=== PATIENT | female | born 1960 | race Caucasian/White ===

== ENCOUNTER 2024-01-12 22:51 | Emergency (ER) | payer OTHER, SELFPAY ==
[2024-01-12 23:01] VITALS: BP 127/80
--- NOTE | 2024-01-12 23:24 | ED.GENMED ---
History of Present Illness
General
Chief Complaint: Alcohol Problem
Source: patient and police
Exam Limitations: other (Patient uncooperative verbally abusive towards staff)
Time Seen by Provider: 01/12/24 23:23
Nursing documentation reviewed up to this point in time: agreed with
Travel History
Have you had any contact with someone who has COVID-19?: No
Do you have any symptoms of coronavirus? Fever > 100 degrees, chills, cough, shortness of breath, sore throat, loss of taste or smell, muscle aches, or headache?: No
History of Present Illness
History of Present Illness:
63-year-old female brought in for suspicion of DUI. She refused a breathalyzer test. She did vomit in the police officers vehicle. Patient refused blood work. Verbally abusive towards staff cursing and refusing all interventions.
Past History
Past History
ED Past Medical History: Hypothyroidism, Psychiatric and Other (overdose, recovering alcoholic, depression, alcohol abuse, degenerative joint disease)
ED Past Surgical History: Orthopedic (Cervical fusion over 20 years ago)
Social History
Tobacco: Vaping
Alcohol: Former
Drug: Former user
Living: with roommate
Employment: Disabled
Family History
Family History: Other (Noncontributory)
Review of Systems
Review of Systems
Allergies reviewed?: Yes
All Other Systems: ROS reviewed and negative except as documented in HPI and ROS
Constitutional: Reports no symptoms
EENT: Reports no symptoms
Respiratory: Reports no symptoms
Cardiac: Reports no symptoms
ABD/GI: Reports nausea and vomiting
: Reports no symptoms
Musculoskeletal: Reports no symptoms
Skin: Reports no symptoms
Neurological: Reports no symptoms
Endocrine: Reports no symptoms
Hematologic/Lymphatic: Reports no symptoms
Psychiatric: Reports anxiety
Phy Exam
General Physical Exam
General Presentation: no apparent distress
General age: appears older than age
General Skin: warm and dry
General Habitus: elderly
General Mental: appears intoxicated
General Hydration: appears well hydrated
Pulmonary Exam
Pulmonary Exam: no respiratory distress
Neurological Exam
Neurological Exam: alert, oriented x3 and appears intoxicated
Musculoskeletal Exam
Musculoskeletal Exam: full ROM
Skin Exam
Skin Exam: normal color and warm/dry
Psychiatric Exam
Psychiatric Exam: agitated and anxious
Scores
Withdrawal Assessment of Alcohol
Withdrawal Assessment Completed?: Not applicable
Course
Vital Signs
Initial and Last Documented VS:
Initial Vital Signs
Temp Pulse Resp BP Pulse Ox
97.8 F 65 20 127/80 97
01/12/24 23:01 01/12/24 23:01 01/12/24 23:01 01/12/24 23:01 01/12/24 23:01
Last Documented Vital Signs
Temp Pulse Resp BP Pulse Ox
97.8 F 65 20 127/80 97
01/12/24 23:01 01/12/24 23:01 01/12/24 23:01 01/12/24 23:01 01/12/24 23:06
*Critical Care Note
Total Time (30-74mins, 75-104mins- exclusive of procedures): Not Applicable
ED Attending Note
-
Portions of this chart may have been created with voice recognition software.� Occasional wrong word or��sound alike� substitutions may have occurred due to the inherent limitations of voice recognition software.
Discharge Plan
Departure
Patient Disposition: Home (Routine Discharge)
Date of Disposition: 01/12/24
Time of Disposition: 23:34
Patient with high blood pressure during this ER visit?: Yes
Discharge Problem:
Alcohol abuse, Vomiting
Instructions: Alcohol Use Disorder (DC), BLOOD PRESSURE
Prescriptions:
No Action
levothyroxine 137 mcg Tablet
137 mcg PO DAILY AT 0700
duloxetine 60 mg capsule,delayed release(DR/EC)
60 mg PO DAILY
famotidine 40 mg tablet
40 mg PO DAILY
dicyclomine 20 mg tablet
20 mg PO BID
budesonide 3 mg capsule,delayed,extend.release
9 mg PO DAILY
multivitamin Tablet
1 tab PO DAILY
vitamin B complex Capsule
1 cap PO DAILY
thiamine HCl (vitamin B1) 100 mg tablet
100 mg PO DAILY
folic acid 1 mg Tablet
1 mg PO DAILY Qty: 10 0RF
amlodipine 5 mg Tablet
5 mg PO BID Qty: 120 0RF
acetaminophen [Acetaminophen Extra Strength] 500 mg Tablet
1,000 mg PO Q6H PRN (Reason: mild pain/ fever)
bupropion HCl 300 mg Tablet Extended Release 24 Hr
300 mg PO DAILY
metoprolol tartrate 50 mg tablet
25 mg PO BID
gabapentin 300 mg capsule
300 mg PO BID
Referrals:
[facility] [Active] -
UNKNOWN - PT DOES,NOT KNOW [Family Provider] -
Interventions
Interventions:
*Risk Screen - Suicide Last Done: 01/12/24 23:06
*Neglect/Abuse Screening Last Done: 01/12/24 23:06
ED- Neurological Assessment Last Done: 01/12/24 23:06
ED-Psychological Assessment Last Done: 01/12/24 23:06
== END 2024-01-13 00:05 | disposition home or self-care (01) ==
LOC: EMR 22:51
PROVIDERS: EMERGENCY PHYSICIAN Student in an Organized Health Care Education/Training Program
DX: F10.10 Alcohol abuse, uncomplicated (principal); R03.0 Elevated blood-pressure reading, without diagnosis of hypertension; R11.2 Nausea with vomiting, unspecified; F17.290 Nicotine dependence, other tobacco product, uncomplicated
CPT/HCPCS: 99283

== ENCOUNTER 2024-02-20 20:49 | Emergency (ER) | payer OTHER, SELFPAY ==
[2024-02-20 20:59] VITALS: BP 149/85
[2024-02-20 22:00] VITALS: BP 178/83
[2024-02-20] MEDS: TYLENOL 650 MG PO (22:02)
[2024-02-20] MEDS: ADACEL 0.5 ML IM (22:03)
[2024-02-20] MEDS: KEFLEX 500 MG PO (22:03)
--- NOTE | 2024-02-20 22:20 | ED.GENMED ---
Addendum entered and electronically signed by Douglas Li DO 02/20/24 23:34:
EKG normal sinus rhythm 70 bpm no ischemic changes
Addendum entered and electronically signed by Douglas Li DO 02/20/24 23:07:
Accu-Chek noted patient strong radial pulse, caregiver concerned that she is passing would like to have some blood work patient denies any alcohol
Addendum entered and electronically signed by Douglas Li DO 02/20/24 22:46:
Update caregiver friend now at bedside questions about why she fell, patient apparently is on the toilet fell over struck her face, prior records reviewed she chronic alcoholism, substance abuse, had been in rehab previously, she is concerned that
she may have low blood sugar which is not unreasonable we will check an Accu-Chek
Original Note:
History of Present Illness
General
Chief Complaint: Fall
Source: patient
Exam Limitations: none
Time Seen by Provider: 02/20/24 21:37
Nursing documentation reviewed up to this point in time: agreed with
Travel History
Have you had any contact with someone who has COVID-19?: No
Do you have any symptoms of coronavirus? Fever > 100 degrees, chills, cough, shortness of breath, sore throat, loss of taste or smell, muscle aches, or headache?: No
History of Present Illness
History of Present Illness:
63-year-old female apparently slipped fell into a shower door struck her face, no loss of consciousness bruising about her nose, no preceding chest pain or shortness of breath no neck pain
Past History
Past History
ED Past Medical History: Hypothyroidism, Psychiatric and Other (overdose, recovering alcoholic, depression, alcohol abuse, degenerative joint disease)
ED Past Surgical History: Orthopedic (Cervical fusion over 20 years ago)
Social History
Tobacco: Vaping
Alcohol: Former
Drug: Former user
Living: with roommate
Employment: Disabled
Family History
Family History: Other (Noncontributory)
Review of Systems
Review of Systems
All Other Systems: Not applicable
EENT: Reports other (Nasal swelling)
Respiratory: Reports no symptoms
Cardiac: Reports no symptoms
ABD/GI: Reports no symptoms
: Reports no symptoms
Musculoskeletal: Reports no symptoms
Phy Exam
Physical Exam
Physical Exam:
Physical Exam
General: Chronically ill-appearing female looks older than stated age marked swelling of the nose small stellate laceration of the bridge of the nose small stellate respiration on the forehead
Neck: No tongue bite no posterior neck pain no septal hematoma
Heart: s1/s2 regular rate and rhythm, no murmur. equal radial pulses.
Lungs: no acute respiratory distress.
Neuro: alert and oriented. no focal neurological deficits
Skin: no rash
Psychiatric: Cooperative
Extremities: no edema.
Course
Orders/Labs/Results
Orders:
Orders
02/20/24 21:05
CT Facial Bones W/o Iv Contras Urgent
Comment:
Reason For Exam: fall, injury
CT Head W/o Iv Contrast Urgent
Comment:
Reason For Exam: fall, injury
02/20/24 21:50
Ice Pack-Treatment DIRECTED
Location: face
Acetaminophen [Tylenol] 650 mg PO NOW STA
Tetanus/Diphth/Acelpertussis [Adacel] 0.5 ml IM .ONCE ONE
02/20/24 21:51
Cephalexin Monohydrate [Keflex] 500 mg PO NOW STA
Vital Signs
Initial and Last Documented VS:
Initial Vital Signs
Temp Pulse Resp BP Pulse Ox
96.5 F L 50 16 149/85 100
02/20/24 20:59 02/20/24 20:59 02/20/24 20:59 02/20/24 20:59 02/20/24 20:59
Last Documented Vital Signs
Temp Pulse Resp BP Pulse Ox
96.5 F L 63 16 178/83 99
02/20/24 20:59 02/20/24 22:00 02/20/24 20:59 02/20/24 22:00 02/20/24 21:40
MDM/Problems Addressed
Differential Diagnosis Includes:
Slip and fall nasal fracture intracerebral hemorrhage,
MDM/Problems Addressed:
Nasal trauma
Chronic conditions affecting care:
Hypertension stroke prior alcohol
Acute Exacerbation and/or Progression of Chronic Illness:
Hypertensive stroke prior alcohol
*Radiology
Radiology exam reviewed: radiology read reviewed
*Pulse Oximetry
Patient hypoxic: no
*Critical Care Note
Total Time (30-74mins, 75-104mins- exclusive of procedures): Not Applicable
Update Note
Update Note:
Update slip and fall, looks like a nasal fracture clinically and radiographically no visualized septal hematoma, update tetanus start on antibiotics provide wound care
ED Attending Note
-
Portions of this chart may have been created with voice recognition software.� Occasional wrong word or��sound alike� substitutions may have occurred due to the inherent limitations of voice recognition software.
Discharge Plan
Departure
Patient Disposition: Home (Routine Discharge)
Date of Disposition: 02/20/24
Time of Disposition: 22:23
Patient with high blood pressure during this ER visit?: No
Condition: Good
Discharge Problem:
Nasal bone fracture
Instructions: Wound Care (DC), Preventing falls in adults, Nose Fracture ED
Prescriptions:
New
cephalexin 500 mg capsule
500 mg PO Q8H 7 Days Qty: 21 0RF
No Action
levothyroxine 137 mcg Tablet
137 mcg PO DAILY AT 0700
duloxetine 60 mg capsule,delayed release(DR/EC)
60 mg PO DAILY
famotidine 40 mg tablet
40 mg PO DAILY
dicyclomine 20 mg tablet
20 mg PO BID
budesonide 3 mg capsule,delayed,extend.release
9 mg PO DAILY
multivitamin Tablet
1 tab PO DAILY
vitamin B complex Capsule
1 cap PO DAILY
thiamine HCl (vitamin B1) 100 mg tablet
100 mg PO DAILY
folic acid 1 mg Tablet
1 mg PO DAILY Qty: 10 0RF
amlodipine 5 mg Tablet
5 mg PO BID Qty: 120 0RF
acetaminophen [Acetaminophen Extra Strength] 500 mg Tablet
1,000 mg PO Q6H PRN (Reason: mild pain/ fever)
bupropion HCl 300 mg Tablet Extended Release 24 Hr
300 mg PO DAILY
metoprolol tartrate 50 mg tablet
25 mg PO BID
gabapentin 300 mg capsule
300 mg PO BID
Referrals:
UNKNOWN - PT DOES,NOT KNOW [Family Provider] -
Felipe Magallanes MD [Active] - Follow up in 5-7 days
Interventions
Interventions:
*Risk Screen - Suicide Last Done: 02/20/24 20:59
*General Assessment Last Done: 02/20/24 21:20
*Neglect/Abuse Screening Last Done: 02/20/24 20:59
ED- Fall Risk Assessment Last Done: 02/20/24 21:39
*ED COVID-19 Vaccine History Last Done: 02/20/24 21:20
ED-Musculoskeletal Assessment Last Done: 02/20/24 21:39
ED- Neurological Assessment Last Done: 02/20/24 21:39
ED-Skin Assessment Last Done: 02/20/24 21:46
Discharge Date and Time
Print Language: TUVALUAN
[2024-02-20 22:49] LABS: Glucose - Point of Care 91 mg/dl (70-99)
[2024-02-20 23:24] VITALS: BP 151/88
[2024-02-21 01:01] LABS: % Basophils 0.8 % (0-2); % Eosinophils 2.8 % (0-6); % Immature Granulocytes 0.4 % (0-0.5); % Lymphocytes 18.5 % (20.5-51.1); % Monocytes 10.1 % (1.7-9.3); % Neutrophils 67.4 % (42.2-75.2); Absolute Basophils 0.1 10^3/uL (0-0.2); Absolute Eosinophils 0.2 10^3/uL (0-0.7); Absolute Lymphocytes 1.5 10^3/uL (1.2-3.4); Absolute Monocytes 0.8 10^3/uL (0.1-0.6); Absolute Neutrophils 5.3 10^3/uL (1.4-6.5); Hematocrit 40.7 % (37.0-47.0); Hemoglobin 13.8 g/dL (12.0-16.0); Mean Corp Hgb Conc. 33.9 g/dL (33.0-37.0); Mean Corpuscular Hgb 30.4 pg (27.0-31.0); Mean Corpuscular Volume 89.6 fL (81.0-99.0); Mean Platelet Volume 8.9 fL (7.4-10.4); Nucleated Red Blood Cells % 0 %; Platelet Count 417 10^3/uL (130-400); Red Blood Cell Count 4.54 10^6/uL (4.20-5.40); Red Cell Dist. Width 12.8 % (11.5-14.5); White Blood Cell Count 7.9 10^3/uL (4.8-10.8)
[2024-02-21 01:17] LABS: ALT (SGPT) 17 U/L (0-35); AST (SGOT) 25 U/L (14-36); Albumin 4.7 g/dl (3.5-5.0); Alkaline Phosphatase 118 U/L (38-126); Blood Urea Nitrogen 15 mg/dl (7-17); Calcium 9.5 mg/dl (8.4-10.2); Carbon Dioxide 25 mmol/L (22-30); Chloride 102 mmol/L (98-107); Glucose 109 mg/dl (70-99); Potassium 4.8 mmol/L (3.5-5.1); Sodium 133 mmol/L (135-145); Total Bilirubin 0.4 mg/dl (0.2-1.3); Total Protein 7.7 g/dl (6.3-8.2); eGFR > 60.00
[2024-02-21 01:18] LABS: Alcohol None Detected
== END 2024-02-21 01:54 | disposition home or self-care (01) ==
LOC: EMR 20:49
PROVIDERS: EMERGENCY PHYSICIAN Emergency Medicine
DX: S02.2XXA Fracture of nasal bones, initial encounter for closed fracture (principal); W18.2XXA Fall in (into) shower or empty bathtub, initial encounter; Y93.E1 Activity, personal bathing and showering; Z23 Encounter for immunization; E03.9 Hypothyroidism, unspecified; F10.21 Alcohol dependence, in remission; F17.290 Nicotine dependence, other tobacco product, uncomplicated; M19.90 Unspecified osteoarthritis, unspecified site
CPT/HCPCS: 99284; 90471; 70450; 70486; 80053; 82077; 82962; 83735; 85025; 90715; 93005

== ENCOUNTER 2024-04-16 15:09 | Emergency (ER) | payer OTHER, SELFPAY ==
[2024-04-16 15:28] LABS: Glucose - Point of Care 108 mg/dl (70-99)
[2024-04-16 15:40] VITALS: BP 136/75
--- NOTE | 2024-04-16 16:02 | ED.GENMED ---
History of Present Illness
General
Chief Complaint: Change in Mental Status
Source: patient
Exam Limitations: none
Time Seen by Provider: 04/16/24 15:15
Nursing documentation reviewed up to this point in time: agreed with
Travel History
Have you had any contact with someone who has COVID-19?: No
Do you have any symptoms of coronavirus? Fever > 100 degrees, chills, cough, shortness of breath, sore throat, loss of taste or smell, muscle aches, or headache?: No
History of Present Illness
History of Present Illness:
Patient status post left hip fracture and repair 1 week ago at [facility], discharged to rehab yesterday, presents to ED from [facility] rehab facility secondary to increased agitation this afternoon. Patient was given 2 mg of Suboxone,
as patient takes her medication daily. Upon arrival to ED, patient is anxious and angry. Unable to obtain any further information at this time.
Past History
Past History
ED Past Medical History: Hypothyroidism, Psychiatric and Other (overdose, recovering alcoholic, depression, alcohol abuse, degenerative joint disease)
ED Past Surgical History: Orthopedic (Cervical fusion over 20 years ago)
Social History
Tobacco: Vaping
Alcohol: Former
Drug: Former user
Living: with roommate
Employment: Disabled
Family History
Family History: Other (Noncontributory)
Review of Systems
Review of Systems
Allergies reviewed?: Yes
Unable to obtain full review of systems at this time due to: due to acuity
All Other Systems: Not applicable
Phy Exam
Physical Exam
Physical Exam:
Physical Exam
General: mild distress, not acutely ill. afebrile. agitated.
Head: nc/at. eomi
Neck: supple. normal range of motion
Neuro: alert and awake. no focal neurological deficits
Skin: no rash
Psychiatric: agitated, uncooperative
Extremities: no edema. no calf tenderness.
Course
Orders/Labs/Results
Orders:
Orders
04/16/24 16:58
Case Management Consult ONCE
Case Management Consult: Discharge Planning
Abnormal Lab Results
04/16/24
15:27
POC Glucose 108 H mg/dl
(70-99)
Vital Signs
Initial and Last Documented VS:
Initial Vital Signs
Temp Pulse Resp BP Pulse Ox
97.4 F 62 14 136/75 97
04/16/24 15:40 04/16/24 15:40 04/16/24 15:40 04/16/24 15:40 04/16/24 15:40
Last Documented Vital Signs
Temp Pulse Resp BP Pulse Ox
97.4 F 66 14 121/78 98
04/16/24 15:40 04/16/24 19:06 04/16/24 19:06 04/16/24 19:06 04/16/24 19:06
MDM/Problems Addressed
MDM/Problems Addressed:
Pt is easily arousable but falls asleep after brief conversation. Pt otherwise is afebrile and hemodynamically stable without any neurological deficit. No indication for any further workup at this time, as patient's etiology for agitation appears to
be circumstantial, confirmed by patient's live-in partner. Despite recent surgery and need for close observation with PT/OT, patient insists upon going home, rather than return back to rehab. Partner comfortable taking her home at this time, as they
live on first floor and had wheelchair and walker at home. As such, patient evaluated by case management, Charlotte, and arrangements made for home RN visit as well as home PT/OT.
*Critical Care Note
Total Time (30-74mins, 75-104mins- exclusive of procedures): Not Applicable
ED Attending Note
-
Portions of this chart may have been created with voice recognition software.� Occasional wrong word or��sound alike� substitutions may have occurred due to the inherent limitations of voice recognition software.
Discharge Plan
Departure
Patient Disposition: Home (Routine Discharge)
Date of Disposition: 04/16/24
Time of Disposition: 18:04
Patient with high blood pressure during this ER visit?: Yes
Condition: Good
Discharge Problem:
Altered mental status
Instructions: Altered Mental Status (DC)
Prescriptions:
No Action
levothyroxine 137 mcg Tablet
137 mcg PO DAILY AT 0700
duloxetine 60 mg capsule,delayed release(DR/EC)
60 mg PO DAILY
famotidine 40 mg tablet
40 mg PO DAILY
dicyclomine 20 mg tablet
20 mg PO BID
budesonide 3 mg capsule,delayed,extend.release
9 mg PO DAILY
multivitamin Tablet
1 tab PO DAILY
vitamin B complex Capsule
1 cap PO DAILY
thiamine HCl (vitamin B1) 100 mg tablet
100 mg PO DAILY
folic acid 1 mg Tablet
1 mg PO DAILY Qty: 10 0RF
amlodipine 5 mg Tablet
5 mg PO BID Qty: 120 0RF
acetaminophen [Acetaminophen Extra Strength] 500 mg Tablet
1,000 mg PO Q6H PRN (Reason: mild pain/ fever)
bupropion HCl 300 mg Tablet Extended Release 24 Hr
300 mg PO DAILY
metoprolol tartrate 50 mg tablet
25 mg PO BID
gabapentin 300 mg capsule
300 mg PO BID
cephalexin 500 mg capsule
500 mg PO Q8H 7 Days Qty: 21 0RF
Referrals:
Tristen Romo MD [Family Provider] -
Activity Restrictions/Additional Instructions:
As discussed, at your request, you are being discharged home, rather than returning to rehab facility. ED case management has made arrangement for home PT/OT, as well as visiting nurse.
Interventions
Interventions:
*Risk Screen - Suicide Last Done: 04/16/24 19:28
*General Assessment Last Done: 04/16/24 18:01
*Neglect/Abuse Screening Last Done: 04/16/24 19:28
ED- Fall Risk Assessment Last Done: 04/16/24 19:28
*ED COVID-19 Vaccine History Last Done: 04/16/24 18:01
*Nursing Disposition Last Done: 04/16/24 19:28
ED- Neurological Assessment Last Done: 04/16/24 16:00
ED-Psychological Assessment Last Done: 04/16/24 15:30
ED Swallowing Screen Last Done: 04/16/24 19:27
Discharge Date and Time
Discharge Date/Time: 04/16/24 19:29
Print Language: UPPER SORBIAN
--- NOTE | 2024-04-16 17:20 | CM ---
Addendum entered by Charlotte Heredia RN 04/17/24 12:19:
[facility] confirmed that patient had been referred to them in the past and she was uncooperative with visits. [facility] was unable to provide care.
CM did confirm that [facility] is now able to accept.
Addendum entered by Charlotte Heredia RN 04/17/24 09:51:
[facility] cannot accept as patient is a 'non-admit'. [facility] is now able to accept.
Addendum entered by Charlotte Heredia RN 04/17/24 08:58:
[facility] unable to accept. Referral sent to [facility].
Original Note:
CM was consulted regarding home care services. CM spoke with patient's room mate Darnell. Patient was sleeping during assessment. Patient's room mate stated that she was recently at [facility] for change in mental status. During that stay,
patient wanted to leave AMA. Patient left on foot out of [facility] where state police found her. Patient has fallen while attempting to walk home. Patient sustained a hip fracture. She was then hospitalized for 7 days . Subsequently, she
was transferred to [facility] on 04/15.
Patient then presented to the ER from [facility] with aggressive behavior. She does not want to return to [facility]. Patient's room mate is agreeable to [facility]. Patient's room mate did state that the apartment is cluttered.
Of note, patient is room mate paid care director rn.Patient's room mate is able to drive patient home.
CM sent referral via [facility] to [facility].
[2024-04-16 17:30] VITALS: BP 114/66
[2024-04-16 19:06] VITALS: BP 121/78
== END 2024-04-16 19:29 | disposition home or self-care (01) ==
LOC: EMR 15:09
PROVIDERS: EMERGENCY PHYSICIAN Emergency Medicine; FAMILY PHYSICIAN Internal Medicine
DX: R41.82 Altered mental status, unspecified (principal); R45.1 Restlessness and agitation; R03.0 Elevated blood-pressure reading, without diagnosis of hypertension; E03.9 Hypothyroidism, unspecified; M19.90 Unspecified osteoarthritis, unspecified site; E11.9 Type 2 diabetes mellitus without complications; D64.9 Anemia, unspecified; F41.9 Anxiety disorder, unspecified; I25.10 Atherosclerotic heart disease of native coronary artery without angina pectoris; I10 Essential (primary) hypertension; K52.9 Noninfective gastroenteritis and colitis, unspecified; F10.21 Alcohol dependence, in remission; F17.290 Nicotine dependence, other tobacco product, uncomplicated; F32.A Depression, unspecified; I25.2 Old myocardial infarction; Z98.890 Other specified postprocedural states; M43.22 Fusion of spine, cervical region; Z86.19 Personal history of other infectious and parasitic diseases
CPT/HCPCS: 99283; 82962

== ENCOUNTER 2024-04-27 15:18 | Emergency (ER) | payer OTHER, SELFPAY ==
[2024-04-27 15:22] VITALS: BP 103/70
[2024-04-27 16:00] VITALS: BP 94/58
[2024-04-27 16:03] LABS: % Basophils 0.7 % (0-2); % Eosinophils 4.1 % (0-6); % Immature Granulocytes 0.3 % (0-0.5); % Lymphocytes 18.6 % (20.5-51.1); % Monocytes 11.7 % (1.7-9.3); % Neutrophils 64.6 % (42.2-75.2); Absolute Eosinophils 0.2 10^3/uL (0-0.7); Absolute Lymphocytes 1.1 10^3/uL (1.2-3.4); Absolute Monocytes 0.7 10^3/uL (0.1-0.6); Absolute Neutrophils 3.8 10^3/uL (1.4-6.5); Hematocrit 26.7 % (37.0-47.0); Hemoglobin 8.8 g/dL (12.0-16.0); Mean Corpuscular Hgb 30.2 pg (27.0-31.0); Mean Corpuscular Volume 91.8 fL (81.0-99.0); Nucleated Red Blood Cells % 0 %; Platelet Count 351 10^3/uL (130-400); Red Blood Cell Count 2.91 10^6/uL (4.20-5.40); Red Cell Dist. Width 14.8 % (11.5-14.5); White Blood Cell Count 5.8 10^3/uL (4.8-10.8)
[2024-04-27 16:10] LABS: Ammonia < 9 umol/L (9-30)
[2024-04-27 16:13] LABS: ALT (SGPT) 15 U/L (0-35); AST (SGOT) 21 U/L (14-36); Acetaminophen < 10 ug/ml (10-30); Albumin 4.1 g/dl (3.5-5.0); Alkaline Phosphatase 155 U/L (38-126); Blood Urea Nitrogen 14 mg/dl (7-17); Calcium 9.4 mg/dl (8.4-10.2); Carbon Dioxide 26 mmol/L (22-30); Chloride 107 mmol/L (98-107); Glucose 127 mg/dl (70-99); Potassium 3.7 mmol/L (3.5-5.1); Salicylate < 1.0 mg/dl (2.0-20.0); Sodium 143 mmol/L (135-145); Total Bilirubin 0.3 mg/dl (0.2-1.3); Total Protein 6.6 g/dl (6.3-8.2); eGFR > 60.00
[2024-04-27 16:19] LABS: Amphetamines Negative (Negative); Barbiturates Negative (Negative); Benzodiazepines Negative (Negative); Buprenorphine Positive (Negative); Cocaine Negative (Negative); Marijuana Negative (Negative); Methadone Negative (Negative); Methamphetamines Negative (Negative); Opiates Negative (Negative); Phencyclidine Negative (Negative); Tricyclic Antidepressants Negative (Negative)
--- NOTE | 2024-04-27 16:20 | ED.GENMED ---
History of Present Illness
<TERRY Gamboa - Last Filed: 04/27/24 22:12>
General
Chief Complaint: Change in Mental Status
Exam Limitations: altered mental status
Time Seen by Provider: 04/27/24 15:42
Nursing documentation reviewed up to this point in time: agreed with
Travel History
Have you had any contact with someone who has COVID-19?: No
Do you have any symptoms of coronavirus? Fever > 100 degrees, chills, cough, shortness of breath, sore throat, loss of taste or smell, muscle aches, or headache?: No
History of Present Illness
History of Present Illness:
63 yr old female with past medical history of alcohol abuse substance abuse depression hep C intracranial bleed was brought by EMS. Patient apparently was acting erratic outside and [facility] banging her head again car windows. EMS report the patient
was in and out of it' dipping out' and ride to the hospital. During my exam patient was sleeping after several times calling her name she awoke. Patient is oriented however intermittently falling asleep spontaneously throughout questioning.
She admits that she is on Suboxone
She had as documented in history left hip fracture repaired in March at [facility].
Past History
<TERRY Gamboa - Last Filed: 04/27/24 22:12>
Past History
ED Past Medical History: Hypothyroidism, Psychiatric and Other (overdose, recovering alcoholic, depression, alcohol abuse, degenerative joint disease)
ED Past Surgical History: Orthopedic (Cervical fusion over 20 years ago)
Social History
Tobacco: Vaping
Alcohol: Former
Drug: Former user
Living: with roommate
Employment: Disabled
Family History
Family History: Other (Noncontributory)
Phy Exam
<TERRY Gamboa - Last Filed: 04/27/24 22:12>
General Physical Exam
General Presentation: no apparent distress
General age: appears stated age
General Skin: warm and dry
General Habitus: elderly
General Mental: alert
General Hydration: appears well hydrated
Cardiovascular Exam
Cardiovascular Exam: regular rate/rhythm, no murmur and normal peripheral pulses
Pulmonary Exam
Pulmonary Exam: lungs clear and no respiratory distress
Neurological Exam
Neurological Exam: alert and other (Appear sleeping but when awoken will answer questions and is orientedx3 moves all extremities )
Musculoskeletal Exam
Musculoskeletal Exam: other (lle with healing incisions to left lateral hip no wound dehiscence no erythema or swelling full range of motion)
Skin Exam
Skin Exam: normal color and warm/dry
Psychiatric Exam
Psychiatric Exam: normal mood/affect
Course
<TERRY Gamboa - Last Filed: 04/27/24 22:12>
Orders/Labs/Results
Orders:
Orders
04/27/24 15:42
Acetaminophen Urgent
Alcohol Urgent
Ammonia Urgent
Complete Blood Count/With Diff Urgent
Comprehensive Metabolic Panel Urgent
Fentanyl, Urine Urgent
Salicylate Urgent
Urine Drug Abuse Screen Urgent
Date Specimen was Collected: 04/27/24
Time Specimen was Collected: 15:35
04/27/24 16:27
CT Head W/o Iv Contrast Urgent
Comment:
Reason For Exam: trauma
04/27/24 16:28
0.9% Sodium Chloride 1000 ml [Nss] 1,000 ml IV BOLUS
04/27/24 17:37
Add On- LAB Urgent
Tests Added?: alcohol
Abnormal Lab Results
04/27/24
15:42
RBC 2.91 L 10^6/uL
(4.20-5.40)
Hgb 8.8 L g/dL
(12.0-16.0)
Hct 26.7 L %
(37.0-47.0)
RDW 14.8 H %
(11.5-14.5)
Absolute Lymphs (auto) 1.1 L 10^3/uL
(1.2-3.4)
Absolute Monos (auto) 0.7 H 10^3/uL
(0.1-0.6)
Lymphocytes % 18.6 L %
(20.5-51.1)
Monocytes % 11.7 H %
(1.7-9.3)
Glucose 127 H mg/dl
(70-99)
Alkaline Phosphatase 155 H U/L
(38-126)
Ammonia < 9 L umol/L
(9-30)
Salicylates < 1.0 L mg/dl
(2.0-20.0)
Ur Buprenorphine Positive H
(Negative)
Acetaminophen < 10 L ug/ml
(10-30)
04/27/24 15:42
04/27/24 15:42
Vital Signs
Initial and Last Documented VS:
Initial Vital Signs
Temp Pulse Resp
98.1 F 79 18
04/27/24 15:20 04/27/24 15:20 04/27/24 15:20
Last Documented Vital Signs
Temp Pulse Resp BP Pulse Ox
98.2 F 74 18 100/62 99
04/27/24 19:37 04/27/24 19:37 04/27/24 19:37 04/27/24 19:37 04/27/24 19:37
<Adán Moore, DO - Last Filed: 04/27/24 19:19>
Orders/Labs/Results
Orders:
Orders
04/27/24 15:42
Acetaminophen Urgent
Alcohol Urgent
Ammonia Urgent
Complete Blood Count/With Diff Urgent
Comprehensive Metabolic Panel Urgent
Fentanyl, Urine Urgent
Salicylate Urgent
Urine Drug Abuse Screen Urgent
Date Specimen was Collected: 04/27/24
Time Specimen was Collected: 15:35
04/27/24 16:27
CT Head W/o Iv Contrast Urgent
Comment:
Reason For Exam: trauma
04/27/24 16:28
0.9% Sodium Chloride 1000 ml [Nss] 1,000 ml IV BOLUS
04/27/24 17:37
Add On- LAB Urgent
Tests Added?: alcohol
Abnormal Lab Results
04/27/24
15:42
RBC 2.91 L 10^6/uL
(4.20-5.40)
Hgb 8.8 L g/dL
(12.0-16.0)
Hct 26.7 L %
(37.0-47.0)
RDW 14.8 H %
(11.5-14.5)
Absolute Lymphs (auto) 1.1 L 10^3/uL
(1.2-3.4)
Absolute Monos (auto) 0.7 H 10^3/uL
(0.1-0.6)
Lymphocytes % 18.6 L %
(20.5-51.1)
Monocytes % 11.7 H %
(1.7-9.3)
Glucose 127 H mg/dl
(70-99)
Alkaline Phosphatase 155 H U/L
(38-126)
Ammonia < 9 L umol/L
(9-30)
Salicylates < 1.0 L mg/dl
(2.0-20.0)
Ur Buprenorphine Positive H
(Negative)
Acetaminophen < 10 L ug/ml
(10-30)
04/27/24 15:42
04/27/24 15:42
Vital Signs
Initial and Last Documented VS:
Initial Vital Signs
Temp Pulse Resp
98.1 F 79 18
04/27/24 15:20 04/27/24 15:20 04/27/24 15:20
Last Documented Vital Signs
Temp Pulse Resp BP Pulse Ox
98.2 F 74 18 100/62 99
04/27/24 19:37 04/27/24 19:37 04/27/24 19:37 04/27/24 19:37 04/27/24 19:37
<TERRY Gamboa - Last Filed: 04/27/24 22:12>
MDM/Problems Addressed
Differential Diagnosis Includes:
Not limited to medication reaction drug use
MDM/Problems Addressed:
Patient is a 63-year-old female who was found at [facility] acting erratically brought by EMS. EMS reports the patient was intermittently falling asleep/' dipping out.' On my exam as documented patient was sleeping after several times calling her name
she did wake up. She is awake alert and oriented . She does have chronic pain. She is on buprenorphine. She denies any recent alcohol use. She has scattered old bruising to her face. CT head was done and negative. She is afebrile. She denies
any recent fevers. She does report that she recently had hip fracture and surgery done in [place] 2 weeks ago. She does tell me that she required 2 units of blood because she was anemic. Her hemoglobin today is 8.8 (which is significant lower
than last hemoglobin that was done here in February 2024 however that was prior to her hip fracture. Her chemistries are unremarkable. She is positive for buprenorphine negative for opiates negative for fentanyl negative for benzos.
1800: Caregiver who lives the patient is at bedside and reports that patient was doing very well today in fact drove herself to [facility]. He reports she is intermittently falling asleep and having outbursts. He reports the last time she got this is
why she was taking baclofen. Patient does admit to taking baclofen today and this is likely the cause. Patient had a lunch box here and is more awake alert.
Evaluated by ED physician no other concerning findings stable for discharge home with patient's remaining caregiver
<TERRY Gamboa - Last Filed: 04/27/24 22:12>
*Radiology
Radiology exam reviewed: radiology read reviewed
*Pulse Oximetry
Patient hypoxic: no
*Critical Care Note
Total Time (30-74mins, 75-104mins- exclusive of procedures): Not Applicable
ED Attending Note
<TERRY Gamboa - Last Filed: 04/27/24 22:12>
-
Portions of this chart may have been created with voice recognition software.� Occasional wrong word or��sound alike� substitutions may have occurred due to the inherent limitations of voice recognition software.
<Adán Moore DO - Last Filed: 04/27/24 19:19>
ED Attending Note
Patient seen and examined by attending physician: Yes
I performed the substantive portion of visit, reviewed & personally made and approve the management plan that is documented in note by myself or KELLEY.: Yes
ED Attending Note:
63-year-old female who presents after was acting erratic at a [facility]. Patient states that she sort of fell and Mikaela somebody became worried about her. She does admit she took baclofen this morning which she normally takes at night. She also is on
Suboxone. Patient on my evaluation is much improved but she was on arrival somewhat somnolent. Exam: Awake and alert, no focal deficits, speech normal, patient eating a sandwich when I am evaluating her. Assessment and plan: I do suspect this is
related to taking the baclofen and the combination of buprenorphine. She normally takes it at night and in the past when she takes it during the day has made her sleepy. Recommended that she does not drive while taking baclofen. Patient and
significant other agree. Outpatient follow-up recommended
Discharge Plan
Departure
Patient Disposition: Home (Routine Discharge)
Date of Disposition: 04/27/24
Time of Disposition: 19:19
Patient with high blood pressure during this ER visit?: No
Condition: Fair
Covid-19: Not Applicable
Discharge Problem:
Acute alteration in mental status
Instructions: Altered Mental Status (DC)
Prescriptions:
No Action
levothyroxine 137 mcg Tablet
137 mcg PO DAILY AT 0700
duloxetine 60 mg capsule,delayed release(DR/EC)
60 mg PO DAILY
famotidine 40 mg tablet
40 mg PO DAILY
dicyclomine 20 mg tablet
20 mg PO BID
budesonide 3 mg capsule,delayed,extend.release
9 mg PO DAILY
multivitamin Tablet
1 tab PO DAILY
vitamin B complex Capsule
1 cap PO DAILY
thiamine HCl (vitamin B1) 100 mg tablet
100 mg PO DAILY
folic acid 1 mg Tablet
1 mg PO DAILY Qty: 10 0RF
amlodipine 5 mg Tablet
5 mg PO BID Qty: 120 0RF
acetaminophen [Acetaminophen Extra Strength] 500 mg Tablet
1,000 mg PO Q6H PRN (Reason: mild pain/ fever)
bupropion HCl 300 mg Tablet Extended Release 24 Hr
300 mg PO DAILY
metoprolol tartrate 50 mg tablet
25 mg PO BID
gabapentin 300 mg capsule
300 mg PO BID
cephalexin 500 mg capsule
500 mg PO Q8H 7 Days Qty: 21 0RF
Referrals:
UNKNOWN,NO INTERVIEW [Family Provider] -
Activity Restrictions/Additional Instructions:
Take medication only as directed. Return if any worsening of symptoms. As discussed you are still anemic with a hemoglobin 8.8. Please follow-up with your family doctor for further evaluation
Interventions
Interventions:
*Risk Screen - Suicide Last Done: 04/27/24 15:20
*General Assessment Last Done: 04/27/24 15:20
*Neglect/Abuse Screening Last Done: 04/27/24 15:20
ED- Fall Risk Assessment Last Done: 04/27/24 15:49
*ED COVID-19 Vaccine History Last Done: 04/27/24 15:20
*Nursing Disposition Last Done: 04/27/24 19:37
ED- Pulmonary Assessment Last Done: 04/27/24 19:37
ED-Psychological Assessment Last Done: 04/27/24 15:20
ED- Neurological Assessment Last Done: 04/27/24 15:49
ED- Cardiac Assessment Last Done: 04/27/24 15:49
ED Swallowing Screen Last Done: 04/27/24 18:30
Discharge Date and Time
Discharge Date/Time: 04/27/24 19:40
Print Language: CITIZEN OF [place]
[2024-04-27 16:43] LABS: Fentanyl, Urine Negative (Negative)
[2024-04-27 18:24] LABS: Alcohol None Detected
[2024-04-27 19:37] VITALS: BP 100/62
== END 2024-04-27 19:40 | disposition home or self-care (01) ==
LOC: EMR 15:18
PROVIDERS: EMERGENCY PHYSICIAN Emergency Medicine
DX: R41.82 Altered mental status, unspecified (principal); F32.A Depression, unspecified; Z86.19 Personal history of other infectious and parasitic diseases; E03.9 Hypothyroidism, unspecified; D64.9 Anemia, unspecified; F10.21 Alcohol dependence, in remission; F17.290 Nicotine dependence, other tobacco product, uncomplicated
CPT/HCPCS: 99284; 70450; 80053; 80143; 80179; 80306; 80307; 82077; 82140; 85025

== ENCOUNTER 2024-06-13 23:27 | Inpatient (IN) | payer OTHER, SELFPAY ==
[2024-06-13] MEDS: HALDOL 5 MG IM (18:05)
[2024-06-13] MEDS: ATIVAN 1 MG IV ×2 (18:05→22:57)
[2024-06-13 18:39] LABS: % Basophils 0.7 % (0-2); % Eosinophils 2.2 % (0-6); % Immature Granulocytes 0.4 % (0-0.5); % Lymphocytes 12.1 % (20.5-51.1); % Monocytes 6.8 % (1.7-9.3); % Neutrophils 77.8 % (42.2-75.2); Absolute Basophils 0.1 10^3/uL (0-0.2); Absolute Eosinophils 0.2 10^3/uL (0-0.7); Absolute Lymphocytes 1.2 10^3/uL (1.2-3.4); Absolute Monocytes 0.7 10^3/uL (0.1-0.6); Absolute Neutrophils 7.6 10^3/uL (1.4-6.5); Hematocrit 31.5 % (37.0-47.0); Hemoglobin 10.6 g/dL (12.0-16.0); Mean Corp Hgb Conc. 33.7 g/dL (33.0-37.0); Mean Corpuscular Volume 89.2 fL (81.0-99.0); Mean Platelet Volume 8.6 fL (7.4-10.4); Nucleated Red Blood Cells % 0 %; Platelet Count 420 10^3/uL (130-400); Red Blood Cell Count 3.53 10^6/uL (4.20-5.40); Red Cell Dist. Width 13.5 % (11.5-14.5); White Blood Cell Count 9.7 10^3/uL (4.8-10.8)
[2024-06-13 19:00] VITALS: BP 105/71; BP 110/60
[2024-06-13 19:07] LABS: ALT (SGPT) 15 U/L (0-35); AST (SGOT) 22 U/L (14-36); Albumin 4.9 g/dl (3.5-5.0); Alkaline Phosphatase 138 U/L (38-126); Blood Urea Nitrogen 15 mg/dl (7-17); Calcium 10.1 mg/dl (8.4-10.2); Carbon Dioxide 21 mmol/L (22-30); Chloride 108 mmol/L (98-107); Glucose 105 mg/dl (70-99); Potassium 3.6 mmol/L (3.5-5.1); Sodium 141 mmol/L (135-145); Total Bilirubin 0.4 mg/dl (0.2-1.3); Total Protein 7.6 g/dl (6.3-8.2); eGFR > 60.00
--- NOTE | 2024-06-13 19:08 | ED.GENMED ---
History of Present Illness
<Adán Moore DO - Last Filed: 06/13/24 19:16>
General
Chief Complaint: Crisis Evaluation
Source: patient and ambulance crew
Exam Limitations: clinical condition
Time Seen by Provider: 06/13/24 18:03
History of Present Illness
History of Present Illness:
63-year-old female who presents acutely agitated. Friend came to pick her up for an AA meeting and found her to be verbally and physically aggressive. EMS arrived the patient escalated. She did come down for short period time but quickly
escalated with name-calling. EMS was able to give her a dose of Versed. Patient arrives cursing at staff and trying to climb out of bed. she also attempted to punch and kick staff. Patient reportedly has had similar outburst in the past both here
and at [facility]
Past History
<Adán Moore DO - Last Filed: 06/13/24 19:16>
Past History
ED Past Medical History: Hypothyroidism, Psychiatric and Other (overdose, recovering alcoholic, depression, alcohol abuse, degenerative joint disease)
ED Past Surgical History: Orthopedic (Cervical fusion over 20 years ago)
Social History
Tobacco: Vaping
Alcohol: Former
Drug: Former user
Living: with roommate
Employment: Disabled
Family History
Family History: Other (Noncontributory)
Phy Exam
<Adán Moore DO - Last Filed: 06/13/24 19:16>
Physical Exam
Physical Exam:
CONSTITUTIONAL Patient alert and oriented to person. Acutely agitated. Vital signs reviewed.
HEAD atraumatic, normocephalic.
EYES eyelids normal to inspection, Extraocular muscles intact, Conjunctiva normal, Sclera normal. She does have a healing right periorbital ecchymosis
NECK normal range of motion, Trachea midline, no jugular venous distention.
RESPIRATORY CHEST No respiratory distress noted, Chest expansion equal
ABDOMEN No distention.
BACK normal inspection, no obvious deformities
UPPER EXTREMITY range of motion normal, Motor strength normal, no cyanosis, no edema.
LOWER EXTREMITY range of motion normal, Motor strength normal, no cyanosis, no edema.
NEURO is able to aggressively move all extremities with normal strength. Cranial nerves are intact. Patient will not cooperate for detailed exam but actively fighting staff with normal
Course
<Adán Moore, - Last Filed: 06/13/24 19:16>
Orders/Labs/Results
Orders:
Orders
06/13/24 Dinner
Regular
At Your Request: Limited, Rib Cutter Required
06/13/24 18:05
Haloperidol Lactate [Haldol] 5 mg .ROUTE .STK-MED ONE
Haloperidol Lactate [Haldol] 5 mg IM NOW STA
Lorazepam [Ativan] 1 mg IV NOW STA
Lorazepam [Ativan] 2 mg .ROUTE .STK-MED ONE
06/13/24 18:10
Electrocardiogram (*1) Urgent
Reason for Study: Other
Other Reason for Exam: change in ms
EKG- Treatment ONCE
06/13/24 18:17
Restraints - Non Violent As Directed
Justification-Patient:: 2-Protective Intervention
Restraint Type-: Soft Limb-4 point/4 rails
Apply From (date): 06/13/24
Apply from (time): 18:10
Remove (date): 06/14/24
Remove (time): 23:59
06/13/24 18:28
Alcohol Urgent
Complete Blood Count/With Diff Urgent
Comprehensive Metabolic Panel Urgent
06/13/24 19:20
CT Head W/o Iv Contrast Urgent
Comment:
Reason For Exam: change in ms, h/o ICH
06/13/24 20:31
Fentanyl, Urine Urgent
Urinalysis Urgent
Date Specimen was Collected: 06/13/24
Time Specimen was Collected: 20:30
Urine Drug Abuse Screen Urgent
Date Specimen was Collected: 06/13/24
Time Specimen was Collected: 20:30
06/13/24 22:53
Haloperidol Lactate [Haldol] 5 mg IV NOW STA
Lorazepam [Ativan] 1 mg IV NOW STA
06/13/24 22:54
Lorazepam [Ativan] 2 mg .ROUTE .STK-MED ONE
06/13/24 22:55
Haloperidol Lactate [Haldol] 5 mg .ROUTE .STK-MED ONE
06/13/24 23:10
Admit/Transfer Patient As Directed
Co-Sign Provider:
Level of Care: Inpatient admission
Assign to:: Medical/Surgical
Physician / Group: kailey
Diagnosis: agitation, alcohol withdrawal
Reason for Hospitalization: agitation, alcohol withdrawal
Expected length of stay greater than two midnights?: Yes
ELOS- Estimated Length of Stay in days: 2
I certify the patient meets the requirements for IP care: Yes
Code Status As Directed
Resuscitation Status: Full Code
06/13/24 23:13
Add On- LAB Urgent
Tests Added?: urinalysis
06/13/24 23:39
0.9% Sodium Chloride 1000 ml [Nss] 1,000 ml IV 80 mls/hr
0.9% Sodium Chloride [Nss (Preservative Free)] See Protocol IV PRN PRN
FOLic ACID [Folvite] 1 mg 0.9% Sodium Chloride 50 ml [Nss] 50 ml IV DAILYPRN
Haloperidol Lactate [Haldol] 1 mg IV Q4HPRN PRN
Lorazepam [Ativan] 1 mg IV Q1HPRN PRN
Lorazepam [Ativan] 1 mg PO Q2HPRN PRN
Lorazepam [Ativan] 2 mg IV Q1HPRN PRN
07/29/24 23:39
Activity As Directed
Activity Level: As Tolerated
MSAS SCORE As Directed
MSAS Score 0-4: Repeat MSAS every 2 hours until 0-4 for three consecutive assessments, then every 4 hours x 48
hours.
MSAS Score 5-7: For MILD withdrawl symptoms. Repeat MSAS and RASS every 2 hours
MSAS Score 8-11: For MODERATE withdrawal symptoms. Repeat MSAS and RASS every 1 hour. Consider ICU or IMU
level of care.
MSAS Score > 11: For SEVERE withdrawal symptoms. Repeat MSAS and RASS every 1 hour. Notify provider, consider
ICU level of care.
MSAS Additional Instructions: If no improvement or no decrease in score from severe to moderate within 12
hours, consult psychiatry
MSAS Notify Provider: Notify provider if patient requires more than 10 mg of Lorazepam in eight hour period.
Pneumatic Compression Sleeves As Directed
Type: Knee high
Vital Signs As Directed
Frequency: Per unit guidelines
DX Deep Vein Thrombosis Video Routine
06/14/24 00:00
Thiamine Injection 200 mg IV Q8
06/14/24 07:02
Complete Blood Count/With Diff IN AM
Comprehensive Metabolic Panel IN AM
06/14/24 08:00
FOLic ACID [Folvite] 1 mg PO DAILY
06/17/24 08:00
Thiamine HCl [Vitamin B1] 100 mg PO BID
Abnormal Lab Results
06/13/24 06/13/24
18:28 20:31
RBC 3.53 L 10^6/uL
(4.20-5.40)
Hgb 10.6 L g/dL
(12.0-16.0)
Hct 31.5 L %
(37.0-47.0)
Plt Count 420 H 10^3/uL
(130-400)
Absolute Neuts (auto) 7.6 H 10^3/uL
(1.4-6.5)
Absolute Monos (auto) 0.7 H 10^3/uL
(0.1-0.6)
Neutrophils % 77.8 H %
(42.2-75.2)
Lymphocytes % 12.1 L %
(20.5-51.1)
Chloride 108 H mmol/L
(98-107)
Carbon Dioxide 21 L mmol/L
(22-30)
Glucose 105 H mg/dl
(70-99)
Alkaline Phosphatase 138 H U/L
(38-126)
Ur Buprenorphine Positive H
(Negative)
U Benzodiazepines Scrn Positive H
(Negative)
06/13/24 18:28
06/13/24 18:28
Vital Signs
Initial and Last Documented VS:
Initial Vital Signs
Pulse Resp
63 15
06/13/24 18:33 06/13/24 18:33
Last Documented Vital Signs
Temp Pulse Resp BP Pulse Ox
98.6 F 87 18 176/90 100
06/14/24 15:57 06/14/24 18:26 06/14/24 15:57 06/14/24 18:26 06/14/24 17:59
<Nitesh Zamudio MD - Last Filed: 06/14/24 19:13>
Orders/Labs/Results
Orders:
Orders
06/13/24 Dinner
Regular
At Your Request: Limited, Rib Cutter Required
06/13/24 18:05
Haloperidol Lactate [Haldol] 5 mg .ROUTE .STK-MED ONE
Haloperidol Lactate [Haldol] 5 mg IM NOW STA
Lorazepam [Ativan] 1 mg IV NOW STA
Lorazepam [Ativan] 2 mg .ROUTE .STK-MED ONE
06/13/24 18:10
Electrocardiogram (*1) Urgent
Reason for Study: Other
Other Reason for Exam: change in ms
EKG- Treatment ONCE
06/13/24 18:17
Restraints - Non Violent As Directed
Justification-Patient:: 2-Protective Intervention
Restraint Type-: Soft Limb-4 point/4 rails
Apply From (date): 06/13/24
Apply from (time): 18:10
Remove (date): 06/14/24
Remove (time): 23:59
06/13/24 18:28
Alcohol Urgent
Complete Blood Count/With Diff Urgent
Comprehensive Metabolic Panel Urgent
06/13/24 19:20
CT Head W/o Iv Contrast Urgent
Comment:
Reason For Exam: change in ms, h/o ICH
06/13/24 20:31
Fentanyl, Urine Urgent
Urinalysis Urgent
Date Specimen was Collected: 06/13/24
Time Specimen was Collected: 20:30
Urine Drug Abuse Screen Urgent
Date Specimen was Collected: 06/13/24
Time Specimen was Collected: 20:30
06/13/24 22:53
Haloperidol Lactate [Haldol] 5 mg IV NOW STA
Lorazepam [Ativan] 1 mg IV NOW STA
06/13/24 22:54
Lorazepam [Ativan] 2 mg .ROUTE .STK-MED ONE
06/13/24 22:55
Haloperidol Lactate [Haldol] 5 mg .ROUTE .STK-MED ONE
06/13/24 23:10
Admit/Transfer Patient As Directed
Co-Sign Provider:
Level of Care: Inpatient admission
Assign to:: Medical/Surgical
Physician / Group: kailey
Diagnosis: agitation, alcohol withdrawal
Reason for Hospitalization: agitation, alcohol withdrawal
Expected length of stay greater than two midnights?: Yes
ELOS- Estimated Length of Stay in days: 2
I certify the patient meets the requirements for IP care: Yes
Code Status As Directed
Resuscitation Status: Full Code
06/13/24 23:13
Add On- LAB Urgent
Tests Added?: urinalysis
06/13/24 23:39
0.9% Sodium Chloride 1000 ml [Nss] 1,000 ml IV 80 mls/hr
0.9% Sodium Chloride [Nss (Preservative Free)] See Protocol IV PRN PRN
FOLic ACID [Folvite] 1 mg 0.9% Sodium Chloride 50 ml [Nss] 50 ml IV DAILYPRN
Haloperidol Lactate [Haldol] 1 mg IV Q4HPRN PRN
Lorazepam [Ativan] 1 mg IV Q1HPRN PRN
Lorazepam [Ativan] 1 mg PO Q2HPRN PRN
Lorazepam [Ativan] 2 mg IV Q1HPRN PRN
06/13/24 23:39
Activity As Directed
Activity Level: As Tolerated
MSAS SCORE As Directed
MSAS Score 0-4: Repeat MSAS every 2 hours until 0-4 for three consecutive assessments, then every 4 hours x 48
hours.
MSAS Score 5-7: For MILD withdrawl symptoms. Repeat MSAS and RASS every 2 hours
MSAS Score 8-11: For MODERATE withdrawal symptoms. Repeat MSAS and RASS every 1 hour. Consider ICU or IMU
level of care.
MSAS Score > 11: For SEVERE withdrawal symptoms. Repeat MSAS and RASS every 1 hour. Notify provider, consider
ICU level of care.
MSAS Additional Instructions: If no improvement or no decrease in score from severe to moderate within 12
hours, consult psychiatry
MSAS Notify Provider: Notify provider if patient requires more than 10 mg of Lorazepam in eight hour period.
Pneumatic Compression Sleeves As Directed
Type: Knee high
Vital Signs As Directed
Frequency: Per unit guidelines
DX Deep Vein Thrombosis Video Routine
06/14/24 00:00
Thiamine Injection 200 mg IV Q8
06/14/24 07:02
Complete Blood Count/With Diff IN AM
Comprehensive Metabolic Panel IN AM
06/14/24 08:00
FOLic ACID [Folvite] 1 mg PO DAILY
06/17/24 08:00
Thiamine HCl [Vitamin B1] 100 mg PO BID
Abnormal Lab Results
06/13/24 06/13/24
18:28 20:31
RBC 3.53 L 10^6/uL
(4.20-5.40)
Hgb 10.6 L g/dL
(12.0-16.0)
Hct 31.5 L %
(37.0-47.0)
Plt Count 420 H 10^3/uL
(130-400)
Absolute Neuts (auto) 7.6 H 10^3/uL
(1.4-6.5)
Absolute Monos (auto) 0.7 H 10^3/uL
(0.1-0.6)
Neutrophils % 77.8 H %
(42.2-75.2)
Lymphocytes % 12.1 L %
(20.5-51.1)
Chloride 108 H mmol/L
(98-107)
Carbon Dioxide 21 L mmol/L
(22-30)
Glucose 105 H mg/dl
(70-99)
Alkaline Phosphatase 138 H U/L
(38-126)
Ur Buprenorphine Positive H
(Negative)
U Benzodiazepines Scrn Positive H
(Negative)
06/13/24 18:28
06/13/24 18:28
Vital Signs
Initial and Last Documented VS:
Initial Vital Signs
Pulse Resp
63 15
06/13/24 18:33 06/13/24 18:33
Last Documented Vital Signs
Temp Pulse Resp BP Pulse Ox
98.6 F 87 18 176/90 100
06/14/24 15:57 06/14/24 18:26 06/14/24 15:57 06/14/24 18:26 06/14/24 17:59
<Adán Moore DO - Last Filed: 06/13/24 19:16>
MDM/Problems Addressed
MDM/Problems Addressed:
Agitated delirium
<Adán Moore DO - Last Filed: 06/13/24 19:16>
*Pulse Oximetry
Patient hypoxic: no
*EKG
Interpreted by ED Provider?: Yes
Interpretation: normal
Rate: normal
QRS Pattern: normal QRS
Ischemia: no ischemia
*System Support Analyst Interpretation
Rate: normal
Rhythm: sinus
Data Reviewed
Review of Other/Old Records Reveals: Other (Prior visits were reviewed. Similar presentations in the past)
Source: ambulance crew
Further Testing Considered But Not Given:
Consider head CT but no signs of recent trauma
<Nitesh Zamudio MD - Last Filed: 06/14/24 19:13>
*Critical Care Note
Total Time (30-74mins, 75-104mins- exclusive of procedures): 35
<Adán Moore DO - Last Filed: 06/13/24 19:16>
Patient Management
Escalation/DeEscalation of care consider admission/obs:
Patient combative on arrival and yelling at everyone calling people names. Patient was given Versed by EMS. Additional sedation meds given. Now on reassessment she is resting comfortably and sleeping. Check labs and reassess
<Nitesh Zamudio MD - Last Filed: 06/14/24 19:13>
Update Note
Update Note:
2100... Patient was yelling out intermittently. When I went in the room to check her she clinically was stable. States she had no complaints. She knows her name. She falls asleep easily. She has old bruises on her face. Her vital signs are
stable. Labs were checked and reviewed all stable. Previous similar episode happened in April and may have been related to baclofen. Await urine drug screen and further observation.
2215... Patient sleeping but easily arousable. Alert to name. Knows she is in the hospital. Still does not know the year or the name of the hospital. At times [id number] screaming asking for Darnell. Her neck is supple. She is nontoxic. She
is clinically not meningitic. She is no fever or white count. This has been a recurring issue in the past from reviewing her previous visits. I suspect this is medications and underlying psychiatric issues but clearly warrants medical admission
and observation for now.
ED Attending Note
<Adán Moore DO - Last Filed: 06/13/24 19:16>
-
Portions of this chart may have been created with voice recognition software.� Occasional wrong word or��sound alike� substitutions may have occurred due to the inherent limitations of voice recognition software.
Discharge Plan
Departure
Patient Disposition: Admit
Date of Disposition: 06/13/24
Time of Disposition: 23:27
Presentation/result/management discussed w/ accepting MD/DO: Hospitalist
Discharge Problem:
Delirium, History of alcohol use, History of psychosis, Possibly medication related
Interventions
Interventions:
*Risk Screen - Suicide Last Done: 06/13/24 18:09
*General Assessment Last Done: 06/13/24 18:09
*Neglect/Abuse Screening Last Done: 06/13/24 18:09
*ED COVID-19 Vaccine History Last Done: 06/13/24 18:09
*Nursing Disposition Last Done: 06/14/24 15:38
ED-Psychological Assessment Last Done: 06/13/24 18:10
Discharge Date and Time
Discharge Date/Time: 06/14/24 15:39
[2024-06-13 19:14] LABS: Alcohol None Detected
[2024-06-13 20:00] VITALS: BP 120/75
[2024-06-13 21:00] VITALS: BP 128/82
[2024-06-13 21:09] LABS: Amphetamines Negative (Negative); Barbiturates Negative (Negative); Benzodiazepines Positive (Negative); Buprenorphine Positive (Negative); Cocaine Negative (Negative); Marijuana Negative (Negative); Methadone Negative (Negative); Methamphetamines Negative (Negative); Opiates Negative (Negative); Phencyclidine Negative (Negative); Tricyclic Antidepressants Negative (Negative)
[2024-06-13 21:25] LABS: Fentanyl, Urine Negative (Negative)
[2024-06-13] MEDS: HALDOL 5 MG IV (22:57)
[2024-06-13 23:00] VITALS: BP 149/90
--- NOTE | 2024-06-13 23:14 | HPS.HSE ---
Addendum entered and electronically signed by Александр Chino MD 06/13/24 23:21:
UDS is positive for buprenorphine and benzodiazepines, unclear if she is supposed to be on these medications.
Original Note:
Family Physician
-
Family Physician: NO INTERVIEW UNKNOWN
Chief Complaint
-
agitation
History of Present Illness
63-year-old female with past medical history of alcohol use disorder, depression, intracranial bleeding, history of MRSA/ESBL, vaping history, microscopic colitis, history of hepatitis C, osteoporosis/arthritis/cervical fusion surgery/chronic back
pain, diabetes, hypertension, hypothyroidism, presenting for acute agitation. Friend came to pick her up for an AA meeting and found her to be verbally and physically aggressive. EMS arrived and patient's aggression escalated. She did calm down
for some period of time but quickly escalated with name calling. EMS gave her Versed. Patient arrives cursing at staff and trying to climb out of bed. She attempted to punch and kick staff.
To me patient states that she came to the hospital but she fell and hit her head. She denies any alcohol use. She is not a great historian at this time and crying out Darnell.
Patient was admitted for similar episode in the past most recently in November of this year. She left [facility] at that time.
Medical History
Past Medical History
Past Medical History: Reports Other ( alcohol use disorder, depression, intracranial bleeding, history of MRSA/ESBL, vaping history, microscopic colitis, history of hepatitis C, osteoporosis/arthritis/cervical fusion surgery/chronic back pain,
diabetes, hypertension, hypothyroidism,)
Past Surgical History: Reports Other (Orthopedic (Cervical fusion over 20 years ago))
Social History
Tobacco: Non-smoker
Alcohol: Chronic Alcoholic
Drug: None
Family History
Family History: Not pertinent
Allergies / Home Medications
Allergies reflects when Allergies were last updated in [facility].
Home Medications with original date entered in [facility]
Allergy/Medication List:
Allergies
Allergy/AdvReac Type Severity Reaction Status Date / Time
No Known Allergies Allergy Verified 04/16/24 15:28
Home Medications
levothyroxine 137 mcg tablet 137 mcg PO DAILY AT 0700 Thyroid 02/03/23
duloxetine 60 mg capsule,delayed release 60 mg PO DAILY Mental Health 07/15/23
budesonide 3 mg capsule,delayed,extended release 9 mg PO DAILY Gastrointestinal Issue 11/17/23
dicyclomine 20 mg tablet 20 mg PO BID Gastrointestinal Issue 11/17/23
famotidine 40 mg tablet 40 mg PO DAILY Gastrointestinal Issue 11/17/23
multivitamin 1 tab PO DAILY Supplement 11/18/23
thiamine HCl (vitamin B1) 100 mg tablet 100 mg PO DAILY Supplement 11/18/23
vitamin B complex 1 cap PO DAILY Supplement 11/18/23
amlodipine 5 mg tablet 5 mg PO BID Blood pressure #120 tabs 11/20/23
folic acid 1 mg tablet 1 mg PO DAILY Supplement #10 tabs 11/20/23
acetaminophen 500 mg tablet (Acetaminophen Extra Strength) 1,000 mg PO Q6H PRN mild pain/ fever 12/08/23
bupropion HCl 300 mg 24 hr tablet, extended release 300 mg PO DAILY Mental Health/Anxiety 12/08/23
gabapentin 300 mg capsule 300 mg PO BID Neurological Condition 12/08/23
metoprolol tartrate 50 mg tablet 25 mg PO BID Blood pressure 12/08/23
cephalexin 500 mg capsule 500 mg PO Q8H 7 days #21 caps 02/20/24
Review of Systems
-
History Source: Patient
A 12 point ROS was completed and negative except as noted: Yes
Constitutional: Reports No Symptoms
EENT: Reports No Symptoms
Respiratory: Reports No Symptoms
Cardiac: Reports No Symptoms
Abdomen/GI: Reports No Symptoms
: Reports No Symptoms
Musculoskeletal: Reports No Symptoms
Skin: Reports No Symptoms
Neurological: Reports No Symptoms
Endocrine: Reports No Symptoms
Hematologic/Lymphatic: Reports No Symptoms
Psych: Reports No Symptoms
Physical Exam
Vital Signs
Vital Signs
Temp Pulse Resp BP Pulse Ox
97.7 F 59 13 149/90 100
06/13/24 19:00 06/13/24 22:45 06/13/24 22:45 06/13/24 23:00 06/13/24 23:00
Physical Exam
General: Well Developed, Well Nourished and No Apparent Distress
HEENT: NormoCephalic, Moist mucous membranes and Atraumatic
Respiratory: Clear
Cardiac: S1/S2 and Regular Rhythm; No Murmur or Rub
GI: Soft, Non Tender, Non Distended and Normal Bowel Sounds; No Organomegaly
Rectal: Deferred by Provider
Musculoskeletal: No Clubbing, No Cyanosis and No Edema
Skin: No Rash
Neuro: Nonfocal/grossly intact
Laboratory Results
-
06/13/24 18:28
06/13/24 18:28
Laboratory Results
Total Bilirubin 0.4 mg/dl (0.2-1.3) 06/13/24 18:28
AST 22 U/L (14-36) 06/13/24 18:28
ALT 15 U/L (0-35) 06/13/24 18:28
Alkaline Phosphatase 138 U/L (38-126) H 06/13/24 18:28
Data Reviewed
-
Lab Data: Labs Reviewed by me
Old Records: Reviewed
Impression/Plan
-
IMPRESSION:
PLAN:
# Acute agitation/metabolic encephalopathy possibly Wernicke's encephalopathy
-AAO x 1
[address] head negative
-Check urinalysis, TSH
-Patient given Ativan and Haldol, continue Haldol as needed
-She is in 4-point restraints
-Psychiatry consulted
#Alcohol use disorder
-Unknown when last drink was
-Alcohol level negative
-Thiamine and folate
-Alcohol withdrawal protocol
-Continue gabapentin
Depression
-Continue duloxetine, bupropion
History of intracranial bleeding
History of MRSA/ESBL
Vaping history
Microscopic colitis
-Continue budesonide, dicyclomine
History of hepatitis C
Osteoporosis/arthritis/cervical fusion surgery/chronic back pain
Type 2 diabetes diet controlled
Essential hypertension
-Continue metoprolol
-Continue morphine
Hypothyroidism
-Continue levothyroxine
Full code
DVT prophylaxis�SCDs
Regular diet
[2024-06-14] VITALS (17 sets, daily range): BP systolic 138–199; BP diastolic 82–119; BMI 17.4
[2024-06-14 00:03] LABS: Urine Albumin Trace (Neg - Trace); Urine Bilirubin Negative (Negative); Urine Character Slightly Cloudy (Clear); Urine Color Yellow; Urine Glucose Negative (Negative); Urine Ketone Negative (Negative); Urine Leukocyte Negative (Negative); Urine Nitrite Negative (Negative); Urine Occult Blood Negative (Negative); Urine Specific Gravity 1.025 (<1.030); Urine Urobilinogen Negative (Neg - 1+)
[2024-06-14] MEDS: NSS 1000 IV ×3 (00:37→23:18)
[2024-06-14] MEDS: THIAMINE INJECTION 200 MG IV ×4 (00:37→23:18)
[2024-06-14] MEDS: APRESOLINE 5 MG IV (06:58)
[2024-06-14 07:12] LABS: % Basophils 0.7 % (0-2); % Eosinophils 2.9 % (0-6); % Immature Granulocytes 0.3 % (0-0.5); % Lymphocytes 15.2 % (20.5-51.1); % Monocytes 8.3 % (1.7-9.3); % Neutrophils 72.6 % (42.2-75.2); Absolute Basophils 0.1 10^3/uL (0-0.2); Absolute Eosinophils 0.2 10^3/uL (0-0.7); Absolute Lymphocytes 1.1 10^3/uL (1.2-3.4); Absolute Monocytes 0.6 10^3/uL (0.1-0.6); Absolute Neutrophils 5.3 10^3/uL (1.4-6.5); Hematocrit 35.4 % (37.0-47.0); Hemoglobin 11.9 g/dL (12.0-16.0); Mean Corp Hgb Conc. 33.6 g/dL (33.0-37.0); Mean Corpuscular Hgb 29.5 pg (27.0-31.0); Mean Corpuscular Volume 87.8 fL (81.0-99.0); Mean Platelet Volume 8.5 fL (7.4-10.4); Nucleated Red Blood Cells % 0 %; Platelet Count 396 10^3/uL (130-400); Red Blood Cell Count 4.03 10^6/uL (4.20-5.40); Red Cell Dist. Width 13.5 % (11.5-14.5); White Blood Cell Count 7.2 10^3/uL (4.8-10.8)
[2024-06-14 07:32] LABS: ALT (SGPT) 13 U/L (0-35); AST (SGOT) 21 U/L (14-36); Albumin 4.4 g/dl (3.5-5.0); Alkaline Phosphatase 136 U/L (38-126); Blood Urea Nitrogen 15 mg/dl (7-17); Calcium 9.6 mg/dl (8.4-10.2); Carbon Dioxide 26 mmol/L (22-30); Chloride 110 mmol/L (98-107); Estimated Creatinine Clearance 58 ml/min; Glucose 121 mg/dl (70-99); Potassium 3.8 mmol/L (3.5-5.1); Sodium 142 mmol/L (135-145); Total Bilirubin 0.4 mg/dl (0.2-1.3); Total Protein 7.1 g/dl (6.3-8.2); eGFR > 60.00
--- NOTE | 2024-06-14 07:51 | PHANOTE ---
med rec note- unable to speak to patient, patient current mental ill and only saying 'help me'. ecw from 01/23/2024 and does not match pharmacy.
[2024-06-14 08:08] LABS: TSH Reflex To Free T4 0.33 uIU/ml (0.47-4.68)
[2024-06-14 09:21] LABS: Free T4 1.45 ng/dl (0.78-2.19)
[2024-06-14] MEDS: FOLVITE 1 MG PO (09:49)
--- NOTE | 2024-06-14 10:32 | CS.PSYCHR ---
Consult Summary - Psychiatry
-
Pt is a 63 yo female with history of alcohol abuse, hx of polypharmacy, suspected prescription medication abuse, who presented to ED with agitation, reportedly became aggressive at an AA meeting, then tried to punch and kick staff in the ED. UDS
positive for Bup (prescribed) and benzo- after receiving Ativan in ED. Alcohol level not detected. Pt has had similar presentations in the past, last seen by Psychiatry at Nov 2023. This morning, pt sitting up in bed eating breakfast,
irritable, c/o pain in her gums. No acute agitation/aggression, but mildly verbally agitated, poor historian. Pt denies aggressive behavior, states only that she 'had an accident', unable to explain the events leading to arrival. Pt was given
Haldol and Ativan last PM. No signs of side effects/EPS.
PMH: cervical disc dz, cervical fusion over 20 years ago, chronic pain
Psych Hx- unable to obtain form pt; recently prescribed Wellbutrin XL 300 mg AM, Cymbalta 60 mg QD, Trazodone 150 mg HS. Pt on Suboxone maint tx at [facility], [place] per PDMP- dose 8/2 mg daily since Dec 2023. Pt states she gets Outpatient therapy
at .
Home Psych meds: Suboxone 8/2 mg daily, Cymbalta 60 mg QD, Wellbutrin XL 300 mg AM, Trazodone 150 mg HS
hx of numerous alcohol rehab programs in [place], [place], [facility], [place], [place] per previous case mgt note. Hx of tx programs at [facility], [facility]. Reportedly attends . Last known rehab was Nov 2023.
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
MSE: alert, poor historian, seems mildly confused, tried to pickling machine operator a med cup with a spoon and put it in her mouth. Mood irritable. No overt psychosis. Denies feeling depressed. Insight limited/poor
Imp: Alcohol use d/o, denies recent intake. Opioid Use d/o, on Suboxone maintenance tx
Agitation of unclear etiology, possibly substance withdrawal.
Hx of unspecified depression, denies active depression, mood more irritable at present
Rec: agree with MSAS protocol/ alcohol withdrawal precautions
Agree with holding off Cymbalta and Wellbutrin XL for now due to agitation; will assess and consider restarting
Will continue on Subutex current outpatient dose 8 mg Daily
Will follow
[2024-06-14] MEDS: HALDOL 1 MG IV (10:42)
--- NOTE | 2024-06-14 11:13 | PTCARENOTE ---
RN in room multiple times, due to patient screaming help. When asked patient what she needs, she states, ' I am hungry and my lips hurt.' RN fed patient 75% of her breakfast, performed mouth care and applied vaseline to lips. Patient still continues
to scream. Haldol given at 1042 for patient screaming at the top of her lungs.
[2024-06-14] MEDS: SUBUTEX 8 MG SL (11:34)
[2024-06-14] MEDS: APRESOLINE 10 MG IV ×2 (11:39→17:04)
--- NOTE | 2024-06-14 13:30 | PTCARENOTE ---
Patient more cooperative, no longer screaming. Follows directions appropriately, eating lunch, friend at bedside.
--- NOTE | 2024-06-14 14:05 | W.PN.HOSP.TC ---
Today's Communication/Plan
-
MSAS, ativan prn
Control hypertension
Assessment / Plan
Assessment / Plan
# Acute agitation/metabolic encephalopathy possibly Wernicke's encephalopathy
-AAO x 1
[address] head negative
-UA neg; TSH/reflex WNL
-Patient given Ativan and Haldol, continue Haldol as needed
-She is in 4-point restraints
-Psychiatry consulted
-MSAS protocol
-holding off Cymbalta and Wellbutrin XL for now due to agitation
#Alcohol use disorder
-Unknown when last drink was
-Alcohol level negative
-Thiamine and folate
-Alcohol withdrawal protocol
-Continue gabapentin
Depression
-Continue duloxetine, bupropion
-continue on Subutex current outpatient dose 8 mg Daily
History of intracranial bleeding
History of MRSA/ESBL
Vaping history
Microscopic colitis
-Continue budesonide, dicyclomine
History of hepatitis C
Osteoporosis/arthritis/cervical fusion surgery/chronic back pain
Type 2 diabetes diet controlled
Essential hypertension
-Continue metoprolol
-Continue morphine
-Hydralazine IV PRN
Hypothyroidism
-Continue levothyroxine
Full code
DVT prophylaxis�SCDs
Regular diet
Anticipated Discharge: > 48 hours
Subjective/Interval History
-
Date of Service: June 14, 2024
agitated
Objective Data
-
Labs:
Laboratory Results
06/14/24
07:02
WBC 7.2
Hgb 11.9 L
Hct 35.4 L
Plt Count 396
Sodium 142
Potassium 3.8
Chloride 110 H
Carbon Dioxide 26
BUN 15
Creatinine 0.8
Glucose 121 H
Calcium 9.6
Total Bilirubin 0.4
AST 21
ALT 13
Alkaline Phosphatase 136 H
Vital Signs:
Vital Signs
Temp Pulse Resp BP Pulse Ox
97.7 F 83 10 186/111 100
06/14/24 08:00 06/14/24 08:03 06/14/24 08:03 06/14/24 11:39 06/14/24 08:03
Review of Systems
-
History Source: Patient
All other systems: Not reviewed unless documented
Physical Exam
-
General: Well Developed, Comfortable and Appears Chronically Ill
HEENT: Normocephalic and Atraumatic
Respiratory: Clear to Auscultation and Non Labored Respirations; Negative Accessory Resp Muscle Use
GI: Soft, Nontender, Nondistended and Normal Bowel Sounds; Negative Organomegaly
Rectal: Deferred by Provider
Musculoskeletal: No Clubbing, No Cyanosis and No Edema
Skin: Negative Rash
Neuro: Awake
Psych: Calm, Confused and Other (poor insight)
Data Reviewed
-
CT Scan: Image personally visualized and interpreted and Report Reviewed by me
Labs: Labs Reviewed by me
--- NOTE | 2024-06-14 14:40 | PTCARENOTE ---
Patient states, 'My lips feel better.' Patient has no c/o pain at present.
[2024-06-14] MEDS: HEPARIN 5000 UNITS SC ×2 (15:59→23:19)
--- NOTE | 2024-06-14 17:00 | PTCARENOTE ---
Addendum entered by Radha Ingram RN 06/14/24 19:54:
Patient also c/o QUIROZ when experiencing SOB, made aware of all patient complaints and administration of IV ativan and hydralazine. Patient drowsy after administration of IV ativan but able to be easily awoken with verbal stimuli. Call french in place
by R hand, NSS infusing through R AC at 80 ml/hr, B/L wrist restraints in place with medsitter and bed alarm, dinner ordered for patient.
Original Note:
Received patient from ED into room 2134 in bed with 4 point soft limb restraints and 4 side rails up. Patient alert and oriented, cooperative with admission; B/L ankle restraints removed, B/L wrist restraints and 4 side rails intact, medsitter and
bed alarm put in place, MD made aware and restraint order updated by this RN at 1643. Patient with history of diabetes per history and physical, this RN communicated with MD, verbal order placed for accuchecks and low resistance insulin - patient's
blood sugar obtained by tech 86. Patient anxious and agitated, yelling out 'help me,' stating 'I can't breathe.' POX 100% on RA. MSAS score 3 for restlessness and HR of 83. made aware of patient c/o SOB, verbal order for one time dose of 1 mg IV
ativan placed and administered by this RN. PRN IV hydralazine given for BP of 188/98.
[2024-06-14] MEDS: ATIVAN 1 MG IV (17:03)
[2024-06-14] MEDS: NSS (PRESERVATIVE FREE) 0.5 ML IV (17:04)
[2024-06-14 17:09] LABS: Glucose - Point of Care 86 mg/dl (70-99)
--- NOTE | 2024-06-14 18:15 | PTCARENOTE ---
Patient stating needing to use bedpan, assisted onto bedpan with assistance of techs. Patient with no urine output or bowel movement after being assisted onto bedpan. Patient bladder scanned for 577 ml. MD made aware, verbal order for bladder scan
and straight cath protocol placed by this RN, patient straight cathed for 620 ml of elodia colored urine. Patient tolerated procedure, B/L wrist restraints, bed alarm and medsitter in place.
[2024-06-14] MEDS: TYLENOL 650 MG PO (20:29)
[2024-06-14 21:27] LABS: Glucose - Point of Care 109 mg/dl (70-99)
--- NOTE | 2024-06-14 22:00 | PTCARENOTE ---
restraints removed @ 2200. pt calm and cooperative.
[2024-06-15] MEDS: TYLENOL 650 MG PO (02:39)
[2024-06-15 07:40] VITALS: BP 164/113
[2024-06-15 07:50] LABS: Glucose - Point of Care 90 mg/dl (70-99)
[2024-06-15] MEDS: FOLVITE 1 MG PO (08:10)
[2024-06-15] MEDS: THIAMINE INJECTION 200 MG IV ×3 (08:10→23:13)
[2024-06-15] MEDS: HEPARIN 5000 UNITS SC ×3 (08:10→23:11)
[2024-06-15] MEDS: SUBUTEX 8 MG SL (08:10)
[2024-06-15 09:52] LABS: Hematocrit 34.3 % (37.0-47.0); Hemoglobin 11.8 g/dL (12.0-16.0); Mean Corp Hgb Conc. 34.4 g/dL (33.0-37.0); Mean Corpuscular Hgb 30.9 pg (27.0-31.0); Mean Corpuscular Volume 89.8 fL (81.0-99.0); Mean Platelet Volume 8.3 fL (7.4-10.4); Platelet Count 390 10^3/uL (130-400); Red Blood Cell Count 3.82 10^6/uL (4.20-5.40); Red Cell Dist. Width 13.7 % (11.5-14.5)
[2024-06-15 10:40] LABS: ALT (SGPT) 12 U/L (0-35); AST (SGOT) 20 U/L (14-36); Albumin 4.2 g/dl (3.5-5.0); Alkaline Phosphatase 123 U/L (38-126); Blood Urea Nitrogen 9 mg/dl (7-17); Calcium 9.5 mg/dl (8.4-10.2); Carbon Dioxide 20 mmol/L (22-30); Chloride 104 mmol/L (98-107); Estimated Creatinine Clearance 69 ml/min; Glucose 186 mg/dl (70-99); Potassium 3.5 mmol/L (3.5-5.1); Sodium 135 mmol/L (135-145); Total Bilirubin 0.3 mg/dl (0.2-1.3); Total Protein 6.7 g/dl (6.3-8.2); eGFR > 60.00
[2024-06-15 11:47] VITALS: BMI 17.4
[2024-06-15 11:56] LABS: Glucose - Point of Care 99 mg/dl (70-99)
--- NOTE | 2024-06-15 12:27 | W.PN.HOSP.TC ---
Today's Communication/Plan
-
resume half dose Cymbalta, Wellbutrin
BP control
tentative DC in 24 hours
MSAS if needed
Assessment / Plan
Assessment / Plan
# Acute agitation/metabolic encephalopathy possibly drug use/withdrawal v etoh withdrawal
-Now AAOx3; Calm;
-May have component of dementia
-CT head negative
-UA neg; TSH/reflex WNL
-Patient given Ativan and Haldol, continue Haldol as needed
-Off restraints
-Psychiatry consulted
-MSAS protocol
-Resume Cymbalta and Wellbutrin XL half dose
#Alcohol use disorder
-patient state sshe has not drank in a long time although collateral is questionable in the past
-Unknown when last drink was
-Alcohol level negative
-Thiamine and folate
-Alcohol withdrawal protocol
-Continue gabapentin
Depression
-Continue duloxetine, bupropion - half dose
-continue on Subutex current outpatient dose 8 mg Daily
History of intracranial bleeding
History of MRSA/ESBL
Vaping history
Microscopic colitis
-Continue budesonide, dicyclomine
History of hepatitis C
Osteoporosis/arthritis/cervical fusion surgery/chronic back pain
Type 2 diabetes diet controlled
Essential hypertension
-Continue metoprolol
-Continue morphine
-Hydralazine IV PRN
Hypothyroidism
-Continue levothyroxine
Full code
DVT prophylaxis�HSQ
Regular diet
Anticipated Discharge: Within 24 hours
Subjective/Interval History
-
Date of Service: June 15, 2024
much more calm
Objective Data
-
Labs:
Laboratory Results
06/15/24
09:27
WBC 8.0
Hgb 11.8 L
Hct 34.3 L
Plt Count 390
Sodium 135
Potassium 3.5
Chloride 104
Carbon Dioxide 20 L
BUN 9
Creatinine 0.7
Glucose 186 H
Calcium 9.5
Total Bilirubin 0.3
AST 20
ALT 12
Alkaline Phosphatase 123
Vital Signs:
Vital Signs
Temp Pulse Resp BP Pulse Ox
97.6 F 86 20 164/113 98
06/15/24 07:40 06/15/24 07:40 06/15/24 07:40 06/15/24 07:40 06/15/24 07:40
I&O
06/14/24 06/15/24 06/16/24
06:59 06:59 06:59
Intake Total 2560 / 2560
Output Total 1320 / 1320
Balance 1240 / 1240
Review of Systems
-
History Source: Patient
All other systems: Not reviewed unless documented
Physical Exam
-
General: Well Developed, Comfortable and Appears Chronically Ill
HEENT: Normocephalic and Atraumatic
Respiratory: Clear to Auscultation and Non Labored Respirations; Negative Accessory Resp Muscle Use
GI: Soft, Nontender, Nondistended and Normal Bowel Sounds; Negative Organomegaly
Rectal: Deferred by Provider
Musculoskeletal: No Clubbing, No Cyanosis and No Edema
Skin: Negative Rash
Neuro: Awake, Alert, Oriented and AO x 3
Psych: Calm
Data Reviewed
-
CT Scan: Image personally visualized and interpreted and Report Reviewed by me
Labs: Labs Reviewed by me
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
[2024-06-15] MEDS: APRESOLINE 10 MG IV (13:28)
[2024-06-15] MEDS: ATIVAN 1 MG PO (13:28)
--- NOTE | 2024-06-15 13:35 | CM ---
Reviewed the chart notes and spoke with the patient at the bedside. The patient resides with her significant other in a first floor apartment with one step to enter. The patient reports no DME/SNF in the past, but has had [facility] in the past.
The patient confirmed her pharmacy of choice is the [facility]. CM continues to be available to patient/family and is monitoring medical plan for needs at discharge.
Plan: Discharge to home when medically stable. No needs anticipated.
[2024-06-15] MEDS: KEPPRA 500 MG PO ×2 (14:14→21:38)
[2024-06-15 14:16] VITALS: BP 158/97
[2024-06-15] MEDS: NORVASC 2.5 MG PO (14:17)
--- NOTE | 2024-06-15 14:35 | PN.CDI ---
CDI
- -
CDI:
Physician Documentation Request
Admit Date: 06/13/24 23:27
Dear Doctor Zohra
Please review the following and provide your response in the progress notes.
Clinical Indicators:
Property Management Intern, 06/15
#Reason for RD visit: BMI 17.4
#Reason for hospital visit: alcohol withdrawl
#Current BW: 117 bs 9 oz
#BMI: 17.4 (underweight)
Please provide an associated diagnosis related to the abnormal BMI, such as:
BMI, 17.4, underweight
Other(please specify)
BMI < or = to 19
Underweight
Weight Loss
Cachectic
Anorexia
Use of terms such as suspected, likely, concern for, or probable (associated with a specific diagnosis that is being evaluated, monitored, or treated as if it exists) are acceptable and can be coded in the inpatient setting, when documented at the
time of discharge.
Thank you,
Cassie Garland RN BSN CCDS
CDI Specialist
Please contact via tiger text
Please use your independent medical judgment in providing your response.
[2024-06-15 15:40] VITALS: BP 159/103
[2024-06-15 16:38] LABS: Glucose - Point of Care 118 mg/dl (70-99)
[2024-06-15] MEDS: BENTYL 20 MG PO ×2 (17:51→21:36)
[2024-06-15 21:32] LABS: Glucose - Point of Care 109 mg/dl (70-99)
[2024-06-15] MEDS: DESYREL 75 MG PO (21:36)
[2024-06-15] MEDS: NEURONTIN 300 MG PO (21:37)
[2024-06-15] MEDS: LOPRESSOR 12.5 MG PO (21:37)
[2024-06-15 22:58] VITALS: BP 140/107
[2024-06-16] MEDS: TYLENOL 650 MG PO (02:54)
[2024-06-16] MEDS: CLARITIN 10 MG PO (02:54)
[2024-06-16] MEDS: SYNTHROID 137 MCG PO (06:08)
[2024-06-16 07:09] LABS: Glucose - Point of Care 95 mg/dl (70-99)
[2024-06-16 07:32] LABS: Hematocrit 35.9 % (37.0-47.0); Hemoglobin 12.5 g/dL (12.0-16.0); Mean Corp Hgb Conc. 34.8 g/dL (33.0-37.0); Mean Corpuscular Hgb 30.3 pg (27.0-31.0); Mean Corpuscular Volume 86.9 fL (81.0-99.0); Mean Platelet Volume 9.3 fL (7.4-10.4); Platelet Count 371 10^3/uL (130-400); Red Blood Cell Count 4.13 10^6/uL (4.20-5.40); Red Cell Dist. Width 13.4 % (11.5-14.5); White Blood Cell Count 6.6 10^3/uL (4.8-10.8)
--- NOTE | 2024-06-16 07:36 | PTCARENOTE ---
Madelin called staff after witnessing pt vaping. This nurse educated pt on hospital's policy and prohibition of smoking/vaping, took the vape away from pt, securing it and locking it. Pt in agreement with plan of care.
[2024-06-16 07:50] VITALS: BP 131/91
[2024-06-16 08:02] LABS: ALT (SGPT) 12 U/L (0-35); AST (SGOT) 23 U/L (14-36); Albumin 4.5 g/dl (3.5-5.0); Blood Urea Nitrogen 13 mg/dl (7-17); Carbon Dioxide 20 mmol/L (22-30); Estimated Creatinine Clearance 69 ml/min; Glucose 83 mg/dl (70-99); Potassium 3.9 mmol/L (3.5-5.1); Total Bilirubin 0.5 mg/dl (0.2-1.3); Total Protein 7.3 g/dl (6.3-8.2); eGFR > 60.00
[2024-06-16 08:10] LABS: Alkaline Phosphatase 109 U/L (38-126); Chloride 106 mmol/L (98-107); Sodium 138 mmol/L (135-145)
[2024-06-16] MEDS: PROTONIX 40 MG PO (08:38)
[2024-06-16] MEDS: FEOSOL 325 MG PO (08:38)
[2024-06-16] MEDS: WELLBUTRIN XL (24 hour extended release) 150 MG PO (08:38)
[2024-06-16] MEDS: NORVASC 2.5 MG PO (08:38)
[2024-06-16] MEDS: FOLVITE 1 MG PO (08:38)
[2024-06-16] MEDS: KEPPRA 500 MG PO (08:38)
[2024-06-16] MEDS: NEURONTIN 300 MG PO (08:38)
[2024-06-16] MEDS: SUBUTEX 8 MG SL (08:38)
[2024-06-16] MEDS: CYMBALTA DELAYED RELEASE 30 MG PO (08:38)
[2024-06-16] MEDS: PEPCID 40 MG PO (08:38)
[2024-06-16] MEDS: BENTYL 20 MG PO (08:38)
[2024-06-16] MEDS: HEPARIN 5000 UNITS SC (08:39)
[2024-06-16] MEDS: LOPRESSOR 12.5 MG PO (08:39)
[2024-06-16] MEDS: THIAMINE INJECTION 200 MG IV (08:39)
--- NOTE | 2024-06-16 12:20 | W.PN.HOSP.TC ---
Addendum entered and electronically signed by Aki العلي MD 06/18/24 15:32:
[id number]
Addendum entered and electronically signed by Aki العلي MD 06/18/24 14:47:
BMI, 17.4, underweight
Original Note:
Today's Communication/Plan
-
-Resume Cymbalta, Trazodone, and Wellbutrin XL half dose; Stop Metaxalone
-F/u PCP, Psychiatry outpatient
Assessment / Plan
Assessment / Plan
# Acute agitation/metabolic encephalopathy possibly drug use/withdrawal v etoh withdrawal
-Now AAOx3; Calm;
-May have component of dementia
-CT head negative
-UA neg; TSH/reflex WNL
-Patient given Ativan and Haldol, continue Haldol as needed
-Off restraints
-Psychiatry consulted
-MSAS protocol
-Resume Cymbalta, Trazadone, and Wellbutrin XL half dose; Stop Metaxalone
#Alcohol use disorder
-patient state she has not drank in a long time although collateral is questionable in the past
-Unknown when last drink was
-Alcohol level negative
-Thiamine and folate
-Alcohol withdrawal protocol
-Continue gabapentin
Depression
-Continue duloxetine, bupropion - half dose
-continue on Subutex current outpatient dose 8 mg Daily
History of intracranial bleeding
History of MRSA/ESBL
Vaping history
Microscopic colitis
-Continue budesonide, dicyclomine
History of hepatitis C
Osteoporosis/arthritis/cervical fusion surgery/chronic back pain
Type 2 diabetes diet controlled
Essential hypertension
-Continue metoprolol
-Continue morphine
-Hydralazine IV PRN
Hypothyroidism
-Continue levothyroxine
Full code
DVT prophylaxis�HSQ
Regular diet
More than 30 minutes spent in discharge including
Final examination of the patient
Summarizing hospital stay
Instructions for continuing care to all relevant caregivers
Preparation of discharge records, prescriptions, and referral forms
Total time spent (35 in minutes):
Anticipated Discharge: Today
Subjective/Interval History
-
Date of Service: June 16, 2024
stable, AAOx3
Objective Data
-
Labs:
Laboratory Results
06/16/24
07:05
WBC 6.6
Hgb 12.5
Hct 35.9 L
Plt Count 371
Sodium 138
Potassium 3.9
Chloride 106
Carbon Dioxide 20 L
BUN 13
Creatinine 0.7
Glucose 83
Calcium 10.0
Total Bilirubin 0.5
AST 23
ALT 12
Alkaline Phosphatase 109
Vital Signs:
Vital Signs
Temp Pulse Resp BP Pulse Ox
98.0 F 93 18 140/107 100
06/16/24 07:50 06/16/24 08:39 06/16/24 07:50 06/16/24 08:39 06/16/24 07:50
I&O
06/15/24 06/16/24 06/17/24
06:59 06:59 06:59
Intake Total 2560 / 2560 1440 / 1440
Output Total 1320 / 1320
Balance 1240 / 1240 1440 / 1440
Review of Systems
-
History Source: Patient
All other systems: Not reviewed unless documented
Physical Exam
-
General: Well Developed, Comfortable and Appears Chronically Ill
HEENT: Normocephalic and Atraumatic
Respiratory: Clear to Auscultation and Non Labored Respirations; Negative Accessory Resp Muscle Use
GI: Soft, Nontender, Nondistended and Normal Bowel Sounds; Negative Organomegaly
Rectal: Deferred by Provider
Musculoskeletal: No Clubbing, No Cyanosis and No Edema
Skin: Negative Rash
Neuro: Awake, Alert, Oriented and AO x 3
Psych: Calm
Data Reviewed
-
CT Scan: Image personally visualized and interpreted and Report Reviewed by me
Labs: Labs Reviewed by me
--- NOTE | 2024-06-16 12:24 | W.DS.TRANS ---
DC Summary - [employer]
-
Discharge Instructions:
Discharge Diagnosis/Procedures encephalopathy
possible concussion
Diet Low Cholesterol,Low Fat
Instructions:
Stand-Alone Forms:
Changes to Home Medications: Yes
Discharge Medications:
DC Medications w/original date entered in 360pi
levothyroxine 137 mcg tablet 137 mcg PO DAILY AT 0700 Thyroid 02/03/23
budesonide 3 mg capsule,delayed,extended release 9 mg PO DAILYPRN PRN colitis 11/17/23
dicyclomine 20 mg tablet 20 mg PO TID Gastrointestinal Issue 11/17/23
famotidine 40 mg tablet 40 mg PO DAILY Gastrointestinal Issue 11/17/23
thiamine HCl (vitamin B1) 100 mg tablet 100 mg PO DAILY Supplement 11/18/23
acetaminophen 500 mg tablet (Acetaminophen Extra Strength) 1,000 mg PO Q6HPRN PRN mild pain/ fever 12/08/23
gabapentin 300 mg capsule 300 mg PO BID Neurological Condition 12/08/23
buprenorphine 8 mg-naloxone 2 mg sublingual tablet 1 tab sublingual DAILY 06/14/24
levetiracetam 500 mg tablet 500 mg PO BID 06/14/24
ascorbic acid (vitamin C) 500 mg chewable tablet (Vitamin C) 500 mg PO DAILY 06/15/24
cholecalciferol (vitamin D3) 25 mcg (1,000 unit) tablet (Vitamin D3) 25 mcg PO DAILY 06/15/24
cyanocobalamin (vitamin B-12) 1,000 mcg tablet 1,000 mcg PO DAILY 06/15/24
ferrous sulfate 325 mg (65 mg iron) tablet 325 mg PO DAILY 06/15/24
loratadine 10 mg tablet 10 mg PO DAILYPRN PRN allergies 06/15/24
metoprolol tartrate 25 mg tablet 12.5 mg PO BID 06/15/24
omeprazole 20 mg tablet,delayed release 20 mg PO DAILY 06/15/24
amlodipine 5 mg tablet 5 mg PO DAILY Blood pressure #30 tabs 06/16/24
bupropion HCl 150 mg 24 hr tablet, extended release 150 mg PO DAILY 30 days #30 tabs 06/16/24
duloxetine 30 mg capsule,delayed release 30 mg PO DAILY 30 days #30 caps 06/16/24
trazodone 150 mg tablet 75 mg (1/2 x 150 mg) PO HS 30 days #15 tabs 06/16/24
Home Medication Changes
amlodipine 5 mg tablet 5 mg PO DAILY Blood pressure #30 tabs 06/16/24
bupropion HCl 150 mg 24 hr tablet, extended release 150 mg PO DAILY 30 days #30 tabs 06/16/24
duloxetine 30 mg capsule,delayed release 30 mg PO DAILY 30 days #30 caps 06/16/24
trazodone 150 mg tablet 75 mg (1/2 x 150 mg) PO HS 30 days #15 tabs 06/16/24
Pending Results: No
[2024-06-16 12:58] LABS: Glucose - Point of Care 121 mg/dl (70-99)
[2024-06-16 13:50] VITALS: BP 163/96
--- NOTE | 2024-06-16 14:07 | CM ---
Reviewed the chart notes and spoke with the patient at the bedside. Patient is being discharged to home today with no needs. Patient's significant other will provide transportation.
== END 2024-06-16 14:03 | disposition home or self-care (01) | DRG 896 ==
LOC: 2 NORTH 23:27
PROVIDERS: ADMITTING PHYSICIAN Hospitalist; ATTENDING PHYSICIAN Internal Medicine; EMERGENCY PHYSICIAN Emergency Medicine; OTHER PHYSICIAN Psychiatry & Neurology Psychiatry
DX: F10.239 Alcohol dependence with withdrawal, unspecified (principal); G93.41 Metabolic encephalopathy; Z68.1 Body mass index [BMI] 19.9 or less, adult; F11.20 Opioid dependence, uncomplicated; F32.A Depression, unspecified; E11.9 Type 2 diabetes mellitus without complications; E03.9 Hypothyroidism, unspecified; I10 Essential (primary) hypertension; B19.20 Unspecified viral hepatitis C without hepatic coma; R63.6 Underweight; K52.839 Microscopic colitis, unspecified; M81.0 Age-related osteoporosis without current pathological fracture; G89.29 Other chronic pain; M54.9 Dorsalgia, unspecified; W19.XXXA Unspecified fall, initial encounter; Z78.1 Physical restraint status; Z79.890 Hormone replacement therapy; Z79.899 Other long term (current) drug therapy; Z98.1 Arthrodesis status; Z87.891 Personal history of nicotine dependence; Z86.79 Personal history of other diseases of the circulatory system; Z86.14 Personal history of Methicillin resistant Staphylococcus aureus infection; Z86.19 Personal history of other infectious and parasitic diseases
CPT/HCPCS: 51701; 70450; 80053; 80306; 80307; 81003; 82077; 82962; 84439; 84443; 85025; 85027; 93005; 96372; 96374; 96375; 99285

== ENCOUNTER 2024-06-18 22:24 | Emergency (ER) | payer OTHER, SELFPAY ==
[2024-06-18 22:27] VITALS: BP 90/61; BMI 17.0
[2024-06-18 22:47] VITALS: BP 90/61
[2024-06-18 22:55] VITALS: BP 131/75
[2024-06-18 23:00] VITALS: BP 126/90
--- NOTE | 2024-06-18 23:58 | ED.GENMED ---
History of Present Illness
<JOVANNY Ramsay - Last Filed: 06/19/24 00:10>
General
Chief Complaint: Change in Mental Status
Time Seen by Provider: 06/18/24 23:01
History of Present Illness
History of Present Illness:
Pt was given 2 mg IM versed by EMS due to agitation. Pt is drowsy but awakes to sternal rub. She states she fell at home but does not know hoe. She denies any alcohol or drug use. She denies any complaints and states she did not want to come to the
ED.
Past History
<JOVANNY Ramsay - Last Filed: 06/19/24 00:10>
Past History
ED Past Medical History: Hypothyroidism, Psychiatric and Other (overdose, recovering alcoholic, depression, alcohol abuse, degenerative joint disease)
ED Past Surgical History: Orthopedic (Cervical fusion over 20 years ago)
Social History
Tobacco: Vaping
Alcohol: Former
Drug: Former user
Living: with roommate
Employment: Disabled
Family History
Family History: Other (Noncontributory)
Phy Exam
<JOVANNY Ramsay - Last Filed: 06/19/24 00:10>
Physical Exam
Physical Exam:
GENERAL: Drowsy , in no apparent stress
Head: Cephalohematoma to the mid forehead. Ecchymosis under the right and left eye. Erythema to the anterior nose.
EYE: pupils equal and reactive
Throat: Airway intact, no exudates
NECK: Supple, no significant adenopathy.
CARDIAC: Regular rate and rhythm .
LUNGS: Clear breath sounds bilaterally, no acute respiratory distress, no wheezes/rales/rhonchi
ABDOMEN: Soft, nondistended, nontender, no cvat
NEUROLOGICAL: Drowsy but arousable. no focal neuro deficits
SKIN: Warm and dry, skin intact.
MUSCULOSKELETAL: No edema, well perfused.
PSYCH: Normal and appropriate interaction.
Course
<JOVANNY Ramsay - Last Filed: 06/19/24 00:10>
Orders/Labs/Results
Orders:
Orders
06/18/24 22:59
CT Cervical Spine W/o Iv Contr Urgent
Comment:
Reason For Exam: fall
CT Head W/o Iv Contrast Urgent
Comment:
Reason For Exam: head injury
06/19/24 00:00
Alcohol Urgent
Basic Metabolic Panel Urgent
Vital Signs
Initial and Last Documented VS:
Initial Vital Signs
Temp Pulse Resp BP Pulse Ox
97.9 F 53 16 90/61 98
06/18/24 22:27 06/18/24 22:27 06/18/24 22:27 06/18/24 22:27 06/18/24 22:27
Last Documented Vital Signs
Temp Pulse Resp BP Pulse Ox
97.9 F 54 18 126/90 100
06/18/24 22:27 06/18/24 23:00 06/18/24 22:55 06/18/24 23:00 06/18/24 23:00
<Kory Muniz DO - Last Filed: 06/19/24 00:13>
Orders/Labs/Results
Orders:
Orders
06/18/24 22:[address] Cervical Spine W/o Iv Contr Urgent
Comment:
Reason For Exam: fall
CT Head W/o Iv Contrast Urgent
Comment:
Reason For Exam: head injury
06/19/24 00:00
Alcohol Urgent
Basic Metabolic Panel Urgent
Vital Signs
Initial and Last Documented VS:
Initial Vital Signs
Temp Pulse Resp BP Pulse Ox
97.9 F 53 16 90/61 98
06/18/24 22:27 06/18/24 22:27 06/18/24 22:27 06/18/24 22:27 06/18/24 22:27
Last Documented Vital Signs
Temp Pulse Resp BP Pulse Ox
97.9 F 54 18 126/90 100
06/18/24 22:27 06/18/24 23:00 06/18/24 22:55 06/18/24 23:00 06/18/24 23:00
<JOVANNY Ramsay - Last Filed: 06/19/24 00:10>
*Radiology
Radiology exam reviewed: radiology read reviewed
*Pulse Oximetry
Patient hypoxic: no
*EKG
Interpreted by ED Provider?: NA
*[employer] Associate Interpretation
Rate: [employer] Associate- N/A
*Critical Care Note
Total Time (30-74mins, 75-104mins- exclusive of procedures): Not Applicable
ED Attending Note
<JOVANNY Ramsay - Last Filed: 06/19/24 00:10>
-
Portions of this chart may have been created with voice recognition software.� Occasional wrong word or��sound alike� substitutions may have occurred due to the inherent limitations of voice recognition software.
<Kory Muniz DO - Last Filed: 06/19/24 00:13>
ED Attending Note
Patient seen and examined by attending physician: Yes
I performed the substantive portion of visit, reviewed & personally made and approve the management plan that is documented in note by myself or KELLEY.: Yes
ED Attending Note:
Pt brought to ER by ambulance after allegedly becoming agitated at home after a fall. She admitted to striking her forehead. Pt was given versed to facilitate transportation to the hospital. Pt is sleeping but arousable. Pt had visit to this
hospital recently for similar presentation. Discharged two days ago.
Pt does have forehead hematoma as well as some facial bruising which appear old. No nuchal rigidity.
Vision report is tiny subdural which was present on CT from 7/28 and is stable.
We will observe until she is more awake. Hopefully she will be stabel for discharge.
Discharge Plan
Departure
Prescriptions:
No Action
levothyroxine 137 mcg Tablet
137 mcg PO DAILY AT 0700
famotidine 40 mg tablet
40 mg PO DAILY
dicyclomine 20 mg tablet
20 mg PO TID
budesonide 3 mg capsule,delayed,extend.release
9 mg PO DAILYPRN PRN (Reason: colitis)
thiamine HCl (vitamin B1) 100 mg tablet
100 mg PO DAILY
acetaminophen [Acetaminophen Extra Strength] 500 mg Tablet
1,000 mg PO Q6HPRN PRN (Reason: mild pain/ fever)
gabapentin 300 mg capsule
300 mg PO BID
buprenorphine-naloxone 8-2 mg tablet, sublingual
1 tab SUBLINGUAL DAILY
Patient Comments:
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
levetiracetam 500 mg Tablet
500 mg PO BID
cyanocobalamin (vitamin B-12) 1,000 mcg Tablet
1,000 mcg PO DAILY
ferrous sulfate 325 mg (65 mg iron) Tablet
325 mg PO DAILY
ascorbic acid (vitamin C) [Vitamin C] 500 mg Tablet,Chewable
500 mg PO DAILY
loratadine 10 mg Tablet
10 mg PO DAILYPRN PRN (Reason: allergies)
metoprolol tartrate 25 mg Tablet
12.5 mg PO BID
cholecalciferol (vitamin D3) [Vitamin D3] 25 mcg (1,000 unit) Tablet
25 mcg PO DAILY
omeprazole 20 mg Tablet,Delayed Release (Dr/Ec)
20 mg PO DAILY
bupropion HCl 150 mg Tablet Extended Release 24 Hr
150 mg PO DAILY 30 Days Qty: 30 0RF
duloxetine 30 mg Capsule,Delayed Release(Dr/Ec)
30 mg PO DAILY 30 Days Qty: 30 0RF
trazodone 150 mg Tablet
75 mg PO HS 30 Days Qty: 15 0RF
amlodipine 5 mg tablet
5 mg PO DAILY Qty: 30 0RF
Referrals:
UNKNOWN - PT DOES,NOT KNOW [Family Provider] -
Interventions
Interventions:
*Risk Screen - Suicide Last Done: 06/18/24 22:27
*General Assessment Last Done: 06/18/24 22:27
*Neglect/Abuse Screening Last Done: 06/18/24 22:27
ED- Fall Risk Assessment Last Done: 06/18/24 22:27
*ED COVID-19 Vaccine History Last Done: 06/18/24 22:27
ED-Skin Assessment Last Done: 06/18/24 23:03
ED- Neurological Assessment Last Done: 06/18/24 23:03
ED Swallowing Screen Last Done: 06/18/24 23:03
Discharge Date and Time
Print Language: MONEGASQUE
[2024-06-19] VITALS (19 sets, daily range): BP systolic 105–180; BP diastolic 70–110
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
[2024-06-19 01:06] LABS: Blood Urea Nitrogen 15 mg/dl (7-17); Calcium 9.8 mg/dl (8.4-10.2); Carbon Dioxide 24 mmol/L (22-30); Chloride 110 mmol/L (98-107); Estimated Creatinine Clearance 50 ml/min; Glucose 97 mg/dl (70-99); Potassium 3.4 mmol/L (3.5-5.1); Sodium 142 mmol/L (135-145); eGFR > 60.00
[2024-06-19 01:08] LABS: Alcohol None Detected
--- NOTE | 2024-06-19 05:00 | EDRN ---
When fully awake, pt. extremely agitated and combative, yelling 'help me! help me!', will stop yelling out when spoken to and can hold coherent conversation, but will immediately start yelling out again, even with RN right beside her. Pt. answers
orientation questions, but acting extremely erratic. RN spoke w/ pt.'s significant other, who says he is not home today, and this is how she acts at home, and then will walk aimlessly around house and fall. Pt. is unsafe to go home alone at this
time, MD aware. Pt. medicated per verbal MD orders. Pt. sleeping after medications, respirations even and unlabored, remains on monitor.
[2024-06-19] MEDS: ATIVAN 1 MG IV (05:05)
[2024-06-19] MEDS: ZOFRAN 4 MG IV (05:05)
--- NOTE | 2024-06-19 15:53 | CON.NEURO ---
Neuro Assessment/Plan
Assessment
IMPRESSIONS/RECOMMENDATIONS:
Abrupt change in mental status
previously ongoing since prior to 07/2023, likely due to EtOH overuse disorder
Plan
Change levetiracetam to brivaracetam due to the possibility of the former producing agitation
Dose Brivaracetam as 100 mg twice a day
Repeat EEG as a greater than 1 hour study to better understand if the patient is having recurrent seizures, unlikely to be the etiology for the patient's agitation, however
Outpatient neuropsychological evaluation
Will continue to follow as outpatient. Please contact us with additional questions or issues.
Consultation
Order
Date of Consultation: 06/19/24
Requesting Provider: Emergency department physician
Reason for Consult: Agitation
Subjective/Objective
Subjective Data
Date of Service: June 19, 2024
'I fell and hit my head.'
Patient unable to provide own medical history, today in the emergency department.
Adapted from my esteemed colleagues consultation in July 2023:
62-year-old female with a past medical history of bipolar disorder, hypertension, hypothyroidism, alcohol use, overdose and traumatic intracranial hemorrhage that occurred in March 2023 for which she was seen at [facility] admitted with agitation and
mental status change. She reports that 'she got very nervous and could not sleep.' She says she had not slept in several days. Documentation shows that her friend found some pills near her. She denies taking anything other than her regular occasions
earlier in the day. She denies any loss of awareness or loss of consciousness. No prior history of seizure. She was found to be hyponatremic. She says that she feels better now but that the abnormal movements she is experiencing are new for her. Per
nursing she has been very combative and argumentative. Earlier this morning she was not speaking.
Discussed with psychiatry--patient reported to her that she has been abusing muscle relaxants. She was also previously on methadone for an extended period of time and is likely still drinking ETOH so w/d could be contributing. Will start Klonipin to
see if this helps her symptoms.
HCT:
'Unenhanced CT imaging of the head reveals no findings to suggest recent infarction, intracranial hemorrhage, extra-axial fluid collection, mass effect or midline shift. The ventricles, cisterns and sulci are within the limits of normal. The
brainstem and posterior fossa structures demonstrate no significant focal abnormality.
Impression:
PRATIMA DE LA CRUZ is a 62 year old F who has presented to the hospital with confusion, agitation and abnormal movements in the setting of insomnia x several days. She has been admitted here with agitation in the past. No clear convulsive seizure activity.
UDS negative. Her dystonia/retrocollis, akathisia, myoclonic jerks and choreiform movements may be due to medical side effect. Will discuss further with psychiatry. Seizure seems less likely but h/o SAH does increase risk of this. Delirium pay be
due to sleep deprivation.
-will discuss treatment with psychiatry--consider clonazepam
-unclear if she would tolerate an EEG or MRI brain; will order both; EEG can be done routinely as she is following commands, making NCSE unlikely.'
Subsequently, patient underwent EEG monitoring which failed to demonstrate an abnormality at that time.
Patient returned to this hospital's emergency department on June 13, 2024 and was subsequently hospitalized for presumed alcohol withdrawal.
Objective Data
Vital Signs
Temp Pulse Resp BP Pulse Ox
36.6 C 85 16 172/102 97
06/18/24 22:27 06/19/24 15:00 06/19/24 15:00 06/19/24 15:00 06/19/24 14:30
Lab Results
06/19/24 00:26
Sodium 142 mmol/L (135-145) 06/19/24 00:26
Potassium 3.4 mmol/L (3.5-5.1) L 06/19/24 00:26
BUN 15 mg/dl (7-17) 06/19/24 00:26
Glucose 97 mg/dl (70-99) 06/19/24 00:26
Calcium 9.8 mg/dl (8.4-10.2) 06/19/24 00:26
Patient Allergies
No Known Allergies Allergy (Verified 04/16/24 15:28)
Review of Systems
-
Unable to obtain full review of systems at this time due to: Dementia
History Source: Patient
All other systems: Reviewed and negative
Physical Exam
-
General: No Apparent Distress and Appears Stated Age
Eyes: OU Absent Papilledema, Round OU, [place] Conjunctivae and No Ptosis
HEENT: Anicteric and Moist Mucous Membranes
Neck: Full Range of Motion
Respiratory: No Dyspnea
Cardiac: No JVD
GI: Non-distended
Extremities: No Clubbing, No Cyanosis and No Edema
Psych: Negative Intact Judgement/Insight
Extended Neurological Exam
Mood & Affect: Negative Affect Unremarkable (Easily irritable)
Attention Span & Concentration: Awake, Alert, Interactive and Mild Difficulty with 2 Step Request
Memory: Able to Recall (Year), Reduced (For the month) and Unable to Recall Personal History
Tremor: Hand Tremor Absent and Head Tremor Absent
Speech: Quality Unremarkable and Quantity Unremarkable
Cranial Nerve II: Left Eye: Pupillary Reactivity Unremarkable, Pupillary Size Unremarkable and Visual Vargas Intact
Cranial Nerve II: Right Eye: Pupillary Reactivity Unremarkable, Pupillary Size Unremarkable and Visual Vargas Intact
Cranial Nerves III, IV, : Extraocular Movement: Extraocular Movement Full in all Directions
Cranial Nerve VII: Facial Symmetry: Normal Facial Symmetry
Cranial Nerve VIII: Hearing: Unremarkable Hearing to Normal Conversational Volume
Cranial Nerves IX, X: Palate Movement: Palate Elevation Symmetric
Cranial Nerve XI: Shoulder Shrug: Unremarkable
Cranial Nerve XII: Tongue Protusion: Midline
Muscle Strength, Overall: Full Throughout
Muscle Bulk & Tone: Bulk Unremarkable and Tone Unremarkable
Pronator Drift: No Drift in Upper Extremities
Deep Tendon Reflexes: Absent Throughout
Touch Sensation: Unremarkable
Coordination: [id number] Testing Unremarkable
Babinski Sign: Absent Bilaterally
Data Reviewed
-
CT Head: Report Reviewed (Acute posterior falx 0.3 cm subdural)
Labs: Report Reviewed
Reviewed with: Physician, Nurse and Patient
Old Records: Summarized
Medications
-
Active Medications
Generic Name Dose Route Start Last Admin
Trade Name Freq PRN Reason Stop Dose Admin
Risperidone 1 mg 06/19/24 11:58
Risperidone 1 Mg Orally Disintegrating Tablet PO 07/17/24 11:57
BIDPRN PRN
acute agitation
Home Medications
�Medication �Instructions �Recorded
levothyroxine 137 mcg tablet 137 mcg PO DAILY AT 0700 Thyroid 02/03/23
budesonide 3 mg 9 mg PO DAILYPRN PRN colitis 11/17/23
capsule,delayed,extended release
dicyclomine 20 mg tablet 20 mg PO TID Gastrointestinal Issue 11/17/23
famotidine 40 mg tablet 40 mg PO DAILY Gastrointestinal 11/17/23
Issue
thiamine HCl (vitamin B1) 100 mg 100 mg PO DAILY Supplement 11/18/23
tablet
acetaminophen 500 mg tablet 1,000 mg PO Q6HPRN PRN mild pain/ 12/08/23
(Acetaminophen Extra Strength) fever
gabapentin 300 mg capsule 300 mg PO BID Neurological 12/08/23
Condition
buprenorphine 8 mg-naloxone 2 mg 1 tab sublingual DAILY 06/14/24
sublingual tablet
levetiracetam 500 mg tablet 500 mg PO BID 06/14/24
ascorbic acid (vitamin C) 500 mg 500 mg PO DAILY 06/15/24
chewable tablet (Vitamin C)
cholecalciferol (vitamin D3) 25 25 mcg PO DAILY 06/15/24
mcg (1,000 unit) tablet (Vitamin
D3)
cyanocobalamin (vitamin B-12) 1,000 mcg PO DAILY 06/15/24
1,000 mcg tablet
ferrous sulfate 325 mg (65 mg 325 mg PO DAILY 06/15/24
iron) tablet
loratadine 10 mg tablet 10 mg PO DAILYPRN PRN allergies 06/15/24
metoprolol tartrate 25 mg tablet 12.5 mg PO BID 06/15/24
omeprazole 20 mg tablet,delayed 20 mg PO DAILY 06/15/24
release
amlodipine 5 mg tablet 5 mg PO DAILY Blood pressure #30 06/16/24
tabs
bupropion HCl 150 mg 24 hr tablet, 150 mg PO DAILY 30 days #30 tabs 06/16/24
extended release
duloxetine 30 mg capsule,delayed 30 mg PO DAILY 30 days #30 caps 06/16/24
release
trazodone 150 mg tablet 75 mg (1/2 x 150 mg) PO HS 30 days 06/16/24
#15 tabs
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
--- NOTE | 2024-06-19 17:27 | ED.CRISIS ---
ED Crisis Note
ED Crisis Note
Subjective:
63-year-old female with history as documented who presented to the emergency room with aggressive behavior. Apparently she had a fall at home and was acutely agitated and combative. She was acutely aggressive for EMS required sedation for
transport to the hospital. She had a CT of her head and cervical spine which showed no acute posttraumatic injuries�stable tiny subdural. She became acutely aggressive and paranoid while in the emergency room and required additional sedation due
to her aggressive behavior and agitation. Upon receiving signout she is currently awaiting psychiatry evaluation. When I enter the room the patient tells me that she already spoke to the doctor and that she does not understand why she has to speak
to me. I explained to her that I need to perform an assessment because I have assumed care for her. She says 'I was aggressive earlier but I feel fine now.' She denies feeling suicidal or homicidal. She denies hallucinations. She denies any
other complaints.
Objective:
Sitting comfortably eating in the room. Hypertensive but otherwise normal vitals. Patient easily agitated and irritable. No gross neurologic deficits.
Assessment/Plan:
63-year-old female presenting with aggressive behavior last night after a fall. There was a question of drug or alcohol use but patient denies. She had a similar admission to the hospital recently. She required multiple rounds of sedation due to
her aggressive behavior and appears to be somewhat paranoid here. She is intermittently crying out that she needs help. Her mood is quite labile and her behavior is erratic. He seems to have poor insight and judgment on my assessment. Patient was
seen by psychiatry; psychiatrist wanted neurologic assessment�neurology felt this is not a primary neurologic process but rather behavioral or possibly substance related. Ultimately psychiatrist petition for involuntary psychiatric commitment for
treatment in my judgment this is warranted and 302 upheld. Will monitor pending placement.
[2024-06-19] MEDS: ZYPREXA ZYDIS (ORALLY DISINTEGRATING) 5 MG PO (21:57)
[2024-06-20] MEDS: ATIVAN 2 MG PO (00:47)
[2024-06-20 00:48] VITALS: BP 153/84
[2024-06-20 07:52] VITALS: BP 155/90
[2024-06-20 08:03] LABS: % Basophils 0.8 % (0-2); % Eosinophils 2.9 % (0-6); % Immature Granulocytes 0.6 % (0-0.5); % Lymphocytes 19.7 % (20.5-51.1); Absolute Basophils 0.1 10^3/uL (0-0.2); Absolute Eosinophils 0.3 10^3/uL (0-0.7); Absolute Immature Granulocytes 0.1 10^3/uL (0-0.05); Absolute Lymphocytes 1.7 10^3/uL (1.2-3.4); Absolute Monocytes 0.9 10^3/uL (0.1-0.6); Absolute Neutrophils 5.5 10^3/uL (1.4-6.5); Hematocrit 33.7 % (37.0-47.0); Hemoglobin 11.6 g/dL (12.0-16.0); Mean Corp Hgb Conc. 34.4 g/dL (33.0-37.0); Mean Corpuscular Hgb 29.8 pg (27.0-31.0); Mean Corpuscular Volume 86.6 fL (81.0-99.0); Mean Platelet Volume 8.8 fL (7.4-10.4); Nucleated Red Blood Cells % 0 %; Platelet Count 391 10^3/uL (130-400); Red Blood Cell Count 3.89 10^6/uL (4.20-5.40); Red Cell Dist. Width 13.6 % (11.5-14.5); White Blood Cell Count 8.5 10^3/uL (4.8-10.8)
--- NOTE | 2024-06-20 12:33 | ED.CRISIS ---
ED Crisis Note
ED Crisis Note
Assessment/Plan:
63-year-old female presenting with aggressive behavior last night after a fall. There was a question of drug or alcohol use but patient denies. She had a similar admission to the hospital recently. She required multiple rounds of sedation due to
her aggressive behavior and appears to be somewhat paranoid here. She is intermittently crying out that she needs help. Her mood is quite labile and her behavior is erratic. He seems to have poor insight and judgment on my assessment. Patient was
seen by psychiatry; psychiatrist wanted neurologic assessment�neurology felt this is not a primary neurologic process but rather behavioral or possibly substance related. Ultimately psychiatrist petition for involuntary psychiatric commitment for
treatment in my judgment this is warranted and 302 upheld. Will monitor pending placement.
UPDATE 12:00pm 06/20/2024 - pt transferred
== END 2024-06-20 11:00 ==
LOC: EMR 22:24
PROVIDERS: CONSULT PHYSICIAN Psychiatry & Neurology Neurology; CONSULT PHYSICIAN Psychiatry & Neurology Psychiatry; EMERGENCY PHYSICIAN Emergency Medicine
DX: F22 Delusional disorders (principal); R45.6 Violent behavior; S00.03XA Contusion of scalp, initial encounter; W19.XXXA Unspecified fall, initial encounter; F17.290 Nicotine dependence, other tobacco product, uncomplicated; F31.9 Bipolar disorder, unspecified; I10 Essential (primary) hypertension; E03.9 Hypothyroidism, unspecified
CPT/HCPCS: 99285; 96374; 96375; 70450; 72125; 80048; 82077; 85025

== ENCOUNTER 2024-07-10 17:44 | Emergency (ER) | payer MEDICAID, SELFPAY ==
[2024-07-10] VITALS (10 sets, daily range): BP systolic 105–135; BP diastolic 59–91
[2024-07-10 17:52] LABS: Glucose - Point of Care 133 mg/dl (70-99)
[2024-07-10 18:07] LABS: % Basophils 0.3 % (0-2); % Eosinophils 0.5 % (0-6); % Immature Granulocytes 0.3 % (0-0.5); % Lymphocytes 11.2 % (20.5-51.1); % Monocytes 6.7 % (1.7-9.3); Absolute Lymphocytes 0.7 10^3/uL (1.2-3.4); Absolute Monocytes 0.4 10^3/uL (0.1-0.6); Absolute Neutrophils 4.9 10^3/uL (1.4-6.5); Hematocrit 29.3 % (37.0-47.0); Hemoglobin 10.1 g/dL (12.0-16.0); Mean Corp Hgb Conc. 34.5 g/dL (33.0-37.0); Mean Corpuscular Hgb 29.7 pg (27.0-31.0); Mean Corpuscular Volume 86.2 fL (81.0-99.0); Mean Platelet Volume 9.1 fL (7.4-10.4); Nucleated Red Blood Cells % 0 %; Platelet Count 280 10^3/uL (130-400); Red Cell Dist. Width 13.2 % (11.5-14.5)
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
[2024-07-10] MEDS: ATIVAN 2 MG IV (19:52)
[2024-07-10 22:16] LABS: Ammonia 14 umol/L (9-30)
[2024-07-10 22:21] LABS: ALT (SGPT) 15 U/L (0-35); AST (SGOT) 27 U/L (14-36); Albumin 4.1 g/dl (3.5-5.0); Alcohol None Detected; Alkaline Phosphatase 96 U/L (38-126); Blood Urea Nitrogen 21 mg/dl (7-17); Calcium 9.5 mg/dl (8.4-10.2); Carbon Dioxide 21 mmol/L (22-30); Chloride 108 mmol/L (98-107); Glucose 103 mg/dl (70-99); Potassium 3.2 mmol/L (3.5-5.1); Sodium 144 mmol/L (135-145); Total Bilirubin 0.4 mg/dl (0.2-1.3); Total Protein 6.4 g/dl (6.3-8.2); eGFR > 60.00
[2024-07-10 23:37] LABS: Magnesium 1.7 mg/dl (1.6-2.3)
[2024-07-11] VITALS (10 sets, daily range): BP systolic 119–181; BP diastolic 62–103
[2024-07-11] MEDS: KCL 40 MEQ PO (03:12)
[2024-07-11] MEDS: SUBUTEX 8 MG SL (06:47)
[2024-07-11] MEDS: TYLENOL 1000 MG PO (06:47)
[2024-07-11] MEDS: NSS 500 IV (07:58)
--- NOTE | 2024-07-11 11:31 | CS.PSYCHR ---
Consult Summary - Psychiatry
-
Pt seen, chart reviewed. Pt is 63 yo female with long hx of alcohol use, hx of opioid use on Subxone tx, with repeated presentations at with agitation. Pt was recently on [address] [facility] 06/20/24 due to aggressive behavior, reportedly
discharged after 4 to 5 days. Pt initially presented overnight as voluntarily seeking psychiatric treatment, however Crisis staff report today pt declines any acute psychiatric care, wants to return home. Crisis service has left messages for pt's
boyfriend, who is reportedly coming in to potentially file a 302. Pt presents well this morning, sitting up on side of bed eating breakfast, with good eye contact, sensorium intact. Pt denies any S/H ideation. She shows no overt signs of
psychosis. As in previous psychiatric contact at , pt reportedly intermittently abusing alcohol, although blood level typically is not detected in ER, and pt minimizes/denies recent use.
PMH: cervical disc dz, cervical fusion over 20 years ago, chronic pain
Psych Hx- unable to obtain form pt; recently prescribed Wellbutrin XL 300 mg AM, Cymbalta 60 mg QD, Trazodone 150 mg HS.
Pt on Suboxone maint tx at [facility] per PDMP- dose 8/2 mg daily since Dec 2023. Pt states she gets Outpatient therapy at .
Home Psych meds: noted to be Suboxone 8/2 mg daily, Cymbalta 30 mg QD, Wellbutrin XL 150 mg AM, Trazodone 150 mg HS
hx of numerous alcohol rehab programs in [place], [place], [facility], [place], [place] per previous case mgt note. Hx of tx programs at [facility], [facility]. Reportedly attends . Last known rehab was Nov 2023.
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
MSE: alert, with sensorium intact. Pt is poor historian. Mood appears stable, although easily agitated. No overt psychosis. Denies feeling depressed. Insight limited/poor
Imp: Alcohol use d/o, denies recent intake, although reportedly binge use. Opioid Use d/o, on Suboxone maintenance tx
Agitation of unclear etiology, possibly substance withdrawal, R/o dementia due to chronic alcohol use.
Unspecified depressive d/o, currently denying active depression, mood more irritable recently
Rec: Would consider [facility] protocol/ alcohol withdrawal precautions. Agree with continuing on Subutex 8 mg daily (outpatient dose)
Will assess regarding potential 302 if boyfriend petitions, although alcohol rehab may be the more appropriate treatment
Will follow
--- NOTE | 2024-07-11 14:09 | ED.GENMED ---
History of Present Illness
General
Chief Complaint: Change in Mental Status
Time Seen by Provider: 07/10/24 18:20
Past History
Past History
ED Past Medical History: Hypothyroidism, Psychiatric and Other (overdose, recovering alcoholic, depression, alcohol abuse, degenerative joint disease)
ED Past Surgical History: Orthopedic (Cervical fusion over 20 years ago)
Social History
Tobacco: Vaping
Alcohol: Former
Drug: Former user
Living: with roommate
Employment: Disabled
Family History
Family History: Other (Noncontributory)
Course
Orders/Labs/Results
Orders:
Orders
07/10/24 18:02
Complete Blood Count/With Diff Urgent
07/10/24 18:27
Urinalysis Reflex To Culture Urgent
07/10/24 18:28
CT Head W/o Iv Contrast Urgent
Comment:
Reason For Exam: altered mental status
07/10/24 19:49
Lorazepam [Ativan] 2 mg IV NOW STA
07/10/24 19:50
Lorazepam [Ativan] 2 mg .ROUTE .STK-MED ONE
07/10/24 21:40
Alcohol Urgent
Ammonia Urgent
Comprehensive Metabolic Panel Urgent
Magnesium Urgent
Comment: ADD ON
07/10/24 22:26
Crisis Consult Routine
Reason for Consult: aggressive behavior, paranoia
Urine Drug Abuse Screen Urgent
Pulse Ox/cont/shift [RESP] Routine
Quantity: 1
07/10/24 22:57
Add On- LAB Urgent
Tests Added?: magnesium
07/10/24 23:31
Potassium Chloride [KCl] 20 meq 0.9% Sodium Chloride 150 ml [Nss] 150 ml IV NOW
07/11/24 00:44
Potassium Chloride [KCl] 40 meq PO NOW STA
07/11/24 03:12
Potassium Chloride [KCl] 40 meq .ROUTE .STK-MED ONE
07/11/24 05:57
Consult Notification Routine
Specialty to Notify: Psychiatry
PSYCHIATRY CONSULT Urgent
Consulting Provider: Afua Maravilla
Was physician already notified: No
Reason for consult: agitation, aggressive and paranoid
07/11/24 06:14
Urine Drug Abuse Screen Urgent
07/11/24 06:40
Buprenorphine [Subutex] 8 mg SL NOW STA
07/11/24 06:41
Acetaminophen [Tylenol] 650 mg .ROUTE .STK-MED ONE
07/11/24 06:42
Acetaminophen [Tylenol] 1,000 mg PO NOW STA
07/11/24 07:55
0.9% Sodium Chloride 500 ml [Nss] 500 ml IV BOLUS
Abnormal Lab Results
07/10/24 07/10/24 07/10/24
17:51 18:02 21:40
RBC 3.40 L 10^6/uL
(4.20-5.40)
Hgb 10.1 L g/dL
(12.0-16.0)
Hct 29.3 L %
(37.0-47.0)
Absolute Lymphs (auto) 0.7 L 10^3/uL
(1.2-3.4)
Neutrophils % 81.0 H %
(42.2-75.2)
Lymphocytes % 11.2 L %
(20.5-51.1)
Potassium 3.2 L mmol/L
(3.5-5.1)
Chloride 108 H mmol/L
(98-107)
Carbon Dioxide 21 L mmol/L
(22-30)
BUN 21 H mg/dl
(7-17)
Glucose 103 H mg/dl
(70-99)
POC Glucose 133 H mg/dl
(70-99)
07/10/24 18:02
07/10/24 21:40
Vital Signs
Initial and Last Documented VS:
Initial Vital Signs
Temp Pulse Resp BP Pulse Ox
98.1 F 73 18 113/73 97
07/10/24 17:48 07/10/24 17:48 07/10/24 17:48 07/10/24 17:48 07/10/24 17:48
Last Documented Vital Signs
Temp Pulse Resp BP Pulse Ox
98.1 F 87 18 169/88 99
07/10/24 17:48 07/11/24 05:42 07/11/24 05:42 07/11/24 07:40 07/11/24 07:45
Update Note
Update Note:
Pt evaluated in ED by (psychiatry) - does not feel that patient is in need of acute in-patient psychiatric treatment.
Discussed with patient and friend at bedside - no suicidal thoughts. Requests outpatient treatment. Resources to be provided by [facility].
ED Attending Note
-
Portions of this chart may have been created with voice recognition software.� Occasional wrong word or��sound alike� substitutions may have occurred due to the inherent limitations of voice recognition software.
Discharge Plan
Departure
Patient Disposition: Home (Routine Discharge)
Date of Disposition: 07/11/24
Time of Disposition: 14:13
Patient with high blood pressure during this ER visit?: Yes
Discharge Problem:
Altered mental status
Instructions: Altered Mental Status (DC)
Prescriptions:
No Action
levothyroxine 137 mcg Tablet
137 mcg PO DAILY AT 0700
dicyclomine 20 mg tablet
20 mg PO TID
budesonide 3 mg capsule,delayed,extend.release
9 mg PO DAILYPRN PRN (Reason: colitis)
thiamine HCl (vitamin B1) 100 mg tablet
100 mg PO DAILY
acetaminophen [Acetaminophen Extra Strength] 500 mg Tablet
1,000 mg PO Q6HPRN PRN (Reason: mild pain/ fever)
gabapentin 300 mg capsule
300 mg PO BID
cyanocobalamin (vitamin B-12) 1,000 mcg Tablet
1,000 mcg PO DAILY
ferrous sulfate 325 mg (65 mg iron) Tablet
325 mg PO DAILY
metoprolol tartrate 25 mg Tablet
25 mg PO BID
cholecalciferol (vitamin D3) [Vitamin D3] 25 mcg (1,000 unit) Tablet
25 mcg PO DAILY
omeprazole 20 mg Tablet,Delayed Release (Dr/Ec)
20 mg PO DAILY
bupropion HCl 150 mg Tablet Extended Release 24 Hr
150 mg PO DAILY 30 Days Qty: 30 0RF
duloxetine 30 mg Capsule,Delayed Release(Dr/Ec)
30 mg PO DAILY 30 Days Qty: 30 0RF
amlodipine 5 mg tablet
5 mg PO DAILY Qty: 30 0RF
trazodone 150 mg tablet
150 mg PO HS
Referrals:
UNKNOWN - PT NOT,INTERVIEWE [Family Provider] -
Activity Restrictions/Additional Instructions:
As discussed, please up follow up with provided outpatient providers for further evaluation and treatment.
Interventions
Interventions:
*Risk Screen - Suicide Last Done: 07/10/24 23:24
*General Assessment Last Done: 07/10/24 19:36
ED- Fall Risk Assessment Last Done: 07/10/24 19:36
*ED COVID-19 Vaccine History Last Done: 07/10/24 19:36
ED- Pulmonary Assessment Last Done: 07/10/24 19:36
ED- Neurological Assessment Last Done: 07/10/24 19:36
ED- Cardiac Assessment Last Done: 07/10/24 19:36
ED Swallowing Screen Last Done: 07/10/24 20:44
Discharge Date and Time
Print Language: TRINIDADIAN
== END 2024-07-11 14:50 | disposition home or self-care (01) ==
LOC: EMR 17:44
PROVIDERS: Physician Assistant; EMERGENCY PHYSICIAN Emergency Medicine; OTHER PHYSICIAN Psychiatry & Neurology Psychiatry
DX: R41.82 Altered mental status, unspecified (principal); F17.290 Nicotine dependence, other tobacco product, uncomplicated
CPT/HCPCS: 99284; 96374; 96361 ×3; 70450; 80053; 82077; 82140; 82962; 83735; 85025

== ENCOUNTER 2024-08-15 16:14 | Observation (INO) | payer OTHER, SELFPAY ==
[2024-08-15] VITALS (15 sets, daily range): BP systolic 97–170; BP diastolic 53–113; BMI 18.7
[2024-08-15 13:35] LABS: Glucose - Point of Care 96 mg/dl (70-99)
--- NOTE | 2024-08-15 14:03 | ED.GENMED ---
History of Present Illness
General
Chief Complaint: Unresponsive
Source: patient
Exam Limitations: clinical condition
Time Seen by Provider: 08/15/24 13:28
History of Present Illness
History of Present Illness:
This is a 63-year-old female who presents after she states she took an extra trazodone. She normally takes 100 mg. Patient denies suicide attempt but is notably somnolent. Does not admit to any other overdose
Past History
Past History
ED Past Medical History: Hypothyroidism, Psychiatric and Other (overdose, recovering alcoholic, depression, alcohol abuse, degenerative joint disease)
ED Past Surgical History: Orthopedic (Cervical fusion over 20 years ago)
Social History
Tobacco: Vaping
Alcohol: Former
Drug: Former user
Living: with roommate
Employment: Disabled
Family History
Family History: Other (Noncontributory)
Phy Exam
Physical Exam
Physical Exam:
CONSTITUTIONAL patient obtunded on initial evaluation. Poorly responsive the pain. Breathing spontaneously but bradypneic
HEAD atraumatic, normocephalic.
EYES eyelids normal to inspection, Pupils equally round and reactive to light at 2 to 3 mm, Extraocular muscles intact, Conjunctiva normal, Sclera normal.
NECK normal range of motion, Trachea midline, no jugular venous distention.
RESPIRATORY CHEST No respiratory distress noted, Chest expansion equal, Bilateral breath sounds clear.
CARDIOVASCULAR regular and bradycardic, Heart sounds normal.
ABDOMEN No distention.
BACK normal inspection, no obvious deformities
UPPER EXTREMITY range of motion normal, Motor strength normal, no cyanosis, no edema.
LOWER EXTREMITY range of motion normal, Motor strength normal, no cyanosis, no edema.
NEURO moves all extremities. No obvious cranial nerve defects. Somnolent. Intermittently responsive to painful stimuli
SKIN skin warm, dry, and normal in color.
Course
Orders/Labs/Results
Orders:
Orders
08/15/24
Electrocardiogram (*1) Stat
Reason for Study: Chest Pain
Comment: DONE NO ORDER ENTERED
08/15/24 13:30
Naloxone [Narcan] 1 mg IM NOW STA
08/15/24 13:32
Naloxone [Narcan] 2 mg .ROUTE .STK-MED ONE
08/15/24 13:58
Acetaminophen Urgent
Alcohol Urgent
Complete Blood Count/With Diff Urgent
Comprehensive Metabolic Panel Urgent
Salicylate Urgent
Venous Blood Gas Urgent
%Oxygen/Room Air: ra
08/15/24 14:04
Electrocardiogram (*1) Urgent
Reason for Study: Other
Other Reason for Exam: overdose
EKG- Treatment ONCE
Naloxone [Narcan] 1 mg IV NOW STA
08/15/24 14:06
Drug Screen, Urine [Urine Drug Abuse Screen] Urgent
Date Specimen was Collected: 08/15/24
Time Specimen was Collected: 14:05
Urinalysis Reflex To Culture Urgent
Date Specimen was Collected: 08/15/24
Time Specimen was Collected: 14:05
Urine Microscopic Reflex Cult Urgent
Urine Culture Urgent
KARINE Source: U
Specimen Description:
Date Specimen was Collected: 08/15/24
Time Specimen was Collected: 14:05
Abnormal Lab Results
08/15/24 08/15/24
13:58 14:06
RBC 3.62 L 10^6/uL
(4.20-5.40)
Hgb 10.6 L g/dL
(12.0-16.0)
Hct 32.6 L %
(37.0-47.0)
MCHC 32.5 L g/dL
(33.0-37.0)
Absolute Lymphs (auto) 1.0 L 10^3/uL
(1.2-3.4)
Neutrophils % 75.3 H %
(42.2-75.2)
Lymphocytes % 13.6 L %
(20.5-51.1)
VBG pH 7.29 L
(7.32-7.43)
VBG pCO2 56 H mmHg
(35-48)
BUN 20 H mg/dl
(7-17)
Creatinine 1.4 H mg/dL
(0.6-1.0)
Glucose 110 H mg/dl
(70-99)
Urine Ketones Trace A
(Negative)
Ur Occult Blood Reflex Trace A
(Negative)
Urine Nitrite (Reflex) Positive A
(Negative)
Urine Bilirubin 1+ A
(Negative)
Leukocyte Esterase Rfl 2+ A
(Negative)
Urine WBC (Reflex) 50-60 A /HPF
(0-5)
Urine Bacteria (Reflex) Few A
(Negative)
Salicylates < 1.0 L mg/dl
(2.0-20.0)
Acetaminophen < 10 L ug/ml
(10-30)
08/15/24 13:58
08/15/24 13:58
Vital Signs
Initial and Last Documented VS:
Initial Vital Signs
Pulse Resp BP Pulse Ox
58 12 118/96 99
08/15/24 13:56 08/15/24 13:56 08/15/24 13:56 08/15/24 13:56
Last Documented Vital Signs
Pulse Resp BP Pulse Ox
56 13 124/74 99
08/15/24 14:12 08/15/24 14:12 08/15/24 14:11 08/15/24 14:10
MDM/Problems Addressed
MDM/Problems Addressed:
Trazodone overdose, urinary tract infection
*Pulse Oximetry
Patient hypoxic: no
*EKG
Interpreted by ED Provider?: Yes
Interpretation: abnormal
Rate: bradycardiac
Rhythm: sinus
Coolidge: normal axis
Ischemia: no ischemia
*Laundry Bag Punch Operator Interpretation
Rate: bradycardiac
Interpretation: abnormal
Rhythm: sinus
*Critical Care Note
Total Time (30-74mins, 75-104mins- exclusive of procedures): 40 minutes
Data Reviewed
Review of Other/Old Records Reveals: Labs (Prior microbiology reviewed. Unasyn appears to be appropriate based on previous Klebsiella and E. coli) and Discharge Summary
Source: patient
Further Testing Considered But Not Given:
Consider head CT but patient clearly overdosed on trazodone appears intoxicated. No signs of head injury
Patient Management
Discussion with other providers: Hospitalist
Escalation/DeEscalation of care consider admission/obs:
Still quite somnolent. Given her overdose, will discuss with poison control. Also admit. Continue close monitoring of mentation
ED Attending Note
-
Portions of this chart may have been created with voice recognition software.� Occasional wrong word or��sound alike� substitutions may have occurred due to the inherent limitations of voice recognition software.
Discharge Plan
Departure
Patient Disposition: Admit
Date of Disposition: 08/15/24
Time of Disposition: 15:15
Admit to: IMU
Presentation/result/management discussed w/ accepting MD/DO: Hospitalist
Discharge Problem:
Accidental overdose of trazodone
Prescriptions:
No Action
levothyroxine 137 mcg Tablet
137 mcg PO DAILY AT 0700
dicyclomine 20 mg tablet
20 mg PO TID
budesonide 3 mg capsule,delayed,extend.release
9 mg PO DAILYPRN PRN (Reason: colitis)
thiamine HCl (vitamin B1) 100 mg tablet
100 mg PO DAILY
acetaminophen [Acetaminophen Extra Strength] 500 mg Tablet
1,000 mg PO Q6HPRN PRN (Reason: mild pain/ fever)
gabapentin 300 mg capsule
300 mg PO BID
cyanocobalamin (vitamin B-12) 1,000 mcg Tablet
1,000 mcg PO DAILY
ferrous sulfate 325 mg (65 mg iron) Tablet
325 mg PO DAILY
metoprolol tartrate 25 mg Tablet
25 mg PO BID
cholecalciferol (vitamin D3) [Vitamin D3] 25 mcg (1,000 unit) Tablet
25 mcg PO DAILY
omeprazole 20 mg Tablet,Delayed Release (Dr/Ec)
20 mg PO DAILY
bupropion HCl 150 mg Tablet Extended Release 24 Hr
150 mg PO DAILY 30 Days Qty: 30 0RF
duloxetine 30 mg Capsule,Delayed Release(Dr/Ec)
30 mg PO DAILY 30 Days Qty: 30 0RF
amlodipine 5 mg tablet
5 mg PO DAILY Qty: 30 0RF
trazodone 150 mg tablet
150 mg PO HS
Referrals:
UNKNOWN,NO INTERVIEW [Family Provider] -
Interventions
Interventions:
*Risk Screen - Suicide Last Done: 08/15/24 13:56
*General Assessment Last Done: 08/15/24 13:56
*Neglect/Abuse Screening Last Done: 08/15/24 13:56
*ED COVID-19 Vaccine History Last Done: 08/15/24 14:12
ED- Neurological Assessment Last Done: 08/15/24 14:12
Discharge Date and Time
Print Language: AZERI
[2024-08-15] MEDS: NARCAN 1 MG IV (14:04)
[2024-08-15] MEDS: NARCAN 1 MG IM (14:04)
[2024-08-15 14:09] LABS: % Basophils 0.6 % (0-2); % Immature Granulocytes 0.3 % (0-0.5); % Lymphocytes 13.6 % (20.5-51.1); % Monocytes 7.2 % (1.7-9.3); % Neutrophils 75.3 % (42.2-75.2); Absolute Eosinophils 0.2 10^3/uL (0-0.7); Absolute Monocytes 0.5 10^3/uL (0.1-0.6); Absolute Neutrophils 5.4 10^3/uL (1.4-6.5); Hematocrit 32.6 % (37.0-47.0); Hemoglobin 10.6 g/dL (12.0-16.0); Mean Corp Hgb Conc. 32.5 g/dL (33.0-37.0); Mean Corpuscular Hgb 29.3 pg (27.0-31.0); Mean Corpuscular Volume 90.1 fL (81.0-99.0); Mean Platelet Volume 9.3 fL (7.4-10.4); Nucleated Red Blood Cells % 0 %; Platelet Count 287 10^3/uL (130-400); Red Blood Cell Count 3.62 10^6/uL (4.20-5.40); Red Cell Dist. Width 13.5 % (11.5-14.5); White Blood Cell Count 7.1 10^3/uL (4.8-10.8)
[2024-08-15 14:10] LABS: Venous Blood Gas B.E. -0.4 mmol/L (-4 to +4); Venous Blood Gas HCO3 26.9 mmol/L (22-27); Venous Blood Gas O2 Sat % 64.4 %; Venous Blood Gas pCO2 56 mmHg (35-48); Venous Blood Gas pH 7.29 (7.32-7.43); Venous Blood Gas pO2 38 mmHg (30-50)
[2024-08-15 14:11] LABS: Venous Blood Gas O2 Therapy RA
[2024-08-15 14:24] LABS: ALT (SGPT) 14 U/L (0-35); AST (SGOT) 20 U/L (14-36); Acetaminophen < 10 ug/ml (10-30); Albumin 4.4 g/dl (3.5-5.0); Alkaline Phosphatase 92 U/L (38-126); Blood Urea Nitrogen 20 mg/dl (7-17); Calcium 9.9 mg/dl (8.4-10.2); Carbon Dioxide 25 mmol/L (22-30); Chloride 104 mmol/L (98-107); Glucose 110 mg/dl (70-99); Potassium 4.3 mmol/L (3.5-5.1); Salicylate < 1.0 mg/dl (2.0-20.0); Sodium 143 mmol/L (135-145); Total Bilirubin 0.3 mg/dl (0.2-1.3); eGFR 42.27
[2024-08-15 14:25] LABS: Alcohol None Detected
[2024-08-15 14:44] LABS: Urine Albumin Trace (Neg - Trace); Urine Bilirubin 1+ (Negative); Urine Character Very Cloudy (Clear); Urine Color Yellow; Urine Glucose Negative (Negative); Urine Ketone Trace (Negative); Urine Leukocyte 2+ (Negative); Urine Nitrite Positive (Negative); Urine Occult Blood Trace (Negative); Urine Urobilinogen Negative (Neg - 1+)
[2024-08-15 15:01] LABS: Urine Squamous Cell 0-2 /LPF (Few)
[2024-08-15 15:02] LABS: Urine Bacteria Few (Negative); Urine Red Blood Cell 0-2 /HPF (0-2); Urine White Cell 50-60 /HPF (0-5)
--- NOTE | 2024-08-15 15:49 | HPS.HSE ---
Family Physician
-
Family Physician: NO INTERVIEW UNKNOWN
Chief Complaint
-
sleepiness
History of Present Illness
63yo F with PMHx of insomnia, traumatic ICH, hypothyroidism and bipolar d/o came after she took two doses of her Trasodone (300mg) when her friend awaken her in 4:30am. Patient remains sleepy but easily arousable in ED, poorly oriented to time, but
appropriate with herself and place, able to convey conversation. She also remembers that she was very sleepy on the day prior. UA concerning for UTI
Medical History
Past Medical History
Past Medical History: Reports Other
Additional Past Medical History:
see HPI
Past Surgical History: Reports None
Social History
Tobacco: Former Smoker
Alcohol: Former
Drug: None
Family History
Family History: Not pertinent
Allergies / Home Medications
Allergies reflects when Allergies were last updated in [facility].
Home Medications with original date entered in [facility]
Allergy/Medication List:
Allergies
Allergy/AdvReac Type Severity Reaction Status Date / Time
No Known Allergies Allergy Verified 08/15/24 13:24
Home Medications - not confirmed yet
levothyroxine 137 mcg tablet 137 mcg PO DAILY AT 0700 Thyroid 02/03/23
budesonide 3 mg capsule,delayed,extended release 9 mg PO DAILYPRN PRN colitis 11/17/23
dicyclomine 20 mg tablet 20 mg PO TID Gastrointestinal Issue 11/17/23
thiamine HCl (vitamin B1) 100 mg tablet 100 mg PO DAILY Supplement 11/18/23
acetaminophen 500 mg tablet (Acetaminophen Extra Strength) 1,000 mg PO Q6HPRN PRN mild pain/ fever 12/08/23
gabapentin 300 mg capsule 300 mg PO BID Neurological Condition 12/08/23
cholecalciferol (vitamin D3) 25 mcg (1,000 unit) tablet (Vitamin D3) 25 mcg PO DAILY 06/15/24
cyanocobalamin (vitamin B-12) 1,000 mcg tablet 1,000 mcg PO DAILY 06/15/24
ferrous sulfate 325 mg (65 mg iron) tablet 325 mg PO DAILY 06/15/24
metoprolol tartrate 25 mg tablet 25 mg PO BID 06/15/24
omeprazole 20 mg tablet,delayed release 20 mg PO DAILY 06/15/24
amlodipine 5 mg tablet 5 mg PO DAILY Blood pressure #30 tabs 06/16/24
bupropion HCl 150 mg 24 hr tablet, extended release 150 mg PO DAILY 30 days #30 tabs 06/16/24
duloxetine 30 mg capsule,delayed release 30 mg PO DAILY 30 days #30 caps 06/16/24
trazodone 150 mg tablet 150 mg PO HS 06/19/24
Review of Systems
-
History Source: Patient
A 12 point ROS was completed and negative except as noted: Yes
Physical Exam
Vital Signs
Vital Signs
Pulse Resp BP Pulse Ox
56 13 124/74 99
08/15/24 14:12 08/15/24 14:12 08/15/24 14:11 08/15/24 14:10
Physical Exam
General: No Apparent Distress
HEENT: NormoCephalic
Respiratory: Clear
Cardiac: S1/S2 and Regular Rhythm
GI: Soft, Non Tender and Non Distended
Musculoskeletal: No Clubbing, No Cyanosis and No Edema
Skin: Warm; No Dry
Neuro: Awake, Alert, Oriented, AO x 3 (not to time) and Sedated
Psych: Calm
Laboratory Results
-
08/15/24 13:58
08/15/24 13:58
Laboratory Results
Total Bilirubin 0.3 mg/dl (0.2-1.3) 08/15/24 13:58
AST 20 U/L (14-36) 08/15/24 13:58
ALT 14 U/L (0-35) 08/15/24 13:58
Alkaline Phosphatase 92 U/L (38-126) 08/15/24 13:58
Data Reviewed
-
Lab Data: Labs Reviewed by me
Impression/Plan
-
A/P:
#Accidental trasodone overdose
ED communicating to poison control
EKG with sinus jeffrey and QTc 439
Monitor on tele
Bicarb drip
Hold trasodone
Patient did not verbalize suicidal ideations
Watch for excessive sedation, if significantly worsening - consider intubation. Observe in IMU
NPO until more awake
Check urine drug screen
#Concern for UTI
#SOFÍA
IVF
CT abd pelvis without contrast to eval for ureteral obstruction
Ceftriaxone
pending Ucx
#Microscopic colitids
#Bipolar d/o
#LEELA
#Hypothyroidism
#Essential HTN
check TSH
cont home meds when patient is more awake (hold the rest for now)
Psych consult
DVT ppx SCDs
Full code
I have spent at least 78min admitting the patient
[2024-08-15 15:55] LABS: Amphetamines Negative (Negative); Barbiturates Negative (Negative); Benzodiazepines Negative (Negative); Buprenorphine Positive (Negative); Cocaine Negative (Negative); Marijuana Negative (Negative); Methadone Negative (Negative); Methamphetamines Positive (Negative); Opiates Negative (Negative); Phencyclidine Negative (Negative); Tricyclic Antidepressants Negative (Negative)
[2024-08-15 16:22] LABS: Fentanyl, Urine Negative (Negative)
[2024-08-15] MEDS: SODIUM BICARBONATE 1150 MEQ IV (16:26)
[2024-08-15] MEDS: ROCEPHIN 1000 MG IV (16:27)
[2024-08-15 16:35] LABS: COVID-19 Antigen Negative (Negative)
--- NOTE | 2024-08-15 18:43 | PTCARENOTE ---
Addendum entered by Mirian Maurice RN 08/15/24 19:35:
*nonsensical talk.
Original Note:
Patient arrived from ED, She is perseverating and keeps saying '[facility] and answers [facility] to questions and then can inconsistently answer questions correctly. Pt is angry and and swearing. Pt settled into bed with attempts to reorient
unsuccefful, she remains angry and is tearful and repeats angry angry...non sensicla NSR on heart monitor. Room air 94%.
[2024-08-15] MEDS: ATIVAN 1 MG IV (19:10)
[2024-08-15 19:46] LABS: TSH 0.09 uIU/ml (0.47-4.68)
[2024-08-15] MEDS: KEPPRA 500 MG PO (20:27)
[2024-08-15] MEDS: SUBUTEX 8 MG SL (20:27)
--- NOTE | 2024-08-15 20:42 | PTCARENOTE ---
Addendum entered by Martha Villalta RN 08/16/24 07:58:
1:1 observation attained at 2300. Pt remains in and out of being calm and periods of agitation overnight. Pt able to be reoriented. Pt bladder scanned for 737. WALNUT DEHYDRATOR OPERATOR notified. order received for bladder scan and straight cath. Pt straight cathed for
900ml. Pt remains in 2L satting 99%. VSS.
Original Note:
This RN arrived to the unit to new admit Pt yelling incomprehensive statements. Repeating she wants to go home. Pt unable to be calmed by verbal reconciliation by multiple RNS. Secondary RN contacted the provider and received an Ativan order. med
was given by that RN. Pt is now calm. Pt is drowsy, arousable by verbal and light tactile stimuli. Pt RR decreased to 8-9. Pt placed on 2L 02, satting 100%. Pt awoken by this RN. HR 56. BP 129/95(107). NSR on monitor. Medistter in use. Care is
ongoing.
--- NOTE | 2024-08-15 23:12 | W.PN.UPDATE ---
Update Note
Progress Note Update
1899 as soon as pt arrived to unit pt extremely agitated and yelling and screaming. Ativan 1mg iv ordered. +effective
[2024-08-15] MEDS: ATIVAN 0.5 MG IV (23:26)
[2024-08-15] MEDS: NSS (PRESERVATIVE FREE) 0.25 ML IV (23:27)
[2024-08-16] VITALS (13 sets, daily range): BP systolic 81–154; BP diastolic 52–107; BMI 19.1
[2024-08-16 04:37] LABS: % Basophils 0.6 % (0-2); % Eosinophils 3.4 % (0-6); % Immature Granulocytes 0.3 % (0-0.5); % Lymphocytes 16.9 % (20.5-51.1); % Neutrophils 68.8 % (42.2-75.2); Absolute Basophils 0.1 10^3/uL (0-0.2); Absolute Eosinophils 0.3 10^3/uL (0-0.7); Absolute Lymphocytes 1.4 10^3/uL (1.2-3.4); Absolute Monocytes 0.8 10^3/uL (0.1-0.6); Absolute Neutrophils 5.5 10^3/uL (1.4-6.5); Hematocrit 30.8 % (37.0-47.0); Hemoglobin 10.8 g/dL (12.0-16.0); Mean Corp Hgb Conc. 35.1 g/dL (33.0-37.0); Mean Corpuscular Hgb 29.6 pg (27.0-31.0); Mean Corpuscular Volume 84.4 fL (81.0-99.0); Mean Platelet Volume 9.2 fL (7.4-10.4); Nucleated Red Blood Cells % 0 %; Platelet Count 283 10^3/uL (130-400); Red Blood Cell Count 3.65 10^6/uL (4.20-5.40); Red Cell Dist. Width 13.3 % (11.5-14.5)
[2024-08-16] MEDS: SODIUM BICARBONATE 1150 MEQ IV (04:42)
[2024-08-16 04:58] LABS: Blood Urea Nitrogen 16 mg/dl (7-17); Calcium 8.9 mg/dl (8.4-10.2); Carbon Dioxide 25 mmol/L (22-30); Chloride 106 mmol/L (98-107); Estimated Creatinine Clearance 76 ml/min; Glucose 100 mg/dl (70-99); Magnesium 1.9 mg/dl (1.6-2.3); Sodium 143 mmol/L (135-145); eGFR > 60.00
[2024-08-16 06:08] LABS: Glucose - Point of Care 82 mg/dl (70-99)
[2024-08-16 06:43] LABS: Amphetamines Negative (Negative); Barbiturates Negative (Negative); Benzodiazepines Positive (Negative); Buprenorphine Positive (Negative); Cocaine Negative (Negative); Marijuana Negative (Negative); Methadone Negative (Negative); Methamphetamines Negative (Negative); Opiates Negative (Negative); Phencyclidine Negative (Negative); Tricyclic Antidepressants Negative (Negative)
[2024-08-16 07:12] LABS: Fentanyl, Urine Negative (Negative)
--- NOTE | 2024-08-16 08:37 | W.PN.HOSP.TC ---
Today's Communication/Plan
-
psych consult
pending Ucx
check ddimer
stop IVF
wean off O2
Assessment / Plan
Assessment / Plan
63yo F with PMHx of insomnia, traumatic ICH, hypothyroidism and bipolar d/o came after she took two doses of her Trasodone (300mg) when her friend awaken her in 4:30am, managed for accidental trazodone overdose and accidental UTI
A/P:
#Accidental trasodone overdose
resolved
hold trasodone at this time pending psych consult
UDS positive for methamphetamines on admission, not confirmed on the repeated test, patient denied illicit drug use
#Concern for UTI
#SOFÍA resolved
CT abd pelvis without contrast without overt signs of hydronephrosis, however poor quality 2/2 multiple artifacts
Ceftriaxone
pending Ucx
#R posterior chest pleuritic pain
#Hx of thoracic spine surgery
Chest XR neg for pneumonia
with wells score 0 - check ddimer
#Chronic mild anemia
PCP follow up
#former opioid abuse now on drug replacement therapy
#Microscopic colitis
#Bipolar d/o
#LEELA
#Hypothyroidism
#Essential HTN
TSH low -decrease Synthroid, repeat TSH in 2-3 weeks with PCP
cont home meds when patient is more awake (hold the rest for now)
Patient recently discharged from [facility]' for mental illness - Psych consult
DVT ppx lovenox
Full code
I have spent at least 59min reviewing chart, test results and direct patient care
Anticipated Discharge: Within 24 hours
Subjective/Interval History
-
Date of Service: August 16, 2024
Objective Data
-
Labs:
Laboratory Results
08/16/24
04:18
WBC 8.0
Hgb 10.8 L
Hct 30.8 L
Plt Count 283
Sodium 143
Potassium 4.0
Chloride 106
Carbon Dioxide 25
BUN 16
Creatinine 0.7
Glucose 100 H
Calcium 8.9
Vital Signs:
Vital Signs
Temp Pulse Resp BP Pulse Ox
98.0 F 71 16 130/68 97
08/16/24 07:01 08/16/24 04:45 08/16/24 04:45 08/16/24 04:28 08/16/24 04:45
I&O
08/15/24 08/16/24 08/17/24
06:59 06:59 06:59
Intake Total 1200 / 1200
Output Total 900 / 900
Balance -900 / -900 1200 / 1200
Review of Systems
-
History Source: Patient
All other systems: Reviewed and negative
Psych: Reports Other (feeling confused)
Physical Exam
-
General: Well Developed, Well Nourished and No Apparent Distress
HEENT: Normocephalic
Respiratory: Clear to Auscultation
Cardiac: Regular Rhythm
GI: Soft, Nontender and Nondistended
Genito-urinary: No Costovertebral Tender
Musculoskeletal: No Clubbing, No Cyanosis and No Edema
Neuro: Awake, Alert, Oriented and AO x 3
Psych: Calm
[2024-08-16] MEDS: LOPRESSOR 25 MG PO ×2 (08:43→19:41)
[2024-08-16] MEDS: CYMBALTA DELAYED RELEASE 30 MG PO (08:43)
[2024-08-16] MEDS: LIORESAL 20 MG PO ×4 (08:44→19:40)
[2024-08-16] MEDS: NEURONTIN 300 MG PO ×2 (08:44→19:41)
[2024-08-16] MEDS: PROTONIX 40 MG PO (08:45)
[2024-08-16] MEDS: KEPPRA 500 MG PO ×2 (08:45→19:40)
[2024-08-16] MEDS: SUBUTEX 8 MG SL ×2 (08:45→19:41)
[2024-08-16] MEDS: ABILIFY 20 MG PO (08:48)
[2024-08-16] MEDS: WELLBUTRIN XL (24 hour extended release) 150 MG PO (08:49)
[2024-08-16 09:59] LABS: D-Dimer 0.84 ug/mlFEU (0.00-0.50)
--- NOTE | 2024-08-16 10:42 | WOUNDNOTE ---
GLUTEAL CLEFT VERTICAL
--- NOTE | 2024-08-16 10:45 | WOUNDNOTE ---
SUJEY RN NOTE: Patient admitted for accidental overdose of trazodone. PMH: Alcoholism, degenerative joint disease, smoker and cervical fusion 20 yrs ago. Patient received in bed on air mattress, turns self. Has small stage 2 vs stage 3 PI on gluteal
cleft vertical. Scant fibrin vs slough at base, shallow and macerated surrounding. Patient reports her appetite is improving and ambulates on own. Patient states she thinks she developed ulcer there from previous facility. Ulcer is close to rectum,
suspect patient may have been incontinent causing skin to break down in past. Skin prep and silicone foam applied, air chair cushion given and instructed to take home upon discharge. Heels are intact. Nurse Josette updated on care, aware patient
will need air overlay to bed if transferred to floor. Will update care plan and follow as needed.
--- NOTE | 2024-08-16 10:49 | PTCARENOTE ---
Pt more cooperative at this time. Currently at CT scan and US to R/U PE/DVT. Good appetite. stable vital signs. O2 sat 99% on RA
--- NOTE | 2024-08-16 14:58 | CS.PSYCHR ---
Consult Summary - Psychiatry
-
Pt is 63 yo female, seen by Psychiatry on multiple previous admissions, who presented with confusion after taking extra Trazodone. Pt admitted for Trazodone OD and concern for UTI. Pt awake, alert, calm, cooperative today. She reports she took 2
Trazodone 300 mg tabs because she couldn't sleep, was still awake at 4:30 am. She denies any suicidal ideation, denies any intent to harm self. Pt recalls being confused, feeling very tired, 'words were mixed up.' Nursing staff reports pt was
confused and screaming last night. She has been calm and cooperative today. Pt reportedly just discharged form [facility] recently, was started on Abilify, and another agent- pt unable to recall.
PMH: cervical disc dz, cervical fusion over 20 years ago, chronic pain
Psych Hx- hx of depression/mood d/o. Previously on Wellbutrin XL 300 mg AM, Cymbalta 60 mg QD, Trazodone 150 mg HS. Recently in [facility]- placed on Abilify, possibly another agent- unable to confirm
Pt on Suboxone maint tx at [facility] per PDMP- dose 8/2 mg daily since Dec 2023. Pt states she gets Outpatient therapy and Med mgt at .
hx of numerous alcohol rehab programs in [place], [place], [place], [place], [place] per previous case mgt note. Hx of tx programs at [facility], [facility]. Reportedly attends . Last known rehab was Nov 2023.
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
MSE: alert, with sensorium intact, calm, cooperative. Mood appears stable, affect pleasant this morning. No overt psychosis. Denies feeling depressed. Insight appears limited
Imp: Unspecified Depressive d/o, R/o Bipolar disorder- mood appears stable. Denies intent to OD with taking extra Trazodone tab
Alcohol use d/o, denies recent intake, although reportedly binge use. Opioid Use d/o, on Suboxone maintenance tx
Rec: Would continue current psychotropic medications
Pt appears stable to return to Outpatient treatment when medically cleared
will follow
--- NOTE | 2024-08-16 16:16 | CM ---
Patient with Hx bipolar d/o with Dx Accidental trazodone overdose, Concern for UTI. Receiving IV Abx, Subutex. Seen by Crisis in ED. Psych consult noted. O2 2L. Seen by wound care nurse - wound care [facility] Q2days, air chair cushion issued.
Met with patient who resides with her SO Darnell in a first floor apartment.
The patient was Independent in ADLs/ambulation using her SPC.
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
DME - [facility]
Prior [facility]
Prior [facility].
PCP - Dr Hansen
Pharmacy - [facility]
Offered patient VN for nurse for wound care and she agrees to [facility] - referral placed.
Spoke with Dr Baptiste; he feels that the patient will be able to resume her outpatient follow up at d/c.
Plan home with [facility].
[2024-08-16] MEDS: ROCEPHIN 1000 MG IV (17:01)
[2024-08-16] MEDS: LOVENOX 40 MG SC (17:01)
[2024-08-16] MEDS: STERILE WATER FOR INJECTION 10 ML IV (17:01)
[2024-08-16] MEDS: ATIVAN 0.5 MG IV (22:45)
[2024-08-16] MEDS: NSS (PRESERVATIVE FREE) 0.25 ML IV (22:46)
[2024-08-17] VITALS: BP 92/53
[2024-08-17 02:00] VITALS: BP 93/59
[2024-08-17 04:40] VITALS: BMI 19.4
[2024-08-17 04:51] VITALS: BP 127/79
[2024-08-17] MEDS: SYNTHROID 125 MCG PO (05:12)
[2024-08-17] MEDS: ZOFRAN 4 MG IV (05:12)
[2024-08-17] MEDS: TYLENOL 650 MG PO (05:12)
--- NOTE | 2024-08-17 05:49 | PTCARENOTE ---
No acute events overnight. PRN ativan given. Remained on room air.
[2024-08-17 06:00] VITALS: BP 96/59
[2024-08-17 08:00] VITALS: BP 108/81
[2024-08-17] MEDS: LOPRESSOR 25 MG PO (09:08)
[2024-08-17] MEDS: SUBUTEX 8 MG SL (09:08)
[2024-08-17] MEDS: WELLBUTRIN XL (24 hour extended release) 150 MG PO (09:08)
[2024-08-17] MEDS: PROTONIX 40 MG PO (09:08)
[2024-08-17] MEDS: ABILIFY 20 MG PO (09:08)
[2024-08-17] MEDS: CYMBALTA DELAYED RELEASE 30 MG PO (09:09)
[2024-08-17] MEDS: KEPPRA 500 MG PO (09:09)
[2024-08-17] MEDS: NEURONTIN 300 MG PO (09:09)
[2024-08-17] MEDS: LIORESAL 20 MG PO (09:09)
--- NOTE | 2024-08-17 09:35 | W.PN.HOSP.TC ---
Today's Communication/Plan
-
dc
Assessment / Plan
Assessment / Plan
63yo F with PMHx of insomnia, traumatic ICH, microscopic colitis, hypothyroidism and bipolar d/o came after she took two doses of her Trasodone (300mg) when her friend awaken her in 4:30am, managed for accidental trazodone overdose and accidental
UTI with Enterobacter cloacae sensitive to Bactrim. Medically stable for outpatient psych follow up as per psychiatrist and to cont Bactrim as per Ucx sensitivities.
A/P:
#Accidental trazodone overdose
resolved
Stop trazodone at this time pending psych consult
#Concern for UTI
#SOFÍA resolved
CT abd pelvis without contrast without overt signs of hydronephrosis, however poor quality 2/2 multiple artifacts
Ceftriaxone
pending Ucx
#R posterior chest pleuritic pain
#Hx of thoracic spine surgery
Chest XR neg for pneumonia
with wells score 0 - check ddimer
#Chronic mild anemia
PCP follow up
#former opioid abuse now on drug replacement therapy
#Microscopic colitis
#Bipolar d/o
#LEELA
#Hypothyroidism
#Essential HTN
TSH low -decrease Synthroid, repeat TSH in 2-3 weeks with PCP
cont home meds when patient is more awake (hold the rest for now)
Patient recently discharged from [facility] for mental illness - Psych consult
DVT ppx lovenox
Full code
I have spent at least 59min reviewing chart, test results and direct patient care
Anticipated Discharge: Today
Subjective/Interval History
-
Date of Service: August 17, 2024
Objective Data
-
Vital Signs:
Vital Signs
Temp Pulse Resp BP Pulse Ox
97.6 F 78 8 108/81 97
08/17/24 08:24 08/17/24 09:08 08/17/24 06:00 08/17/24 09:08 08/17/24 04:00
I&O
08/16/24 08/17/24 08/18/24
06:59 06:59 06:59
Intake Total 1440 / 1440
Output Total 900 / 900
Balance -900 / -900 1440 / 1440
Review of Systems
-
History Source: Patient
All other systems: Reviewed and negative
Physical Exam
-
General: No Apparent Distress
HEENT: Normocephalic, Atraumatic and Moist Mucous Membranes
GI: Soft, Nontender and Nondistended
Skin: Warm
Neuro: Awake, Alert, Oriented and AO x 3
Psych: Calm
--- NOTE | 2024-08-17 09:39 | W.DCSUMMARY ---
Discharge Summary
Discharge Data
Date of Admission: 08/15/24
Date of Discharge: 08/17/24
-
Pending Results: No
Hospital Course
63yo F with PMHx of insomnia, traumatic ICH, microscopic colitis, hypothyroidism and bipolar d/o came after she took two doses of her Trasodone (300mg) when her friend awaken her in 4:30am, managed for accidental trazodone overdose and accidental
UTI with Enterobacter cloacae sensitive to Bactrim. Medically stable for outpatient psych follow up as per psychiatrist and to cont Bactrim as per Ucx sensitivities. Synthroid decreased and patient will follow for repeated TSH with PCP.
I have spent at least 36min preparing d/c
Patient was managed for:
#Accidental trazodone overdose
#Concern for UTI
#SOFÍA resolved
#R posterior chest pleuritic pain
#Hx of thoracic spine surgery
#Chronic mild anemia
#former opioid abuse now on drug replacement therapy
#Microscopic colitis
#Bipolar d/o
#LEELA
#Hypothyroidism
#Essential HTN
Discharge Plan
-
Patient Disposition: Home (Routine Discharge)
Discharge Diagnosis/Procedures: UTI
Diet: Regular
Activity: As tolerated
Driving Restrictions: As prior to admission
Activity Restrictions/Additional Instructions:
Wound Care Instructions
gluteal cleft: clean with soap and water, skin prep periwound, silicone foam change q 2 days and prn soilage.
Air chair cushion when sitting, can take upon discharge.
Increase protein in diet
Frequent shifts in position when sitting
Turn frequently when in bed onto sides.
Follow up at wound care center call for an appointment.
Referrals:
UNKNOWN,NO INTERVIEW [Family Provider] -
Additional Discharge Medication Instructions: Levothyroxine dose decreased - please re-check blood test for thyroid function with your family doctor in 2-3 weeks upon discharge
Prescriptions:
New
sulfamethoxazole-trimethoprim 800-160 mg Tablet
1 tab PO BID Qty: 10 0RF
levothyroxine 125 mcg Tablet
125 mcg PO DAILY @ 0600 Qty: 30 0RF
Continued
budesonide 3 mg capsule,delayed,extend.release
9 mg PO DAILYPRN PRN (Reason: colitis)
thiamine HCl (vitamin B1) 100 mg tablet
100 mg PO DAILY
gabapentin 300 mg capsule
300 mg PO BID
cyanocobalamin (vitamin B-12) 1,000 mcg Tablet
1,000 mcg PO DAILY
ferrous sulfate 325 mg (65 mg iron) Tablet
325 mg PO DAILY
metoprolol tartrate 25 mg Tablet
25 mg PO BID
cholecalciferol (vitamin D3) [Vitamin D3] 25 mcg (1,000 unit) Tablet
25 mcg PO DAILY
omeprazole 20 mg Tablet,Delayed Release (Dr/Ec)
20 mg PO DAILY
bupropion HCl 150 mg Tablet Extended Release 24 Hr
150 mg PO DAILY 30 Days Qty: 30 0RF
duloxetine 30 mg Capsule,Delayed Release(Dr/Ec)
30 mg PO DAILY 30 Days Qty: 30 0RF
levetiracetam 500 mg Tablet
500 mg PO Q12H
famotidine 40 mg Tablet
40 mg PO HS
baclofen 20 mg Tablet
20 mg PO QID
aripiprazole 20 mg Tablet
20 mg PO DAILY
buprenorphine-naloxone 8-2 mg Film
1 film BUCCAL BID
Discontinued
levothyroxine 137 mcg Tablet
137 mcg PO DAILY AT 0700
dicyclomine 20 mg tablet
20 mg PO TID
acetaminophen [Acetaminophen Extra Strength] 500 mg Tablet
1,000 mg PO Q6HPRN PRN (Reason: mild pain/ fever)
amlodipine 5 mg tablet
5 mg PO DAILY Qty: 30 0RF
trazodone 150 mg tablet
150 mg PO HS
metaxalone 800 mg Tablet
800 mg PO HSPRN PRN (Reason: spasms)
Discharge Orders:
Discharge Patient (As Directed); Ordered 08/17/24
Ordered By: Jeronimo Riley
Discharge Date and Time
Print Language: AZERI
--- NOTE | 2024-08-17 09:57 | PTCARENOTE ---
Assumed care of patient this morning. She is aaox3, pleasant. Doctor already saw her and advised she could be discharged. Pt with ride coming soon and asking to go home soon. Will discharge when able. Assessment, care and VS as charted.
[2024-08-17 10:00] VITALS: BP 101/56
[2024-08-17] MEDS: BACTRIM DS 800 MG/160 MG 1 TABLET PO (10:06)
--- NOTE | 2024-08-17 10:16 | CM ---
Addendum entered by Svetlana Calvillo RN 08/17/24 10:21:
[facility] (fax [phone])
Original Note:
Seen by wound care nurse - wound care [facility] Q2days, air chair cushion issued.
Met with patient who was preparing for d/c. The patient says she feels ready to go home today. ALLEN Letter completed. She is aware that [facility] nurse will see her at home for wound care. Her So/friend Darnell will provide transport home today.
Phone call to [facility]; referral was accepted & informed facing baster jumpbasting of d/c home today- [facility] also updated.
Plan home today with [facility].
== END 2024-08-17 10:32 | disposition home health service (06) ==
LOC: IMU 16:14
PROVIDERS: ADMITTING PHYSICIAN Internal Medicine; CONSULT PHYSICIAN Psychiatry & Neurology Psychiatry; EMERGENCY PHYSICIAN Emergency Medicine
DX: T43.211A Poisoning by selective serotonin and norepinephrine reuptake inhibitors, accidental (unintentional), initial encounter (principal); R40.0 Somnolence; Y92.9 Unspecified place or not applicable; F31.9 Bipolar disorder, unspecified; E03.9 Hypothyroidism, unspecified; M19.90 Unspecified osteoarthritis, unspecified site; F10.21 Alcohol dependence, in remission; F17.290 Nicotine dependence, other tobacco product, uncomplicated; R07.9 Chest pain, unspecified; N39.0 Urinary tract infection, site not specified; G47.00 Insomnia, unspecified; N17.9 Acute kidney failure, unspecified; I10 Essential (primary) hypertension; G89.29 Other chronic pain; F11.10 Opioid abuse, uncomplicated; D50.9 Iron deficiency anemia, unspecified; N28.1 Cyst of kidney, acquired; R00.1 Bradycardia, unspecified; R07.81 Pleurodynia; Z98.1 Arthrodesis status; Z79.890 Hormone replacement therapy; Z11.52 Encounter for screening for COVID-19; Z96.642 Presence of left artificial hip joint; Z87.440 Personal history of urinary (tract) infections
CPT/HCPCS: 70450; 71045; 71275; 74176; 80048; 80053; 80143; 80179; 80306; 80307; 81003; 81015; 82077; 82805; 82962; 83735; 84443; 85025; 85379; 87070; 87077; 87086; 87147; 87186; 87502; 87811; 93005; 93970; 96372; 96374; 99291; 99406; G0378; Q9967

== ENCOUNTER 2024-11-13 10:21 | Emergency (ER) | payer OTHER, SELFPAY ==
[2024-11-13] VITALS (8 sets, daily range): BP systolic 101–206; BP diastolic 63–178; BMI 18.2
--- NOTE | 2024-11-13 11:43 | ED.GENMED ---
History of Present Illness
General
Chief Complaint: Change in Mental Status
Source: patient and family
Exam Limitations: none
Time Seen by Provider: 11/13/24 11:29
Nursing documentation reviewed up to this point in time: agreed with
History of Present Illness
History of Present Illness:
63-year-old female with past medical history of alcohol abuse anxiety depression, hypertension presenting to the emergency department today with concerns of feeling lightheaded and somewhat confused this morning. Denies any specific chest pain
shortness of breath nausea vomiting recent illnesses or fever. Denies any medication changes. Has had similar events in the past when she took too much sleeping medication.
Past History
Past History
ED Past Medical History: Hypothyroidism, Psychiatric and Other (overdose, recovering alcoholic, depression, alcohol abuse, degenerative joint disease)
ED Past Surgical History: Orthopedic (Cervical fusion over 20 years ago)
Social History
Tobacco: Vaping
Alcohol: Former
Drug: Former user
Living: with roommate
Employment: Disabled
Family History
Family History: Other (Noncontributory)
Review of Systems
Review of Systems
Allergies reviewed?: Yes
All Other Systems: ROS reviewed and negative except as documented in HPI and ROS
Phy Exam
Physical Exam
Physical Exam:
GENERAL: Alert , in no apparent distress
EYE: pupils equal and reactive
NECK: Supple, no significant adenopathy.
ENT: o/p clr, mmm.
CARDIAC: Regular rate and rhythm .
LUNGS: Clear breath sounds bilaterally, no acute respiratory distress, no wheezes/rales/rhonchi
ABDOMEN: Soft, without focal tenderness, no r/g, no cvat
NEUROLOGICAL: Alert and oriented, no focal neuro deficits
SKIN: Warm and dry, skin intact.
MUSCULOSKELETAL: No edema, well perfused.
PSYCH: Normal and appropriate interaction.
Course
Orders/Labs/Results
Orders:
Orders
11/13/24 10:58
EKG [Electrocardiogram (*1)] Urgent
Reason for Study: Vertigo / Dizzy
EKG- Treatment ONCE
11/13/24 11:30
Electrocardiogram (*1) Stat
Reason for Study: Abdominal Pain
Cardiac Monitoring- Treatment ONCE
EKG- Treatment ONCE
Urinalysis Reflex To Culture Urgent
11/13/24 12:26
Alcohol Urgent
Complete Blood Count/With Diff Urgent
Comprehensive Metabolic Panel Urgent
Free T4 Urgent
Lipase Urgent
TSH Reflex To Free T4 Urgent
11/13/24 13:22
CT Head W/o Iv Contrast Urgent
Comment:
Reason For Exam: ams
11/13/24 13:51
0.9% Sodium Chloride 500 ml [Nss] 500 ml IV BOLUS
Abnormal Lab Results
11/13/24
12:26
MCHC 32.0 L g/dL
(33.0-37.0)
RDW 14.9 H %
(11.5-14.5)
Absolute Neuts (auto) 7.1 H 10^3/uL
(1.4-6.5)
Absolute Monos (auto) 0.9 H 10^3/uL
(0.1-0.6)
Lymphocytes % 12.6 L %
(20.5-51.1)
Chloride 110 H mmol/L
(98-107)
Carbon Dioxide 20 L mmol/L
(22-30)
TSH (Reflex) 0.30 L uIU/ml
(0.47-4.68)
11/13/24 12:26
11/13/24 12:26
Vital Signs
Initial and Last Documented VS:
Initial Vital Signs
Temp Resp BP
98.2 F 18 160/109
11/13/24 10:53 11/13/24 10:53 11/13/24 10:53
Last Documented Vital Signs
Temp Pulse Resp BP Pulse Ox
98.2 F 67 22 101/63 98
11/13/24 10:53 11/13/24 16:01 11/13/24 16:01 11/13/24 15:00 11/13/24 15:30
MDM/Problems Addressed
MDM/Problems Addressed:
63-year-old female presenting with concerns of fatigue and some brain fogginess this morning. Denies any specific symptoms normal neurologic evaluation. Blood pressure elevated otherwise vital vital signs are normal here. No specific additional
symptoms otherwise. She initially used the word dizzy however clarified that this means lightheadedness' off'. No room spinning dizziness or trouble with balance or coordination. Labs EKG head CT were obtained without emergent findings. She was
watched here for multiple hours on the monitor with no events. She claims that symptoms fully resolved while here concerning this patient does appear stable for outpatient follow-up return precautions were given.
*Critical Care Note
Total Time (30-74mins, 75-104mins- exclusive of procedures): Not Applicable
ED Attending Note
-
Portions of this chart may have been created with voice recognition software.� Occasional wrong word or��sound alike� substitutions may have occurred due to the inherent limitations of voice recognition software.
Discharge Plan
Departure
Patient Disposition: Home (Routine Discharge)
Date of Disposition: 11/13/24
Time of Disposition: 16:27
Patient with high blood pressure during this ER visit?: No
Condition: Good
Covid-19: Not Applicable
Discharge Problem:
Lightheadedness
Instructions: Altered Mental Status (DC)
Prescriptions:
No Action
budesonide 3 mg capsule,delayed,extend.release
9 mg PO DAILYPRN PRN (Reason: colitis)
thiamine HCl (vitamin B1) 100 mg tablet
100 mg PO DAILY
gabapentin 300 mg capsule
300 mg PO BID
cyanocobalamin (vitamin B-12) 1,000 mcg Tablet
1,000 mcg PO DAILY
ferrous sulfate 325 mg (65 mg iron) Tablet
325 mg PO DAILY
metoprolol tartrate 25 mg Tablet
25 mg PO BID
cholecalciferol (vitamin D3) [Vitamin D3] 25 mcg (1,000 unit) Tablet
25 mcg PO DAILY
omeprazole 20 mg Tablet,Delayed Release (Dr/Ec)
20 mg PO DAILY
bupropion HCl 150 mg Tablet Extended Release 24 Hr
150 mg PO DAILY 30 Days Qty: 30 0RF
duloxetine 30 mg Capsule,Delayed Release(Dr/Ec)
30 mg PO DAILY 30 Days Qty: 30 0RF
levetiracetam 500 mg Tablet
500 mg PO Q12H
famotidine 40 mg Tablet
40 mg PO HS
baclofen 20 mg Tablet
20 mg PO QID
aripiprazole 20 mg Tablet
20 mg PO DAILY
buprenorphine-naloxone 8-2 mg Film
1 film BUCCAL BID
sulfamethoxazole-trimethoprim 800-160 mg Tablet
1 tab PO BID Qty: 10 0RF
levothyroxine 125 mcg Tablet
125 mcg PO DAILY @ 0600 Qty: 30 0RF
Referrals:
UNKNOWN - PT DOES,NOT KNOW [Family Provider] -
Activity Restrictions/Additional Instructions:
You came to the emergency department today with concerns of multiple symptoms. Here you have a reassuring assessment. Please follow closely with the primary care doctor. Return to the emergency department for any worsening, new or concerning
symptoms.
Interventions
Interventions:
*Risk Screen - Suicide Last Done: 11/13/24 10:53
*General Assessment Last Done: 11/13/24 10:53
*Neglect/Abuse Screening Last Done: 11/13/24 11:54
ED- Fall Risk Assessment Last Done: 11/13/24 11:54
*ED COVID-19 Vaccine History Last Done: 11/13/24 10:53
ED- Pulmonary Assessment Last Done: 11/13/24 11:54
ED- Neurological Assessment Last Done: 11/13/24 11:54
ED- Cardiac Assessment Last Done: 11/13/24 11:54
ED Swallowing Screen Last Done: 11/13/24 11:54
Discharge Date and Time
Print Language: SLOVENIAN
[2024-11-13 12:39] LABS: % Basophils 0.5 % (0-2); % Immature Granulocytes 0.4 % (0-0.5); % Lymphocytes 12.6 % (20.5-51.1); % Monocytes 8.9 % (1.7-9.3); % Neutrophils 74.6 % (42.2-75.2); Absolute Basophils 0.1 10^3/uL (0-0.2); Absolute Eosinophils 0.3 10^3/uL (0-0.7); Absolute Lymphocytes 1.2 10^3/uL (1.2-3.4); Absolute Monocytes 0.9 10^3/uL (0.1-0.6); Absolute Neutrophils 7.1 10^3/uL (1.4-6.5); Hematocrit 41.6 % (37.0-47.0); Hemoglobin 13.3 g/dL (12.0-16.0); Mean Corpuscular Hgb 28.9 pg (27.0-31.0); Mean Corpuscular Volume 90.2 fL (81.0-99.0); Mean Platelet Volume 8.4 fL (7.4-10.4); Nucleated Red Blood Cells % 0 %; Platelet Count 277 10^3/uL (130-400); Red Blood Cell Count 4.61 10^6/uL (4.20-5.40); Red Cell Dist. Width 14.9 % (11.5-14.5); White Blood Cell Count 9.5 10^3/uL (4.8-10.8)
[2024-11-13 12:49] LABS: ALT (SGPT) 18 U/L (0-35); AST (SGOT) 36 U/L (14-36); Albumin 4.9 g/dl (3.5-5.0); Alkaline Phosphatase 89 U/L (38-126); Blood Urea Nitrogen 10 mg/dl (7-17); Calcium 9.6 mg/dl (8.4-10.2); Carbon Dioxide 20 mmol/L (22-30); Chloride 110 mmol/L (98-107); Estimated Creatinine Clearance 51 ml/min; Glucose 97 mg/dl (70-99); Lipase 83 U/L (23-300); Potassium 3.6 mmol/L (3.5-5.1); Sodium 143 mmol/L (135-145); Total Bilirubin 0.3 mg/dl (0.2-1.3); Total Protein 7.7 g/dl (6.3-8.2); eGFR > 60.00
[2024-11-13 12:50] LABS: Alcohol None Detected
[2024-11-13] MEDS: NSS 500 IV (13:52)
[2024-11-13 14:20] LABS: Free T4 1.18 ng/dl (0.78-2.19)
== END 2024-11-13 16:53 | disposition home or self-care (01) ==
LOC: EMR 10:21
PROVIDERS: Physician Assistant; EMERGENCY PHYSICIAN Emergency Medicine
DX: R42 Dizziness and giddiness (principal); F41.9 Anxiety disorder, unspecified; F32.A Depression, unspecified; I10 Essential (primary) hypertension; F17.290 Nicotine dependence, other tobacco product, uncomplicated
CPT/HCPCS: 99285; 96360; 70450; 80053; 82077; 83690; 84439; 84443; 85025; 93005

== ENCOUNTER 2024-11-14 18:50 | Emergency (ER) | payer OTHER, SELFPAY ==
[2024-11-14 18:54] VITALS: BMI 20.2
[2024-11-14 19:03] VITALS: BP 116/99
[2024-11-14 19:27] LABS: % Eosinophils 3.7 % (0-6); % Immature Granulocytes 0.4 % (0-0.5); % Lymphocytes 22.8 % (20.5-51.1); % Monocytes 10.4 % (1.7-9.3); % Neutrophils 61.7 % (42.2-75.2); Absolute Basophils 0.1 10^3/uL (0-0.2); Absolute Eosinophils 0.3 10^3/uL (0-0.7); Absolute Lymphocytes 1.9 10^3/uL (1.2-3.4); Absolute Monocytes 0.9 10^3/uL (0.1-0.6); Absolute Neutrophils 5.2 10^3/uL (1.4-6.5); Hematocrit 36.5 % (37.0-47.0); Hemoglobin 12.5 g/dL (12.0-16.0); Mean Corp Hgb Conc. 34.2 g/dL (33.0-37.0); Mean Corpuscular Hgb 29.8 pg (27.0-31.0); Mean Corpuscular Volume 86.9 fL (81.0-99.0); Mean Platelet Volume 8.9 fL (7.4-10.4); Nucleated Red Blood Cells % 0 %; Platelet Count 252 10^3/uL (130-400); Red Cell Dist. Width 14.7 % (11.5-14.5); White Blood Cell Count 8.3 10^3/uL (4.8-10.8)
[2024-11-14] MEDS: NSS 1000 IV (19:34)
[2024-11-14 19:41] LABS: Urine Albumin Negative (Neg - Trace); Urine Bilirubin Negative (Negative); Urine Character Clear (Clear); Urine Color Yellow; Urine Glucose Negative (Negative); Urine Ketone Negative (Negative); Urine Leukocyte Negative (Negative); Urine Nitrite Positive (Negative); Urine Occult Blood Negative (Negative); Urine Urobilinogen Negative (Neg - 1+)
--- NOTE | 2024-11-14 19:41 | ED.GENMED ---
History of Present Illness
General
Chief Complaint: Change in Mental Status
Time Seen by Provider: 11/14/24 19:08
History of Present Illness
History of Present Illness:
63-year-old female with history of alcohol abuse, drug abuse, bipolar disorder, anxiety, depression, hypertension presenting for weakness and change in mental status. Medics were allegedly called by patient's partner for decreased responsiveness.
Medics administered Narcan on their arrival. Patient subsequently became agitated, unclear if from the Narcan. On arrival, patient reports that the last thing she remembers is waking up. She denies any drug abuse, states that she is 'in recovery.
She notes that she is feeling weak and fatigued. Denies specific complaint such as chest pain, difficulty breathing, abdominal pain however is overall limited historian, persistently falling asleep during examination. Denies any alcohol abuse.
No additional history reported at this time
Past History
Past History
ED Past Medical History: Hypothyroidism, Psychiatric and Other (overdose, recovering alcoholic, depression, alcohol abuse, degenerative joint disease)
ED Past Surgical History: Orthopedic (Cervical fusion over 20 years ago)
Social History
Tobacco: Vaping
Alcohol: Former
Drug: Former user
Living: with roommate
Employment: Disabled
Family History
Family History: Other (Noncontributory)
Phy Exam
Physical Exam
Physical Exam:
General: Well-appearing, dry mucous membranes, nontoxic and in no acute distress
HEENT: protecting airway, pupils equal and reactive bilaterally
Neck: appears supple
CV: Normal heart rate, regular rhythm
Resp: No accessory muscle use, no increased work of breathing
Abd: Soft and non-distended, no tenderness to palpation
Extremities: No deformities, no swelling, no erythema
Neuro: alert, no focal neurologic deficit
: deferred
Rectal: deferred
Psych: Normal affect
Skin: Intact
Course
Orders/Labs/Results
Orders:
Orders
11/14/24 19:09
Electrocardiogram (*1) Urgent
Reason for Study: TIA/Stroke
CT Head W/o Iv Contrast Urgent
Comment:
Reason For Exam: change in mentation
Bedside Glucose- Treatment ONCE
EKG- Treatment ONCE
11/14/24 19:13
Acetaminophen Urgent
Alcohol Urgent
CPK [Creatine Phosphokinase] Urgent
Complete Blood Count/With Diff Urgent
Comprehensive Metabolic Panel Urgent
Magnesium Urgent
TSH Reflex To Free T4 Urgent
11/14/24 19:19
0.9% Sodium Chloride 1000 ml [Nss] 1,000 ml IV BOLUS
11/14/24 19:31
Drug Screen, Urine [Urine Drug Abuse Screen] Urgent
Date Specimen was Collected: 11/14/24
Time Specimen was Collected: 19:27
Fentanyl, Urine Urgent
Urinalysis Reflex To Culture Urgent
Date Specimen was Collected: 11/14/24
Time Specimen was Collected: 19:27
Urine Microscopic Reflex Cult Urgent
Urine Culture Urgent
KARINE Source: U
Specimen Description:
Date Specimen was Collected: 11/14/24
Time Specimen was Collected: 19:27
Abnormal Lab Results
11/14/24 11/14/24
19:13 19:31
Hct 36.5 L %
(37.0-47.0)
RDW 14.7 H %
(11.5-14.5)
Absolute Monos (auto) 0.9 H 10^3/uL
(0.1-0.6)
Monocytes % 10.4 H %
(1.7-9.3)
Chloride 108 H mmol/L
(98-107)
Carbon Dioxide 19 L mmol/L
(22-30)
Glucose 105 H mg/dl
(70-99)
AST 52 H U/L
(14-36)
Creatine Kinase 1157 H U/L
(30-135)
Urine Nitrite (Reflex) Positive A
(Negative)
Urine Bacteria (Reflex) Moderate A
(Negative)
Ur Buprenorphine Positive H
(Negative)
Acetaminophen < 10 L ug/ml
(10-30)
11/14/24 19:13
11/14/24 19:13
Vital Signs
Initial and Last Documented VS:
Initial Vital Signs
Temp Pulse Resp Pulse Ox
97.8 F 71 15 100
11/14/24 18:54 11/14/24 18:54 11/14/24 18:54 11/14/24 18:54
Last Documented Vital Signs
Temp Pulse Resp BP Pulse Ox
97.8 F 77 12 141/90 100
11/14/24 18:54 11/14/24 22:15 11/14/24 22:15 11/14/24 22:10 11/14/24 22:15
MDM/Problems Addressed
MDM/Problems Addressed:
63-year-old female with history of alcohol abuse, drug abuse, bipolar disorder presenting for altered mental status and decreased responsiveness, received Narcan and route. Vital signs are normal.
On exam, patient is resting comfortably, however somnolent. She is arousable to verbal and tactile stimuli. Suspected intoxication, drug versus alcohol. No physical signs of trauma. On review of EMR, patient was seen yesterday for dizziness, had
unremarkable CT imaging of her brain and laboratory analysis, discharged home. No fever neurologic deficits, moving all extremities equally with lower suspicion for central neurologic process. She is afebrile, nontoxic with lower suspicion for
systemic process. Plan for laboratory analysis, repeat CT brain imaging, urinalysis, and continued close monitoring
22:20 -patient's labs are unremarkable, with exception of CK level, however appears chronically elevated. Urine does show element of infection, so we will start an antibiotic. CT without acute intracranial abnormality. Patient is going to call
her friend to pick her up. Feel stable for discharge. Patient is steady on her feet. Return precaution discussed and patient verbalized understanding
*Critical Care Note
Total Time (30-74mins, 75-104mins- exclusive of procedures): Not Applicable
ED Attending Note
-
Portions of this chart may have been created with voice recognition software.� Occasional wrong word or��sound alike� substitutions may have occurred due to the inherent limitations of voice recognition software.
Discharge Plan
Departure
Patient Disposition: Home (Routine Discharge)
Date of Disposition: 11/14/24
Time of Disposition: 22:26
Patient with high blood pressure during this ER visit?: No
Condition: Good
Discharge Problem:
Fatigue
Instructions: Fatigue (DC)
Prescriptions:
No Action
budesonide 3 mg capsule,delayed,extend.release
9 mg PO DAILYPRN PRN (Reason: colitis)
thiamine HCl (vitamin B1) 100 mg tablet
100 mg PO DAILY
gabapentin 300 mg capsule
300 mg PO BID
cyanocobalamin (vitamin B-12) 1,000 mcg Tablet
1,000 mcg PO DAILY
ferrous sulfate 325 mg (65 mg iron) Tablet
325 mg PO DAILY
metoprolol tartrate 25 mg Tablet
25 mg PO BID
cholecalciferol (vitamin D3) [Vitamin D3] 25 mcg (1,000 unit) Tablet
25 mcg PO DAILY
omeprazole 20 mg Tablet,Delayed Release (Dr/Ec)
20 mg PO DAILY
bupropion HCl 150 mg Tablet Extended Release 24 Hr
150 mg PO DAILY 30 Days Qty: 30 0RF
duloxetine 30 mg Capsule,Delayed Release(Dr/Ec)
30 mg PO DAILY 30 Days Qty: 30 0RF
levetiracetam 500 mg Tablet
500 mg PO Q12H
famotidine 40 mg Tablet
40 mg PO HS
baclofen 20 mg Tablet
20 mg PO QID
aripiprazole 20 mg Tablet
20 mg PO DAILY
buprenorphine-naloxone 8-2 mg Film
1 film BUCCAL BID
sulfamethoxazole-trimethoprim 800-160 mg Tablet
1 tab PO BID Qty: 10 0RF
levothyroxine 125 mcg Tablet
125 mcg PO DAILY @ 0600 Qty: 30 0RF
Referrals:
UNKNOWN - PT NOT,INTERVIEWE [Family Provider] -
Activity Restrictions/Additional Instructions:
You were seen in the emergency department for weakness and fatigue
You were found to have unremarkable lab work and CT imaging of your brain.
Please follow-up closely with your primary care physician.
Return to the emergency department for any worsening of your symptoms, or any development of chest pain, difficulty breathing, abdominal pain with persistent vomiting and inability to tolerate food or liquid by mouth (concern for dehydration),
weakness, headache or confusion, fever greater than 100.4, or any additional symptoms that are concerning to you.
Thank you for choosing [facility].
Interventions
Interventions:
*Risk Screen - Suicide Last Done: 11/14/24 18:54
*General Assessment Last Done: 11/14/24 18:54
*Neglect/Abuse Screening Last Done: 11/14/24 18:54
*ED COVID-19 Vaccine History Last Done: 11/14/24 18:54
ED- Neurological Assessment Last Done: 11/14/24 19:01
ED Swallowing Screen Last Done: 11/14/24 19:01
Discharge Date and Time
Print Language: WALLISIAN
[2024-11-14 19:45] VITALS: BP 107/59
[2024-11-14 19:49] LABS: ALT (SGPT) 22 U/L (0-35); AST (SGOT) 52 U/L (14-36); Acetaminophen < 10 ug/ml (10-30); Albumin 4.8 g/dl (3.5-5.0); Alcohol None Detected; Alkaline Phosphatase 76 U/L (38-126); Blood Urea Nitrogen 14 mg/dl (7-17); Calcium 9.7 mg/dl (8.4-10.2); Carbon Dioxide 19 mmol/L (22-30); Creatine Phosphokinase 1157 U/L (30-135); Estimated Creatinine Clearance 63 ml/min; Glucose 105 mg/dl (70-99); Magnesium 1.9 mg/dl (1.6-2.3); Total Bilirubin 0.5 mg/dl (0.2-1.3); Total Protein 7.5 g/dl (6.3-8.2); eGFR > 60.00
[2024-11-14 19:52] LABS: Amphetamines Negative (Negative); Barbiturates Negative (Negative); Benzodiazepines Negative (Negative); Buprenorphine Positive (Negative); Cocaine Negative (Negative); Marijuana Negative (Negative); Methadone Negative (Negative); Methamphetamines Negative (Negative); Opiates Negative (Negative); Phencyclidine Negative (Negative); Tricyclic Antidepressants Negative (Negative)
[2024-11-14 19:54] LABS: Urine Bacteria Moderate (Negative); Urine Red Blood Cell 0-2 /HPF (0-2)
[2024-11-14 19:54] LABS: Chloride 108 mmol/L (98-107); Potassium 4.3 mmol/L (3.5-5.1); Sodium 140 mmol/L (135-145)
[2024-11-14 20:11] LABS: Fentanyl, Urine Negative (Negative)
[2024-11-14 20:17] LABS: TSH Reflex To Free T4 0.55 uIU/ml (0.47-4.68)
--- NOTE | 2024-11-14 21:02 | EDRN ---
Pt. is alert at this time, oriented x 4, states, 'I was just sleepy today'. Pt. denies complaints. Pt. ambulated to bathroom w/ steady gait, is requesting to be discharged, stating, 'Darnell can come get me'.
[2024-11-14 21:20] VITALS: BP 191/83
[2024-11-14 21:23] VITALS: BP 172/104
[2024-11-14 22:10] VITALS: BP 141/90
[2024-11-14 23:00] VITALS: BP 187/105
--- NOTE | 2024-11-15 00:19 | EDRN ---
Pt. left her license/medical cards on stretcher upon discharge, voicemail left on emergency contact's phone. Cards given to security.
== END 2024-11-15 00:11 | disposition home or self-care (01) ==
LOC: EMR 18:50
PROVIDERS: Emergency Medicine; EMERGENCY PHYSICIAN Student in an Organized Health Care Education/Training Program
DX: R53.83 Other fatigue (principal); R82.998 Other abnormal findings in urine; E03.9 Hypothyroidism, unspecified; F17.290 Nicotine dependence, other tobacco product, uncomplicated; I10 Essential (primary) hypertension
CPT/HCPCS: 99284; 96360; 70450; 80053; 80143; 80306; 80307; 81003; 81015; 82077; 82550; 83735; 84443; 85025; 87077; 87086; 87186; 93005

== ENCOUNTER 2024-11-18 09:51 | Emergency (ER) | payer OTHER, SELFPAY ==
[2024-11-18 10:21] VITALS: BP 196/117
--- NOTE | 2024-11-18 10:24 | ED.GENMED ---
ED Provider Triage
<Niko Isaac PA-C - Last Filed: 11/18/24 18:58>
-
Patient seen by provider in Triage?: Seen in Triage
63 yo female presents for evaluation of persistent fatigue. Seen twice in past week for this. No fever
Uncertain if taking prescribed abx after last visit.
On arrival, sleeping frequently, but arouses to questions and is oriented. CTH from last visit unremarkable. Urine culture positive for multiple morphotypes.
Check basic labs. Pupils not pinpoint, doubt opiate related issue
History of Present Illness
<Niko Isaac PA-C - Last Filed: 11/18/24 18:58>
General
Chief Complaint: Change in Mental Status
Time Seen by Provider: 11/18/24 10:32
<Dajuan Abdalla Jr., PA-C - Last Filed: 11/18/24 13:22>
General
Source: patient and spouse
Exam Limitations: none
Nursing documentation reviewed up to this point in time: agreed with
History of Present Illness
History of Present Illness:
63-year-old female presenting to the emergency department today with concerns of feeling lethargic this morning seem to come and go at this point she denies any specific symptoms does have some mild urinary symptoms and was found have a UTI few days
ago but did not take her antibiotics. She denies specifically any chest pain shortness of breath nausea vomiting numbness weakness fevers.
Past History
<Niko Isaac PA-C - Last Filed: 11/18/24 18:58>
Past History
ED Past Medical History: Hypothyroidism, Psychiatric and Other (overdose, recovering alcoholic, depression, alcohol abuse, degenerative joint disease)
ED Past Surgical History: Orthopedic (Cervical fusion over 20 years ago)
Social History
Tobacco: Vaping
Alcohol: Former
Drug: Former user
Living: with roommate
Employment: Disabled
Family History
Family History: Other (Noncontributory)
Review of Systems
<Dajuan Abdalla Jr., PA-C - Last Filed: 11/18/24 13:22>
Review of Systems
Allergies reviewed?: Yes
All Other Systems: ROS reviewed and negative except as documented in HPI and ROS
Phy Exam
<Dajuan Abdalla Jr., PA-C - Last Filed: 11/18/24 13:22>
Physical Exam
Physical Exam:
GENERAL: Alert , in no apparent distress
EYE: pupils equal and reactive
NECK: Supple, no significant adenopathy.
ENT: o/p clr, mmm.
CARDIAC: Regular rate and rhythm .
LUNGS: Clear breath sounds bilaterally, no acute respiratory distress, no wheezes/rales/rhonchi
ABDOMEN: Soft, without focal tenderness, no r/g, no cvat
NEUROLOGICAL: Alert and oriented, no focal neuro deficits
SKIN: Warm and dry, skin intact.
MUSCULOSKELETAL: No edema, well perfused.
PSYCH: Normal and appropriate interaction.
Course
<Niko Isaac PA-C - Last Filed: 11/18/24 18:58>
Orders/Labs/Results
Orders:
Orders
11/18/24 10:33
EKG [Electrocardiogram (*1)] Urgent
Reason for Study: Fatigue / Weakness
EKG- Treatment ONCE
11/18/24 10:39
Piperacillin/Tazo 3.375 Gram [Zosyn] 3.375 gram in 50 ml IV NOW
11/18/24 11:14
Basic Metabolic Panel Urgent
Complete Blood Count/With Diff Urgent
Free T4 Urgent
TSH Reflex To Free T4 Urgent
11/18/24 11:59
Ammonia Urgent
11/18/24 12:03
Potassium Urgent
Abnormal Lab Results
11/18/24 11/18/2411/18/25
11:14 11:17 11:59
RBC 4.17 L 10^6/uL
(4.20-5.40)
Hct 36.8 L %
(37.0-47.0)
Absolute Neuts (auto) 7.7 H 10^3/uL
(1.4-6.5)
Absolute Lymphs (auto) 1.0 L 10^3/uL
(1.2-3.4)
Absolute Monos (auto) 0.8 H 10^3/uL
(0.1-0.6)
Neutrophils % 79.7 H %
(42.2-75.2)
Lymphocytes % 10.2 L %
(20.5-51.1)
Glucose 100 H mg/dl
(70-99)
Ammonia < 9 L umol/L
(9-30)
TSH (Reflex) 0.28 L uIU/ml
(0.47-4.68)
POC Glucose 113 H mg/dl
(70-99)
11/18/24 11:14
11/18/24 12:03
Vital Signs
Initial and Last Documented VS:
Initial Vital Signs
Temp Pulse Resp BP
97.9 F 84 16 196/117
11/18/24 10:21 11/18/24 10:21 11/18/24 10:21 11/18/24 10:21
Last Documented Vital Signs
Temp Pulse Resp BP Pulse Ox
97.9 F 79 16 136/88 98
11/18/24 10:21 11/18/24 13:21 11/18/24 13:21 11/18/24 13:21 11/18/24 13:21
<Dajuan Abdalla Jr., PA-C - Last Filed: 11/18/24 13:22>
Orders/Labs/Results
Orders:
Orders
11/18/24 10:33
EKG [Electrocardiogram (*1)] Urgent
Reason for Study: Fatigue / Weakness
EKG- Treatment ONCE
11/18/24 10:39
Piperacillin/Tazo 3.375 Gram [Zosyn] 3.375 gram in 50 ml IV NOW
11/18/24 11:14
Basic Metabolic Panel Urgent
Complete Blood Count/With Diff Urgent
Free T4 Urgent
TSH Reflex To Free T4 Urgent
11/18/24 11:59
Ammonia Urgent
11/18/24 12:03
Potassium Urgent
Abnormal Lab Results
11/18/24 11/18/24 11/18/24
11:14 11:17 11:59
RBC 4.17 L 10^6/uL
(4.20-5.40)
Hct 36.8 L %
(37.0-47.0)
Absolute Neuts (auto) 7.7 H 10^3/uL
(1.4-6.5)
Absolute Lymphs (auto) 1.0 L 10^3/uL
(1.2-3.4)
Absolute Monos (auto) 0.8 H 10^3/uL
(0.1-0.6)
Neutrophils % 79.7 H %
(42.2-75.2)
Lymphocytes % 10.2 L %
(20.5-51.1)
Glucose 100 H mg/dl
(70-99)
Ammonia < 9 L umol/L
(9-30)
TSH (Reflex) 0.28 L uIU/ml
(0.47-4.68)
POC Glucose 113 H mg/dl
(70-99)
11/18/24 11:14
11/18/24 12:03
Vital Signs
Initial and Last Documented VS:
Initial Vital Signs
Temp Pulse Resp BP
97.9 F 84 16 196/117
11/18/24 10:21 11/18/24 10:21 11/18/24 10:21 11/18/24 10:21
Last Documented Vital Signs
Temp Pulse Resp BP Pulse Ox
97.9 F 79 16 136/88 98
11/18/24 10:21 11/18/24 13:21 11/18/24 13:21 11/18/24 13:21 11/18/24 13:21
<Dajuan Abdalla Jr., PA-C - Last Filed: 11/18/24 13:22>
MDM/Problems Addressed
MDM/Problems Addressed:
63-year-old female presenting to the emergency department today with concerns of feeling lethargic this morning seem to come and go at this point she denies any specific symptoms does have some mild urinary symptoms and was found have a UTI few days
ago but did not take her antibiotics. On arrival here blood pressure initially elevated but improving without specific treatment. Labs unremarkable once again had multiple normal workups in the last few weeks. Here she ate a meal went to the
bathroom on her own is walking and communicating freely. Patient denies any ongoing symptoms she was started on antibiotics for her positive urine culture from a few days ago but otherwise stable for outpatient management return precautions given.
Importance of close outpatient follow-up was discussed with the patient.
<Dajuan Abdalla Jr., PA-C - Last Filed: 11/18/24 13:22>
*Critical Care Note
Total Time (30-74mins, 75-104mins- exclusive of procedures): Not Applicable
ED Attending Note
<Niko Isaac PA-C - Last Filed: 11/18/24 18:58>
-
Portions of this chart may have been created with voice recognition software.� Occasional wrong word or��sound alike� substitutions may have occurred due to the inherent limitations of voice recognition software.
Discharge Plan
Departure
Patient Disposition: Home (Routine Discharge)
Date of Disposition: 11/18/24
Time of Disposition: 13:12
Patient with high blood pressure during this ER visit?: No
Condition: Good
Covid-19: Not Applicable
Discharge Problem:
UTI (urinary tract infection)
Instructions: Urinary tract infections in adults
Prescriptions:
New
ciprofloxacin HCl 500 mg tablet
500 mg PO BID 7 Days Qty: 14 0RF
No Action
ferrous sulfate 325 mg (65 mg iron) Tablet
325 mg PO DAILY
metoprolol tartrate 25 mg Tablet
25 mg PO BID
omeprazole 20 mg Tablet,Delayed Release (Dr/Ec)
20 mg PO DAILY
levetiracetam 500 mg Tablet
500 mg PO Q12H
famotidine 40 mg Tablet
40 mg PO HS
baclofen 20 mg Tablet
20 mg PO BID
aripiprazole 20 mg Tablet
20 mg PO DAILY
buprenorphine-naloxone 8-2 mg Film
2 film BUCCAL DAILY
levothyroxine 125 mcg Tablet
125 mcg PO DAILY @ 0600 Qty: 30 0RF
amlodipine 5 mg Tablet
5 mg PO BID
bupropion HCl 100 mg Tablet Sustained-Release 12 Hr
100 mg PO DAILY
dicyclomine 20 mg Tablet
20 mg PO TID
trazodone 150 mg Tablet
150 mg PO HS
metaxalone 800 mg Tablet
800 mg PO TID
duloxetine 60 mg Capsule,Delayed Release(Dr/Ec)
60 mg PO DAILY
Referrals:
UNKNOWN - PT DOES,NOT KNOW [Family Provider] -
Activity Restrictions/Additional Instructions:
You came to the emergency department today with concerns of ongoing lethargy. Here you had a reassuring assessment no significant lab abnormalities. You did have a UTI seen a few days ago please take ciprofloxacin twice daily for the neck 7 days
and follow-up very closely with your primary care doctor in the next few days for reassessment. Return for any worsening, new or concerning symptoms.
Interventions
Interventions:
*Risk Screen - Suicide Last Done: 11/18/24 10:21
*General Assessment Last Done: 11/18/24 10:21
*Neglect/Abuse Screening Last Done: 11/18/24 10:21
ED- Fall Risk Assessment Last Done: 11/18/24 11:27
*ED COVID-19 Vaccine History Last Done: 11/18/24 10:44
*Nursing Disposition Last Done: 11/18/24 13:21
ED- Pulmonary Assessment Last Done: 11/18/24 11:27
ED- Neurological Assessment Last Done: 11/18/24 11:27
ED- Cardiac Assessment Last Done: 11/18/24 11:27
ED Swallowing Screen Last Done: 11/18/24 11:27
Discharge Date and Time
Discharge Date/Time: 11/18/24 13:22
Print Language: MACEDONIAN
[2024-11-18 10:42] VITALS: BP 167/70
[2024-11-18 11:00] VITALS: BP 154/91
[2024-11-18 11:22] LABS: Glucose - Point of Care 113 mg/dl (70-99)
[2024-11-18 11:43] LABS: % Basophils 0.5 % (0-2); % Eosinophils 1.3 % (0-6); % Immature Granulocytes 0.3 % (0-0.5); % Lymphocytes 10.2 % (20.5-51.1); % Neutrophils 79.7 % (42.2-75.2); Absolute Basophils 0.1 10^3/uL (0-0.2); Absolute Eosinophils 0.1 10^3/uL (0-0.7); Absolute Monocytes 0.8 10^3/uL (0.1-0.6); Absolute Neutrophils 7.7 10^3/uL (1.4-6.5); Hematocrit 36.8 % (37.0-47.0); Hemoglobin 12.5 g/dL (12.0-16.0); Mean Corpuscular Volume 88.2 fL (81.0-99.0); Nucleated Red Blood Cells % 0 %; Red Blood Cell Count 4.17 10^6/uL (4.20-5.40); Red Cell Dist. Width 14.4 % (11.5-14.5); White Blood Cell Count 9.6 10^3/uL (4.8-10.8)
[2024-11-18] MEDS: ZOSYN 50 IV (11:58)
[2024-11-18 11:59] LABS: Blood Urea Nitrogen 15 mg/dl (7-17); Calcium 9.7 mg/dl (8.4-10.2); Carbon Dioxide 22 mmol/L (22-30); Chloride 107 mmol/L (98-107); Glucose 100 mg/dl (70-99); Sodium 141 mmol/L (135-145); eGFR > 60.00
[2024-11-18 12:30] LABS: Platelet Count 237 10^3/uL (130-400)
[2024-11-18 12:30] LABS: Potassium 4.1 mmol/L (3.5-5.1)
[2024-11-18 12:31] LABS: Ammonia < 9 umol/L (9-30)
--- NOTE | 2024-11-18 12:35 | PHANOTE ---
[employer] tech(11/18/24)- Unable to reliably interview patient, just said 'yes' to what I asked and could not recall on her own. Called spouse who went over the medications he found in her medicine cabinet. Unable to confirm compliance with medications.
Spouse also stated when patient misses a dosage, she sometimes takes double dose.
[2024-11-18 12:36] LABS: TSH Reflex To Free T4 0.28 uIU/ml (0.47-4.68)
[2024-11-18 13:18] LABS: Free T4 1.31 ng/dl (0.78-2.19)
[2024-11-18 13:21] VITALS: BP 136/88
== END 2024-11-18 13:22 | disposition home or self-care (01) ==
LOC: EMR 09:51
PROVIDERS: Physician Assistant; EMERGENCY PHYSICIAN Emergency Medicine
DX: N39.0 Urinary tract infection, site not specified (principal); E03.9 Hypothyroidism, unspecified; F17.290 Nicotine dependence, other tobacco product, uncomplicated
CPT/HCPCS: 96374; 99284; 80048; 82140; 82962; 84132; 84439; 84443; 85025; 93005

== ENCOUNTER 2024-11-18 15:02 | Emergency (ER) | payer OTHER, SELFPAY ==
[2024-11-18 15:23] VITALS: BP 164/115
--- NOTE | 2024-11-18 17:24 | ED.GENMED ---
History of Present Illness
General
Chief Complaint: Dizziness
Time Seen by Provider: 11/18/24 17:24
History of Present Illness
History of Present Illness:
63-year-old female presents for evaluation of continued dizziness. She was seen here hours ago in this ED for the same complaint and workup was unremarkable. Of note she was recently diagnosed with UTI but is not compliant compliant with her
antibiotics. After being discharged she ambulated about the waiting room waiting for a ride and opted to check back in due to continued symptoms. Denies any new complaints
Past History
Past History
ED Past Medical History: Hypothyroidism, Psychiatric and Other (overdose, recovering alcoholic, depression, alcohol abuse, degenerative joint disease)
ED Past Surgical History: Orthopedic (Cervical fusion over 20 years ago)
Social History
Tobacco: Vaping
Alcohol: Former
Drug: Former user
Living: with roommate
Employment: Disabled
Family History
Family History: Other (Noncontributory)
Review of Systems
Review of Systems
Allergies reviewed?: Yes
All Other Systems: ROS reviewed and negative except as documented in HPI and ROS
Phy Exam
Physical Exam
Physical Exam:
GEN: Chronically ill-appearing, no distress
HEENT: Oral mucosa moist, no scleral icterus
Cardiac: Regular rate
Lung: No respiratory distress, no tachypnea
MSK: No gross deformity or injuries
Skin: Good color, no pallor or jaundice, no rashes
Neuro: AO x3, moves all extremities freely, ambulates steadily
Psych: Calm, cooperative
Course
Orders/Labs/Results
Orders:
11/18/24 15:26
11/18/24 15:26
Vital Signs
Initial and Last Documented VS:
Initial Vital Signs
Temp Pulse Resp BP Pulse Ox
98.1 F 83 20 164/115 98
11/18/24 15:23 11/18/24 15:23 11/18/24 15:23 11/18/24 15:23 11/18/24 15:23
Last Documented Vital Signs
Temp Pulse Resp BP Pulse Ox
98.1 F 83 20 164/115 98
11/18/24 15:23 11/18/24 15:23 11/18/24 15:23 11/18/24 15:23 11/18/24 15:23
MDM/Problems Addressed
MDM/Problems Addressed:
No indication for repeat workup, discharged, encouraged importance of taking antibiotics as recommended earlier in the day
*Critical Care Note
Total Time (30-74mins, 75-104mins- exclusive of procedures): Not Applicable
ED Attending Note
-
Portions of this chart may have been created with voice recognition software.� Occasional wrong word or��sound alike� substitutions may have occurred due to the inherent limitations of voice recognition software.
Discharge Plan
Departure
Patient Disposition: Home (Routine Discharge)
Date of Disposition: 11/18/24
Time of Disposition: 17:24
Patient with high blood pressure during this ER visit?: No
Discharge Problem:
Dizziness
Prescriptions:
No Action
ferrous sulfate 325 mg (65 mg iron) Tablet
325 mg PO DAILY
metoprolol tartrate 25 mg Tablet
25 mg PO BID
omeprazole 20 mg Tablet,Delayed Release (Dr/Ec)
20 mg PO DAILY
levetiracetam 500 mg Tablet
500 mg PO Q12H
famotidine 40 mg Tablet
40 mg PO HS
baclofen 20 mg Tablet
20 mg PO BID
aripiprazole 20 mg Tablet
20 mg PO DAILY
buprenorphine-naloxone 8-2 mg Film
2 film BUCCAL DAILY
levothyroxine 125 mcg Tablet
125 mcg PO DAILY @ 0600 Qty: 30 0RF
amlodipine 5 mg Tablet
5 mg PO BID
bupropion HCl 100 mg Tablet Sustained-Release 12 Hr
100 mg PO DAILY
dicyclomine 20 mg Tablet
20 mg PO TID
trazodone 150 mg Tablet
150 mg PO HS
metaxalone 800 mg Tablet
800 mg PO TID
duloxetine 60 mg Capsule,Delayed Release(Dr/Ec)
60 mg PO DAILY
ciprofloxacin HCl 500 mg tablet
500 mg PO BID 7 Days Qty: 14 0RF
Interventions
Interventions:
*General Assessment Last Done: 11/18/24 15:23
*Nursing Disposition Last Done: 11/18/24 17:35
Discharge Date and Time
Discharge Date/Time: 11/18/24 17:38
Print Language: YAKUT
== END 2024-11-18 17:38 | disposition home or self-care (01) ==
LOC: EMR 15:02
PROVIDERS: EMERGENCY PHYSICIAN Emergency Medicine
DX: R42 Dizziness and giddiness (principal); E03.9 Hypothyroidism, unspecified; F17.290 Nicotine dependence, other tobacco product, uncomplicated
CPT/HCPCS: 99282

== ENCOUNTER 2024-11-25 14:16 | Emergency (ER) | payer OTHER, SELFPAY ==
[2024-11-25 14:25] VITALS: BP 98/59
--- NOTE | 2024-11-25 14:39 | ED.GENMED ---
History of Present Illness
General
Chief Complaint: Crisis Evaluation
Source: other (RN in the ED)
Time Seen by Provider: 11/25/24 14:26
History of Present Illness
History of Present Illness:
Patient apparently brought in by [facility] ambulance. This was a call from the state police. She was apparently behaving abnormally in the salon. Patient denies specific complaints. No trauma no unusual ingestion denies suicidal or homicidal
ideation
Past History
Past History
ED Past Medical History: Hypothyroidism, Psychiatric and Other (overdose, recovering alcoholic, depression, alcohol abuse, degenerative joint disease)
ED Past Surgical History: Orthopedic (Cervical fusion over 20 years ago)
Social History
Tobacco: Vaping
Alcohol: Former
Drug: Former user
Living: with roommate
Employment: Disabled
Family History
Family History: Other (Noncontributory)
Review of Systems
Review of Systems
All Other Systems: Not applicable
Respiratory: Reports no symptoms
Cardiac: Reports no symptoms
ABD/GI: Reports no symptoms
Phy Exam
Physical Exam
Physical Exam:
GENERAL: Alert and oriented x 2 in no apparent distress. No signs of scalp trauma or any other trauma
EYE: Orbits normal.
NECK: Supple, no significant adenopathy.
ENT: Pharynx without erythema
CARDIAC: Regular rate and rhythm without any obvious murmurs.
LUNGS: Clear breath sounds,normal
ABDOMEN: Soft, without focal tenderness or distention
NEUROLOGICAL: Alert and oriented x 2, grossly non-focal
SKIN: Warm and dry, no rash or lesion, no discoloration, skin intact.
MUSCULOSKELETAL: No edema,no deformity.Good color
PSYCH: Cooperative but somewhat rambling speech
Course
Orders/Labs/Results
Orders:
Orders
11/25/24 14:51
CT Head W/o Iv Contrast Urgent
Comment:
Reason For Exam: change in ms
11/25/24 14:52
Crisis Consult Urgent
Reason for Consult: confusion/change in ms
11/25/24 15:17
Acetaminophen Urgent
Alcohol Urgent
Complete Blood Count/With Diff Urgent
Comprehensive Metabolic Panel Urgent
Salicylate Urgent
11/25/24 16:57
Fentanyl, Urine Urgent
Urinalysis Reflex To Culture Urgent
Date Specimen was Collected: 11/25/24
Time Specimen was Collected: 16:56
Urine Drug Abuse Screen Urgent
Date Specimen was Collected: 11/25/24
Time Specimen was Collected: 16:56
Urine Microscopic Reflex Cult Urgent
Abnormal Lab Results
11/25/24 11/25/24
15:17 16:57
RBC 3.66 L 10^6/uL
(4.20-5.40)
Hgb 11.1 L g/dL
(12.0-16.0)
Hct 32.1 L %
(37.0-47.0)
Absolute Monos (auto) 0.9 H 10^3/uL
(0.1-0.6)
Monocytes % 11.2 H %
(1.7-9.3)
Leukocyte Esterase Rfl Trace A
(Negative)
Salicylates < 1.0 L mg/dl
(2.0-20.0)
Ur Buprenorphine Positive H
(Negative)
Acetaminophen < 10 L ug/ml
(10-30)
11/25/24 15:17
11/25/24 15:17
Vital Signs
Initial and Last Documented VS:
Initial Vital Signs
Pulse Resp BP Pulse Ox
56 16 98/59 96
11/25/24 14:25 11/25/24 14:25 11/25/24 14:25 11/25/24 14:25
Last Documented Vital Signs
Temp Pulse Resp BP Pulse Ox
98.5 F 56 16 98/59 96
11/25/24 14:34 11/25/24 14:25 11/25/24 14:25 11/25/24 14:25 11/25/24 14:25
MDM/Problems Addressed
Differential Diagnosis Includes:
Patient presents with mild rambling speech and mild confusion. This may be near her baseline. Trying to contact her significant other to find any other history. She currently is not suicidal or homicidal. She been relatively cooperative. She
has nothing on physical exam to suspect an infectious issue electrolyte issue or trauma. We will check regular labs alcohol level drug screen. Hold on CT at this time. Her last 4 CTs of the head have all been negative.
*Radiology
Radiology exam reviewed: radiology read reviewed (Negative)
*Pulse Oximetry
Patient hypoxic: no
*Critical Care Note
Total Time (30-74mins, 75-104mins- exclusive of procedures): Not Applicable
Data Reviewed
Review of Other/Old Records Reveals: Labs, Records, Radiology Studies and Testing
Update Note
Update Note:
Patient fully awake alert and oriented. No distress. Speech is improved.[id number].... Workup is unremarkable. Unsure the explanation for her transient mental status change. Possibly medication related. She has an appointment Thursday with neurology.
No benefit at this point in staying in the hospital. She is going home with her significant other.
ED Attending Note
-
Portions of this chart may have been created with voice recognition software.� Occasional wrong word or��sound alike� substitutions may have occurred due to the inherent limitations of voice recognition software.
Discharge Plan
Departure
Patient Disposition: Home (Routine Discharge)
Date of Disposition: 11/25/24
Time of Disposition: 18:48
Patient with high blood pressure during this ER visit?: No
Discharge Problem:
Transient mental status change
Prescriptions:
No Action
ferrous sulfate 325 mg (65 mg iron) Tablet
325 mg PO DAILY
metoprolol tartrate 25 mg Tablet
25 mg PO BID
omeprazole 20 mg Tablet,Delayed Release (Dr/Ec)
20 mg PO DAILY
levetiracetam 500 mg Tablet
500 mg PO Q12H
famotidine 40 mg Tablet
40 mg PO HS
baclofen 20 mg Tablet
20 mg PO BID
aripiprazole 20 mg Tablet
20 mg PO DAILY
buprenorphine-naloxone 8-2 mg Film
2 film BUCCAL DAILY
levothyroxine 125 mcg Tablet
125 mcg PO DAILY @ 0600 Qty: 30 0RF
amlodipine 5 mg Tablet
5 mg PO BID
bupropion HCl 100 mg Tablet Sustained-Release 12 Hr
100 mg PO DAILY
dicyclomine 20 mg Tablet
20 mg PO TID
trazodone 150 mg Tablet
150 mg PO HS
metaxalone 800 mg Tablet
800 mg PO TID
duloxetine 60 mg Capsule,Delayed Release(Dr/Ec)
60 mg PO DAILY
ciprofloxacin HCl 500 mg tablet
500 mg PO BID 7 Days Qty: 14 0RF
Referrals:
UNKNOWN,NO INTERVIEW [Family Provider] -
Activity Restrictions/Additional Instructions:
Follow-up Thursday with your neurologist.
Return sooner with any recurrent episodes, confusion headache fever vomiting neurologic symptoms or any other complaints
Also follow-up closely with your primary physician
Interventions
Interventions:
*Risk Screen - Suicide Last Done: 11/25/24 19:00
*Nursing Disposition Last Done: 11/25/24 19:00
ED-Psychological Assessment Last Done: 11/25/24 19:00
Discharge Date and Time
Discharge Date/Time: 11/25/24 19:00
Print Language: ZAMBIAN
[2024-11-25 15:23] LABS: % Basophils 0.7 % (0-2); % Immature Granulocytes 0.5 % (0-0.5); % Lymphocytes 27.9 % (20.5-51.1); % Monocytes 11.2 % (1.7-9.3); % Neutrophils 54.7 % (42.2-75.2); Absolute Basophils 0.1 10^3/uL (0-0.2); Absolute Eosinophils 0.4 10^3/uL (0-0.7); Absolute Lymphocytes 2.1 10^3/uL (1.2-3.4); Absolute Monocytes 0.9 10^3/uL (0.1-0.6); Absolute Neutrophils 4.1 10^3/uL (1.4-6.5); Hematocrit 32.1 % (37.0-47.0); Hemoglobin 11.1 g/dL (12.0-16.0); Mean Corp Hgb Conc. 34.6 g/dL (33.0-37.0); Mean Corpuscular Hgb 30.3 pg (27.0-31.0); Mean Corpuscular Volume 87.7 fL (81.0-99.0); Mean Platelet Volume 8.5 fL (7.4-10.4); Nucleated Red Blood Cells % 0 %; Platelet Count 304 10^3/uL (130-400); Red Blood Cell Count 3.66 10^6/uL (4.20-5.40); White Blood Cell Count 7.6 10^3/uL (4.8-10.8)
[2024-11-25 15:36] LABS: Chloride 104 mmol/L (98-107); Potassium 3.8 mmol/L (3.5-5.1); Sodium 138 mmol/L (135-145)
[2024-11-25 15:39] LABS: ALT (SGPT) 14 U/L (0-35); AST (SGOT) 20 U/L (14-36); Acetaminophen < 10 ug/ml (10-30); Albumin 4.7 g/dl (3.5-5.0); Alkaline Phosphatase 90 U/L (38-126); Blood Urea Nitrogen 12 mg/dl (7-17); Calcium 9.3 mg/dl (8.4-10.2); Carbon Dioxide 22 mmol/L (22-30); Glucose 98 mg/dl (70-99); Salicylate < 1.0 mg/dl (2.0-20.0); Total Bilirubin 0.3 mg/dl (0.2-1.3); Total Protein 7.1 g/dl (6.3-8.2); eGFR > 60.00
[2024-11-25 15:44] LABS: Alcohol None Detected
[2024-11-25 17:15] LABS: Urine Albumin Negative (Neg - Trace); Urine Bilirubin Negative (Negative); Urine Character Clear (Clear); Urine Color Yellow; Urine Glucose Negative (Negative); Urine Ketone Negative (Negative); Urine Leukocyte Trace (Negative); Urine Nitrite Negative (Negative); Urine Occult Blood Negative (Negative); Urine Urobilinogen Negative (Neg - 1+)
[2024-11-25 17:44] LABS: Amphetamines Negative (Negative); Barbiturates Negative (Negative); Benzodiazepines Negative (Negative); Buprenorphine Positive (Negative); Cocaine Negative (Negative); Marijuana Negative (Negative); Methadone Negative (Negative); Methamphetamines Negative (Negative); Opiates Negative (Negative); Phencyclidine Negative (Negative); Tricyclic Antidepressants Negative (Negative)
[2024-11-25 18:03] LABS: Fentanyl, Urine Negative (Negative)
[2024-11-25 18:04] LABS: Urine Red Blood Cell 0-2 /HPF (0-2); Urine Squamous Cell 0-2 /LPF (Few); Urine White Cell 0-2 /HPF (0-5)
== END 2024-11-25 19:00 | disposition home or self-care (01) ==
LOC: EMR 14:16
PROVIDERS: EMERGENCY PHYSICIAN Emergency Medicine
DX: R41.82 Altered mental status, unspecified (principal); E03.9 Hypothyroidism, unspecified; F10.21 Alcohol dependence, in remission; F17.290 Nicotine dependence, other tobacco product, uncomplicated; F32.A Depression, unspecified; M19.90 Unspecified osteoarthritis, unspecified site
CPT/HCPCS: 99284; 70450; 80053; 80143; 80179; 80306; 80307; 81003; 81015; 82077; 85025

== ENCOUNTER 2025-01-11 20:58 | Observation (INO) | payer OTHER, SELFPAY ==
[2025-01-11] VITALS (16 sets, daily range): BP systolic 100–199; BP diastolic 69–125; BMI 20.9; BMI 19.1
--- NOTE | 2025-01-11 14:16 | ED.GENMED ---
History of Present Illness
<Arnel Hill PA-C - Last Filed: 01/13/25 10:56>
General
Chief Complaint: Change in Mental Status
Source: records and ambulance crew
Time Seen by Provider: 01/11/25 14:11
History of Present Illness
History of Present Illness:
64-year-old female with past medical history of previous OK, hypertension, ewy-depgamn-rpnqkcrrb diabetes, substance abuse presenting to the emergency department via EMS after boyfriend had contacted EMS for patient having altered mental status.
EMS notes that upon their arrival patient seemed to be under the influence of substances. It is noted that patient is a daily alcohol drinker as well as polysubstance use. At time of my examination patient is only awakening to sternal rub and not
answering questions. Remaining history was limited and gathered through EMS as well as previous records here for similar visits.
Past History
<Arnel Hill PA-C - Last Filed: 01/13/25 10:56>
Past History
ED Past Medical History: Hypothyroidism, Psychiatric and Other (overdose, recovering alcoholic, depression, alcohol abuse, degenerative joint disease)
ED Past Surgical History: Appendectomy and Orthopedic (Cervical fusion over 20 years ago)
Social History
Tobacco: Vaping
Alcohol: Former
Drug: Former user
Personal: Partner
Living: with roommate
Employment: Disabled
Family History
Family History: Other (Noncontributory)
Review of Systems
<Arnel Hill PA-C - Last Filed: 01/13/25 10:56>
Review of Systems
All Other Systems: ROS reviewed and negative except as documented in HPI and ROS
Phy Exam
<Arnel Hill PA-C - Last Filed: 01/13/25 10:56>
Physical Exam
Physical Exam:
GENERAL: Obtunded but maintaining airway,, in no apparent distress
HEAD: Normocephalic atraumatic
EYE: conjunctiva clear
NECK: Supple
ENT: o/p clr, mmm. Pinpoint pupils, sluggish
CARDIAC: Regular rate and rhythm
LUNGS: Clear breath sounds bilaterally, no acute respiratory distress, no wheezes/rales/rhonchi
NEUROLOGICAL: Unable to assess orientation
SKIN: Warm and dry, skin intact.
MUSCULOSKELETAL: well perfused.
PSYCH: Unable to assess
Scores
<Arnel Hill PA-C - Last Filed: 01/13/25 10:56>
Heart Failure Risk
Heart Failure Risk Score: Not Applicable
Heart Score for Chest Pain Patients
STEMI patient?: Not applicable
Withdrawal Assessment of Alcohol
Withdrawal Assessment Completed?: Not applicable
Course
<Arnel Hill PA-C - Last Filed: 01/13/25 10:56>
Orders/Labs/Results
Orders:
Orders
01/11/25 Breakfast
Regular
At Your Request: Non-Participating
01/11/25 14:14
Naloxone [Narcan] 0.4 mg IV NOW STA
01/11/25 14:15
CR Chest Portable - 1 View Urgent
Comment:
Reason For Exam: cough
Reason Study Needs to be Portable: Unable to Transport
01/11/25 14:29
COVID-19 Antigen Urgent
Source: Nasal Swab
Complete Blood Count/With Diff Urgent
Influenza A+B Rapid Molecular Urgent
KARINE Source: Nasal Swab
Specimen Description:
01/11/25 15:41
Alcohol Urgent
Comprehensive Metabolic Panel Urgent
TSH Reflex To Free T4 Routine
Comment: ADD ON
01/11/25 16:17
Fentanyl, Urine Urgent
Urinalysis Reflex To Culture Urgent
Date Specimen was Collected: 01/11/25
Time Specimen was Collected: 16:15
Urine Drug Abuse Screen Urgent
Date Specimen was Collected: 01/11/25
Time Specimen was Collected: 16:15
01/11/25 16:48
Add On- LAB Urgent
Tests Added?: urine drug screen
01/11/25 20:03
CT Head W/o Iv Contrast Urgent
Comment:
Reason For Exam: Altered Mental Status / Fall
01/11/25 20:18
Admit/Transfer Patient As Directed
Co-Sign Provider:
Level of Care: Observation services
Assign to:: Telemetry
Physician / Group: Salazar
Diagnosis: Acute Encephalopathy
Reason for Telemetry: CVA/TIA
Date to Stop Telemetry: 01/14/25
Time to Stop Telemetry: 11:00
PRN Pain Medication Management As Directed
May give lesser potent ordered pain med per pt: Yes
preference::
Protocol:: Medication orders for pain may be administered in a
manner that supports deferring to patient preference
when the pt is:
- Requesting an ordered lesser potent pain medication.
Least to most potent pain medications are defined
as: acetaminophen < NSAID < tramadol < opioids
(morphine, oxycodone, hydromorphone).
- Requesting a lesser dose of the same medication IF
ORDERED.
- Requesting a less intrusive route of administration
if both routes are prescribed by the provider (PO <
IV).
01/11/25 20:20
Code Status As Directed
Resuscitation Status: Full Code
01/11/25 21:47
Acetaminophen [Tylenol] 650 mg PO Q4HPRN PRN
HydrALAZINE [Apresoline] 5 mg IV Q6HPRN PRN
Lorazepam [Ativan] 1 mg IV Q4HPRN PRN
01/11/25 21:47
Activity As Directed
Activity Level: Ambulate
With Assistance
EKG with chest pain [ECG as needed] As Directed
ECG as needed for:: Chest Pain
I/O [Intake/ Output] As Directed
Frequency: Per unit guidelines
Neurological Checks As Directed
Frequency: q4h
Pneumatic Compression Sleeves As Directed
Type: Knee high
Vital Signs As Directed
Frequency: Per unit guidelines
Weight As Directed
Frequency: Daily
Oxygen Therapy [O2 Therapy] [RESP] Routine
Titrate/Wean O2 to maintain O2 sat greater than (%): 94
DX Deep Vein Thrombosis Video Routine
01/11/25 22:00
Famotidine [Pepcid] 40 mg PO HS
Levetiracetam [Keppra] 500 mg PO Q12H
01/12/25 06:00
Levothyroxine [Synthroid] 125 mcg PO DAILY @ 0600
01/12/25 06:46
Basic Metabolic Panel IN AM
Complete Blood Count/No Diff IN AM
01/12/25 08:00
Amlodipine [Norvasc] 5 mg PO BID
Aripiprazole [Abilify] 20 mg PO DAILY
Buprenorphine [Subutex] 16 mg SL DAILY
Bupropion(12Hr)Sustain Release [WELLBUTRIN SR (12 hour sustained release)] 100 mg PO DAILY
Duloxetine Delayed Release [Cymbalta Delayed Release] 60 mg PO DAILY
Metoprolol [Lopressor] 25 mg PO BID
Pantoprazole [Protonix] 40 mg PO DAILY
01/12/25 22:00
Trazodone [Desyrel] 150 mg PO HS
01/14/25 11:00
DC Protocol for Telemetry ONCE
Abnormal Lab Results
01/11/25 01/11/25 01/11/25
14:29 15:41 16:17
WBC 14.5 H 10^3/uL
(4.8-10.8)
Abs Immat Gran (auto) 0.1 H 10^3/uL
(0-0.05)
Absolute Neuts (auto) 12.5 H 10^3/uL
(1.4-6.5)
Absolute Lymphs (auto) 1.0 L 10^3/uL
(1.2-3.4)
Absolute Monos (auto) 0.7 H 10^3/uL
(0.1-0.6)
Neutrophils % 86.5 H %
(42.2-75.2)
Lymphocytes % 7.2 L %
(20.5-51.1)
Glucose 131 H mg/dl
(70-99)
TSH (Reflex) 0.16 L uIU/ml
(0.47-4.68)
Ur Buprenorphine Positive H
(Negative)
POC Glucose
01/11/25
18:28
WBC
Abs Immat Gran (auto)
Absolute Neuts (auto)
Absolute Lymphs (auto)
Absolute Monos (auto)
Neutrophils %
Lymphocytes %
Glucose
TSH (Reflex)
Ur Buprenorphine
POC Glucose 119 H mg/dl
(70-99)
01/11/25 14:29
01/11/25 15:41
Vital Signs
Initial and Last Documented VS:
Initial Vital Signs
Pulse Resp
77 17
01/11/25 14:09 01/11/25 14:09
Last Documented Vital Signs
Temp Pulse Resp BP Pulse Ox
98.1 F 72 18 101/70 97
01/13/25 07:05 01/13/25 07:05 01/13/25 07:05 01/13/25 07:05 01/13/25 07:05
<Shawn Green, DO - Last Filed: 01/11/25 22:14>
Orders/Labs/Results
Orders:
Orders
01/11/25 Breakfast
Regular
At Your Request: Non-Participating
01/11/25 14:14
Naloxone [Narcan] 0.4 mg IV NOW STA
01/11/25 14:15
CR Chest Portable - 1 View Urgent
Comment:
Reason For Exam: cough
Reason Study Needs to be Portable: Unable to Transport
01/11/25 14:29
COVID-19 Antigen Urgent
Source: Nasal Swab
Complete Blood Count/With Diff Urgent
Influenza A+B Rapid Molecular Urgent
KARINE Source: Nasal Swab
Specimen Description:
01/11/25 15:41
Alcohol Urgent
Comprehensive Metabolic Panel Urgent
TSH Reflex To Free T4 Routine
Comment: ADD ON
01/11/25 16:17
Fentanyl, Urine Urgent
Urinalysis Reflex To Culture Urgent
Date Specimen was Collected: 01/11/25
Time Specimen was Collected: 16:15
Urine Drug Abuse Screen Urgent
Date Specimen was Collected: 01/11/25
Time Specimen was Collected: 16:15
01/11/25 16:48
Add On- LAB Urgent
Tests Added?: urine drug screen
01/11/25 20:03
CT Head W/o Iv Contrast Urgent
Comment:
Reason For Exam: Altered Mental Status / Fall
01/11/25 20:18
Admit/Transfer Patient As Directed
Co-Sign Provider:
Level of Care: Observation services
Assign to:: Telemetry
Physician / Group: Salazar
Diagnosis: Acute Encephalopathy
Reason for Telemetry: CVA/TIA
Date to Stop Telemetry: 01/14/25
Time to Stop Telemetry: 11:00
PRN Pain Medication Management As Directed
May give lesser potent ordered pain med per pt: Yes
preference::
Protocol:: Medication orders for pain may be administered in a
manner that supports deferring to patient preference
when the pt is:
- Requesting an ordered lesser potent pain medication.
Least to most potent pain medications are defined
as: acetaminophen < NSAID < tramadol < opioids
(morphine, oxycodone, hydromorphone).
- Requesting a lesser dose of the same medication IF
ORDERED.
- Requesting a less intrusive route of administration
if both routes are prescribed by the provider (PO <
IV).
01/11/25 20:20
Code Status As Directed
Resuscitation Status: Full Code
01/11/25 21:47
Acetaminophen [Tylenol] 650 mg PO Q4HPRN PRN
HydrALAZINE [Apresoline] 5 mg IV Q6HPRN PRN
Lorazepam [Ativan] 1 mg IV Q4HPRN PRN
01/11/25 21:47
Activity As Directed
Activity Level: Ambulate
With Assistance
EKG with chest pain [ECG as needed] As Directed
ECG as needed for:: Chest Pain
I/O [Intake/ Output] As Directed
Frequency: Per unit guidelines
Neurological Checks As Directed
Frequency: q4h
Pneumatic Compression Sleeves As Directed
Type: Knee high
Vital Signs As Directed
Frequency: Per unit guidelines
Weight As Directed
Frequency: Daily
Oxygen Therapy [O2 Therapy] [RESP] Routine
Titrate/Wean O2 to maintain O2 sat greater than (%): 94
DX Deep Vein Thrombosis Video Routine
01/11/25 22:00
Famotidine [Pepcid] 40 mg PO HS
Levetiracetam [Keppra] 500 mg PO Q12H
01/12/25 06:00
Levothyroxine [Synthroid] 125 mcg PO DAILY @ 0600
01/12/25 06:46
Basic Metabolic Panel IN AM
Complete Blood Count/No Diff IN AM
01/12/25 08:00
Amlodipine [Norvasc] 5 mg PO BID
Aripiprazole [Abilify] 20 mg PO DAILY
Buprenorphine [Subutex] 16 mg SL DAILY
Bupropion(12Hr)Sustain Release [WELLBUTRIN SR (12 hour sustained release)] 100 mg PO DAILY
Duloxetine Delayed Release [Cymbalta Delayed Release] 60 mg PO DAILY
Metoprolol [Lopressor] 25 mg PO BID
Pantoprazole [Protonix] 40 mg PO DAILY
01/12/25 22:00
Trazodone [Desyrel] 150 mg PO HS
01/14/25 11:00
DC Protocol for Telemetry ONCE
Abnormal Lab Results
01/11/25 01/11/25 01/11/25
14:29 15:41 16:17
WBC 14.5 H 10^3/uL
(4.8-10.8)
Abs Immat Gran (auto) 0.1 H 10^3/uL
(0-0.05)
Absolute Neuts (auto) 12.5 H 10^3/uL
(1.4-6.5)
Absolute Lymphs (auto) 1.0 L 10^3/uL
(1.2-3.4)
Absolute Monos (auto) 0.7 H 10^3/uL
(0.1-0.6)
Neutrophils % 86.5 H %
(42.2-75.2)
Lymphocytes % 7.2 L %
(20.5-51.1)
Glucose 131 H mg/dl
(70-99)
TSH (Reflex) 0.16 L uIU/ml
(0.47-4.68)
Ur Buprenorphine Positive H
(Negative)
POC Glucose
01/11/25
18:28
WBC
Abs Immat Gran (auto)
Absolute Neuts (auto)
Absolute Lymphs (auto)
Absolute Monos (auto)
Neutrophils %
Lymphocytes %
Glucose
TSH (Reflex)
Ur Buprenorphine
POC Glucose 119 H mg/dl
(70-99)
01/11/25 14:29
01/11/25 15:41
Vital Signs
Initial and Last Documented VS:
Initial Vital Signs
Pulse Resp
77 17
01/11/25 14:09 01/11/25 14:09
Last Documented Vital Signs
Temp Pulse Resp BP Pulse Ox
98.1 F 72 18 101/70 97
01/13/25 07:05 01/13/25 07:05 01/13/25 07:05 01/13/25 07:05 01/13/25 07:05
<Arnel Hill PA-C - Last Filed: 01/13/25 10:56>
MDM/Problems Addressed
Differential Diagnosis Includes:
Substance abuse, less concern for infectious etiology or sepsis, patient with multiple recent CT scans without any acute abnormalities so doubt acute neurologic complication
MDM/Problems Addressed:
64-year-old female presenting to the emergency department via EMS after her significant other found her with reported change in mental status. Patient with history of multiple similar visits many of which were related to substance use. Will check
labs, urine and chest x-ray given patient's reported cough. Will give dose of Narcan to try and awaken patient. Disposition pending.
Chronic conditions affecting care: Psychiatric illness
Acute Exacerbation and/or Progression of Chronic Illness: Psychiatric illness
<Arnel Hill PA-C - Last Filed: 01/13/25 10:56>
*Pulse Oximetry
Patient hypoxic: no
*Critical Care Note
Total Time (30-74mins, 75-104mins- exclusive of procedures): Not Applicable
Data Reviewed
Review of Other/Old Records Reveals: Labs, Records and Radiology Studies
<Arnel Hill PA-C - Last Filed: 01/13/25 10:56>
Comment
Comment:
Following Narcan patient is more awake. She still will fall asleep intermittently but is now answering yes and no questions. Will closely monitor. Patient does have a mild leukocytosis on labs which is of unclear significance at this point.
Awaiting urinalysis and remaining lab tests.
ED Attending Note
<Arnel Hill PA-C - Last Filed: 01/13/25 10:56>
-
Portions of this chart may have been created with voice recognition software.� Occasional wrong word or��sound alike� substitutions may have occurred due to the inherent limitations of voice recognition software.
<Shawn Green DO - Last Filed: 01/11/25 22:14>
ED Attending Note
Patient seen and examined by attending physician: Yes
I performed the substantive portion of visit, reviewed & personally made and approve the management plan that is documented in note by myself or KELLEY.: Yes
ED Attending Note:
I evaluated the patient at bedside. Altered mental status. Seen here several times for less severe symptoms in past usually discharged, but boyfriend at bedside feels this is worse. H/o DUTCH / alcoholism. Was admitted here for accidental OD of
trazodone last Jul. She has been watched here for 4.5 hours, and still no improvement. Not speaking, not eating, but awake. Did not CT brain as the last 13 of these have been negative. WBC 14.5, but UA and CXR neg. Chemistries unremarkable. UDS
positive for suboxone again only. Repeat blood sugar normal. Did not get crisis involved as she is not talking and I don't think I can medically clear her. She strikes me as someone with polypharmacy, but boyfriend says someone puts her pills out.
Subtle abnormal movements noted, but has had normal EEGs in past. She responds to pain and eyes are open, but she continues to not talk.
Discharge Plan
Departure
Patient Disposition: Admit
Date of Disposition: 01/11/25
Time of Disposition: 18:50
Presentation/result/management discussed w/ accepting MD/DO: Hospitalist
Discharge Problem:
Toxic metabolic encephalopathy
Interventions
Interventions:
*Risk Screen - Suicide Last Done: 01/11/25 22:00
*General Assessment Last Done: 01/11/25 14:16
*Neglect/Abuse Screening Last Done: 01/11/25 14:16
ED- Fall Risk Assessment Last Done: 01/11/25 18:32
*ED COVID-19 Vaccine History Last Done: 01/11/25 22:00
*Nursing Disposition Last Done: 01/11/25 21:40
ED- Pulmonary Assessment Last Done: 01/11/25 20:17
ED-Psychological Assessment Last Done: 01/11/25 18:32
ED- Neurological Assessment Last Done: 01/11/25 20:17
ED- Cardiac Assessment Last Done: 01/11/25 20:17
Discharge Date and Time
Discharge Date/Time: 01/11/25 21:40
[2025-01-11] MEDS: NARCAN 0.4 MG IV (14:35)
[2025-01-11 14:44] LABS: % Basophils 0.4 % (0-2); % Eosinophils 0.9 % (0-6); % Immature Granulocytes 0.4 % (0-0.5); % Lymphocytes 7.2 % (20.5-51.1); % Monocytes 4.6 % (1.7-9.3); % Neutrophils 86.5 % (42.2-75.2); Absolute Basophils 0.1 10^3/uL (0-0.2); Absolute Eosinophils 0.1 10^3/uL (0-0.7); Absolute Immature Granulocytes 0.1 10^3/uL (0-0.05); Absolute Monocytes 0.7 10^3/uL (0.1-0.6); Absolute Neutrophils 12.5 10^3/uL (1.4-6.5); Hematocrit 44.4 % (37.0-47.0); Mean Corp Hgb Conc. 33.8 g/dL (33.0-37.0); Mean Corpuscular Hgb 30.4 pg (27.0-31.0); Mean Corpuscular Volume 90.1 fL (81.0-99.0); Mean Platelet Volume 8.8 fL (7.4-10.4); Nucleated Red Blood Cells % 0 %; Platelet Count 392 10^3/uL (130-400); Red Blood Cell Count 4.93 10^6/uL (4.20-5.40); Red Cell Dist. Width 12.5 % (11.5-14.5); White Blood Cell Count 14.5 10^3/uL (4.8-10.8)
[2025-01-11 14:58] LABS: COVID-19 Antigen Negative (Negative)
[2025-01-11 16:09] LABS: ALT (SGPT) 12 U/L (0-35); AST (SGOT) 22 U/L (14-36); Alkaline Phosphatase 102 U/L (38-126); Blood Urea Nitrogen 14 mg/dl (7-17); Calcium 10.2 mg/dl (8.4-10.2); Carbon Dioxide 26 mmol/L (22-30); Chloride 104 mmol/L (98-107); Estimated Creatinine Clearance 58 ml/min; Glucose 131 mg/dl (70-99); Potassium 4.5 mmol/L (3.5-5.1); Sodium 139 mmol/L (135-145); Total Bilirubin 0.7 mg/dl (0.2-1.3); Total Protein 7.7 g/dl (6.3-8.2); eGFR > 60.00
[2025-01-11 16:11] LABS: Alcohol None Detected
[2025-01-11 16:28] LABS: Urine Albumin Negative (Neg - Trace); Urine Bilirubin Negative (Negative); Urine Character Clear (Clear); Urine Color Yellow; Urine Glucose Negative (Negative); Urine Ketone Negative (Negative); Urine Leukocyte Negative (Negative); Urine Nitrite Negative (Negative); Urine Occult Blood Negative (Negative); Urine Urobilinogen Negative (Neg - 1+)
[2025-01-11 17:57] LABS: Amphetamines Negative (Negative); Barbiturates Negative (Negative); Benzodiazepines Negative (Negative); Buprenorphine Positive (Negative); Cocaine Negative (Negative); Marijuana Negative (Negative); Methadone Negative (Negative); Methamphetamines Negative (Negative); Opiates Negative (Negative); Phencyclidine Negative (Negative); Tricyclic Antidepressants Negative (Negative)
[2025-01-11 18:19] LABS: Fentanyl, Urine Negative (Negative)
[2025-01-11 18:30] LABS: Glucose - Point of Care 119 mg/dl (70-99)
--- NOTE | 2025-01-11 19:46 | PHANOTE ---
med [employer] tech(01/11/25)-Unable to interview patient, spouse was unsure of medications and did not have a list of current medications with him. Per spouse, no changes since last I spoke to him 11/2024, so confirmed medications through medical records
and [facility].
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
--- NOTE | 2025-01-11 20:25 | HPS.HSE ---
Family Physician
-
Family Physician: INTERVIEWE UNKNOWN - PT NOT
Chief Complaint
-
Altered Mental Status
History of Present Illness
Patient is a 64y F with PMH significant for polysubstance abuse, prior ICH and history of Hep C who presents to ED for evaluation of mental status change. History obtained from roommate / significant other at the bedside. He states that patient
was in her usual state of health yesterday around 11AM. He then traveled out of town for work and returned home about 10:30 that evening. When he returned home she was asleep in a recliner. She briefly woke and moved to sleep on the sofa.
This AM he found the patient to be very sleepy. She opened her eyes at times, but would not speak to him or answer questions. This persisted throughout the day and he ultimately called 911 and sent to the ED for evaluation.
S.O. states that she has had similar symptoms in the past - but usually not lasing for so long.
Patient has had several visits to this ED with similar complaints and is usually evaluated by Crisis Team. This was not pursued today.
S.O. states that she last drank alcohol about 6 months ago as far as he knows. He also states that he does keep alcohol in the home.
He is not aware of her other substance use history - stating that this was many years ago.
She is active in and takes suboxone for opioid abuse history.
A nurse sorts / manages the patient's medications and this was done last yesterday AM.
S.O. states that the pill boxes are untouched since that time.
Medical History
Past Medical History
Past Medical History: Reports Other
Additional Past Medical History:
Subarachnoid Hemorrhage
Hypothyroidism
Polysubstance Abuse
History of Hep C (treated)
Chronic Back Pain
Past Surgical History: Reports Other
Additional Past Surgical History:
Spinal Fusion
Appendectomy
Social History
Tobacco: Other (Current some day smoker. Currently vapes regularly.)
Alcohol: Chronic Alcoholic (History of alcohol abuse per friend. Last drink 6 months ago (as far as he is aware).)
Drug: Other (Remote history of opioid abuse - uncertain which type.)
Living: With Roomate
Family History
Family History: Other (Mother: DM-II, CVA Father: CAD ( at 47yo))
Allergies / Home Medications
Allergies reflects when Allergies were last updated in [facility].
Home Medications with original date entered in [facility]
Allergy/Medication List:
Allergies
Allergy/AdvReac Type Severity Reaction Status Date / Time
No Known Allergies Allergy Verified 11/25/24 14:34
Home Medications
ferrous sulfate 325 mg (65 mg iron) tablet 325 mg PO DAILY 06/15/24
metoprolol tartrate 25 mg tablet 25 mg PO BID 06/15/24
omeprazole 20 mg tablet,delayed release 20 mg PO DAILY 06/15/24
aripiprazole 20 mg tablet 20 mg PO DAILY 08/15/24
baclofen 20 mg tablet 20 mg PO BID 08/15/24
buprenorphine 8 mg-naloxone 2 mg sublingual film 2 film buccal DAILY 08/15/24
famotidine 40 mg tablet 40 mg PO HS 08/15/24
levetiracetam 500 mg tablet 500 mg PO Q12H 08/15/24
levothyroxine 125 mcg tablet 125 mcg PO DAILY @ 0600 #30 tabs 08/17/24
amlodipine 5 mg tablet 5 mg PO BID 11/18/24
bupropion HCl 100 mg tablet,12 hr sustained-release 100 mg PO DAILY 11/18/24
dicyclomine 20 mg tablet 20 mg PO TID 11/18/24
duloxetine 60 mg capsule,delayed release 60 mg PO DAILY 11/18/24
metaxalone 800 mg tablet 800 mg PO TID 11/18/24
trazodone 150 mg tablet 150 mg PO HS 11/18/24
Review of Systems
-
Unable to obtain full review of systems at this time due to: Other (Very limited ROS due to mental state.)
History Source: Family
A 12 point ROS was completed and negative except as noted: No
Physical Exam
Vital Signs
Vital Signs
Temp Pulse Resp BP Pulse Ox
98.2 F 88 18 188/97 98
01/11/25 20:17 01/11/25 20:16 01/11/25 20:16 01/11/25 20:16 01/11/25 20:16
Physical Exam
General: Other (64y F with grimace / intermittely responsive.)
HEENT: Other (Dry MM. Missing dentition. Small ecchymosis over the R zygomatic arch.)
Respiratory: Clear; No Wheezes, Rales or Rhonchi
Cardiac: S1/S2 and Regular Rhythm; No Murmur
GI: Soft, Non Tender, Non Distended and Normal Bowel Sounds
Musculoskeletal: No Clubbing, No Cyanosis and No Edema
Neuro: Other (Patient will not open eyes. She has a constant grimace but answers 'no' and shakes head no when asked about pain. Does not answer most questions. Does not follow most commands. No evident focal deficits.)
Laboratory Results
-
01/11/25 14:29
01/11/25 15:41
Laboratory Results
Total Bilirubin 0.7 mg/dl (0.2-1.3) 01/11/25 15:41
AST 22 U/L (14-36) 01/11/25 15:41
ALT 12 U/L (0-35) 01/11/25 15:41
Alkaline Phosphatase 102 U/L (38-126) 01/11/25 15:41
Impression/Plan
-
A/P: Patient is a 64y F with PMH significant for polysubstance use disorder and psychiatric illness who presents to ED for evaluation of altered mental status / unresponsiveness.
Altered Mental Status
- Observe overnight for further evaluation and treatment.
- Initial evaluation in the ED is entirely unremarkable.
- Exam reveals patient to be alert and responsive - but not opening eyes / answering questions / following commands consistently.
- Suspect this is primarily psychiatric process and will ask Psychiatry to formally evaluate.
- Follow for any agitation (which patient has exhibited in the past) and treat with PRN BZDs if needed.
- EtOH is negative and UDS positive only for buprenorphine (which she is prescribed).
- Follow for changes in exam.
- Will check CT head as roommate cannot be certain she did not fall while he was away and there is a small bruise on her R cheek which may suggest she did.
- Continue majority of psychotropic medications.
- Would hold muscle relaxants acutely.
Benign Hypertension
- Labile BP in the ED.
- Continue outpatient medications.
- IV hydralazine PRN for very high BP.
Alcohol Use Disorder
Substance Use Disorder
- EtOH undetectable. UDS appropriate for her Rx medications.
- S.O. reports 6 months since last EtOH use - should not be at risk for withdrawal symptoms.
- Follow for new symptoms.
- Continue buprenorphine.
DVT Prophylaxis: SCDs
Code Status: Full
[2025-01-11] MEDS: KEPPRA 500 MG PO (22:30)
[2025-01-11] MEDS: PEPCID 40 MG PO (22:30)
[2025-01-11 23:54] LABS: TSH Reflex To Free T4 0.16 uIU/ml (0.47-4.68)
[2025-01-12 00:23] LABS: Free T4 1.37 ng/dl (0.78-2.19)
[2025-01-12] MEDS: NSS (PRESERVATIVE FREE) 0.5 ML IV ×4 (00:24→16:13)
[2025-01-12] MEDS: ATIVAN 1 MG IV ×3 (00:24→09:28)
[2025-01-12 04:35] VITALS: BP 190/126
[2025-01-12] MEDS: APRESOLINE 5 MG IV (04:59)
[2025-01-12] MEDS: SYNTHROID 125 MCG PO (05:08)
[2025-01-12 07:24] LABS: Hematocrit 40.9 % (37.0-47.0); Hemoglobin 13.5 g/dL (12.0-16.0); Mean Corpuscular Hgb 29.9 pg (27.0-31.0); Mean Corpuscular Volume 90.5 fL (81.0-99.0); Mean Platelet Volume 9.3 fL (7.4-10.4); Platelet Count 325 10^3/uL (130-400); Red Blood Cell Count 4.52 10^6/uL (4.20-5.40); Red Cell Dist. Width 12.5 % (11.5-14.5); White Blood Cell Count 13.6 10^3/uL (4.8-10.8)
[2025-01-12 07:41] VITALS: BP 161/101
[2025-01-12] MEDS: WELLBUTRIN SR (12 hour sustained release) 100 MG PO (08:12)
[2025-01-12] MEDS: SUBUTEX 16 MG SL (08:13)
[2025-01-12] MEDS: PROTONIX 40 MG PO (08:13)
[2025-01-12] MEDS: ABILIFY 20 MG PO (08:13)
[2025-01-12] MEDS: CYMBALTA DELAYED RELEASE 60 MG PO (08:13)
[2025-01-12] MEDS: NORVASC 5 MG PO ×2 (08:14→20:47)
[2025-01-12] MEDS: LOPRESSOR 25 MG PO ×2 (08:14→20:47)
--- NOTE | 2025-01-12 08:54 | W.PN.HOSP.TC ---
Today's Communication/Plan
-
see bold
Assessment / Plan
Assessment / Plan
64y F with PMH significant for polysubstance use disorder and psychiatric illness who presents to ED for evaluation of altered mental status / unresponsiveness.
Altered Mental Status
- EtOH is negative and UDS positive only for buprenorphine (which she is prescribed).
- Head CT negative for acute intracranial abnormality
- Suspect this is primarily psychiatric process
- Appreciate psychiatry input, recommend holding Skelaxin, baclofen, and other sedating medications
- Psychiatry decreased trazodone to 75 mg at bedtime and Abilify to 15 mg daily
- Monitor
Benign Hypertension
- Labile BP in the ED.
- Continue metoprolol tartrate 25 mg twice a day, amlodipine 5 mg twice a day
- IV hydralazine PRN for very high BP
Alcohol Use Disorder
Substance Use Disorder
- EtOH undetectable. UDS appropriate for her Rx medications.
- S.O. reports 6 months since last EtOH use - should not be at risk for withdrawal symptoms.
- Continue buprenorphine.
DVT Prophylaxis: Subcu Lovenox
Code Status: Full
Updated significant other 01/12
Total time spent to see the patient on the floor, examine the patient, review data and lab results, discuss treatment plan with patient, nursing staff around 50 minutes.
Physical Exam
General: No acute distress
HEENT: Normocephalic, Atraumatic, EOMI, MMM
Respiratory: Clear to Auscultation bilaterally
Cardiac: Normal S1/S2, tachycardic rate and Rhythm
GI: Soft, Nontender, Nondistended, Normal Bowel Sounds
Extremities: No Clubbing, Cyanosis, or Edema
Neuro: Confused
Psych: Calm, Cooperative
Anticipated Discharge: 24 - 48 hours
Subjective/Interval History
-
Date of Service: January 12, 2025
Patient is confused. She only knows her name. Had fever of 100.7 at 10 PM last night. No vomiting.
Objective Data
-
Labs:
Laboratory Results
01/12/25
06:46
WBC 13.6 H
Hgb 13.5
Hct 40.9
Plt Count 325
Sodium Pending
Potassium Pending
Chloride Pending
Carbon Dioxide Pending
BUN Pending
Creatinine Pending
Glucose Pending
Calcium Pending
Vital Signs:
Vital Signs
Temp Pulse Resp BP Pulse Ox
97.8 F 127 16 161/101 99
01/12/25 07:41 01/12/25 08:14 01/12/25 07:41 01/12/25 08:14 01/12/25 07:41
I&O
01/11/25 01/12/25 01/13/25
06:59 06:59 06:59
Output Total 900 / 900
Balance -900 / -900
[2025-01-12] MEDS: KEPPRA 500 MG PO ×2 (10:23→21:49)
[2025-01-12 10:34] LABS: Blood Urea Nitrogen 19 mg/dl (7-17); Calcium 10.5 mg/dl (8.4-10.2); Carbon Dioxide 14 mmol/L (22-30); Chloride 109 mmol/L (98-107); Estimated Creatinine Clearance 69 ml/min; Glucose 123 mg/dl (70-99); Potassium 4.4 mmol/L (3.5-5.1); Sodium 141 mmol/L (135-145); eGFR > 60.00
[2025-01-12 11:29] VITALS: BP 103/68
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
[2025-01-12 14:46] VITALS: BP 133/82
--- NOTE | 2025-01-12 14:52 | CM ---
Placed a call to Darnell, patient's Significant Other in hopes to obtain information for assessment. Had to leave a voice mail. Requested return call and provided contact information.
[2025-01-12] MEDS: ATIVAN 0.5 MG IV (16:10)
[2025-01-12] MEDS: SODIUM BICARBONATE 1300 MG PO ×2 (16:13→21:51)
[2025-01-12 19:55] VITALS: BP 128/80
[2025-01-12] MEDS: DESYREL 75 MG PO (21:49)
[2025-01-12] MEDS: PEPCID 40 MG PO (21:50)
[2025-01-12 23:40] VITALS: BP 92/60
[2025-01-13 03:35] VITALS: BP 103/69
[2025-01-13 06:00] VITALS: BMI 19.4
[2025-01-13] MEDS: SYNTHROID 125 MCG PO (06:14)
[2025-01-13 07:05] VITALS: BP 101/70
[2025-01-13] MEDS: ABILIFY 15 MG PO (08:06)
[2025-01-13] MEDS: PROTONIX 40 MG PO (08:06)
[2025-01-13] MEDS: CYMBALTA DELAYED RELEASE 60 MG PO (08:06)
[2025-01-13] MEDS: NORVASC 5 MG PO (08:07)
[2025-01-13] MEDS: LOPRESSOR 25 MG PO (08:07)
[2025-01-13] MEDS: SUBUTEX 16 MG SL (08:08)
[2025-01-13] MEDS: SODIUM BICARBONATE 1300 MG PO (08:08)
[2025-01-13] MEDS: WELLBUTRIN SR (12 hour sustained release) 100 MG PO (08:08)
--- NOTE | 2025-01-13 08:45 | W.PN.HOSP.TC ---
Today's Communication/Plan
-
Cleared by psychiatry for discharge today
Assessment / Plan
Assessment / Plan
64y F with PMH significant for polysubstance use disorder and psychiatric illness who presents to ED for evaluation of altered mental status / unresponsiveness.
Altered Mental Status
- EtOH is negative and UDS positive only for buprenorphine (which she is prescribed).
- Head CT negative for acute intracranial abnormality
- Suspect this is primarily psychiatric process
- Appreciate psychiatry input, recommend holding Skelaxin, baclofen, and other sedating medications
- Psychiatry decreased trazodone to 75 mg at bedtime and Abilify to 15 mg daily
- Patient's mentation is back to baseline, cleared by psychiatry for discharge today
Systemic inflammatory response syndrome
� Patient with fever, leukocytosis
� Flu/COVID-negative, chest x-ray/urine analysis negative
� Monitor off antibiotics
Benign Hypertension
- Labile BP in the ED.
- Continue metoprolol tartrate 25 mg twice a day, amlodipine 5 mg twice a day
- IV hydralazine PRN for very high BP
Non-anion gap metabolic acidosis
-Resolved on oral sodium bicarb
Alcohol Use Disorder
Substance Use Disorder
- EtOH undetectable. UDS appropriate for her Rx medications.
- S.O. reports 6 months since last EtOH use - should not be at risk for withdrawal symptoms.
- Continue buprenorphine.
DVT Prophylaxis: Subcu Lovenox
Code Status: Full
Updated significant other 01/13
Physical Exam
General: No acute distress
HEENT: Normocephalic, Atraumatic, EOMI, MMM
Respiratory: Clear to Auscultation bilaterally
Cardiac: Normal S1/S2, tachycardic rate and Rhythm
GI: Soft, Nontender, Nondistended, Normal Bowel Sounds
Extremities: No Clubbing, Cyanosis, or Edema
Neuro: Alert, awake, oriented
Psych: Calm, Cooperative
Anticipated Discharge: Today
Subjective/Interval History
-
Date of Service: January 12, 2025
Patient's confusion has resolved. She reports her mentation being back to baseline. No fever, no vomiting.
Objective Data
-
Labs:
Laboratory Results
01/12/25
06:46
WBC 13.6 H
Hgb 13.5
Hct 40.9
Plt Count 325
Sodium 141
Potassium 4.4
Chloride 109 H
Carbon Dioxide 14 L*
BUN 19 H
Creatinine 0.7
Glucose 123 H
Calcium 10.5 H
Vital Signs:
Vital Signs
Temp Pulse Resp BP Pulse Ox
98.1 F 104 20 103/68 98
01/12/25 11:29 01/12/25 11:29 01/12/25 11:29 01/12/25 11:29 01/12/25 11:29
I&O
01/11/25 01/12/25 01/13/25
06:59 06:59 06:59
Output Total 900 / 900
Balance -900 / -900
[2025-01-13] MEDS: KEPPRA 500 MG PO (10:20)
[2025-01-13 10:23] LABS: Vitamin D, 25-OH*** 98.7 ng/mL (30-80)
[2025-01-13 10:56] VITALS: BP 98/60
[2025-01-13 11:13] LABS: Folate 13.6 ng/ml (2.76-20); Vitamin B12 > 1000 pg/ml (239-931)
--- NOTE | 2025-01-13 12:32 | W.PN.UPDATE ---
Addendum entered and electronically signed by Afua Maravilla MD 01/13/25 13:02:
spoke to patient's sig other . dr lara had requested i call him as he feels pill boxes were untouched. he allowed that she could have taken pills from the bottles not the pill boxes. he also said she overuses her vape. 'it's her ambrosio' sometimes he
worries that may impairing her mental status as it is used constantly. obviously that is not optimal. s/o also points out that she had shingrix and flu shot on the same day. at any rate i urged him to keep control of the pill boxes AND the extra
bottles of pills which he said he will do.
Original Note:
Update Note
Progress Note Update
patient seen chart reviewed. mrs garcia is much improved . she is as far as i can see back to her normal mental status. she is no longer irritable. she is not confused. she was as i have known her to be in the past upon discharge. i talked with
her about medication adverse effects which i think is the reason for her change in mental status. whether she takes them incorrectly or whether they are simply in their entirety too sedating is not exactly clear. i explained to her that even some of
her everday scheduled meds can be sedating eg trazodone cymbalta abilify and the additive effect w skelaxin and baclofen compounds that effect. for her psych meds i would recommend trazodone 75 mg her buprenorphine, wellbutrin sr 100 mg
duloxetine 60 mg and abilify 15 mg daily. she might do okay with even less abilify but i would do that gradually and it is as per her psychiatrist. i did tell her that she should use the skelaxin and baclofen sparingly if at all but i am not in
control of that. she has not received them here. she appears 'with it' on the current psych meds as specified. (would also avoid dicyclomine which is in her list of meds which can be fog inducing. of course she should continue to be abstinent from
etoh.
[2025-01-13 13:38] VITALS: BP 112/64; PULSE 68; O2SAT 95
[2025-01-13 14:40] LABS: Hemoglobin 11.8 g/dL (12.0-16.0); Mean Corp Hgb Conc. 33.7 g/dL (33.0-37.0); Mean Corpuscular Hgb 30.5 pg (27.0-31.0); Mean Corpuscular Volume 90.4 fL (81.0-99.0); Mean Platelet Volume 8.6 fL (7.4-10.4); Platelet Count 309 10^3/uL (130-400); Red Blood Cell Count 3.87 10^6/uL (4.20-5.40); Red Cell Dist. Width 12.7 % (11.5-14.5); White Blood Cell Count 10.6 10^3/uL (4.8-10.8)
[2025-01-13 15:03] LABS: Blood Urea Nitrogen 26 mg/dl (7-17); Calcium 9.8 mg/dl (8.4-10.2); Carbon Dioxide 27 mmol/L (22-30); Chloride 97 mmol/L (98-107); Estimated Creatinine Clearance 54 ml/min; Glucose 96 mg/dl (70-99); Potassium 3.9 mmol/L (3.5-5.1); Sodium 135 mmol/L (135-145); eGFR > 60.00
--- NOTE | 2025-01-13 15:06 | W.DCSUMMARY ---
Discharge Summary
Discharge Data
Date of Admission: 01/11/25
Date of Discharge: 01/13/25
-
Pending Results: No
Hospital Course
Discharge diagnosis:
Acute encephalopathy, suspect drug-induced
Systemic inflammatory response syndrome
Essential hypertension
Non-anion gap metabolic acidosis
History of alcohol use disorder
History of substance use disorder
Consults: Psychiatry
Hospital course:
64-year-old female with a past medical history of alcohol use disorder, substance use disorder, ICH, and hepatitis C was admitted for acute encephalopathy. Patient has had multiple admissions for acute encephalopathy due to mismanagement of her
medications. Patient was seen conjunction with psychiatry, who suspects a similar situation. Patient's baclofen and Skelaxin were held. Psychiatry decreased her Abilify from 20 mg daily to 15 mg, also decreased her trazodone from 150 mg at
bedtime to 75 mg at bedtime. By the following day, her mentation returned to baseline. Psychiatry recommends continuing the current decreased doses of trazodone and Abilify. Psychiatry also recommends minimal use of baclofen, Skelaxin, and
dicyclomine. These medications were discontinued.
Patient also has systemic inflammatory response syndrome. Her workup was negative for infection.
She had a non-anion gap metabolic acidosis. She was treated with sodium bicarb. This resolved.
She has a history of alcohol use disorder, and substance use disorder. She has remained in recovery for 6 months.
Patient is medically stable and cleared by psychiatry for discharge. She needs to follow-up with her usual psychiatrist in 2-3 weeks.
Disposition: Home self-care
Discharge planning: Required 41 minutes
Discharge Plan
-
Patient Disposition: Home (Routine Discharge)
Discharge Diagnosis/Procedures: Altered mental status
Condition: Good
Diet: Regular
Activity: As tolerated
Driving Restrictions: As prior to admission
Activity Restrictions/Additional Instructions:
Psychiatry recommends changing your medications to:
Trazodone 75 mg daily
Abilify 15 mg daily
Rec stopping Skelaxin/baclofen/Bentyl.
Follow-up with your usual psychiatrist in 1-2 weeks.
Referrals:
UNKNOWN - PT NOT,INTERVIEWE [Family Provider] -
Prescriptions:
New
trazodone 150 mg Tablet
75 mg PO HS Qty: 0 0RF
aripiprazole 10 mg Tablet
15 mg PO DAILY Qty: 60 0RF
Continued
ferrous sulfate 325 mg (65 mg iron) Tablet
325 mg PO DAILY
metoprolol tartrate 25 mg Tablet
25 mg PO BID
omeprazole 20 mg Tablet,Delayed Release (Dr/Ec)
20 mg PO DAILY
levetiracetam 500 mg Tablet
500 mg PO Q12H
famotidine 40 mg Tablet
40 mg PO HS
buprenorphine-naloxone 8-2 mg Film
2 film BUCCAL DAILY
levothyroxine 125 mcg Tablet
125 mcg PO DAILY @ 0600 Qty: 30 0RF
amlodipine 5 mg Tablet
5 mg PO BID
bupropion HCl 100 mg Tablet Sustained-Release 12 Hr
100 mg PO DAILY
duloxetine 60 mg Capsule,Delayed Release(Dr/Ec)
60 mg PO DAILY
Discontinued
baclofen 20 mg Tablet
20 mg PO BID
aripiprazole 20 mg Tablet
20 mg PO DAILY
dicyclomine 20 mg Tablet
20 mg PO TID
trazodone 150 mg Tablet
150 mg PO HS
metaxalone 800 mg Tablet
800 mg PO TID
Discharge Orders:
Discharge Patient (As Directed); Ordered 01/13/25
Ordered By: Rasta Chan
Discharge Date and Time
Discharge Date/Time: 01/13/25 16:35
Print Language: KISWAHILI
[2025-01-13 15:08] VITALS: BP 124/79
== END 2025-01-13 16:35 | disposition home or self-care (01) ==
LOC: 3 WEST ACU 20:58
PROVIDERS: Emergency Medicine; Physician Assistant Medical; ADMITTING PHYSICIAN Hospitalist; ATTENDING PHYSICIAN Family Medicine; CONSULT PHYSICIAN Psychiatry & Neurology Psychiatry; EMERGENCY PHYSICIAN Emergency Medicine
DX: G92.8 Other toxic encephalopathy (principal); R65.10 Systemic inflammatory response syndrome (SIRS) of non-infectious origin without acute organ dysfunction; E87.20 Acidosis, unspecified; R05.9 Cough, unspecified; E11.9 Type 2 diabetes mellitus without complications; I25.2 Old myocardial infarction; I10 Essential (primary) hypertension; F17.290 Nicotine dependence, other tobacco product, uncomplicated; F10.20 Alcohol dependence, uncomplicated; F11.20 Opioid dependence, uncomplicated; D72.829 Elevated white blood cell count, unspecified; F32.A Depression, unspecified; M19.90 Unspecified osteoarthritis, unspecified site; G31.9 Degenerative disease of nervous system, unspecified; M81.0 Age-related osteoporosis without current pathological fracture; K21.9 Gastro-esophageal reflux disease without esophagitis; E03.9 Hypothyroidism, unspecified; R09.89 Other specified symptoms and signs involving the circulatory and respiratory systems; G89.29 Other chronic pain; Z90.49 Acquired absence of other specified parts of digestive tract; Z98.1 Arthrodesis status; Z79.899 Other long term (current) drug therapy; Z79.890 Hormone replacement therapy; Z86.19 Personal history of other infectious and parasitic diseases; Z83.3 Family history of diabetes mellitus; Z82.3 Family history of stroke; Z82.49 Family history of ischemic heart disease and other diseases of the circulatory system; Z86.73 Personal history of transient ischemic attack (TIA), and cerebral infarction without residual deficits; Z11.52 Encounter for screening for COVID-19
CPT/HCPCS: 51701; 51798; 70450; 71045; 80048; 80053; 80306; 80307; 81003; 82077; 82306; 82607; 82746; 82962; 84439; 84443; 85025; 85027; 87502; 87811; 96374; 97162; 97530; 99285; G0378

== ENCOUNTER 2025-03-27 02:44 | Emergency (ER) | payer OTHER, SELFPAY ==
[2025-03-27] VITALS (10 sets, daily range): BP systolic 104–204; BP diastolic 68–112
[2025-03-27 03:40] LABS: % Basophils 1.3 % (0-2); % Eosinophils 2.5 % (0-6); % Immature Granulocytes 0.3 % (0-0.5); % Lymphocytes 20.6 % (20.5-51.1); % Neutrophils 65.3 % (42.2-75.2); Absolute Basophils 0.1 10^3/uL (0-0.2); Absolute Eosinophils 0.2 10^3/uL (0-0.7); Absolute Lymphocytes 1.5 10^3/uL (1.2-3.4); Absolute Monocytes 0.8 10^3/uL (0.1-0.6); Absolute Neutrophils 4.9 10^3/uL (1.4-6.5); Hematocrit 37.8 % (37.0-47.0); Hemoglobin 12.4 g/dL (12.0-16.0); Mean Corp Hgb Conc. 32.8 g/dL (33.0-37.0); Mean Corpuscular Hgb 29.5 pg (27.0-31.0); Mean Corpuscular Volume 89.8 fL (81.0-99.0); Mean Platelet Volume 9.2 fL (7.4-10.4); Nucleated Red Blood Cells % 0 %; Platelet Count 252 10^3/uL (130-400); Red Blood Cell Count 4.21 10^6/uL (4.20-5.40); Red Cell Dist. Width 13.5 % (11.5-14.5); White Blood Cell Count 7.5 10^3/uL (4.8-10.8)
[2025-03-27 03:50] LABS: Amphetamines Negative (Negative); Barbiturates Negative (Negative); Benzodiazepines Negative (Negative); Buprenorphine Positive (Negative); Cocaine Negative (Negative); Marijuana Negative (Negative); Methadone Negative (Negative); Methamphetamines Negative (Negative); Opiates Negative (Negative); Phencyclidine Negative (Negative); Tricyclic Antidepressants Negative (Negative)
[2025-03-27 04:01] LABS: ALT (SGPT) 15 U/L (0-35); AST (SGOT) 27 U/L (14-36); Albumin 4.5 g/dl (3.5-5.0); Alcohol None Detected; Alkaline Phosphatase 102 U/L (38-126); Blood Urea Nitrogen 20 mg/dl (7-17); Calcium 9.9 mg/dl (8.4-10.2); Carbon Dioxide 25 mmol/L (22-30); Chloride 110 mmol/L (98-107); Estimated Creatinine Clearance 65 ml/min; Glucose 100 mg/dl (70-99); Potassium 4.6 mmol/L (3.5-5.1); Sodium 144 mmol/L (135-145); Total Bilirubin 0.6 mg/dl (0.2-1.3); eGFR > 60.00
[2025-03-27 04:10] LABS: Fentanyl, Urine Negative (Negative)
[2025-03-27 04:25] LABS: TSH Reflex To Free T4 0.38 uIU/ml (0.47-4.68)
[2025-03-27 04:55] LABS: Free T4 1.76 ng/dl (0.78-2.19)
--- NOTE | 2025-03-27 06:39 | ED.GENMED ---
History of Present Illness
General
Chief Complaint: Dizziness
Exam Limitations: none
Time Seen by Provider: 03/27/25 06:16
Nursing documentation reviewed up to this point in time: agreed with
History of Present Illness
History of Present Illness:
Patient is 64-year-old female with past medical history of hypertension depression anxiety bipolar disorder alcohol abuse drug abuse presents to the ER. Patient apparently presented from home via EMS and complained of dizziness and came on
abruptly. She presents awake alert on my exam tells me her blood pressure was elevated at home in the 160s and she was dizzy. It was documented the patient was falling asleep in triage and patient also has a one-to-one at bedside. One-to-one ED
tech tells me the patient was throwing things and yelling while here. Patient does report has a history of alcohol or drug use she denies any drug use to me. Her urine is positive for buprenorphine.
Pt does not recall yelling or behaving this way.
In review of pt's visits pt has been here multiple times in the past for decreased responsiveness, drug use, change in mental status, trazadone overdose and psychiatric complaints.
Past History
Past History
ED Past Medical History: Hypothyroidism, Psychiatric and Other (overdose, recovering alcoholic, depression, alcohol abuse, degenerative joint disease)
ED Past Surgical History: Appendectomy and Orthopedic (Cervical fusion over 20 years ago)
Social History
Tobacco: Vaping
Alcohol: Former
Drug: Former user
Personal: Partner
Living: with roommate
Employment: Disabled
Family History
Family History: Other (Noncontributory)
Review of Systems
Review of Systems
Allergies reviewed?: Yes
All Other Systems: ROS reviewed and negative except as documented in HPI and ROS
Constitutional: Reports no symptoms; Denies fever, fatigue or chills
Respiratory: Reports no symptoms
ABD/GI: Reports no symptoms
Musculoskeletal: Reports no symptoms
Skin: Reports no symptoms
Neurological: Reports dizzy
Psychiatric: Reports no symptoms
Phy Exam
General Physical Exam
General Presentation: no apparent distress
General age: appears stated age
General Skin: warm and dry
General Habitus: elderly
General Mental: alert
General Hydration: appears well hydrated
Cardiovascular Exam
Cardiovascular Exam: regular rate/rhythm, no murmur and normal peripheral pulses
Pulmonary Exam
Pulmonary Exam: lungs clear and no respiratory distress
Neurological Exam
Neurological Exam: alert and oriented x3
Course
Orders/Labs/Results
Orders:
Orders
03/27/25 02:56
Electrocardiogram (*1) Urgent
Reason for Study: Vertigo / Dizzy
EKG- Treatment ONCE
03/27/25 02:[address] [CT Head W/o Iv Contrast] Urgent
Comment:
Reason For Exam: dizziness
03/27/25 03:32
Alcohol Urgent
CMP [Comprehensive Metabolic Panel] Urgent
Complete Blood Count/With Diff Urgent
Fentanyl, Urine Urgent
Free T4 Urgent
TSH Reflex To Free T4 Urgent
Urine Drug Abuse Screen Urgent
Date Specimen was Collected: 03/27/25
Time Specimen was Collected: 03:25
Abnormal Lab Results
03/27/25
03:32
MCHC 32.8 L g/dL
(33.0-37.0)
Absolute Monos (auto) 0.8 H 10^3/uL
(0.1-0.6)
Monocytes % 10.0 H %
(1.7-9.3)
Chloride 110 H mmol/L
(98-107)
BUN 20 H mg/dl
(7-17)
Glucose 100 H mg/dl
(70-99)
TSH (Reflex) 0.38 L uIU/ml
(0.47-4.68)
Ur Buprenorphine Positive H
(Negative)
03/27/25 03:32
03/27/25 03:32
Vital Signs
Initial and Last Documented VS:
Initial Vital Signs
Temp Pulse Resp BP Pulse Ox
97.7 F 67 10 163/99 100
03/27/25 02:47 03/27/25 02:47 03/27/25 02:47 03/27/25 02:47 03/27/25 02:47
Last Documented Vital Signs
Temp Pulse Resp BP Pulse Ox
97.7 F 88 16 178/92 97
03/27/25 02:47 03/27/25 07:15 03/27/25 07:15 03/27/25 07:15 03/27/25 06:23
MDM/Problems Addressed
Differential Diagnosis Includes:
Not limited from polypharmacy
MDM/Problems Addressed:
Patient as documented is a 64-year female who initially as stated in the triage note presented for dizziness. Patient has been seen here multiple times in the past for substance abuse and altered mental status/toxic metabolic encephalopathy likely
related to drug use.
She does tell me she was dizzy and her blood pressure was elevated however patient apparently was yelling and acting up and throwing things while here. Patient is awake alert now cooperative but does not recall these actions. In review of history
and past medical records patient has a history of acute encephalopathy likely related to mismanagement of medications/polypharmacy.
these medications included baclofen , skelaxin, and dicyclomine and on prior admission in December these medications were recommended to be discontinued. Patient does report she is still taking muscle relaxers.
Prior to my exam patient had a CAT scan which was unremarkable and had labs which were unremarkable. Patient is positive for buprenorphine which she has been positive for in the past. She is on Subutex.
Patient has continued to be awake alert and stable since my exam.
This is likely again medication related polypharmacy she tells me she is no longer taking Skelaxin but she is on baclofen prescribed by her family doctor.
As discussed with ED physician patient is stable for discharge home. She is awake alert cooperative and calling her boyfriend for a ride home.
I did call her [facility] in [place].
Pt has current prescriptions for metaxalone trazodone and baclofen
Mirtazapine was written by her family doctor Dr. Nitesh Way, trazodone was written by Dr. Yong Atwood a upstairs maid in [place] and baclofen was written by ER physician Dr. Greg Gu. i placed a call to pt's pcp offfice asking call back
so i can review this with pt.
I did speak w/ DR Way about pt's visits today and use of multiple medications.
*Radiology
Radiology exam reviewed: radiology read reviewed
*Pulse Oximetry
Patient hypoxic: no
*Critical Care Note
Total Time (30-74mins, 75-104mins- exclusive of procedures): Not Applicable
ED Attending Note
-
Portions of this chart may have been created with voice recognition software.� Occasional wrong word or��sound alike� substitutions may have occurred due to the inherent limitations of voice recognition software.
Discharge Plan
Departure
Patient Disposition: Home (Routine Discharge)
Date of Disposition: 03/27/25
Time of Disposition: 07:27
Patient with high blood pressure during this ER visit?: Yes
Condition: Fair
Covid-19: Not Applicable
Discharge Problem:
Dizziness
Instructions: Dizziness, BLOOD PRESSURE
Prescriptions:
No Action
ferrous sulfate 325 mg (65 mg iron) Tablet
325 mg PO DAILY
metoprolol tartrate 25 mg Tablet
25 mg PO BID
omeprazole 20 mg Tablet,Delayed Release (Dr/Ec)
20 mg PO DAILY
levetiracetam 500 mg Tablet
500 mg PO Q12H
famotidine 40 mg Tablet
40 mg PO HS
buprenorphine-naloxone 8-2 mg Film
2 film BUCCAL DAILY
levothyroxine 125 mcg Tablet
125 mcg PO DAILY @ 0600 Qty: 30 0RF
amlodipine 5 mg Tablet
5 mg PO BID
bupropion HCl 100 mg Tablet Sustained-Release 12 Hr
100 mg PO DAILY
duloxetine 60 mg Capsule,Delayed Release(Dr/Ec)
60 mg PO DAILY
trazodone 150 mg Tablet
75 mg PO HS Qty: 0 0RF
aripiprazole 10 mg Tablet
15 mg PO DAILY Qty: 60 0RF
Referrals:
Viji Olea MD [Family Provider] -
Activity Restrictions/Additional Instructions:
Please follow-up with your family doctor for reevaluation of your symptoms
Interventions
Interventions:
*Risk Screen - Suicide Last Done: 03/27/25 02:47
*General Assessment Last Done: 03/27/25 02:47
*Neglect/Abuse Screening Last Done: 03/27/25 02:47
*ED- Fall Risk Assessment Last Done: 03/27/25 02:47
*ED COVID-19 Vaccine History Last Done: 03/27/25 02:47
*Nursing Disposition Last Done: 03/27/25 08:19
ED- Neurological Assessment Last Done: 03/27/25 07:15
ED- Cardiac Assessment Last Done: 03/27/25 07:15
ED Swallowing Screen Last Done: 03/27/25 04:12
Discharge Date and Time
Discharge Date/Time: 03/27/25 08:19
Print Language: BELGIAN
--- NOTE | 2025-03-27 07:04 | EDRN ---
charge nurse aware that a 1 to 1 is needed for safety
== END 2025-03-27 08:19 | disposition home or self-care (01) ==
LOC: EMR 02:44
PROVIDERS: Emergency Medicine; EMERGENCY PHYSICIAN Emergency Medicine; FAMILY PHYSICIAN Psychiatry & Neurology Neurology
DX: R42 Dizziness and giddiness (principal); I10 Essential (primary) hypertension; F41.8 Other specified anxiety disorders; F31.9 Bipolar disorder, unspecified; E03.9 Hypothyroidism, unspecified; F10.21 Alcohol dependence, in remission; F17.290 Nicotine dependence, other tobacco product, uncomplicated; M19.90 Unspecified osteoarthritis, unspecified site; Z90.49 Acquired absence of other specified parts of digestive tract
CPT/HCPCS: 99284; 70450; 80053; 80306; 80307; 82077; 84439; 84443; 85025; 93005

== ENCOUNTER → 2025-03-27 16:45 | Outpatient (REF) | payer OTHER, SELFPAY | LOC: RAD 16:45 | PROVIDERS: ATTENDING PHYSICIAN Family Medicine | DX: M16.11 Unilateral primary osteoarthritis, right hip (principal) | CPT/HCPCS: 73502 ==

== ENCOUNTER 2025-03-30 19:46 | Emergency (ER) | payer OTHER, SELFPAY ==
[2025-03-30 19:46] VITALS: BMI 17.6
[2025-03-30 19:57] VITALS: BP 197/98
[2025-03-30 20:04] VITALS: BP 111/55
[2025-03-30] MEDS: NARCAN 0.4 MG IV (20:37)
[2025-03-30] MEDS: NSS 1000 IV (20:39)
[2025-03-30 20:45] LABS: % Basophils 1.1 % (0-2); % Eosinophils 3.4 % (0-6); % Immature Granulocytes 0.3 % (0-0.5); % Lymphocytes 19.4 % (20.5-51.1); % Monocytes 10.7 % (1.7-9.3); % Neutrophils 65.1 % (42.2-75.2); Absolute Basophils 0.1 10^3/uL (0-0.2); Absolute Eosinophils 0.2 10^3/uL (0-0.7); Absolute Lymphocytes 1.3 10^3/uL (1.2-3.4); Absolute Monocytes 0.7 10^3/uL (0.1-0.6); Absolute Neutrophils 4.3 10^3/uL (1.4-6.5); Hematocrit 33.4 % (37.0-47.0); Hemoglobin 11.2 g/dL (12.0-16.0); Mean Corp Hgb Conc. 33.5 g/dL (33.0-37.0); Mean Corpuscular Hgb 29.9 pg (27.0-31.0); Mean Corpuscular Volume 89.1 fL (81.0-99.0); Mean Platelet Volume 9.2 fL (7.4-10.4); Nucleated Red Blood Cells % 0 %; Platelet Count 223 10^3/uL (130-400); Red Blood Cell Count 3.75 10^6/uL (4.20-5.40); Red Cell Dist. Width 13.6 % (11.5-14.5); White Blood Cell Count 6.5 10^3/uL (4.8-10.8)
[2025-03-30 21:00] VITALS: BP 99/58
[2025-03-30 21:00] LABS: Chloride 110 mmol/L (98-107); Potassium 4.4 mmol/L (3.5-5.1); Sodium 142 mmol/L (135-145)
[2025-03-30 21:03] LABS: ALT (SGPT) 13 U/L (0-35); AST (SGOT) 20 U/L (14-36); Acetaminophen < 10 ug/ml (10-30); Alcohol None Detected; Alkaline Phosphatase 85 U/L (38-126); Blood Urea Nitrogen 26 mg/dl (7-17); Calcium 9.7 mg/dl (8.4-10.2); Carbon Dioxide 25 mmol/L (22-30); Estimated Creatinine Clearance 60 ml/min; Glucose 110 mg/dl (70-99); Salicylate < 1.0 mg/dl (2.0-20.0); Total Bilirubin 0.5 mg/dl (0.2-1.3); Total Protein 7.5 g/dl (6.3-8.2); eGFR > 60.00
--- NOTE | 2025-03-30 21:03 | ED.GENMED ---
History of Present Illness
General
Chief Complaint: Dizziness
Time Seen by Provider: 03/30/25 20:09
History of Present Illness
History of Present Illness:
64-year-old female with history of polypharmacy, alcohol abuse, prior history of opioid dependence on Subutex, history of encephalopathy presenting to the emergency department for report of hypertension and dizziness. Patient reports dizziness
about an hour prior to arrival. Patient brought in by medics. Patient limited story on arrival, persistently falling asleep during examination. On review of EMR, recent ER visit on 03/27 for same symptom complaint. At that time suspected to be
polypharmacy, which patient has been seen and evaluated in the past for. Nurse practitioner that saw patient, did discuss with her doctor, patient is on baclofen, metaxalone, trazodone. Patient denies taking any extra of her medications. She
denies drug or alcohol abuse. She denies specific complaints, however again very limited historian
Past History
Past History
ED Past Medical History: Hypothyroidism, Psychiatric and Other (overdose, recovering alcoholic, depression, alcohol abuse, degenerative joint disease)
ED Past Surgical History: Appendectomy and Orthopedic (Cervical fusion over 20 years ago)
Social History
Tobacco: Vaping
Alcohol: Former
Drug: Former user
Personal: Partner
Living: with roommate
Employment: Disabled
Family History
Family History: Other (Noncontributory)
Phy Exam
Physical Exam
Physical Exam:
General: Somnolent but arousable
HEENT: protecting airway, pinpoint pupils
Neck: appears supple
CV: Normal heart rate, regular rhythm
Resp: No accessory muscle use, no increased work of breathing, lungs clear to auscultation bilaterally
Abd: Soft and non-distended, no tenderness to palpation
Extremities: No deformities, no swelling, no erythema
Neuro: alert, no focal neurologic deficit
: deferred
Rectal: deferred
Psych: Normal affect
Skin: Intact
Course
Orders/Labs/Results
Orders:
Orders
03/30/25 20:15
Electrocardiogram (*1) Urgent
Reason for Study: Other
Other Reason for Exam: AMS
0.9% Sodium Chloride 1000 ml [Nss] 1,000 ml IV BOLUS
Naloxone [Narcan] 0.4 mg IV NOW STA
03/30/25 20:16
CT Head W/o Iv Contrast Urgent
Comment:
Reason For Exam: AMS
EKG- Treatment ONCE
03/30/25 20:40
Acetaminophen Urgent
Alcohol Urgent
Complete Blood Count/With Diff Urgent
Comprehensive Metabolic Panel Urgent
Salicylate Urgent
03/30/25 22:10
Fentanyl, Urine Urgent
Urine Drug Abuse Screen Urgent
Date Specimen was Collected: 03/30/25
Time Specimen was Collected: 22:07
Abnormal Lab Results
03/30/25 03/30/25
20:40 22:10
RBC 3.75 L 10^6/uL
(4.20-5.40)
Hgb 11.2 L g/dL
(12.0-16.0)
Hct 33.4 L %
(37.0-47.0)
Absolute Monos (auto) 0.7 H 10^3/uL
(0.1-0.6)
Lymphocytes % 19.4 L %
(20.5-51.1)
Monocytes % 10.7 H %
(1.7-9.3)
Chloride 110 H mmol/L
(98-107)
BUN 26 H mg/dl
(7-17)
Glucose 110 H mg/dl
(70-99)
Salicylates < 1.0 L mg/dl
(2.0-20.0)
Ur Buprenorphine Positive H
(Negative)
Acetaminophen < 10 L ug/ml
(10-30)
03/30/25 20:40
03/30/25 20:40
Vital Signs
Initial and Last Documented VS:
Initial Vital Signs
Temp Pulse Resp BP Pulse Ox
98.2 F 74 16 197/98 98
03/30/25 19:57 03/30/25 19:57 03/30/25 19:57 03/30/25 19:57 03/30/25 19:57
Last Documented Vital Signs
Temp Pulse Resp BP Pulse Ox
98.2 F 79 19 183/92 99
03/30/25 19:57 03/30/25 22:22 03/30/25 22:22 03/30/25 22:22 03/30/25 22:22
MDM/Problems Addressed
MDM/Problems Addressed:
64-year-old female with history of polypharmacy, alcohol abuse, encephalopathy presenting to the emergency department for report of dizziness and high blood pressure. Vital signs on arrival significant for high blood pressure, however corrected
without any intervention.
On exam patient is in no acute distress, however does appear very somnolent, however arousable. On review of EMR, appears to have identical visit from 03/27 with medics called for dizziness and high blood pressure, however found to be somnolent on
arrival. At this time given patient's history and prior visits, do suspect element of polypharmacy versus intoxication. Will trial Narcan with pinpoint pupils and prior history of opiate dependence. Patient is on multiple sedate of medications.
EKG obtained, normal intervals, nonischemic. Plan for laboratory analysis, IV fluids, CT brain imaging and close monitoring.
21:00 - No response from Narcan. Remains stable, protecting airway
23:40 - CT is negative. Labs are unremarkable and UDS unchanged. Patient is now more alert. Again denies taking any more of her medications. Continue to suspect polypharmacy. Conversation had with patient regarding her ingestion of medications
and my concerns regarding her presentation and second visit for the same symptoms. I advised that she discuss with her doctor regarding her medications and possible readjustment of her regimen. Patient would prefer to go home, which is reasonable,
however her spouse is going to take her home. Return precautions discussed and patient verbalized understanding
*EKG
Interpreted by ED Provider?: Yes
EKG Intrepretation Date: 03/30/25
EKG Intrepretation Time: 21:05
Interpretation: normal
Comparison EKG: no changes (03/27/25)
Heart Rate: 59
Rate: bradycardiac
Rhythm: sinus
Mercer: normal axis
Interval: normal interval
QRS Pattern: normal QRS
Ischemia: no ischemia
*Critical Care Note
Total Time (30-74mins, 75-104mins- exclusive of procedures): Not Applicable
ED Attending Note
-
Portions of this chart may have been created with voice recognition software.� Occasional wrong word or��sound alike� substitutions may have occurred due to the inherent limitations of voice recognition software.
Discharge Plan
Departure
Prescriptions:
No Action
ferrous sulfate 325 mg (65 mg iron) Tablet
325 mg PO DAILY
metoprolol tartrate 25 mg Tablet
25 mg PO BID
omeprazole 20 mg Tablet,Delayed Release (Dr/Ec)
20 mg PO DAILY
levetiracetam 500 mg Tablet
500 mg PO Q12H
famotidine 40 mg Tablet
40 mg PO HS
buprenorphine-naloxone 8-2 mg Film
2 film BUCCAL DAILY
levothyroxine 125 mcg Tablet
125 mcg PO DAILY @ 0600 Qty: 30 0RF
amlodipine 5 mg Tablet
5 mg PO BID
bupropion HCl 100 mg Tablet Sustained-Release 12 Hr
100 mg PO DAILY
duloxetine 60 mg Capsule,Delayed Release(Dr/Ec)
60 mg PO DAILY
trazodone 150 mg Tablet
75 mg PO HS Qty: 0 0RF
aripiprazole 10 mg Tablet
15 mg PO DAILY Qty: 60 0RF
Referrals:
Nitesh Hansen MD [Family Provider] -
Interventions
Interventions:
*Risk Screen - Suicide Last Done: 03/30/25 19:57
*Neglect/Abuse Screening Last Done: 03/30/25 19:57
ED- Neurological Assessment Last Done: 03/30/25 20:14
Discharge Date and Time
Print Language: FRENCH
[2025-03-30 22:22] VITALS: BP 183/92
[2025-03-30 22:30] LABS: Amphetamines Negative (Negative); Barbiturates Negative (Negative); Benzodiazepines Negative (Negative); Buprenorphine Positive (Negative); Cocaine Negative (Negative); Marijuana Negative (Negative); Methadone Negative (Negative); Methamphetamines Negative (Negative); Opiates Negative (Negative); Phencyclidine Negative (Negative); Tricyclic Antidepressants Negative (Negative)
[2025-03-30 22:51] LABS: Fentanyl, Urine Negative (Negative)
[2025-03-30 23:00] VITALS: BP 176/97
== END 2025-03-31 00:10 | disposition home or self-care (01) ==
LOC: EMR 19:46
PROVIDERS: EMERGENCY PHYSICIAN Student in an Organized Health Care Education/Training Program; FAMILY PHYSICIAN Family Medicine
DX: F11.20 Opioid dependence, uncomplicated (principal); R42 Dizziness and giddiness; E03.9 Hypothyroidism, unspecified; F10.21 Alcohol dependence, in remission; F17.290 Nicotine dependence, other tobacco product, uncomplicated; F32.A Depression, unspecified; I10 Essential (primary) hypertension; M19.90 Unspecified osteoarthritis, unspecified site; Z90.49 Acquired absence of other specified parts of digestive tract
CPT/HCPCS: 99284; 70450; 80053; 80143; 80179; 80306; 80307; 82077; 85025; 93005

== ENCOUNTER 2025-04-02 20:34 | Emergency (ER) | payer OTHER, SELFPAY ==
[2025-04-02] VITALS (12 sets, daily range): BP systolic 70–214; BP diastolic 41–119
[2025-04-02 20:42] LABS: Glucose - Point of Care 167 mg/dl (70-99)
[2025-04-02 20:57] LABS: % Basophils 0.6 % (0-2); % Eosinophils 0.2 % (0-6); % Immature Granulocytes 0.4 % (0-0.5); % Lymphocytes 5.9 % (20.5-51.1); % Monocytes 4.9 % (1.7-9.3); Absolute Basophils 0.1 10^3/uL (0-0.2); Absolute Immature Granulocytes 0.1 10^3/uL (0-0.05); Absolute Lymphocytes 0.8 10^3/uL (1.2-3.4); Absolute Monocytes 0.6 10^3/uL (0.1-0.6); Absolute Neutrophils 11.4 10^3/uL (1.4-6.5); Hematocrit 39.7 % (37.0-47.0); Hemoglobin 13.4 g/dL (12.0-16.0); Mean Corp Hgb Conc. 33.8 g/dL (33.0-37.0); Mean Corpuscular Hgb 29.9 pg (27.0-31.0); Mean Corpuscular Volume 88.6 fL (81.0-99.0); Mean Platelet Volume 9.4 fL (7.4-10.4); Nucleated Red Blood Cells % 0 %; Platelet Count 316 10^3/uL (130-400); Red Blood Cell Count 4.48 10^6/uL (4.20-5.40); Red Cell Dist. Width 13.6 % (11.5-14.5); White Blood Cell Count 12.9 10^3/uL (4.8-10.8)
[2025-04-02 21:32] LABS: Urine Albumin 3+ (Neg - Trace); Urine Bilirubin Negative (Negative); Urine Character Clear (Clear); Urine Color Yellow; Urine Glucose Negative (Negative); Urine Ketone 2+ (Negative); Urine Leukocyte 3+ (Negative); Urine Nitrite Negative (Negative); Urine Occult Blood 3+ (Negative); Urine Specific Gravity 1.015 (<1.030); Urine Urobilinogen Negative (Neg - 1+)
[2025-04-02 21:43] LABS: Urine Squamous Cell 0-2 /LPF (Few); Urine White Cell 80-90 /HPF (0-5)
[2025-04-02 21:44] LABS: Blood Urea Nitrogen 23 mg/dl (7-17); Glucose 182 mg/dl (70-99); Urine Bacteria Many (Negative)
[2025-04-02 21:45] LABS: ALT (SGPT) 14 U/L (0-35); AST (SGOT) 22 U/L (14-36); Albumin 4.3 g/dl (3.5-5.0); Alkaline Phosphatase 74 U/L (38-126); Calcium 9.7 mg/dl (8.4-10.2); Carbon Dioxide 23 mmol/L (22-30); Chloride 107 mmol/L (98-107); Potassium 4.4 mmol/L (3.5-5.1); Sodium 141 mmol/L (135-145); Total Bilirubin 0.5 mg/dl (0.2-1.3); Total Protein 7.4 g/dl (6.3-8.2); eGFR 56.11
[2025-04-02 21:46] LABS: Amphetamines Negative (Negative); Barbiturates Negative (Negative); Benzodiazepines Negative (Negative); Buprenorphine Positive (Negative)
[2025-04-02 21:47] LABS: Cocaine Negative (Negative); Marijuana Negative (Negative); Methadone Negative (Negative); Methamphetamines Negative (Negative); Opiates Negative (Negative); Phencyclidine Negative (Negative); Tricyclic Antidepressants Negative (Negative)
--- NOTE | 2025-04-02 22:19 | ED.GENMED ---
History of Present Illness
General
Chief Complaint: Change Level of Consciousness
Source: patient and ambulance crew
Exam Limitations: altered mental status
Time Seen by Provider: 04/02/25 22:06
History of Present Illness
History of Present Illness:
64-year-old female presents to the emergency department via EMS with increased somnolence patient is on several medications, which she denies taking today.
Vital signs are stable. Patient not hypoxic
Nursing note reviewed. I agree with nursing documentation up to this point in time.
Home Meds and allergies reviewed.
NUMBER AND COMPLEXITY OF PROBLEMS ADDRESSED AT THE ENCOUNTER
� Chronic conditions affecting care: Tobacco abuse, alcohol abuse, bipolar disorder, anxiety, depression, hypertension,
� Acute Exacerbation and/or Progression of Chronic Illness:
� Differential Diagnosis includes: Alcohol intoxication, medication overdose, UTI, encephalopathy, psychiatric
AMOUNT AND/OR COMPLEXITY OF DATA TO BE REVIEWED AND ANALYZED
I performed an independent evaluation of the following and my interpretation is:
EKG: EKG shows normal sinus rhythm rate of 78 with normal intervals, normal axis. No evidence of acute ischemia present. When compared with previous EKG dated March 30, 2025, similar morphology noted
Pulse Ox: Not Hypoxic
[employer] Technician: Sinus Rhythm
CT:
X-rays:
Ultrasound:
Laboratory Studies: Urine positive.
Other:
Review of other/old records:
Clinical information was obtained by an independent historian:
Prescriptions/Medications Considered but not given:
Further testing considered but not performed:
RISK OF COMPLICATIONS AND/OR MORBIDITY OR MORTALITY OF PATIENT MANAGEMENT
Social determinants of health affecting care: Poor social Support, frequent visits to the ER
Discussion with other providers:
Escalation of care including admission/observation vs risk of discharge considered:
CRITICAL CARE NOTE:
Total Time (exclusive of procedures):
Update:
Past History
Past History
ED Past Medical History: Hypothyroidism, Psychiatric and Other (overdose, recovering alcoholic, depression, alcohol abuse, degenerative joint disease)
ED Past Surgical History: Appendectomy and Orthopedic (Cervical fusion over 20 years ago)
Social History
Tobacco: Vaping
Alcohol: Former
Drug: Former user
Personal: Partner
Living: with roommate
Employment: Disabled
Family History
Family History: Other (Noncontributory)
Review of Systems
Review of Systems
Allergies reviewed?: Yes
Unable to obtain full review of systems at this time due to: other (confusion as presenting problem)
Other source history: ambulance crew
All Other Systems: Not applicable
Phy Exam
General Physical Exam
General Presentation: mild distress
General age: appears older than age
General Skin: warm and dry
General Habitus: elderly and frail
General Mental: appears intoxicated and confused
General Hydration: appears well hydrated
ENT Exam
ENT Exam: EOMI, pharynx normal, neck supple and normocephalic
Eye Exam
Eye Exam: PERRL, cornea clear and conjunctiva normal
Cardiovascular Exam
Cardiovascular Exam: regular rate/rhythm and no edema
Pulmonary Exam
Pulmonary Exam: lungs clear, no respiratory distress, no rales, no crackles, no rhonchi, no stridor, no wheezing and no cough
Gastrointestinal Exam
Gastrointestinal Exam: normal bowel sounds, non tender, soft, no organomegaly, no pulsatile mass and non distended
Neurological Exam
Neurological Exam: oriented x3 (Able to answer most questions appropriately) and slurred speech
Musculoskeletal Exam
Musculoskeletal Exam: full ROM and neuro vasc intact
Skin Exam
Skin Exam: normal color and warm/dry
Psychiatric Exam
Psychiatric Exam: labile
Course
Orders/Labs/Results
Orders:
Orders
04/02/25 20:40
Electrocardiogram (*1) Urgent
Reason for Study: Fatigue / Weakness
EKG- Treatment ONCE
04/02/25 20:49
Complete Blood Count/With Diff Urgent
04/02/25 21:18
Alcohol Urgent
Comprehensive Metabolic Panel Urgent
Fentanyl, Urine Urgent
Urinalysis Reflex To Culture Urgent
Date Specimen was Collected: 04/02/25
Time Specimen was Collected: 21:17
Urine Drug Abuse Screen Urgent
Date Specimen was Collected: 04/02/25
Time Specimen was Collected: 21:11
Urine Microscopic Reflex Cult Urgent
Urine Culture Urgent
KARINE Source: U
Specimen Description:
Date Specimen was Collected: 04/02/25
Time Specimen was Collected: 21:17
04/02/25 22:19
Naloxone [Narcan] 0.4 mg IV NOW STA
04/02/25 22:22
Add On- LAB Urgent
Tests Added?: alcohol
04/02/25 22:24
Bedside Glucose- Treatment ONCE
Abnormal Lab Results
04/02/25 04/02/25 04/02/25
20:40 20:49 21:18
WBC 12.9 H 10^3/uL
(4.8-10.8)
Abs Immat Gran (auto) 0.1 H 10^3/uL
(0-0.05)
Absolute Neuts (auto) 11.4 H 10^3/uL
(1.4-6.5)
Absolute Lymphs (auto) 0.8 L 10^3/uL
(1.2-3.4)
Neutrophils % 88.0 H %
(42.2-75.2)
Lymphocytes % 5.9 L %
(20.5-51.1)
BUN 23 H mg/dl
(7-17)
Creatinine 1.1 H mg/dL
(0.6-1.0)
Glucose 182 H mg/dl
(70-99)
Urine Ketones 2+ A
(Negative)
Ur Occult Blood Reflex 3+ A
(Negative)
Leukocyte Esterase Rfl 3+ A
(Negative)
Urine RBC 11-15 A /HPF
(0-2)
Urine WBC (Reflex) 80-90 A /HPF
(0-5)
Urine Bacteria (Reflex) Many A
(Negative)
Urine Albumin (Reflex) 3+ A
(Neg - Trace)
Ur Buprenorphine Positive H
(Negative)
POC Glucose 167 H mg/dl
(70-99)
04/02/25
22:27
WBC
Abs Immat Gran (auto)
Absolute Neuts (auto)
Absolute Lymphs (auto)
Neutrophils %
Lymphocytes %
BUN
Creatinine
Glucose
Urine Ketones
Ur Occult Blood Reflex
Leukocyte Esterase Rfl
Urine RBC
Urine WBC (Reflex)
Urine Bacteria (Reflex)
Urine Albumin (Reflex)
Ur Buprenorphine
POC Glucose 182 H mg/dl
(-99)
04/02/25 20:49
04/02/25 21:18
Vital Signs
Initial and Last Documented VS:
Initial Vital Signs
Temp Pulse Resp BP Pulse Ox
98 F 106 10 199/113 99
04/02/25 20:41 04/02/25 20:41 04/02/25 20:41 04/02/25 20:41 04/02/25 20:41
Last Documented Vital Signs
Temp Pulse Resp BP Pulse Ox
98 F 83 13 184/110 100
04/02/25 20:41 04/03/25 05:11 04/03/25 05:11 04/03/25 05:11 04/03/25 05:01
*Critical Care Note
Total Time (30-74mins, 75-104mins- exclusive of procedures): Not Applicable
Update Note
Update Note:
pt called her SO who came to pick her up. Pt walked out of the department with a brisk and steady gait. She was mentating appropriately.
ED Attending Note
-
Portions of this chart may have been created with voice recognition software.� Occasional wrong word or��sound alike� substitutions may have occurred due to the inherent limitations of voice recognition software.
Discharge Plan
Departure
Patient Disposition: Home (Routine Discharge)
Date of Disposition: 04/03/25
Time of Disposition: 05:07
Patient with high blood pressure during this ER visit?: Yes
Condition: Good
Discharge Problem:
At risk for polypharmacy, Medication adverse effect
Instructions: Altered Mental Status (DC), BLOOD PRESSURE
Prescriptions:
No Action
ferrous sulfate 325 mg (65 mg iron) Tablet
325 mg PO DAILY
metoprolol tartrate 25 mg Tablet
25 mg PO BID
omeprazole 20 mg Tablet,Delayed Release (Dr/Ec)
20 mg PO DAILY
levetiracetam 500 mg Tablet
500 mg PO Q12H
famotidine 40 mg Tablet
40 mg PO HS
buprenorphine-naloxone 8-2 mg Film
2 film BUCCAL DAILY
levothyroxine 125 mcg Tablet
125 mcg PO DAILY @ 0600 Qty: 30 0RF
amlodipine 5 mg Tablet
5 mg PO BID
bupropion HCl 100 mg Tablet Sustained-Release 12 Hr
100 mg PO DAILY
duloxetine 60 mg Capsule,Delayed Release(Dr/Ec)
60 mg PO DAILY
trazodone 150 mg Tablet
75 mg PO HS Qty: 0 0RF
aripiprazole 10 mg Tablet
15 mg PO DAILY Qty: 60 0RF
Referrals:
UNKNOWN - PT NOT,INTERVIEWE [Family Provider] -
Activity Restrictions/Additional Instructions:
Thank You for choosing [facility].
It was a pleasure meeting you and taking part in your care. We hope for your continued healing and wellness.
Please read discharge instructions in their entirety. However, they are for general education and may not describe your exact diagnosis at discharge. Information on your ER visit and medical conditions were discussed with you along with appropriate
follow up information...
If indicated, please take your medications as instructed and indicated on discharge paperwork.
Please schedule a follow up appointment as directed. Call to schedule an appointment
Please return to the emergency department with ANY change in, persisting, or worsening of symptoms. If any of your symptoms do not improve, or persist, or become more severe within 6-12 hours, please return to the emergency department for further
care.
Please return to the emergency department if you develop a headache, neck pain/stiffness, fever greater than 100.4F, chest pain, shortness of breath, persistent nausea, vomiting, slurred speech, difficulty walking, numbness/tingling, weakness, signs
of infection or any other symptoms that are worrisome to you.
If you have any questions or concerns please do not hesitate to call the Hospital at or E-mail me directly at [email or web address]
Interventions
Interventions:
*Risk Screen - Suicide Last Done: 04/02/25 20:45
*General Assessment Last Done: 04/02/25 20:45
*Neglect/Abuse Screening Last Done: 04/02/25 20:45
*ED COVID-19 Vaccine History Last Done: 04/02/25 20:45
ED- Cardiac Assessment Last Done: 04/03/25 03:45
ED- Neurological Assessment Last Done: 04/03/25 03:45
ED-Psychological Assessment Last Done: 04/03/25 03:45
ED- Pulmonary Assessment Last Done: 04/03/25 03:45
Discharge Date and Time
Print Language: FAROESE
[2025-04-02] MEDS: NARCAN 0.4 MG IV (22:23)
[2025-04-02 22:28] LABS: Glucose - Point of Care 182 mg/dl (70-99)
[2025-04-02 22:31] LABS: Fentanyl, Urine Negative (Negative)
[2025-04-02 23:06] LABS: Alcohol None Detected
[2025-04-03] VITALS (17 sets, daily range): BP systolic 81–204; BP diastolic 46–132; PULSE 56–113
== END 2025-04-03 05:15 | disposition home or self-care (01) ==
LOC: EMR 20:34
PROVIDERS: Student in an Organized Health Care Education/Training Program; EMERGENCY PHYSICIAN Student in an Organized Health Care Education/Training Program
DX: R40.0 Somnolence (principal); T50.905A Adverse effect of unspecified drugs, medicaments and biological substances, initial encounter; I10 Essential (primary) hypertension; F31.9 Bipolar disorder, unspecified; E03.9 Hypothyroidism, unspecified; F17.290 Nicotine dependence, other tobacco product, uncomplicated; Z79.899 Other long term (current) drug therapy
CPT/HCPCS: 96374; 99284; 80053; 80306; 80307; 81003; 81015; 82077; 82962; 85025; 87077; 87086; 93005

== ENCOUNTER 2025-05-09 13:15 | Inpatient (IN) | payer OTHER, SELFPAY ==
[2025-05-08 21:54] VITALS: BP 221/105
[2025-05-08 22:01] VITALS: BP 221/105
[2025-05-08 22:12] LABS: Glucose - Point of Care 105 mg/dl (70-99)
[2025-05-08 22:13] VITALS: BMI 15.1
[2025-05-08 22:24] LABS: % Basophils 0.5 % (0-2); % Eosinophils 1.1 % (0-6); % Immature Granulocytes 0.3 % (0-0.5); % Lymphocytes 13.6 % (20.5-51.1); % Monocytes 6.1 % (1.7-9.3); % Neutrophils 78.4 % (42.2-75.2); Absolute Basophils 0.1 10^3/uL (0-0.2); Absolute Eosinophils 0.1 10^3/uL (0-0.7); Absolute Lymphocytes 1.4 10^3/uL (1.2-3.4); Absolute Monocytes 0.6 10^3/uL (0.1-0.6); Absolute Neutrophils 7.9 10^3/uL (1.4-6.5); Hematocrit 36.8 % (37.0-47.0); Hemoglobin 12.7 g/dL (12.0-16.0); Mean Corp Hgb Conc. 34.5 g/dL (33.0-37.0); Mean Corpuscular Hgb 30.3 pg (27.0-31.0); Mean Corpuscular Volume 87.8 fL (81.0-99.0); Mean Platelet Volume 8.5 fL (7.4-10.4); Nucleated Red Blood Cells % 0 %; Platelet Count 278 10^3/uL (130-400); Red Blood Cell Count 4.19 10^6/uL (4.20-5.40); Red Cell Dist. Width 13.6 % (11.5-14.5); White Blood Cell Count 10.1 10^3/uL (4.8-10.8)
[2025-05-08 22:36] LABS: Ammonia < 9 umol/L (9-30)
[2025-05-08 22:48] LABS: ALT (SGPT) 10 U/L (0-35); AST (SGOT) 16 U/L (14-36); Albumin 4.7 g/dl (3.5-5.0); Alkaline Phosphatase 74 U/L (38-126); Blood Urea Nitrogen 19 mg/dl (7-17); Calcium 10.3 mg/dl (8.4-10.2); Carbon Dioxide 23 mmol/L (22-30); Chloride 114 mmol/L (98-107); Estimated Creatinine Clearance 59 ml/min; Glucose 120 mg/dl (70-99); Potassium 3.8 mmol/L (3.5-5.1); Sodium 146 mmol/L (135-145); Total Bilirubin 0.4 mg/dl (0.2-1.3); Total Protein 7.7 g/dl (6.3-8.2); eGFR > 60.00
[2025-05-08 22:55] VITALS: BP 189/98
[2025-05-08 23:00] VITALS: BP 196/112
[2025-05-09] VITALS (33 sets, daily range): BP systolic 107–222; BP diastolic 80–136; BMI 15.1
[2025-05-09] MEDS: LOPRESSOR 5 MG IV ×2 (01:24→02:36)
[2025-05-09 02:25] LABS: Alcohol None Detected
--- NOTE | 2025-05-09 06:27 | ED.GENMED ---
History of Present Illness
General
Chief Complaint: Change Level of Consciousness
Source: patient, ambulance crew and previous hospital records (Several previous hospitalizations for similar presentations most recently November and then again in December of this year. Multiple ED visits with similar presentations including
several last month.)
Exam Limitations: clinical condition
Time Seen by Provider: 05/09/25 01:06
History of Present Illness
History of Present Illness:
This is a 64-year-old woman with history of hypertension, longstanding history of polypharmacy, alcohol abuse reportedly sober for the past 9 months, history of opioid dependence on Subutex.
She presents via EMS from home with concern for change in mental status, lethargy.
Multiple similar ED visits for similar complaint including 3 visits in March for similar presentation and previous hospitalizations November as well as December for similar presentation. Change in mental status/encephalopathy thought to be
polypharmacy in nature.
Multiple previous psychiatric hospitalizations.
There has been no report of fall.
History is quite limited due to patient's lethargy, frequent repeated verbalization, repeating obscenity but able to answer yes/no questions appropriately and following simple commands appropriately.
She is directable. And when reassured she lays down and falls back to sleep.
Past History
Past History
ED Past Medical History: Hypothyroidism, Psychiatric and Other (overdose, recovering alcoholic, depression, alcohol abuse, degenerative joint disease)
ED Past Surgical History: Appendectomy and Orthopedic (Cervical fusion over 20 years ago)
Social History
Tobacco: Vaping
Alcohol: Former
Drug: Former user
Personal: Partner
Living: with roommate
Employment: Disabled
Family History
Family History: Other (Noncontributory)
Phy Exam
Physical Exam
Physical Exam:
GENERAL: 64-year-old woman appears somewhat older than stated age. Mildly lethargic, frequent repeated verbalizations. Intermittently agitated but able to answer yes/no questions appropriately.
EYE: pupils equal and reactive. anicteric. The head is normocephalic, atraumatic.
NECK: Supple, nontender, no meningismus, no significant adenopathy.
ENT: posterior pharynx is clear, oral mucosa is moist. TM clear b/l, nares patent.
CARDIAC: Regular rate and rhythm. no murmur.
LUNGS: Clear breath sounds bilaterally, no acute respiratory distress, no wheezes/rales/rhonchi
ABDOMEN: Soft, nondistended, without focal tenderness, no r/g, no cvat. normoactive BS.
NEUROLOGICAL: Awake, minimally lethargic, intermittently agitated, intermittently repeating obscenities, no focal neurodeficits. Able to answer yes/no questions appropriately and following simple commands. No focal neuro deficits. Ambulatory with
steady unaided gait.
SKIN: Warm and dry, normal color, skin intact. No rash.
MUSCULOSKELETAL: No C/C/E. peripheral pulses are full and equal b/l. No palpable tenderness.
PSYCH: Intermittently agitated.
Course
Orders/Labs/Results
Orders:
Orders
05/08/25 22:[address] [CT Head W/o Iv Contrast] Urgent
Comment:
Reason For Exam: lethargy
05/08/25 22:15
Alcohol Urgent
Ammonia Urgent
Complete Blood Count/With Diff Urgent
Comprehensive Metabolic Panel Urgent
05/09/25
Electrocardiogram (*1) Stat
Reason for Study: Chest Pain
05/09/25 01:10
Add On- LAB Urgent
Tests Added?: ETOH
05/09/25 01:17
Metoprolol [Lopressor] 5 mg IV NOW STA
05/09/25 02:33
Metoprolol [Lopressor] 5 mg IV NOW STA
05/09/25 02:35
Urine Drug Abuse Screen Urgent
05/09/25 06:04
Amlodipine [Norvasc] 5 mg PO NOW STA
Metoprolol [Lopressor] 25 mg PO NOW STA
05/09/25 06:07
ARIPiprazole [Abilify] 10 mg PO NOW STA
Abnormal Lab Results
05/08/25 05/08/25
22:11 22:15
RBC 4.19 L 10^6/uL
(4.20-5.40)
Hct 36.8 L %
(37.0-47.0)
Absolute Neuts (auto) 7.9 H 10^3/uL
(1.4-6.5)
Neutrophils % 78.4 H %
(42.2-75.2)
Lymphocytes % 13.6 L %
(20.5-51.1)
Sodium 146 H mmol/L
(135-145)
Chloride 114 H mmol/L
(98-107)
BUN 19 H mg/dl
(7-17)
Glucose 120 H mg/dl
(70-99)
Calcium 10.3 H mg/dl
(8.4-10.2)
Ammonia < 9 L umol/L
(9-30)
POC Glucose 105 H mg/dl
(70-99)
05/08/25 22:15
05/08/25 22:15
Vital Signs
Initial and Last Documented VS:
Initial Vital Signs
Temp Pulse Resp BP Pulse Ox
98.1 F 74 16 221/105 99
05/08/25 21:54 05/08/25 21:54 05/08/25 21:54 05/08/25 21:54 05/08/25 21:54
Last Documented Vital Signs
Temp Pulse Resp BP Pulse Ox
98.1 F 107 30 189/122 99
05/08/25 21:54 05/09/25 06:30 05/09/25 06:30 05/09/25 06:00 05/09/25 06:40
MDM/Problems Addressed
Differential Diagnosis Includes:
Change in mental status/encephalopathy. Multiple similar presentations. Concern for polypharmacy. Less likely CVA. Concern for alcohol intoxication, illicit drug use.
There is no tremor, nothing to suggest seizure activity.
Labs thus far unremarkable.
CT of the head is unremarkable and unchanged from previous.
Will add alcohol level, check UDS.
Patient noted to be moderately hypertensive. Has history of hypertension and similar accelerated hypertension noted on previous visits. Will give an IV dose of Lopressor. Will check EKG. Continue chick sexer.
Chronic conditions affecting care: HTN and Psychiatric illness
Acute Exacerbation and/or Progression of Chronic Illness: HTN and Psychiatric illness
*Radiology
Radiology exam reviewed: radiology read reviewed
*Pulse Oximetry
SaO2: 99
Oxygen Mode of Delivery: Room air
Patient hypoxic: no
*EKG
Interpreted by ED Provider?: Yes
Interpretation: normal
Comparison EKG: no changes (Unchanged from previous April 02, 2025)
Rate: normal
Rhythm: sinus
[place]: normal axis
Interval: normal interval
QRS Pattern: normal QRS and poor R-wave progression
Ischemia: no ischemia
*Labour Market Economist Interpretation
Rate: normal
Interpretation: normal
Rhythm: sinus
*Critical Care Note
Total Time (30-74mins, 75-104mins- exclusive of procedures): Not Applicable
Update Note
Update Note:
06:15
Patient remains moderately hypertensive. Continues with intermittent agitation but again remains cooperative and answering yes/no questions appropriately. She continues to deny pain. Denies being hungry.
EtOH is negative. UDS is pending.
Will give her usual oral dose of amlodipine as well as metoprolol this morning, and will give a dose of Abilify 10 mg.
Will continue to observe in the ED. If she remains agitated, encephalopathic, hypertensive will require acute hospitalization for continued monitoring and care.
07:15
Delay in medication administration as above but patient remains encephalopathic, continues to repeat nonsensical words, remains hypertensive without tachycardia.
Will require acute hospitalization for continued monitoring.
ED Attending Note
-
Portions of this chart may have been created with voice recognition software.� Occasional wrong word or��sound alike� substitutions may have occurred due to the inherent limitations of voice recognition software.
Discharge Plan
Departure
Patient Disposition: Admit
Date of Disposition: 05/09/25
Time of Disposition: 07:18
Admit to: Med/Surg
Presentation/result/management discussed w/ accepting MD/DO: Hospitalist
Discharge Problem:
Acute encephalopathy, Accelerated essential hypertension
Prescriptions:
No Action
ferrous sulfate 325 mg (65 mg iron) Tablet
325 mg PO DAILY
metoprolol tartrate 25 mg Tablet
25 mg PO BID
omeprazole 20 mg Tablet,Delayed Release (Dr/Ec)
20 mg PO DAILY
levetiracetam 500 mg Tablet
500 mg PO Q12H
famotidine 40 mg Tablet
40 mg PO HS
buprenorphine-naloxone 8-2 mg Film
2 film BUCCAL DAILY
levothyroxine 125 mcg Tablet
125 mcg PO DAILY @ 0600 Qty: 30 0RF
amlodipine 5 mg Tablet
5 mg PO BID
bupropion HCl 100 mg Tablet Sustained-Release 12 Hr
100 mg PO DAILY
duloxetine 60 mg Capsule,Delayed Release(Dr/Ec)
60 mg PO DAILY
trazodone 150 mg Tablet
75 mg PO HS Qty: 0 0RF
aripiprazole 10 mg Tablet
15 mg PO DAILY Qty: 60 0RF
Referrals:
UNKNOWN - PT NOT,INTERVIEWE [Family Provider]
Interventions
Interventions:
*Risk Screen - Suicide Last Done: 05/08/25 22:14
*General Assessment Last Done: 05/08/25 22:14
*Neglect/Abuse Screening Last Done: 05/08/25 22:14
*ED- Fall Risk Assessment Last Done: 05/08/25 22:14
*ED COVID-19 Vaccine History Last Done: 05/08/25 22:14
ED- Cardiac Assessment Last Done: 05/08/25 22:43
ED- Neurological Assessment Last Done: 05/08/25 22:43
ED-Psychological Assessment Last Done: 05/08/25 22:43
ED- Pulmonary Assessment Last Done: 05/08/25 22:43
Discharge Date and Time
Print Language: ESTONIAN
[2025-05-09] MEDS: ABILIFY 10 MG PO (07:25)
[2025-05-09] MEDS: LOPRESSOR 25 MG PO (07:26)
[2025-05-09] MEDS: NORVASC 5 MG PO (07:26)
[2025-05-09] MEDS: TRANDATE 10 MG IV (10:54)
--- NOTE | 2025-05-09 11:05 | HPS.HSE ---
Family Physician
-
Family Physician: INTERVIEWE UNKNOWN - PT NOT
Chief Complaint
-
Confusion
History of Present Illness
Patient lives with significant other Darnell Cabral and he called the ambulance.
Pt is now in ER , sitting upright in her bed and having chips and water.
She is alert. No distress or obvious anxiety. She is oriented to place only.
She is not sure why she is in the hospital but says Darnell was concerned. She is not sure why he was concerned.
Most of her answers are as send now. She keeps repeating things like when asked to name the place she got it right is [facility] but when I asked her the month in the ER she kept on saying [facility]. The repeat mobilization
apparently was also noted by Darnell at home.
She denies any headache, vision problem or speech problem. Denies any tingling numbness or weakness in the hands or legs. Denying any dizziness. Denies any shortness of breath or chest pain currently.
She gave me permission to speak to Darnell for more history.
Calls on the cell phone. According to him she got into the state where she Repeating f..k you, f...me , was not coherent and not oriented. She kept on repeat verbalizing things. She got tired of repeating things and went to sleep and Darnell was
hoping that when she wakes up she is clear that she was not. She has done this before and he thought sleep might make you feel better. When she kept on doing things and also as she was not eating and drinking all day he called EMS.
She has done this 3 times and had come to the ER.
There is a concern about polypharmacy and mixup of medications based on her prior charting.
Darnell tells me that a visiting nurse from [facility] comes in does the pillbox and he is not supervising any of her medications so he cannot comment whether she is taking them or mixing them up. He does not think she is doing any alcohol but
not sure about the drugs and he thinks she does not do them.
With her medication she cannot get out of sorts here and there.
Patient's blood pressure is very high and I had the multiple episodes of IV and p.o. antihypertensives. Await med rec to be completed.
Medical History
Past Medical History
Past Medical History: Reports Other
Additional Past Medical History:
Subarachnoid Hemorrhage
Hypothyroidism
Polysubstance Abuse
History of Hep C (treated)
Chronic Back Pain
Past Surgical History: Reports Other
Additional Past Surgical History:
Spinal Fusion
Appendectomy
Social History
Tobacco: Other (Current some day smoker. Currently vapes regularly.)
Alcohol: Chronic Alcoholic (History of alcohol abuse per friend. Last drink 6 months ago (as far as he is aware).)
Drug: Other (Remote history of opioid abuse - uncertain which type.)
Living: With Roomate
Family History
Family History: Other (Mother: DM-II, CVA Father: CAD ( at 47yo))
Allergies / Home Medications
Allergies reflects when Allergies were last updated in [employer].
Home Medications with original date entered in [employer]
Allergy/Medication List:
Allergies
Allergy/AdvReac Type Severity Reaction Status Date / Time
No Known Allergies Allergy Verified 11/25/24 14:34
Home Medications
ferrous sulfate 325 mg (65 mg iron) tablet 325 mg PO DAILY 06/15/24
metoprolol tartrate 25 mg tablet 25 mg PO BID 06/15/24
omeprazole 20 mg tablet,delayed release 20 mg PO DAILY 06/15/24
aripiprazole 20 mg tablet 20 mg PO DAILY 08/15/24
baclofen 20 mg tablet 20 mg PO BID 08/15/24
buprenorphine 8 mg-naloxone 2 mg sublingual film 2 film buccal DAILY 08/15/24
famotidine 40 mg tablet 40 mg PO HS 08/15/24
levetiracetam 500 mg tablet 500 mg PO Q12H 08/15/24
levothyroxine 125 mcg tablet 125 mcg PO DAILY @ 0600 #30 tabs 08/17/24
amlodipine 5 mg tablet 5 mg PO BID 11/18/24
bupropion HCl 100 mg tablet,12 hr sustained-release 100 mg PO DAILY 11/18/24
dicyclomine 20 mg tablet 20 mg PO TID 11/18/24
duloxetine 60 mg capsule,delayed release 60 mg PO DAILY 11/18/24
metaxalone 800 mg tablet 800 mg PO TID 11/18/24
trazodone 150 mg tablet 150 mg PO HS 11/18/24
Review of Systems
-
Unable to obtain full review of systems at this time due to: Other (Due to her current cognitive impairment)
Physical Exam
Vital Signs
Vital Signs
Temp Pulse Resp BP Pulse Ox
98.1 F 106 26 178/118 99
05/08/25 21:54 05/09/25 10:54 05/09/25 07:45 05/09/25 10:54 05/09/25 06:40
Physical Exam
General: No Apparent Distress
Respiratory: Clear
Cardiac: S1/S2, Regular Rhythm and Tachycardia
GI: Soft, Non Tender, Non Distended and Normal Bowel Sounds
Musculoskeletal: No Edema
Skin: Warm
Neuro: Awake, Alert, Oriented (Self, person, place), No Motor Deficits and Nonfocal/grossly intact; No Tremors or Sedated
Psych: Calm and Confused; No Intact Judgment/Insight or Agitated
Laboratory Results
-
05/08/25 22:15
05/08/25 22:15
Laboratory Results
Total Bilirubin 0.4 mg/dl (0.2-1.3) 05/08/25 22:15
AST 16 U/L (14-36) 05/08/25 22:15
ALT 10 U/L (0-35) 05/08/25 22:15
Alkaline Phosphatase 74 U/L (38-126) 05/08/25 22:15
Data Reviewed
-
CT Scan: Report Reviewed by me (ct head)
Lab Data: Labs Reviewed by me
Impression/Plan
-
Acute confusion-suspect encephalopathy
Neurologically nonfocal and CT of the head is negative.
Lab work not suggestive of metabolic disturbance.
No obvious focal infective symptoms or signs currently.
Clinical concern is if this is hypertensive encephalopathy or polypharmacy related.
Patient will be admitted to hospital, optimize blood pressure readings, check urine drug screen, and review outpatient medication and if need be psychiatry input.
Hypertensive emergency with possible encephalopathy
Patient received multiple doses of oral and IV antihypertensives in the ED. Will give a dose of labetalol and if no improvement will start on IV nicardipine drip.
Resume home medications when known.
History of alcohol use disorder-none per history
History of substance abuse disorder-none per history. Await urine drug screen
History of hep C-treated
Hypothyroidism
History of subarachnoid hemorrhage-today CT shows no evidence of acute intracranial abnormality
Full code
--- NOTE | 2025-05-09 11:25 | PHANOTE ---
Addendum entered by Oneyda Lindsey 05/09/25 11:28:
nurse also stated patient most [facility] admission on 04/11/25 patient was given lactulose 30g tid but stop taking and patient using miralax, patient current using baclofen 20mg bid, nurse explain it makes her seizures worst but patient still
takes it
Original Note:
med rec note called patient nurse that comes every other week, her number is [phone], nurse pre packs patient meds but patient been taking pill pack apart and doing her own thing, patient suppose to on trazodone 100mg but currently filly 150mg
and 100mg(most recent)
[2025-05-09 13:54] LABS: Amphetamines Negative (Negative); Barbiturates Negative (Negative); Benzodiazepines Negative (Negative); Buprenorphine Positive (Negative); Cocaine Negative (Negative); Marijuana Negative (Negative); Methadone Negative (Negative); Methamphetamines Negative (Negative); Opiates Negative (Negative); Phencyclidine Negative (Negative); Tricyclic Antidepressants Negative (Negative)
[2025-05-09 14:13] LABS: Fentanyl, Urine Negative (Negative)
--- NOTE | 2025-05-09 14:31 | CS.PSYCHR ---
Consult Summary - Psychiatry
-
Pt is a 64 yo female with long hx of alcohol use, hx of depression, brought in for confusion after boyfriend call EMS. Pt is poor historian, states she is here for dizziness, offers no other complaints, shows poor insight. Pt reportedly became more
disoriented and incoherent at home. Pt's BP elevated in the ER.
Pt reportedly has a visiting nurse from [facility] who comes in does the pillbox; boyfriend is not sure if pt is compliant; does not think she has been drinking alcohol.
Pt is prescribed Suboxone maintenance tx at [facility] per the PDMP. UDS positive for Rx buprenorphine only, alcohol level negative.
PMH: cervical disc dz, cervical fusion over 20 years ago, chronic pain
Psych Hx- hx of depression/mood d/o. Previously on Wellbutrin XL 300 mg AM, Cymbalta 60 mg QD, Trazodone 150 mg HS. Hx of inpatient [facility], started on Abilify
Pt on Suboxone maint tx at [facility] per PDMP- dose 8/2 mg 2 daily since Jul 2024; hx of Outpatient therapy and Med mgt at .
hx of multiple past alcohol rehabs in [place], [place], [facility], [place], [place] per record, last one noted Nov 2023. Hx of tx programs at [facility], [facility]. Hx of attending AA.
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
MSE: alert, with sensorium intact, calm, fairly cooperative. Mood/affect appears stable, not agitated at present. No overt psychosis. Denies feeling depressed. Insight appears limited
Imp: Unspecified Depressive d/o, R/o Bipolar disorder- mood appears stable. R/o delirium
Alcohol use d/o, denies recent intake. Opioid Use d/o, on Suboxone maintenance tx
Rec: Would continue current psychotropic medications when confirmed
Return to Outpatient treatment when medically cleared
will follow
--- NOTE | 2025-05-09 16:42 | PTCARENOTE ---
PT AAOx3 with some confusion and forgetfull Seeming to having trouble finding some words. Pt is pleasant and cooperative at this time.
[2025-05-09] MEDS: SYNTHROID 137 MCG PO (17:42)
[2025-05-09] MEDS: LOVENOX 40 MG SC (17:42)
[2025-05-09] MEDS: SUBUTEX 16 MG SL (17:42)
--- NOTE | 2025-05-09 19:14 | PTCARENOTE ---
Pt cameto floor from ER when this nurse was with anither pt, er left pt without documenting monitor handoff
[2025-05-09] MEDS: KEPPRA 500 MG PO (19:45)
[2025-05-09] MEDS: DESYREL 150 MG PO (21:50)
[2025-05-09] MEDS: PEPCID 40 MG PO (21:50)
[2025-05-10] VITALS (64 sets, daily range): BP systolic 67–124; BP diastolic 42–86; BMI 15.1
[2025-05-10] MEDS: NSS 500 IV (01:21)
--- NOTE | 2025-05-10 01:22 | PTCARENOTE ---
Pt became drowsy, lethargic. BP dropped as low as 67/42. VOICE OVER ARTIST notified. 500ml bolus hung per orders with improvement.
[2025-05-10] MEDS: LEVOPHED 250 IV (01:33)
--- NOTE | 2025-05-10 02:03 | W.PN.UPDATE ---
Update Note
Progress Note Update
~Midnight, patient hypotensive, BP 67/42's, MAP 50, HR 58, Resp 12, 98% on room air. Patient is Ox3, states she is sleepy. Ordered NSS bolus w/o affect on BP. Started on levophed gtt 2 mcg as per protocol. BP improved on Levophed, will continue as
per protocol at this time. Taper as able.
[2025-05-10] MEDS: SYNTHROID 137 MCG PO (05:07)
[2025-05-10] MEDS: SUBUTEX 16 MG SL (07:46)
[2025-05-10] MEDS: FEOSOL 325 MG PO (07:46)
[2025-05-10] MEDS: KEPPRA 500 MG PO ×2 (07:47→21:12)
[2025-05-10] MEDS: MIRALAX 17 GRAMS PO (07:47)
[2025-05-10] MEDS: ABILIFY 20 MG PO (07:47)
[2025-05-10 09:03] LABS: Blood Urea Nitrogen 22 mg/dl (7-17); Calcium 9.3 mg/dl (8.4-10.2); Carbon Dioxide 24 mmol/L (22-30); Chloride 108 mmol/L (98-107); Estimated Creatinine Clearance 52 ml/min; Glucose 112 mg/dl (70-99); Potassium 3.7 mmol/L (3.5-5.1); Sodium 140 mmol/L (135-145); eGFR > 60.00
--- NOTE | 2025-05-10 09:42 | W.PN.HOSP.TC ---
Addendum entered and electronically signed by Ryan Mai MD 05/15/25 13:56:
Patient meets AND and ASPEN criteria for severe calorie protein malnutrition of chronic disease due to a loss of more than 10% BW over 6 months and severe muscle loss around her clavicle.
Original Note:
Today's Communication/Plan
-
Check blood pressure in both arms
Wean Levophed
DC planning
Assessment / Plan
Assessment / Plan
Acute confusion-suspect encephalopathy
Neurologically nonfocal and CT of the head is negative.
Lab work not suggestive of metabolic disturbance.
No obvious focal infective symptoms or signs currently.
Clinical concern is if this is hypertensive encephalopathy or polypharmacy related.
Blood alcohol levels nondetectable. Urine drug screen shows positive for buprenorphine which she takes.
Unclear what elevated the blood pressure. Check blood pressure in both arms to make sure there is no discrepancy.
Today she is clear without confusion.
Hypertensive emergency with possible encephalopathy
Patient received multiple doses of oral and IV antihypertensives in the ED. post treatments in the ED patient later developed hypotension without extrarenal losses or any obvious source of sepsis. Currently put on Levophed which will wean.
Patient admits to being on amlodipine which I will hold today.
History of alcohol use disorder-none per history-no withdrawal.
History of substance abuse disorder-none per history. Urine drug screen positive for buprenorphine which she takes otherwise negative
History of mood disorder-appreciate psychiatric input
History of hep C-treated
Hypothyroidism
History of subarachnoid hemorrhage-today CT shows no evidence of acute intracranial abnormality
Full code
Discussed with RN
Total time spent on today's encounter was 52 minutes which included time spent in counseling the patient/family regarding diagnosis and treatment plan as listed above, goals of care, and symptom management. Case was discussed with nursing staff,
specialists, and care coordinators/case management. All labs and imaging personally reviewed by me. Remainder the time spent in detailed review of previous records, lab data, imaging, and other medical provider documentation.
Anticipated Discharge: Today
Subjective/Interval History
-
Date of Service: May 10, 2025
Patient today voices no specific complaints.
She is alert and oriented x 3.
No repeat verbalization today. Appropriate in conversation.
She says she does not remember what happened much of yesterday.
Today without headache. No vision or speech disturbance. No limb weakness or sensory disturbances in the limbs.
No dizziness.
No nausea or vomiting.
She does not think she mixed up with her medication. She says she gets a nurse from [facility] every 2 weeks and makes the pillbox and she just takes them.
She thinks that she is taking amlodipine on a regular basis. She also states she has a blood pressure cuff at home but does not check regularly.
Denies any drug use.
Does not remember blood pressure being very high usually. She had elevated blood pressure apparently when she got admitted once but again she cannot tell me when.
Denies any chest pain or shortness of breath.
Objective Data
-
Labs:
Laboratory Results
05/10/25 05/10/25
05:13 08:07
Sodium Cancelled 140
Potassium Cancelled 3.7
Chloride Cancelled 108 H
Carbon Dioxide Cancelled 24
BUN Cancelled 22 H
Creatinine Cancelled 0.8
Glucose Cancelled 112 H
Calcium Cancelled 9.3
Vital Signs:
Vital Signs
Temp Pulse Resp BP Pulse Ox
97.5 F 70 12 124/68 99
05/10/25 07:56 05/10/25 06:00 05/10/25 06:00 05/10/25 06:00 05/10/25 06:00
I&O
05/09/25 05/10/25 05/11/25
06:59 06:59 06:59
Intake Total 240 / 240
Balance 240 / 240
Physical Exam
-
General: Comfortable
Respiratory: Clear to Auscultation
Cardiac: Regular Rhythm and S1/S2; Negative Tachycardic
GI: Soft and Nontender
Musculoskeletal: No Edema
Neuro: AO x 3 and No Motor Deficits; Negative Tremors
Psych: Calm; Negative Confused or Agitated
Data Reviewed
-
Labs: Labs Reviewed by me
--- NOTE | 2025-05-10 10:51 | PTCARENOTE ---
Patient is awake, alert and confused to time. Levophed weaned to 2 mcg, BP is 96/62 MAP 73 at this time. Patient tolerated breakfast, sleeping off and on. Denying pain when asked.
--- NOTE | 2025-05-10 12:14 | CM ---
Initial assessment completed with patient who lives with her significant other in a 1st floor apartment with 1 step to enter. 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 She does have a SPC and standard walker but does not use. Her
support system is her SO and a good friend. She does not have a HC-POA. No psychiatric hospitalizations. No service. PCP is Dr. Nitesh Hansen and pharmacy is [facility] in [place]. Discharge POC: Anticipate no needs.
--- NOTE | 2025-05-10 13:00 | W.PN.UPDATE ---
Update Note
Progress Note Update
patient seen chart reviewed. spoke with nursing and with cm. please see my consult on jan 12 2025. her chief complaint on admit was exactly the same as this go around and it was very similar at least six other admits in the record. the patient
does have a hx of etoh use but denies she has been drinking the last few admits. she does take buprenorphine she has a pill box prepared for her and says she takes meds exactly as they are set up for her. her course this go around is similar...she
starts to clear a day or two after admission. today she looks better. she is fully oriented and is not particularly confused. the last admit in dec we stopped a lot of the sedating meds she was taking eg skelaxin baclofen and reduced the trazodone
to 75 (she is back up to 150) note also more recent admits since dec for 'dizziness ' 'polypharmacy' ' concern for polypharmacy' so i have a concern that somehow these admits for confusion and change in mental status are indeed related to
medications she continues to ingest (she could have bottles of old meds in her home as well ) have cut back trazodone to 100 mg and abilify to 15 mg. her meds are prescribed for psych by 'ginger' at [facility]. another thought could keppra be
causing intermittent confusion ?keppra blood level ? neuro consult? would check tsh and free t4 she takes synthroid. last two readings of tsh were low. i don't see a free t4 so i ordered it. will see her in the am.
[2025-05-10] MEDS: LOVENOX 40 MG SC (18:16)
[2025-05-10] MEDS: PEPCID 20 MG PO (21:12)
[2025-05-10] MEDS: DESYREL 100 MG PO (21:13)
[2025-05-11] VITALS (11 sets, daily range): BP systolic 88–115; BP diastolic 47–69
--- NOTE | 2025-05-11 01:31 | PTCARENOTE ---
Patient bp have been soft 90s/50s while sleeping. Notified TOWER CLIMBER and instructed to continue watching blood pressure and assisting patient if ambulating. will continue to monitor patient. call french in reach.
[2025-05-11] MEDS: SYNTHROID 137 MCG PO (04:33)
--- NOTE | 2025-05-11 05:10 | PTCARENOTE ---
lab draw attempted on patient and was unsuccessful. Patient refused anymore attempts to be made.
[2025-05-11 06:34] LABS: Urine Albumin 3+ (Neg - Trace); Urine Bilirubin Negative (Negative); Urine Character Cloudy (Clear); Urine Color Brown; Urine Glucose Negative (Negative); Urine Ketone Negative (Negative); Urine Leukocyte 3+ (Negative); Urine Nitrite Negative (Negative); Urine Occult Blood 4+ (Negative); Urine Specific Gravity 1.025 (<1.030); Urine Urobilinogen Negative (Neg - 1+)
[2025-05-11 06:48] LABS: Urine Bacteria Many (Negative); Urine Calcium Oxalate Crystals Present; Urine Squamous Cell None seen /LPF (Few); Urine White Cell >100 /HPF (0-5)
[2025-05-11] MEDS: FEOSOL 325 MG PO (07:48)
[2025-05-11] MEDS: MIRALAX 17 GRAMS PO (07:48)
[2025-05-11] MEDS: ABILIFY 15 MG PO (07:48)
[2025-05-11] MEDS: SUBUTEX 16 MG SL (07:48)
[2025-05-11] MEDS: KEPPRA 500 MG PO (07:48)
--- NOTE | 2025-05-11 08:22 | PN.CDI ---
CDI
- -
CDI:
Physician Documentation Request
Admit Date: 05/09/25 13:15
Dear Doctor,
Please review the following and provide your response in the progress notes.
Clinical Indicators:
Pt admitted for Hypertensive emergency with possible encephalopathy.
05/10 Registered Dietitian Note: ' Initial assessment due to consult for weight loss....She states that in the past year she has lost 25 lbs unintentionally. She says her weight loss began when she started menopause.
Meal intake: 100% (direct observation)
Current BW: (05/09) 101 lbs 13.657 oz BMI: 15.1 (underweight). Weight history (11/14/24) 136 lbs. This is a 25.8% BW loss over 6 months (significant).
Patient meets AND and ASPEN criteria for severe calorie protein malnutrition of chronic disease due to a loss of more than 10% BW over 6 months and severe muscle loss around her clavicle.
Based on the above information and your assessment, which of the following most accurately represents the patient's nutritional status?
Severe calorie protein Malnutrition
Other (please specify)
[place] Criteria ([facility] Hospitalist 2017)
2 or more criteria must be present for either
non severe or severe malnutrition
Note that the criteria differs related to the
presence of an acute or chronic illness
Chronic Illness
Energy Intake Non Severe: <75% for >1 month
Severe: <75% for >1 month
Weight Loss Non Severe: 5% over 1 month
7.5% over 3 months
10% over 6 months
20% over 1 year
Severe: >5% over 1 month
>7.5% over 3 months
>10% over 6 months
>20% over 1 year
Body Fat Non Severe: Mild Loss
Severe: Severe Loss
Muscle Mass Non Severe: Mild Loss
Severe: Severe Loss
Additional criteria that can be used to Determine if Mild or Moderate Malnutrition ([employer] Manual 2018)
Use of terms such as suspected, likely, concern for, or probable (associated with a specific diagnosis that is being evaluated, monitored, or treated as if it exists) are acceptable and can be coded in the inpatient setting, when documented at the
time of discharge.
Thank you,
Rosmery Wilburn RN, BSN
CDI Specialist
Grandy Text
Please use your independent medical judgment in providing your response.
--- NOTE | 2025-05-11 10:27 | W.DCSUMMARY ---
Discharge Summary
Discharge Data
Date of Admission: 05/09/25
Date of Discharge: 05/11/25
-
Pending Results: Yes (Urine culture report)
Hospital Course
Primary diagnosis:
Hypertensive urgency with possible encephalopathy
Dysuria with positive urinalysis suspicious for UTI
Secondary diagnosis:
History of alcohol use disorder
History of substance abuse disorder
Mood disorder
Hypothyroidism
History of subarachnoid hemorrhage
Hospital course:
Patient presented with acute confusion with non focality neurologically. No metabolic disturbances around neck to suggest infection. She had significant elevated blood pressures in 200s. She is known to have hypertension and supposed to be on
amlodipine. She had multiple admissions because of a polypharmacy issue. She had multiple ER visits. She gets her medication pillbox prepared by an RN every 2 weeks but not sure whether she is taking them.
Alcohol was not detected on admission. Urine drug screen shows buprenorphine which she normally takes. She vouches for compliance with her medication.
CT of the head showed no acute intracranial abnormality.
She needed multiple intravenous medication to get her blood pressure down and infected with down requiring a brief vasopressor support. With normalization of blood pressure she was much improved and back to baseline. Clinical suspicion is if this
was hypertensive emergency with possible encephalopathy. Was seen by psychiatrist to decrease the dose of trazodone.
Today she was complaining of dysuria and she has significant pyuria. She had prior Proteus and Enterococcus faecalis in the urine sensitive to Augmentin. She had no fever or white count. She was nontoxic. She was given a dose of ceftriaxone and
was discharged home and advised to follow-up with our office for urine culture report. She was sent home on Augmentin based on prior culture and sensitivities.
Today she was up and about without dizziness. Afebrile, blood pressure 115/69, heart rate 84, saturating 96% on room air. She was alert and oriented without confusion. No nausea vomiting and tolerating a diet. Abdomen was soft.
Consult on board
Psychiatry-Dr. Haseeb Baptiste
Discharge Plan
-
Patient Disposition: Home (Routine Discharge)
Discharge Diagnosis/Procedures: Hypertensive emergency with possible encephalopathy. Possible UTI await urine culture
Diet: Regular
Activity: As tolerated
Driving Restrictions: As prior to admission
Activity Restrictions/Additional Instructions:
Call our office to follow-up on the urine culture tomorrow phone #[phone]
Referrals:
Nitesh Hansen MD [Family Provider, [facility]] - in less than 1 week
Prescriptions:
New
amoxicillin-pot clavulanate 875-125 mg tablet
1 tab PO BID Qty: 10 0RF
aripiprazole 15 mg Tablet
15 mg PO DAILY Qty: 30 0RF
Rx Instructions:
Dose decreased on this admission
Continued
ferrous sulfate 325 mg (65 mg iron) Tablet
325 mg PO DAILY
levetiracetam 500 mg Tablet
500 mg PO Q12H
famotidine 40 mg Tablet
40 mg PO HS
buprenorphine-naloxone 8-2 mg Film
2 film BUCCAL DAILY
Patient Comments:
pdmp berry picker machine operator on 04/21/25 #60 for 30 days
levothyroxine [Synthroid] 137 mcg Tablet
137 mcg PO DAILY
trazodone 100 mg Tablet
150 mg PO HS
Patient Comments:
patient should be taking 100mg hs but is filling 100mg and 150mg
aripiprazole 10 mg tablet
20 mg PO DAILY
polyethylene glycol 3350 [Miralax] 17 gram Powder In Packet
17 g PO DAILY
Changed
amlodipine 5 mg Tablet
5 mg PO BID Qty: 0 0RF
Rx Instructions:
only filled for 14 days on 04/06/25
Discharge Orders:
Discharge Patient (As Directed); Ordered 05/11/25
Ordered By: Ryan Mai
Discharge Date and Time
Print Language: LIBERIAN
[2025-05-11] MEDS: STERILE WATER FOR INJECTION 10 ML IV (12:30)
[2025-05-11] MEDS: ROCEPHIN 1000 MG IV (12:30)
== END 2025-05-11 13:59 | disposition home or self-care (01) | DRG 77 ==
LOC: IMU 13:15
PROVIDERS: Emergency Medicine; ADMITTING PHYSICIAN Internal Medicine; CONSULT PHYSICIAN Psychiatry & Neurology Psychiatry; EMERGENCY PHYSICIAN Emergency Medicine; FAMILY PHYSICIAN Family Medicine
DX: I67.4 Hypertensive encephalopathy (principal); E43 Unspecified severe protein-calorie malnutrition; I16.1 Hypertensive emergency; Z68.1 Body mass index [BMI] 19.9 or less, adult; F32.A Depression, unspecified; E03.9 Hypothyroidism, unspecified; F11.10 Opioid abuse, uncomplicated; F17.200 Nicotine dependence, unspecified, uncomplicated; G89.29 Other chronic pain; I10 Essential (primary) hypertension; M19.90 Unspecified osteoarthritis, unspecified site; Z79.890 Hormone replacement therapy; Z82.3 Family history of stroke; Z82.49 Family history of ischemic heart disease and other diseases of the circulatory system; Z83.3 Family history of diabetes mellitus; Z98.1 Arthrodesis status
CPT/HCPCS: 70450; 80048; 80053; 80306; 80307; 81003; 81015; 82077; 82140; 82962; 85025; 87070; 87077; 87086; 87147; 87186; 93005

== ENCOUNTER 2025-07-31 21:07 | Inpatient (IN) | payer OTHER, SELFPAY ==
[2025-07-31] VITALS (41 sets, daily range): BP systolic 102–230; BP diastolic 61–186
--- NOTE | 2025-07-31 16:29 | ED.GENMED ---
History of Present Illness
General
Chief Complaint: Overdose Unintentional
Source: patient and ambulance crew
Exam Limitations: altered mental status
Time Seen by Provider: 07/31/25 16:17
Nursing documentation reviewed up to this point in time: agreed with
History of Present Illness
History of Present Illness:
The patient is a 64-year-old female with past medical history of psychiatric disease, alcohol and substance use, who presents by paramedics after her boyfriend found her nearly unresponsive and altered. According to paramedics, her boyfriend told
the ambulance crew that the patient seemed lethargic yesterday and he attributed this to her substance use. He reports that when he got back from work this afternoon, the patient was still lethargic, prompting him to call 911. Paramedics report
that the patient was arousable and actually walked for them. Patient arrives extremely sleepy and keeps closing her eyes. She is arousable to voice and touch. She denies taking any medication and using alcohol and drugs. Patient was recently
admitted for encephalopathy and hypertension.
Past History
Past History
ED Past Medical History: Hypothyroidism, Psychiatric and Other (overdose, recovering alcoholic, depression, alcohol abuse, degenerative joint disease)
ED Past Surgical History: Appendectomy and Orthopedic (Cervical fusion over 20 years ago)
Social History
Tobacco: Vaping
Alcohol: Chronic alcoholic
Drug: Former user
Personal: Partner
Living: with roommate
Employment: Disabled
Family History
Family History: Other (Noncontributory)
Review of Systems
Review of Systems
Allergies reviewed?: Yes
Unable to obtain full review of systems at this time due to: other (Altered mental status, lethargic)
Other source history: other (Ambulance crew)
All Other Systems: Not applicable
Phy Exam
Physical Exam
Physical Exam:
Physical Exam
General: Patient appears extremely sleepy and stuporous. Keeps eyes shut. Arousable to voice and touch. Atraumatic appearing face and head
Neck: supple. no meningeal signs. normal psoterior pharynx
Heart: s1/s2 regular rate and rhythm, no ecchymoses on face, chest, back and abdomen
Lungs: no acute respiratory distress. clear bilaterally
Abdomen: Soft, nontender
Neuro: alert. Oriented to place and self only. Moves all extremities equally. Face appears symmetric. Pupils are 2 mm and reactive
Skin: no rash
Psychiatric: Extremely lethargic
Extremities: Seems to have increased tone. No swelling or areas of deformity
Course
Orders/Labs/Results
Orders:
Orders
07/31/25 16:23
CT Head W/o Iv Contrast Urgent
Comment:
Reason For Exam: MS change
07/31/25 16:31
0.9% Sodium Chloride 1000 ml [Nss] 1,000 ml IV BOLUS
07/31/25 16:40
Fentanyl, Urine Urgent
Urinalysis Reflex To Culture Urgent
Date Specimen was Collected: 07/31/25
Time Specimen was Collected: 16:38
Urine Drug Abuse Screen Urgent
Date Specimen was Collected: 07/31/25
Time Specimen was Collected: 16:38
Urine Microscopic Reflex Cult Urgent
Urine Culture Urgent
KARINE Source: U
Specimen Description:
Date Specimen was Collected: 07/31/25
Time Specimen was Collected: 16:38
07/31/25 16:41
Acetaminophen Urgent
Alcohol Urgent
Ammonia Urgent
Complete Blood Count/With Diff Urgent
Comprehensive Metabolic Panel Urgent
Salicylate Urgent
Total CK [Creatine Phosphokinase] Urgent
Troponin I Urgent
07/31/25 16:55
Electrocardiogram (*1) Urgent
Reason for Study: Fatigue / Weakness
EKG- Treatment ONCE
Abnormal Lab Results
07/31/25 07/31/25
16:40 16:41
Hct 36.3 L %
(37.0-47.0)
Absolute Lymphs (auto) 0.9 L 10^3/uL
(1.2-3.4)
Neutrophils % 77.2 H %
(42.2-75.2)
Lymphocytes % 12.6 L %
(20.5-51.1)
Glucose 112 H mg/dl
(70-99)
Ammonia < 9 L umol/L
(9-30)
Urine Ketones 1+ A
(Negative)
Leukocyte Esterase Rfl 1+ A
(Negative)
Urine WBC (Reflex) 16-20 A /HPF
(0-5)
Urine Bacteria (Reflex) Few A
(Negative)
Urine Yeast Moderate A
(Negative)
Urine Albumin (Reflex) 2+ A
(Neg - Trace)
Salicylates < 1.0 L mg/dl
(2.0-20.0)
Ur Buprenorphine Positive H
(Negative)
Acetaminophen < 10 L ug/ml
(10-30)
07/31/25 16:41
07/31/25 16:41
Vital Signs
Initial and Last Documented VS:
Initial Vital Signs
Pulse Resp BP Pulse Ox
70 20 215/92 99
07/31/25 16:15 07/31/25 16:15 07/31/25 16:15 07/31/25 16:15
Last Documented Vital Signs
Temp Pulse Resp BP Pulse Ox
98.9 F 78 13 210/123 100
07/31/25 16:38 07/31/25 18:00 07/31/25 18:00 07/31/25 18:00 07/31/25 18:00
MDM/Problems Addressed
Differential Diagnosis Includes:
Hypertensive encephalopathy, alcohol intoxication, polysubstance abuse
MDM/Problems Addressed:
patient presents with acute MS change
Chronic conditions affecting care: HTN
Acute Exacerbation and/or Progression of Chronic Illness:
Presents with acute on chronic hypertension which could be causing her to have an acute mental status change
Acute Exacerbation and/or Progression of Chronic Illness: HTN
*Radiology
Radiology exam reviewed: radiology read reviewed
*Pulse Oximetry
SaO2: 100
Oxygen Mode of Delivery: Room air
Patient hypoxic: no
Comment: Patient is not hypoxic on room air
*EKG
Interpreted by ED Provider?: Yes
Interpretation: normal
Comparison EKG: changes noted
Rate: normal
Rhythm: sinus
[place]: normal axis
Interval: first degree heart block
QRS Pattern: normal QRS
Ischemia: no ischemia
*Biodiesel Operations Manager Interpretation
Rate: normal
Interpretation: normal
Rhythm: sinus
*Critical Care Note
Total Time (30-74mins, 75-104mins- exclusive of procedures): Not Applicable
Data Reviewed
Review of Other/Old Records Reveals: Discharge Summary (Hospitalist discharge summary reviewed from April 2025 when patient was admitted for encephalopathy and hypertension)
Source: patient and ambulance crew
Patient Management
Discussion with other providers: Hospitalist
ED Attending Note
-
Portions of this chart may have been created with voice recognition software.� Occasional wrong word or��sound alike� substitutions may have occurred due to the inherent limitations of voice recognition software.
Discharge Plan
Departure
Patient Disposition: Admit
Date of Disposition: 07/31/25
Time of Disposition: 19:47
Admit to: Med/Surg
Presentation/result/management discussed w/ accepting MD/DO: Hospitalist
Patient with high blood pressure during this ER visit?: Yes
Condition: Fair
Covid-19: Not Applicable
Discharge Problem:
Acute alteration in mental status
Prescriptions:
No Action
ferrous sulfate 325 mg (65 mg iron) Tablet
325 mg PO DAILY
levetiracetam 500 mg Tablet
500 mg PO Q12H
famotidine 40 mg Tablet
40 mg PO HS
buprenorphine-naloxone 8-2 mg Film
2 film BUCCAL DAILY
Patient Comments:
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
levothyroxine [Synthroid] 137 mcg Tablet
137 mcg PO DAILY
trazodone 100 mg Tablet
150 mg PO HS
Patient Comments:
patient should be taking 100mg hs but is filling 100mg and 150mg
aripiprazole 10 mg tablet
20 mg PO DAILY
polyethylene glycol 3350 [Miralax] 17 gram Powder In Packet
17 g PO DAILY
amoxicillin-pot clavulanate 875-125 mg tablet
1 tab PO BID Qty: 10 0RF
amlodipine 5 mg Tablet
5 mg PO BID Qty: 0 0RF
Rx Instructions:
only filled for 14 days on 04/06/25
aripiprazole 15 mg Tablet
15 mg PO DAILY Qty: 30 0RF
Rx Instructions:
Dose decreased on this admission
Referrals:
UNKNOWN - PT DOES,NOT KNOW [Family Provider]
Interventions
Interventions:
*Risk Screen - Suicide Last Done: 07/31/25 16:16
*General Assessment Last Done: 07/31/25 16:16
*Neglect/Abuse Screening Last Done: 07/31/25 16:16
*ED- Fall Risk Assessment Last Done: 07/31/25 16:16
*ED COVID-19 Vaccine History Last Done: 07/31/25 16:16
ED- Cardiac Assessment Last Done: 07/31/25 16:16
ED- Neurological Assessment Last Done: 07/31/25 16:16
ED-Psychological Assessment Last Done: 07/31/25 16:16
ED- Pulmonary Assessment Last Done: 07/31/25 16:16
Discharge Date and Time
Print Language: SYRIAC
[2025-07-31] MEDS: NSS 1000 IV (17:02)
[2025-07-31 18:16] LABS: Urine Character Clear (Clear)
[2025-07-31 18:20] LABS: Hematocrit 36.3 % (37.0-47.0); Hemoglobin 12.4 g/dL (12.0-16.0); Mean Corp Hgb Conc. 34.2 g/dL (33.0-37.0); Mean Corpuscular Volume 86.2 fL (81.0-99.0); Nucleated Red Blood Cells % 0 %; Platelet Count 308 10^3/uL (130-400); Red Cell Dist. Width 12.8 % (11.5-14.5)
[2025-07-31 18:29] LABS: Ammonia < 9 umol/L (9-30)
[2025-07-31 18:33] LABS: ALT (SGPT) 12 U/L (0-35); AST (SGOT) 21 U/L (14-36); Albumin 4.6 g/dl (3.5-5.0); Alkaline Phosphatase 69 U/L (38-126); Blood Urea Nitrogen 13 mg/dl (7-17); Calcium 9.6 mg/dl (8.4-10.2); Carbon Dioxide 26 mmol/L (22-30); Chloride 107 mmol/L (98-107); Glucose 112 mg/dl (70-99); Potassium 4.4 mmol/L (3.5-5.1); Sodium 141 mmol/L (135-145); Total Protein 7.4 g/dl (6.3-8.2); eGFR > 60.00
[2025-07-31 18:33] LABS: Urine Squamous Cell 0-2 /LPF (Few)
[2025-07-31 18:35] LABS: Acetaminophen < 10 ug/ml (10-30); Salicylate < 1.0 mg/dl (2.0-20.0)
[2025-07-31 18:36] LABS: Urine Red Blood Cell 0-2 /HPF (0-2); Urine White Cell 16-20 /HPF (0-5)
[2025-07-31 18:42] LABS: Troponin I < 0.012 ng/ml
--- NOTE | 2025-07-31 20:02 | HPS.HSE ---
Family Physician
-
Family Physician: NOT KNOW UNKNOWN - PT DOES
Chief Complaint
-
unresponsive episode
History of Present Illness
Patient is a 64-year-old female with past medical history significant for mood disorder, hypothyroidism, hypertension, Hx subarachnoid hemorrhage, Hx polysubstance abuse and Hx Hep C (treated) who presented to [facility] ED for evaluation of unresponsive
episode. Patient is poor historian. Reviewed ED notes that indicate patients boyfriend called EMS for patient being minimally responsive and altered. He reported that patient was lethargic yesterday and that he attributed to her history of substance
abuse. Patient was arousable for EMS. At this providers assessment she arouses to tactile stimuli and is confused. She denies any alcohol or drug ingestion. She has a recent similar admission.
Medical History
Past Medical History
Past Medical History: Reports Other
Additional Past Medical History:
Mood Disorder
Subarachnoid Hemorrhage
Hypothyroidism
Hypertension
Polysubstance Abuse
History of Hep C (treated)
Chronic Back Pain
Past Surgical History: Reports Other
Additional Past Surgical History:
Spinal Fusion
Appendectomy
Social History
Tobacco: Other (Current some day smoker. Currently vapes regularly.)
Alcohol: Chronic Alcoholic (History of alcohol abuse per friend. Last drink 6 months ago (as far as he is aware).)
Drug: Other (Remote history of opioid abuse - uncertain which type.)
Living: With Roomate
Family History
Family History: Other (Mother: DM-II, CVA Father: CAD ( at 47yo))
Allergies / Home Medications
Allergies reflects when Allergies were last updated in [employer].
Home Medications with original date entered in [employer]
Allergy/Medication List:
Medications on admission are unable to be verified or confirmed at this time.
If medication reconciliation has not been performed, why?: Other (unable to obtain, patient with altered mental status )
Review of Systems
-
Unable to obtain full review of systems at this time due to: Other (altered mental status )
Physical Exam
Vital Signs
Vital Signs
Temp Pulse Resp BP Pulse Ox
98.9 F 78 13 210/123 100
07/31/25 16:38 07/31/25 18:00 07/31/25 18:00 07/31/25 18:00 07/31/25 18:00
Physical Exam
General: Well Developed, Well Nourished and No Apparent Distress
HEENT: NormoCephalic, Moist mucous membranes and Atraumatic
Respiratory: Rhonchi and Non Labored Respirations
Cardiac: S1/S2 and Regular Rhythm; No Murmur, Rub or Gallop
Breast: Deferred by me
GI: Soft, Non Tender, Non Distended and Normal Bowel Sounds; No Organomegaly
Rectal: Deferred by Provider
Genito-urinary: Deferred by me
Musculoskeletal: No Clubbing, No Cyanosis and No Edema
Skin: Warm and IV/Catheter Site; No Rash
Neuro: Sedated (wakes to tactile stimuli )
Psych: Confused
Laboratory Results
-
07/31/25 16:41
07/31/25 16:41
Laboratory Results
Total Bilirubin 0.5 mg/dl (0.2-1.3) 07/31/25 16:41
AST 21 U/L (14-36) 07/31/25 16:41
ALT 12 U/L (0-35) 07/31/25 16:41
Alkaline Phosphatase 69 U/L (38-126) 07/31/25 16:41
Troponin I < 0.012 ng/ml 07/31/25 16:41
Data Reviewed
-
CT Scan: Report Reviewed by me (Head: No acute intracranial abnormality noted.)
Lab Data: Labs Reviewed by me
Impression/Plan
-
IMPRESSION/PLAN:
#change in mental status 2/2 TME vs. convulsive seizure
Head CT: No acute intracranial abnormality noted.
EKG: SINUS BRADYCARDIA WITH 1ST DEGREE A-V BLOCK
CANNOT RULE OUT ANTERIOR INFARCT (CITED ON OR BEFORE 02-Apr-2025)
- Admit to IMU
- continue to monitor capnography
- consider consult to neurology if no mental status improvement overnight
- IV D5 1/2NS 60cc/hr
- supportive care
- PRN IV hydralazine
- IV keppra q12
#mood disorder
#hypothyroidism
#hypertension
#Hx subarachnoid hemorrhage
#Hx polysubstance abuse
#Hx Hep C (treated)
*unable to complete med rec r/t change in mental status. will order PRN hydralazine for HTN and keppra q12 IV*
Code status: full code
DVT prophylaxis: lovenox sq
--- NOTE | 2025-07-31 20:23 | W.PN.UPDATE ---
Update Note
Progress Note Update
Patient seen in conjunction with HYDROTEL OPERATOR. I agree with the findings on the history and physical. I concur with the assessment and plan unless stated otherwise.
Briefly, this is a 54-year-old female with past medical history signal for hypothyroidism, alcohol and polysubstance abuse, prior history of subarachnoid hemorrhage, hypertension with recent admission for a UTI and hypertensive emergency presenting
to the emergency department with somnolence.
Patient brought to the emergency department by paramedics after being found nearly unresponsive by her significant other. Significant other stated that the patient seemed lethargic yesterday which she attributed to substance use. When he returned
from work this afternoon she was still lethargic which prompted him to call the EMS. Patient was arousable by EMS and actually walked for them. Since arrival she has been extremely sleepy and keeps eyes closed. She is unable to voice and touch.
She denies any ingestions medications or alcohol use.
In the emergency department he was afebrile, hypertensive to 210/123, pulse rate was initially 78 currently 57. ECG shows sinus bradycardia at 57. No acute ST or T wave changes. CT of the head shows no acute interval changes. UA shows positive
yeast but otherwise unremarkable. Urine drug screens positive for buprenorphine otherwise completely negative. CBC, electrolytes and BUN/creatinine were all unremarkable.
Suspect unintentional toxic overdose possibly opiate agonist buprenorphine versus trazodone. She is arousable now but still confused and difficult to follow commands. Cannot rule out non-convulsive status.
- admit to IMU
- continue monitoring with telemetry, capnography and pulse oximetry
- monitor for possible aspiration
- npo for now
- holding sedatives and psychoactive medications
- check tsh but otherwise hold oral levothyroxine
- keppra 500 iv q 12 for now
- eeg in am if still altered
- IV d5 LR
- prn hydralazine for SBP > 170
DVT PPX - lovenox sq
Code status - Full code
[2025-07-31] MEDS: APRESOLINE 5 MG IV (21:07)
[2025-07-31 21:20] LABS: TSH 0.28 uIU/ml (0.47-4.68)
[2025-07-31] MEDS: TRANDATE 20 MG IV (23:35)
--- NOTE | 2025-07-31 23:51 | W.PN.UPDATE ---
Update Note
Progress Note Update
Called to see patient for continued Hypertension, BP 219/117, HR 105. Pt received PRN Hydralazine w/o and reduction in BP. Discussed with admitting provider, Ordered Labetalol 20 mg IV x 1. BP 197/102, HR 70 at 5 minute check. Will continue to
monitor patient.
~ 00:30 Pt re-evaluated, BP remains elevated, 217/121, HR 79. Nicardipine gtt ordered. Patient upgraded to ICU, Target Protection Specialist consult placed. Reviewed with ICU ADVERTISING TRAFFIC MANAGER and Nursing Assistant In Nursing.
[2025-08-01] VITALS (33 sets, daily range): BP systolic 125–223; BP diastolic 64–170; BMI 18.4
[2025-08-01] MEDS: CARDENE 200 IV (00:52)
--- NOTE | 2025-08-01 02:00 | PTCARENOTE ---
patient received from ED, lethargic awakens to voice, oriented to self only. NSR on monitor, blood pressure as documented. Cardene gtt turned off. No edema noted. Lungs diminished , on room air. ETCO2 noted. Abdomen soft. hypoactive bowel
sounds. Old wound on gluteal cleft noted, sacral foam applied. CHG bath given. #18 g in VILLA, #22 g n LFA flushed and patent
[2025-08-01] MEDS: D5/0.45%NACL 1000 IV (02:33)
[2025-08-01] MEDS: KEPPRA 500 MG IV ×2 (02:34→08:12)
[2025-08-01] MEDS: APRESOLINE 10 MG IV (03:39)
[2025-08-01 06:16] LABS: Blood Urea Nitrogen 12 mg/dl (7-17); Calcium 10.3 mg/dl (8.4-10.2); Carbon Dioxide 21 mmol/L (22-30); Chloride 107 mmol/L (98-107); Estimated Creatinine Clearance 79 ml/min; Glucose 149 mg/dl (70-99); Potassium 4.4 mmol/L (3.5-5.1); Sodium 140 mmol/L (135-145); eGFR > 60.00
[2025-08-01 06:21] LABS: Hematocrit 41.8 % (37.0-47.0); Hemoglobin 14.7 g/dL (12.0-16.0); Mean Corp Hgb Conc. 35.2 g/dL (33.0-37.0); Mean Corpuscular Volume 83.6 fL (81.0-99.0); Platelet Count 381 10^3/uL (130-400); Red Cell Dist. Width 12.8 % (11.5-14.5)
--- NOTE | 2025-08-01 07:42 | CON.INTV ---
Addendum entered and electronically signed by Ede Gonzalez MD 08/01/25 11:56:
Patient has been off Cardene infusion, hemodynamically stable
Transfer out of ICU to telemetry floor
[facility] service will sign off, please call as needed
Original Note:
Consultation
Consultation Request
Date/Time Consultation Requested: 07/31/2025
Date/Time Consultation Performed: 08/01/2025
Medical History
-
Chief Complaint: Altered mental status
History of Present Illness:
Patient is a 64-year-old female with history of hypothyroidism, prior history of subarachnoid hemorrhage, polysubstance abuse and mood disorder who presented to the emergency room after an episode of unresponsiveness. Reportedly patient's boyfriend
called emergency medical services for patient being minimally responsive and altered. Reportedly patient had been lethargic on the day prior which was felt to be related to substance abuse. In the emergency room patient was noted to be very
hypertensive with systolic blood pressure of 210. Urine drug screen was positive for buprenorphine otherwise unremarkable. Patient was initially admitted to IMU and subsequently upgraded to icu. She received as needed hydralazine without
reduction in blood pressure and blood pressure was noted to be 219 x 117. At this point additional labetalol was given and patient was transferred to ICU and started on nicardipine infusion. [facility] consultation was requested for further input.
Past Medical History
Past Medical History: Reports Other
Additional Past Medical History:
Mood Disorder
Subarachnoid Hemorrhage
Hypothyroidism
Hypertension
Polysubstance Abuse
History of Hep C (treated)
Chronic Back Pain
Past Surgical History: Reports Other
Additional Past Surgical History:
Spinal Fusion
Appendectomy
Social History
Tobacco: Other (Current some day smoker. Currently vapes regularly.)
Alcohol: Chronic Alcoholic (History of alcohol abuse per friend. Last drink 6 months ago (as far as he is aware).)
Drug: Other (Remote history of opioid abuse - uncertain which type.)
Living: With Roomate
Family History
Family History: Other (Mother: DM-II, CVA Father: CAD ( at 47yo))
Allergies / Home Medications
Allergies
Allergy/AdvReac Type Severity Reaction Status Date / Time
No Known Allergies Allergy Verified 05/08/25 22:05
Home Medications
�Medication �Instructions �Recorded �Confirmed �Last Taken �Type
ferrous sulfate 325 mg (65 mg 325 mg PO DAILY Supplement 06/15/24 05/09/25 05/08/25 08:00 History
iron) tablet
buprenorphine 8 mg-naloxone 2 mg 2 film buccal DAILY OUD 08/15/24 05/09/25 05/08/25 08:00 History
sublingual film
famotidine 40 mg tablet 40 mg PO HS Gastrointestinal Issue 08/15/24 05/09/25 05/08/25 08:00 History
40 mg
levetiracetam 500 mg tablet 500 mg PO Q12H Seizures 08/15/24 05/09/25 05/08/25 08:00 History
aripiprazole 10 mg tablet 20 mg PO DAILY Mental 05/09/25 05/09/25 Unknown History
Health/Anxiety
levothyroxine 137 mcg tablet 137 mcg PO DAILY Thyroid 05/09/25 05/09/25 05/07/25 18:00 History
(Synthroid)
polyethylene glycol 3350 17 gram 17 g PO DAILY Constipation 05/09/25 05/09/25 05/08/25 08:00 History
oral powder packet (Miralax)
trazodone 100 mg tablet 150 mg PO HS Sleep 05/09/25 05/09/25 Unknown History
amlodipine 5 mg tablet 5 mg PO BID #0 tabs 05/11/25 05/09/25 05/08/25 08:00 Rx
5 mg
amoxicillin 875 mg-potassium 1 tab PO BID #10 tabs 05/11/25 Unknown Rx
clavulanate 125 mg tablet
aripiprazole 15 mg tablet 15 mg PO DAILY #30 tabs 05/11/25 Unknown Rx
Review of Systems
-
Hematologic/Lymphatic: Other (Patient more awake and alert however unable to provide a full review of system. Intermittent repetition of her words noted.)
Vitals / Labs / Diagnostic Testing
Vital Signs
Temp Pulse Resp BP Pulse Ox
99.0 F 118 30 169/103 98
08/01/25 02:18 08/01/25 06:00 08/01/25 06:00 08/01/25 06:00 08/01/25 06:00
Lab Data
08/01/25 05:42
08/01/25 05:42
Diagnostic Testing:
Physical Exam
-
HEENT: Normocephalic
Cardiovascular: S1/S2
Respiratory: Clear
GI: Soft and Non Distended
Neurology: Awake and Alert
Skin: Warm
General: Comfortable
Assessment
-
#1. Hypertensive emergency with altered mental status
- Hypertensive emergency had since resolved, patient is off Cardene infusion now
- Resume amlodipine at home dose of 5 mg twice daily. Depending upon clinical course and blood pressure trend, likely will need resumption of metoprolol too
#2. Acute encephalopathy, suspect toxic metabolic
- Salicylate and acetaminophen level undetectable. Urine tox positive for buprenorphine. No alcohol detected.
- CT head unremarkable. Patient has had multiple CT head during this year itself due to similar presentations
- EEG in 07/2023 was unremarkable
- ? Postictal state also in differential diagnosis.
- Empiric thiamine, await neurology input
Other medical diagnoses:
- Prior history of subarachnoid hemorrhage
- Hypothyroidism
- History of hepatitis C
- History of mood disorders
DVT prophylaxis with subcu Lovenox.
Critical Care time 59 mins -- The patient is admitted for acute critical illness for the treatment of vital organ failure and/or prevention of further life-threatening conditions. Total care includes time spent in review of history, physical exam,
medications, hemodynamic/ventilator parameters, laboratory data, imaging and discussion with house staff, pharmacy, respiratory therapy, auto rebuilder, and nursing.
Data:
CT Head 07/2025: No acute intracranial abnormality noted.
Lexiscan 01/2023: Moderate sized fixed defect noted consistent with infarct, no evidence of ischemia. Moderate risk study
ECHO 01/2023: Normal left ventricular global systolic function. Most of the apex is severely hypokinetic and all of the other johns are hyperdynamic.
Possible torn mitral valve chordae but only mild mitral regurgitation. Mild aortic regurgitation.
The apical hypokinesis could represent a stress induced cardiomyopathy but an
infarct could have a similar appearance. Apical ballooning is not present on today's study.
--- NOTE | 2025-08-01 07:58 | W.PN.HOSP.TC ---
Today's Communication/Plan
-
see PN
Assessment / Plan
Assessment / Plan
64yo F with PMHX of substance abuse now on Subutex, seizure d/o, hypothyroidism, accelerated HTN came with confusion and lethargy for past two days, found HTN emergency initially improved on Nicardipine. She had multiple admissions for the same in
past, but was denying substance or alcohol abuse. With each admission her mentation was returning to normal in 1-2 days of hospitalization.
A/P:
#Acute metabolic encephalopathy
#HTN emergency
#Seizure d/o cannot exclude postictal state
#HX of polysubstance abuse
No clear single inciting event. Cannot exclde UTI with positive UA, additionally TSH supressed nand patient on polypharmacy that can cause sedation
cont Keppra, seizure precautions, EEG
CT head without acute findings
Neuro consult
Hold aripiprasole and trazodone until mental status improves
BP control
UDS positive for buprenorphine only
ALcohol level undetected
COOK FISH EGGS until then - NPO
exhaled CO2 monitoring in - no concrn for CO2 retention
Ammonia WNL
#UTI
Ceftriaxone pending Ucx
US renal
#1st degree AVB
follow EKG
avoid BB
#Mild hypercalcemia
possible dehydration
if persistent - check PTH
#Hx of hepC
LFT WNL
#Hx of cervical spine fusion
chronic neck stiffness
#MDD
#Mood d/o
cont meds when possible
#Hypothyroidism
TSH mildly suppressed
check FT3, FT4
Will need adjustment of Synthroid before d/c
DVT ppx hep
Full code
I have spent at least 57min critical care time reviewing chart, test results, communication with consultants and providing direct patient care
Anticipated Discharge: > 48 hours
Subjective/Interval History
-
Date of Service: August 01, 2025
Objective Data
-
Labs:
Laboratory Results
08/01/25
05:42
WBC 13.7 H
Hgb 14.7
Hct 41.8
Plt Count 381 D
Sodium 140
Potassium 4.4
Chloride 107
Carbon Dioxide 21 L
BUN 12
Creatinine 0.6
Glucose 149 H
Calcium 10.3 H
Vital Signs:
Vital Signs
Temp Pulse Resp BP Pulse Ox
99.0 F 118 30 169/103 98
08/01/25 02:18 08/01/25 06:00 08/01/25 06:00 08/01/25 06:00 08/01/25 06:00
I&O
07/31/25 08/01/25 08/02/25
06:59 06:59 06:59
Intake Total 240 / 240
Balance 240 / 240
Review of Systems
-
Unable to obtain full review of systems at this time due to: Acuity
History Source: Patient
All other systems: Reviewed and negative
Physical Exam
-
General: No Apparent Distress
HEENT: Moist Mucous Membranes and PERRLA
Respiratory: Clear to Auscultation
Cardiac: Regular Rhythm
GI: Soft, Nontender and Nondistended
Musculoskeletal: No Clubbing, No Cyanosis and No Edema
Neuro: Awake, Alert and Nonfocal/Grossly Intact
Psych: Confused
[2025-08-01] MEDS: ROCEPHIN 1000 MG IV (08:12)
[2025-08-01] MEDS: STERILE WATER FOR INJECTION 10 ML IV (08:13)
--- NOTE | 2025-08-01 08:28 | CON.NEURO ---
Addendum entered and electronically signed by Zeke Hall MD 08/01/25 10:32:
Studies reviewed.
I have personally examined the patient. I reviewed and agree with the SOIL CONSERVATION TEACHER's Note.
My addenda:
Awake, interactive. No acute distress. Wearing oxygen
Speech mildly thick.
Follows 2-step requests w/ significant difficulty. No tremor. Perseverative with speech and action.
Extra-ocular movements grossly intact.
Facial movements full and symmetric. Hearing intact to normal conversational volume.
Normal UE movements bilaterally.
Neck: full ROM.
Chest: no dyspnea
Heart: no JVD
Ext: (-) Clubbing, (-) Cyanosis, (-) Edema
IMPRESSIONS/RECOMMENDATIONS:
Abrupt onset of change in mental status after presenting to this hospital's emergency department with significant hypertension. The patient has had episodic changes in mental status which have not had focal abnormalities suggesting likely
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
Would replace levetiracetam with medication which might not produce agitation or behavioral changes including lacosamide 100 mg twice a day
Patient will require repeated MRI of the brain to determine if there is a structural abnormality producing symptoms
Provide thiamine
Agree with check of MRI of brain to determine if there is a structural abnormality producing symptoms although this is less likely
Will follow EEG results
D/W patient / nursing
All questions answered.
Will continue to follow patient.
Original Note:
Neuro Assessment/Plan
Assessment
The patient is a 64-year-old female with past medical history of psychiatric disease, alcohol and substance use, seizure disorder on levetiracetam who presents to [facility] on 07/31/2025 for change in mental status.
Head CT: No acute intracranial abnormality noted.
Impression: metabolic encephalopathy vs seizure, hypertensive encephalopathy has been ruled out as current BP normotensive and patient remains altered
Plan
-obtain EEG as planned
-obtain brain MRI with and without contrast as planned
-check blood work for metabolic abnormalities and infection
-change levetiracetam to lacosamide 100 mg q 12
-seizure precautions
-Pt/OT/ST evaluations
Will continue to follow
Consultation
Order
Date of Consultation: 08/01/25
Requesting Provider: hospitalist
Reason for Consult: change in mental status
Subjective/Objective
Subjective Data
Date of Service: August 01, 2025
Patient confused and unable to provide any meaningful history. All information obtained from staff and chart.
'The patient is a 64-year-old female with past medical history of psychiatric disease, alcohol and substance use, who presents to [facility] on 07/31/2025 by paramedics after her boyfriend found her nearly unresponsive and altered. According to
paramedics, her boyfriend told the ambulance crew that the patient seemed lethargic yesterday and he attributed this to her substance use. He reports that when he got back from work this afternoon, the patient was still lethargic, prompting him to
call 911. Paramedics report that the patient was arousable and actually walked for them. Patient arrives extremely sleepy and keeps closing her eyes. She is arousable to voice and touch. She denies taking any medication and using alcohol and
drugs. Patient was recently admitted for encephalopathy and hypertension in April.'
In ED head CT with no acute intracranial abnormality. She was afebrile, hypertensive to 210/123, pulse rate was initially 78 currently 57. ECG shows sinus bradycardia at 57. No acute ST or T wave changes. UA with positive yeast but otherwise
unremarkable. Urine drug screens positive for buprenorphine otherwise completely negative. CBC, electrolytes and BUN/creatinine were all unremarkable. She was taking levetiracetam 500 mg BID prior to admission. Neurology was consulted for her
change in mental status and history of seizures. On exam patient is following commands but confused and perseverating. Currently getting EEG.
Was seen by our service last year on 06/[address] Hall:
'Date of Service: June 19, 2024
'I fell and hit my head.'
Patient unable to provide own medical history, today in the emergency department.
Adapted from my esteemed colleagues consultation in July 2023:
62-year-old female with a past medical history of bipolar disorder, hypertension, hypothyroidism, alcohol use, overdose and traumatic intracranial hemorrhage that occurred in March 2023 for which she was seen at [facility] admitted with agitation and
mental status change. She reports that 'she got very nervous and could not sleep.' She says she had not slept in several days. Documentation shows that her friend found some pills near her. She denies taking anything other than her regular occasions
earlier in the day. She denies any loss of awareness or loss of consciousness. No prior history of seizure. She was found to be hyponatremic. She says that she feels better now but that the abnormal movements she is experiencing are new for her. Per
nursing she has been very combative and argumentative. Earlier this morning she was not speaking.
Discussed with psychiatry--patient reported to her that she has been abusing muscle relaxants. She was also previously on methadone for an extended period of time and is likely still drinking ETOH so w/d could be contributing. Will start Klonipin to
see if this helps her symptoms.
HCT:
'Unenhanced CT imaging of the head reveals no findings to suggest recent infarction, intracranial hemorrhage, extra-axial fluid collection, mass effect or midline shift. The ventricles, cisterns and sulci are within the limits of normal. The
brainstem and posterior fossa structures demonstrate no significant focal abnormality.
Impression:
PRATIMA DE LA CRUZ is a 62 year old F who has presented to the hospital with confusion, agitation and abnormal movements in the setting of insomnia x several days. She has been admitted here with agitation in the past. No clear convulsive seizure activity.
UDS negative. Her dystonia/retrocollis, akathisia, myoclonic jerks and choreiform movements may be due to medical side effect. Will discuss further with psychiatry. Seizure seems less likely but h/o SAH does increase risk of this. Delirium pay be
due to sleep deprivation.
-will discuss treatment with psychiatry--consider clonazepam
-unclear if she would tolerate an EEG or MRI brain; will order both; EEG can be done routinely as she is following commands, making NCSE unlikely.'
Subsequently, patient underwent EEG monitoring which failed to demonstrate an abnormality at that time.
Patient returned to this hospital's emergency department on June 13, 2024 and was subsequently hospitalized for presumed alcohol withdrawal.'
Objective Data
Vital Signs
Temp Pulse Resp BP Pulse Ox
97.4 F 118 30 169/103 98
08/01/25 08:04 08/01/25 06:00 08/01/25 06:00 08/01/25 06:00 08/01/25 06:00
Lab Results
08/01/25 05:42
08/01/25 05:42
Sodium 140 mmol/L (135-145) 08/01/25 05:42
Potassium 4.4 mmol/L (3.5-5.1) 08/01/25 05:42
BUN 12 mg/dl (7-17) 08/01/25 05:42
Glucose 149 mg/dl (70-99) H 08/01/25 05:42
Calcium 10.3 mg/dl (8.4-10.2) H 08/01/25 05:42
Ur Buprenorphine Positive (Negative) H 07/31/25 16:40
Patient Allergies
No Known Allergies Allergy (Verified 05/08/25 22:05)
Physical Exam
-
General: Appears Chronically Ill and Wearing Oxygen
HEENT: Normocephalic, Atraumatic and Anicteric
Neck: Full Range of Motion
Respiratory: No Dyspnea
Cardiac: No JVD
GI: Non-distended
Skin: Unremarkable, Warm and Dry
Extremities: No Clubbing, No Cyanosis and No Edema
Psych: Confused
Extended Neurological Exam
Mood & Affect: Unable to Assess
Attention Span & Concentration: Lethargic, Unable to Perform 2 Step Request and Other (perseverating, not oriented to month or year)
Memory: Unable to Recall
Tremor: Hand Tremor Absent and Head Tremor Absent
Speech: Severely Reduced Output and Pressured
Cranial Nerve II: Left Eye: Visual Vargas Intact
Cranial Nerve II: Right Eye: Visual Vargas Intact
Cranial Nerves III, IV, : Extraocular Movement: Extraocular Movement Full in all Directions
Cranial Nerve VII: Facial Symmetry: Normal Facial Symmetry
Cranial Nerve VIII: Hearing: Unremarkable Hearing to Normal Conversational Volume
Muscle Strength, Overall: Full Throughout
Pronator Drift: No Drift in Upper Extremities and No Drift in Lower Extremities
Touch Sensation: Location of deficit (decreased on left)
Coordination: [id number] Testing Unremarkable
Data Reviewed
-
CT Head: Report Reviewed and Image Reviewed
EEG: Pending
Medical Test Reports: Report Reviewed
Labs: Report Reviewed
Reviewed with: Physician and Patient
Old Records: Summarized
Medications
-
Active Medications
Generic Name Dose Route Start Last Admin
Trade Name Freq PRN Reason Stop Dose Admin
Ceftriaxone Sodium 1,000 mg 08/01/25 08:00 08/01/25 08:12
Ceftriaxone 1000 Mg / 10 Ml Vial IV 1,000 mg
Q24H JORDI Administration
Enoxaparin Sodium 40 mg 08/01/25 18:00
Enoxaparin Sodium 40 Mg/0.4 Ml Syringe SC 08/29/25 17:59
QPM JORDI
Hydralazine HCl 10 mg 08/01/25 02:35 08/01/25 03:39
Hydralazine 20 Mg/Ml Vial IV 08/28/25 21:10 10 mg
Q6HPRN PRN Administration
SBP >180 DBP >105
Nicardipine/Sodium Chloride 40 mg in 200 mls @ 0 mls/hr 08/01/25 00:45 08/01/25 00:52
Cardene IV 200 mls
PER PROTOCOL JORDI Administration
Protocol
Per Protocol
Dextrose/Sodium Chloride 1,000 mls @ 60 mls/hr 08/01/25 02:13 08/01/25 02:33
D5/0.45%Nacl IV 1,000 mls
.[id number] JORDI Administration
Lacosamide 100 mg 08/01/25 09:00
Lacosamide (10 Mg/Ml) 200 Mg/20 Ml Vial IV 08/15/25 08:59
Q12H JORDI
Lamotrigine 25 mg 08/01/25 10:00
Lamotrigine 25 Mg Chewable Tablet PO 08/29/25 09:59
BID JORDI
Sodium Chloride 0 flush 08/01/25 03:00
Sodium Chloride 0.9% (Flush) Syringe IV 08/29/25 02:59
PER PROTOCOL JORDI
Sterile Water 10 ml 08/01/25 08:00 08/01/25 08:13
Sterile Water For Injection 10 Ml Vial IV 08/29/25 07:59 10 ml
Q24H JORDI Administration
Home Medications
�Medication �Instructions �Recorded
ferrous sulfate 325 mg (65 mg 325 mg PO DAILY Supplement 06/15/24
iron) tablet
buprenorphine 8 mg-naloxone 2 mg 2 film buccal DAILY OUD 08/15/24
sublingual film
famotidine 40 mg tablet 40 mg PO HS Gastrointestinal Issue 08/15/24
levetiracetam 500 mg tablet 500 mg PO Q12H Seizures 08/15/24
aripiprazole 10 mg tablet 20 mg PO DAILY Mental 05/09/25
Health/Anxiety
levothyroxine 137 mcg tablet 137 mcg PO DAILY Thyroid 05/09/25
(Synthroid)
polyethylene glycol 3350 17 gram 17 g PO DAILY Constipation 05/09/25
oral powder packet (Miralax)
trazodone 100 mg tablet 150 mg PO HS Sleep 05/09/25
amlodipine 5 mg tablet 5 mg PO BID #0 tabs 05/11/25
amoxicillin 875 mg-potassium 1 tab PO BID #10 tabs 05/11/25
clavulanate 125 mg tablet
aripiprazole 15 mg tablet 15 mg PO DAILY #30 tabs 05/11/25
Past History
Past History
ED Past Medical History: Hypothyroidism, Psychiatric and Other (overdose, recovering alcoholic, depression, alcohol abuse, degenerative joint disease)
ED Past Surgical History: Appendectomy and Orthopedic (Cervical fusion over 20 years ago)
Family/Social History
Tobacco: Vaping
Alcohol: Chronic alcoholic
Drug: Former user
Personal: Partner
Living: with roommate
Employment: Disabled
Family History: Other (Noncontributory)
[2025-08-01 08:39] LABS: Free T3 3.27 pg/ml (2.77-5.27)
[2025-08-01 08:53] LABS: TSH 0.19 uIU/ml (0.47-4.68)
--- NOTE | 2025-08-01 09:49 | PTCARENOTE ---
Addendum entered by Francesca Zuñiga RN 08/01/25 09:56:
perseveration noted, can be redirected. Easily agitated.
Original Note:
Report received , lethargic awakens to voice, oriented to self and Hospital when given an list of locations. NSR-ST on monitor, blood pressure as documented. Cardene gtt turned off. No edema noted. Lungs diminished , on room air. Abdomen soft.
hypoactive bowel sounds. purewick in place. Old wound on gluteal cleft noted, sacral foam applied. #18 g in VILLA, #22 g n LFA flushed and patent.
[2025-08-01] MEDS: SYNTHROID 125 MCG PO (10:41)
[2025-08-01] MEDS: VIMPAT 100 MG IV ×2 (10:42→20:44)
[2025-08-01] MEDS: NORVASC 5 MG PO ×2 (10:42→20:49)
[2025-08-01] MEDS: TYLENOL 650 MG PO (11:12)
[2025-08-01] MEDS: THIAMINE INJECTION 100 MG IV (11:12)
--- NOTE | 2025-08-01 11:28 | PTOTSP ---
Dysphagia Evaluation:
Pt demonstrated no overt s/s of aspiration during evaluation. Given PMH and altered mental status, follow-up with ST is recommended to observe diet tolerance/trial diet advancements.
Recommendations:
1. IDDSI 4 Puree, Thins.
2. Medications crushed in puree.
3. Full supervision/assistance w/ meals.
4. Strategies: Single sips/small bites, slowed rate of eating, alternating liquid washes.
5. F/U w/ ST to observe diet tolerance, trial diet advancements when altered mentation improve, cognitive evaluation if clinically indicated.
--- NOTE | 2025-08-01 13:37 | CM ---
Addendum entered by Sophia Aparicio 08/01/25 15:03:
In [place], patient stated she did not have any HH services. Received call from Ladonna at [facility] and patient is on services with them for RN, PT/OT. Will place referral.
Original Note:
Initial assessment completed with patient who lives with her SO in a 1st floor apartment with 1 step to enter. [employer]OR [employer]CTION[employer] patient was independent in ADL's and ambulation, drives. In the home she has a SPC, standing walker which she does not use. No in-home
services. No HC-POA. No VA Benefits. No psychiatric hospitalizations. PCP is Dr. Nitesh Hansen. Pharmacy is [facility] in [place]. Discharge POC: Anticipate home with no needs. [facility] notified.
--- NOTE | 2025-08-01 13:57 | PTCARENOTE ---
Received pt from ICU at 1330. Pt walked from wheelchair to bed with min assist x1. VSS, on tele box #28, and oriented to room. No current complaints and plan of care ongoing.
--- NOTE | 2025-08-01 16:02 | W.PN.UPDATE ---
Update Note
Progress Note Update
Cross Coverage Update:
Called to patient's bedside d/t concerns agitation AMS patient screaming yelling and climbing out of bed. No capacity to sign out AMA.
Here with Acute metabolic encephalopathy, HTN emergency, possible Seizure d/o, HX of polysubstance abuse recently downgraded from ICU.
Nurse/staff able to verbally redirect patient by the time process description writer present at patient's bedside.
PRN PO ativan ordered for anxiety/agitation. PRN IV Valium ordered if unable to tolerate PO.
[2025-08-01] MEDS: ATIVAN 0.5 MG PO ×2 (16:19→23:32)
--- NOTE | 2025-08-01 16:35 | CM ---
Addendum entered by Vale Jaramillo 08/02/25 11:38:
LACY spoke with Ingris (LUIS ANGEL) who will be arriving after 1:30 today to see Corrine.
Original Note:
TC from Ingris from [facility] she will see patient at noon tomorrow.
[2025-08-01] MEDS: LOVENOX SC (17:39)
[2025-08-01] MEDS: LOPRESSOR 25 MG PO (20:48)
[2025-08-02] VITALS (7 sets, daily range): BP systolic 121–167; BP diastolic 76–103; BMI 17.9
--- NOTE | 2025-08-02 02:36 | DOWNTIME ---
There was a SCREEMO Client Warhead Maintenance Specialist Downtime on 08/02/2025 from 0100 to 08/02/2025 at 0215. Downtime documentation of patient's care, including medication administrations, has been reconciled in the electronic record per guidelines. Refer to the
patient's paper chart under the miscellaneous tab to see printed paper medication records and downtime forms.
[2025-08-02] MEDS: TYLENOL 650 MG PO (03:40)
[2025-08-02] MEDS: SYNTHROID 125 MCG PO (05:32)
[2025-08-02 06:44] LABS: Hematocrit 37.1 % (37.0-47.0); Hemoglobin 12.6 g/dL (12.0-16.0); Mean Corp Hgb Conc. 34.0 g/dL (33.0-37.0); Mean Corpuscular Volume 87.7 fL (81.0-99.0); Nucleated Red Blood Cells % 0 %; Platelet Count 314 10^3/uL (130-400); Red Cell Dist. Width 13.2 % (11.5-14.5)
[2025-08-02 07:40] LABS: ALT (SGPT) 14 U/L (0-35); AST (SGOT) 26 U/L (14-36); Albumin 4.8 g/dl (3.5-5.0); Alkaline Phosphatase 65 U/L (38-126); Blood Urea Nitrogen 23 mg/dl (7-17); Calcium 10.4 mg/dl (8.4-10.2); Carbon Dioxide 26 mmol/L (22-30); Chloride 104 mmol/L (98-107); Estimated Creatinine Clearance 58 ml/min; Glucose 91 mg/dl (70-99); Potassium 4.1 mmol/L (3.5-5.1); Sodium 140 mmol/L (135-145); Total Protein 7.7 g/dl (6.3-8.2); eGFR > 60.00
[2025-08-02] MEDS: VIMPAT 100 MG IV ×2 (07:51→20:26)
[2025-08-02] MEDS: THIAMINE INJECTION 100 MG IV (07:52)
[2025-08-02] MEDS: ATIVAN 0.5 MG PO ×3 (07:53→23:51)
[2025-08-02] MEDS: ROCEPHIN 1000 MG IV (07:57)
[2025-08-02] MEDS: STERILE WATER FOR INJECTION 10 ML IV (07:57)
[2025-08-02] MEDS: ABILIFY 20 MG PO (07:57)
[2025-08-02] MEDS: LOPRESSOR 25 MG PO ×2 (07:58→20:25)
[2025-08-02] MEDS: NORVASC 5 MG PO ×2 (07:58→20:25)
[2025-08-02] MEDS: SUBUTEX 16 MG SL (07:58)
--- NOTE | 2025-08-02 09:47 | W.PN.NEURO.1 ---
Today's Communication / Plan
-
obtain brain MRI with and without contrast as planned
check blood work for metabolic abnormalities and infection
changed levetiracetam to lacosamide 100 mg q 12
Continue thiamine
Neuro Assessment/Plan
Assessment
The patient is a 64-year-old female with past medical history of psychiatric disease, alcohol and substance use, seizure disorder on levetiracetam who presents to [facility] on 07/31/2025 for change in mental status.
Head CT: No acute intracranial abnormality noted.
Impression: metabolic encephalopathy vs seizure, hypertensive encephalopathy has been ruled out as current BP normotensive and patient remains altered
Plan
obtain brain MRI with and without contrast as planned
check blood work for metabolic abnormalities and infection
changed levetiracetam to lacosamide 100 mg q 12
Continue thiamine
Will continue to pending results
Subjective/Objective
Subjective Data
Date of Service: August 02, 2025
Patient reports no symptoms. Also has no recall for recent events.
Objective Data
Vital Signs
Temp Pulse Resp BP Pulse Ox
36.6 C 71 18 167/90 98
08/02/25 07:30 08/02/25 07:30 08/02/25 07:30 08/02/25 07:30 08/02/25 07:30
Lab Results
08/02/25 06:30
08/02/25 06:30
Sodium 140 mmol/L (135-145) 08/02/25 06:30
Potassium 4.1 mmol/L (3.5-5.1) 08/02/25 06:30
BUN 23 mg/dl (7-17) H 08/02/25 06:30
Glucose 91 mg/dl (70-99) 08/02/25 06:30
Calcium 10.4 mg/dl (8.4-10.2) H 08/02/25 06:30
Ur Buprenorphine Positive (Negative) H 07/31/25 16:40
Patient Allergies
No Known Allergies Allergy (Verified 05/08/25 22:05)
Review of Systems
-
Unable to obtain full review of systems at this time due to: Dementia
History Source: Patient
All other systems: Reviewed and negative
Neuro: Dizzy; Negative Headache
Physical Exam
-
General: No Apparent Distress and Appears Stated Age
Eyes: Round OU, [place] Conjunctivae and No Ptosis
HEENT: Anicteric and Moist Mucous Membranes
Neck: Full Range of Motion
Respiratory: No Dyspnea
Cardiac: No JVD
GI: Non-distended
Skin: Unremarkable
Extremities: No Clubbing, No Cyanosis and No Edema
Psych: Negative Intact Judgement/Insight
Extended Neurological Exam
Mood & Affect: Mood Unremarkable; Negative Affect Unremarkable (Flat)
Attention Span & Concentration: Awake, Interactive, Closes Eyes after Stimulation (After approximately 5 seconds), Unable to Perform 2 Step Request and Other (Moderate difficulty with single step requests); Negative Alert
Memory: Able to Recall (Month and year, location)
Tremor: Hand Tremor Absent and Head Tremor Absent
Involuntary Movement: None
Speech: Moderately Reduced Output
Cranial Nerve II: Left Eye: Pupillary Reactivity Unremarkable, Pupillary Size Unremarkable and Visual Vargas Grossly Intact
Cranial Nerve II: Right Eye: Pupillary Reactivity Unremarkable, Pupillary Size Unremarkable and Visual Vargas Grossly Intact
Cranial Nerves III, IV, : Extraocular Movement: Grossly Intact
Cranial Nerve V: Facial Sensation: Unable to Assess
Cranial Nerve VII: Facial Symmetry: Normal Facial Symmetry
Cranial Nerve VIII: Hearing: Unremarkable Hearing to Normal Conversational Volume
Muscle Strength, Overall: Spontaneously Moves (All extremities)
Muscle Bulk & Tone: Bulk Unremarkable and Tone Unremarkable
Pronator Drift: No Drift in Upper Extremities
Vibration Sensation: Unable to Assess
Coordination: Reaches for Objects without Difficulty
Gait & Station: Unable to Assess
Data Reviewed
-
MRI Head: Pending
Labs: Report Reviewed
Reviewed with: Physician and Patient
Old Records: Summarized
Past History
Past History
ED Past Medical History: Hypothyroidism, Psychiatric (depression) and Other (overdose, recovering alcoholic, alcohol abuse, degenerative joint disease)
ED Past Surgical History: Appendectomy and Orthopedic (Cervical fusion over 20 years ago)
Social History
Tobacco: Vaping
Alcohol: Chronic alcoholic
Drug: Former user
Personal: Partner
Living: with roommate
Employment: Disabled
Family History
Family History: Other (Reviewed and Noncontributory)
Medications
-
Medications:
Generic Name Dose Route Start Last Admin
Trade Name Freq PRN Reason Stop Dose Admin
Acetaminophen 650 mg 08/01/25 10:50 08/02/25 03:40
Acetaminophen 325 Mg Tablet PO 08/29/25 10:49 650 mg
Q6HPRN PRN Administration
mild pain/ fever>100.5F
Amlodipine Besylate 5 mg 08/01/25 10:00 08/02/25 07:58
Amlodipine 5 Mg Tablet PO 08/29/25 09:59 5 mg
BID JORDI Administration
Aripiprazole 20 mg 08/02/25 08:00 08/02/25 07:57
Aripiprazole 10 Mg Tablet PO 08/30/25 07:59 20 mg
DAILY JORDI Administration
Buprenorphine 16 mg 08/02/25 08:00 08/02/25 07:58
Buprenorphine 8 Mg Sl Tablet SL 08/16/25 07:59 16 mg
DAILY JORDI Administration
Ceftriaxone Sodium 1,000 mg 08/01/25 08:00 08/02/25 07:57
Ceftriaxone 1000 Mg / 10 Ml Vial IV 1,000 mg
Q24H JORDI Administration
Diazepam 5 mg 08/01/25 15:47
Diazepam 10 Mg/2 Ml Inj IV 08/29/25 15:46
Q6HPRN PRN
agitation
Enoxaparin Sodium 40 mg 08/01/25 18:00 08/01/25 17:39
Enoxaparin Sodium 40 Mg/0.4 Ml Syringe SC 08/29/25 17:59 Not Given
QPM JORDI
Lacosamide 100 mg 08/01/25 10:00 08/02/25 07:51
Lacosamide (10 Mg/Ml) 200 Mg/20 Ml Vial IV 08/15/25 09:59 100 mg
Q12 JORDI Administration
Levothyroxine Sodium 125 mcg 08/01/25 10:00 08/02/25 05:32
Levothyroxine 125 Mcg Tablet PO 08/29/25 09:59 125 mcg
DAILY @ 0600 JORDI Administration
Lorazepam 0.5 mg 08/01/25 15:47 08/02/25 07:53
Lorazepam 0.5 Mg Tablet PO 08/29/25 15:46 0.5 mg
Q6HPRN PRN Administration
anxiety/agitation
Metoprolol Tartrate 25 mg 08/01/25 20:00 08/02/25 07:58
Metoprolol 25 Mg Regular Release Tablet PO 08/29/25 19:59 25 mg
BID JORDI Administration
Sodium Chloride 0 flush 08/01/25 03:00
Sodium Chloride 0.9% (Flush) Syringe IV 08/29/25 02:59
PER PROTOCOL JORDI
Sterile Water 10 ml 08/01/25 08:00 08/02/25 07:57
Sterile Water For Injection 10 Ml Vial IV 08/29/25 07:59 10 ml
Q24H JORDI Administration
Thiamine HCl 100 mg 08/01/25 12:00 08/02/25 07:52
Thiamine (100 Mg/Ml) 2 Ml Vial IV 08/04/25 11:59 100 mg
DAILY JORDI Administration
--- NOTE | 2025-08-02 11:01 | W.PN.HOSP.TC ---
Today's Communication/Plan
-
stop rocephin
check chest XR
MRI brain pending
Assessment / Plan
Assessment / Plan
64yo F with PMHX of substance abuse now on Subutex, seizure d/o, hypothyroidism, accelerated HTN came with confusion and lethargy for past two days, found HTN emergency initially improved on Nicardipine. She had multiple admissions for the same in
past, but was denying substance or alcohol abuse. With each admission her mentation was returning to normal in 1-2 days of hospitalization.
A/P:
#Acute metabolic encephalopathy
#HTN emergency
#Seizure d/o cannot exclude postictal state
#HX of polysubstance abuse
No clear single inciting event. UTI excluded, additionally TSH suppressed and patient on polypharmacy that can cause sedation. Unlikely infection with no fever and normalized WBC count
seizure precautions, EEG
CT head without acute findings
Neuro consult: MRI brain, switched patient to Lacosamide
BP control
UDS positive for buprenorphine only
Alcohol level undetected
exhaled CO2 monitoring in - no concern for CO2 retention
Ammonia WNL
#UTI ruled out
Ceftriaxone stopped since Ucx neg
US renal
#1st degree AVB
transient, resolved
#Mild hypercalcemia
check PTH, vit d 0.25, chest XR
#Hx of hepC
LFT WNL
#Hx of cervical spine fusion
chronic neck stiffness
#MDD
#Mood d/o
cont meds when possible
#Hypothyroidism
TSH mildly suppressed
FT3, FT4 wnl - no concern for hypothyroidism or synthroid oversupplementation causing mentation fluctuations
Will need adjustment of Synthroid before d/c
DVT ppx hep
Full code
I have spent at least 51min critical care time reviewing chart, test results, communication with consultants and providing direct patient care
Anticipated Discharge: > 48 hours
Subjective/Interval History
-
Date of Service: August 02, 2025
Objective Data
-
Labs:
Laboratory Results
08/02/25
06:30
WBC 8.9
Hgb 12.6
Hct 37.1
Plt Count 314
Sodium 140
Potassium 4.1
Chloride 104
Carbon Dioxide 26
BUN 23 H
Creatinine 0.8
Glucose 91
Calcium 10.4 H
Total Bilirubin 0.6
AST 26
ALT 14
Alkaline Phosphatase 65
Vital Signs:
Vital Signs
Temp Pulse Resp BP Pulse Ox
97.9 F 71 18 167/90 98
08/02/25 07:30 08/02/25 07:30 08/02/25 07:30 08/02/25 07:30 08/02/25 07:30
I&O
08/01/25 08/02/25 08/03/25
06:59 06:59 06:59
Intake Total 240 / 312.5 772.5 / 772.5 1140 / 1140
Balance 240 / 312.5 772.5 / 772.5 1140 / 1140
Review of Systems
-
History Source: Patient
All other systems: Reviewed and negative
Physical Exam
-
General: No Apparent Distress
HEENT: Normocephalic
Respiratory: Clear to Auscultation
Cardiac: Regular Rhythm
GI: Soft, Nontender and Nondistended
Skin: Warm
Neuro: Awake, Alert, Oriented and AO x 3
Psych: Calm
[2025-08-02 12:50] LABS: Vitamin D, 25-OH*** 73.8 ng/mL (30-80)
[2025-08-02 13:08] LABS: Ferritin 43.4 ng/ml (11.1-264.0)
[2025-08-02 13:39] LABS: Folate 6.4 ng/ml (2.76-20); Vitamin B12 884 pg/ml (239-931)
[2025-08-02 14:43] LABS: Calcium 10.4 mg/dl (8.4-10.2)
--- NOTE | 2025-08-02 14:48 | PN.CDI ---
CDI
- -
CDI:
Physician Documentation Request
Admit Date: 07/31/25 21:07
Dear Doctor Rosemary,
Please review the following and provide your response in the progress notes.
Clinical Indicators:
Height: 5'7
Weight: 114 lbs
BMI: 17.9
Other Clinical Notes: Child [facility] Family Services Specialist indicates underweight
If possible, please provide an associated diagnosis related to the abnormal BMI, such as:
Underweight
Cachectic
Other (please specify)
Use of terms such as suspected, likely, concern for, or probable (associated with a specific diagnosis that is being evaluated, monitored, or treated as if it exists) are acceptable and can be coded in the inpatient setting, when documented at the
time of discharge.
Thank you,
Carley Pa RN
CDI Specialist
Please use your independent medical judgment in providing your response.
--- NOTE | 2025-08-02 16:51 | CM ---
[facility] sales representative public utilities, [employer], met with Corrine today. Pt accepted resources from [employer], however she did not wish to speak further, as Corrine advised she has support and does not need a [facility] facility.
[2025-08-02] MEDS: LOVENOX 40 MG SC (17:37)
[2025-08-02] MEDS: MELATONIN 5 MG PO (22:17)
[2025-08-03 03:10] VITALS: BP 116/76
[2025-08-03] MEDS: SYNTHROID 125 MCG PO (05:49)
[2025-08-03 06:00] VITALS: BMI 16.6
[2025-08-03] MEDS: SUBUTEX 16 MG SL (07:28)
[2025-08-03] MEDS: ABILIFY 20 MG PO (07:28)
[2025-08-03] MEDS: NORVASC 5 MG PO (07:29)
[2025-08-03] MEDS: LOPRESSOR 25 MG PO (07:29)
[2025-08-03] MEDS: VIMPAT 100 MG IV (07:30)
[2025-08-03] MEDS: THIAMINE INJECTION 100 MG IV (07:30)
--- NOTE | 2025-08-03 07:34 | W.PN.NEURO.1 ---
Today's Communication / Plan
-
changed levetiracetam to lacosamide 100 mg q 12
Continue thiamine
Neuro Assessment/Plan
Assessment
The patient is a 64-year-old female with past medical history of psychiatric disease, alcohol and substance use, seizure disorder on levetiracetam who presents to [facility] on 07/31/2025 for change in mental status.
Head CT: No acute intracranial abnormality noted.
MRI of brain fails to demonstrate significant abnormalities
Impression: metabolic encephalopathy with likely baseline dementia
Plan
changed levetiracetam to lacosamide 100 mg q 12
Continue thiamine
Will follow as needed
Subjective/Objective
Subjective Data
Date of Service: August 03, 2025
Objective Data
Vital Signs
Temp Pulse Resp BP Pulse Ox
36.7 C 68 17 114/76 96
08/03/25 03:10 08/03/25 07:29 08/03/25 03:10 08/03/25 07:29 08/03/25 03:10
Lab Results
08/02/25 06:30
08/02/25 06:30
Sodium 140 mmol/L (135-145) 08/02/25 06:30
Potassium 4.1 mmol/L (3.5-5.1) 08/02/25 06:30
BUN 23 mg/dl (7-17) H 08/02/25 06:30
Glucose 91 mg/dl (70-99) 08/02/25 06:30
Calcium 10.4 mg/dl (8.4-10.2) H 08/02/25 06:30
Calcium 10.4 mg/dl (8.4-10.2) H 08/02/25 06:30
Vitamin B12 884 pg/ml (239-931) 08/02/25 06:30
Ur Buprenorphine Positive (Negative) H 07/31/25 16:40
Patient Allergies
No Known Allergies Allergy (Verified 05/08/25 22:05)
Data Reviewed
-
MRI Head: Report Reviewed
Labs: Report Reviewed
Past History
Past History
ED Past Medical History: Hypothyroidism, Psychiatric (depression) and Other (overdose, recovering alcoholic, alcohol abuse, degenerative joint disease)
ED Past Surgical History: Appendectomy and Orthopedic (Cervical fusion over 20 years ago)
Social History
Tobacco: Vaping
Alcohol: Chronic alcoholic
Drug: Former user
Personal: Partner
Living: with roommate
Employment: Disabled
Family History
Family History: Other (Reviewed and Noncontributory)
Medications
-
Medications:
Generic Name Dose Route Start Last Admin
Trade Name Freq PRN Reason Stop Dose Admin
Acetaminophen 650 mg 08/01/25 10:50 08/02/25 03:40
Acetaminophen 325 Mg Tablet PO 08/29/25 10:49 650 mg
Q6HPRN PRN Administration
mild pain/ fever>100.5F
Amlodipine Besylate 5 mg 08/01/25 10:00 08/03/25 07:29
Amlodipine 5 Mg Tablet PO 08/29/25 09:59 5 mg
BID JORDI Administration
Aripiprazole 20 mg 08/02/25 08:00 08/03/25 07:28
Aripiprazole 10 Mg Tablet PO 08/30/25 07:59 20 mg
DAILY JORDI Administration
Buprenorphine 16 mg 08/02/25 08:00 08/03/25 07:28
Buprenorphine 8 Mg Sl Tablet SL 08/16/25 07:59 16 mg
DAILY JORDI Administration
Diazepam 5 mg 08/01/25 15:47
Diazepam 10 Mg/2 Ml Inj IV 08/29/25 15:46
Q6HPRN PRN
agitation
Enoxaparin Sodium 40 mg 08/01/25 18:00 08/02/25 17:37
Enoxaparin Sodium 40 Mg/0.4 Ml Syringe SC 08/29/25 17:59 40 mg
QPM JORDI Administration
Lacosamide 100 mg 08/01/25 10:00 08/03/25 07:30
Lacosamide (10 Mg/Ml) 200 Mg/20 Ml Vial IV 08/15/25 09:59 100 mg
Q12 JORDI Administration
Levothyroxine Sodium 125 mcg 08/01/25 10:00 08/03/25 05:49
Levothyroxine 125 Mcg Tablet PO 08/29/25 09:59 125 mcg
DAILY @ 0600 JORDI Administration
Lorazepam 0.5 mg 08/01/25 15:47 08/02/25 23:51
Lorazepam 0.5 Mg Tablet PO 08/29/25 15:46 0.5 mg
Q6HPRN PRN Administration
anxiety/agitation
Metoprolol Tartrate 25 mg 08/01/25 20:00 08/03/25 07:29
Metoprolol 25 Mg Regular Release Tablet PO 08/29/25 19:59 25 mg
BID JORDI Administration
Sodium Chloride 0 flush 08/01/25 03:00
Sodium Chloride 0.9% (Flush) Syringe IV 08/29/25 02:59
PER PROTOCOL JORDI
Thiamine HCl 100 mg 08/01/25 12:00 08/03/25 07:30
Thiamine (100 Mg/Ml) 2 Ml Vial IV 08/04/25 11:59 100 mg
DAILY JORDI Administration
[2025-08-03 07:36] VITALS: BP 114/76
--- NOTE | 2025-08-03 08:56 | W.PN.HOSP.TC ---
Today's Communication/Plan
-
dc
Assessment / Plan
Assessment / Plan
64yo F with PMHX of substance abuse now on Subutex, seizure d/o, hypothyroidism, accelerated HTN came with confusion and lethargy for past two days, found HTN emergency initially improved on Nicardipine. She had multiple admissions for the same in
past, but was denying substance or alcohol abuse. With each admission her mentation was returning to normal in 1-2 days of hospitalization. Same happened now. Neurologist switched patient to Lacosamide. Brain MRI showed no acute findigns. Infection
cause ruled out. Mild hypocalcemia present which is non-specific and can be followed as outpatient. Synthroid dose to be adjusted and patient will follow with PCP for repeated TFT in 2-3 weeks
A/P:
#Acute metabolic encephalopathy
#HTN emergency
#Seizure d/o cannot exclude postictal state
#HX of polysubstance abuse
No clear single inciting event. UTI excluded, additionally TSH suppressed and patient on polypharmacy that can cause sedation. Unlikely infection with no fever and normalized WBC count
seizure precautions, EEG
CT head without acute findings
Neuro consult: MRI brain showed no acute findings, switched patient to Lacosamide
BP control
UDS positive for buprenorphine only
Alcohol level undetected
exhaled CO2 monitoring in - no concern for CO2 retention
Ammonia WNL
Counselled on cessation of illicit drugs and alcohol - patient agreeable and verbalized understanding
#UTI ruled out
Ceftriaxone stopped since Ucx neg
#1st degree AVB
transient, resolved
#Mild hypercalcemia
check PTH
no vit d deficiency
chest XR without acute pulmonary findings as per read
#Hx of hepC
LFT WNL
#Hx of cervical spine fusion
chronic neck stiffness
#MDD
#Mood d/o
cont meds when possible
#Hypothyroidism
TSH mildly suppressed
FT3, FT4 wnl - no concern for hypothyroidism or Synthroid oversupplementation causing mentation fluctuations
Will need adjustment of Synthroid before d/c
#Underweight
BMI 16.6
encourage calorie intake
DVT ppx hep
Full code
I have spent at least 36min critical care time reviewing chart, test results, communication with consultants and providing direct patient care
Anticipated Discharge: Today
Subjective/Interval History
-
Date of Service: August 03, 2025
Objective Data
-
Vital Signs:
Vital Signs
Temp Pulse Resp BP Pulse Ox
98.7 F 68 14 114/76 99
08/03/25 07:36 08/03/25 07:36 08/03/25 07:36 08/03/25 07:36 08/03/25 07:36
I&O
08/02/25 08/03/25 08/04/25
06:59 06:59 06:59
Intake Total 772.5 / 772.5 1380 / 1380
Balance 772.5 / 772.5 1380 / 1380
Review of Systems
-
History Source: Patient
All other systems: Reviewed and negative
Physical Exam
-
General: No Apparent Distress
HEENT: Normocephalic
Neuro: Awake, Alert, Oriented, AO x 3 and No Motor Deficits
Psych: Calm
[2025-08-03 09:50] VITALS: BP 118/75; PULSE 66; O2SAT 98
[2025-08-03 10:03] LABS: Blood Urea Nitrogen 27 mg/dl (7-17); Calcium 9.9 mg/dl (8.4-10.2); Carbon Dioxide 27 mmol/L (22-30); Chloride 102 mmol/L (98-107); Estimated Creatinine Clearance 54 ml/min; Glucose 132 mg/dl (70-99); Potassium 4.1 mmol/L (3.5-5.1); Sodium 138 mmol/L (135-145); eGFR > 60.00
[2025-08-03 10:19] VITALS: BP 118/75; PULSE 76; O2SAT 97
[2025-08-03 10:45] VITALS: BP 140/88
--- NOTE | 2025-08-03 10:54 | W.DCSUMMARY ---
Discharge Summary
Discharge Data
Date of Admission: 07/31/25
Date of Discharge: 08/03/25
-
Pending Results: No
Hospital Course
64yo F with PMHX of substance abuse now on Subutex, seizure d/o, hypothyroidism, accelerated HTN came with confusion and lethargy for past two days, found HTN emergency initially improved on Nicardipine. She had multiple admissions for the same in
past, but was denying substance or alcohol abuse. With each admission her mentation was returning to normal in 1-2 days of hospitalization. Same happened now. Neurologist switched patient to Lacosamide. Brain MRI showed no acute findigns. Infection
cause ruled out. Mild hypocalcemia present which is non-specific and can be followed as outpatient. Mild hypercalcemia resolved, most likely was due to dehydration. Synthroid dose to be adjusted and patient will follow with PCP for repeated TFT in
2-3 weeks. BP in appropriate range without changes to home meds. Doing well without baclophen or NSAIDs. OT evaluated - no needs from patient, can be safely dischareghd home. Medically stable for d/c
I have spent at least 36min critical care time reviewing chart, test results, communication with consultants and providing direct patient care
Patient was managed for:
#Acute metabolic encephalopathy with likely baseline dementia as per neurologist assessment
#HTN emergency
#Seizure d/o cannot exclude postictal state
#HX of polysubstance abuse
#UTI ruled out
#1st degree AVB
#Mild hypercalcemia
#Hx of hepC
#Hx of cervical spine fusion
#MDD
#Mood d/o
#Hypothyroidism
#Underweight
Discharge Plan
-
Patient Disposition: Home (Routine Discharge)
Discharge Diagnosis/Procedures: Acute metabolic encephalopathy
Diet: Regular
Driving Restrictions: No driving
Blood Work: TSH with family doctor in 2-3 weeks
Referrals:
Zeke Hall MD [Active, Neurology] - in three to four weeks
UNKNOWN - PT DOES,NOT KNOW [Family Provider]
Prescriptions:
New
levothyroxine 125 mcg Tablet
125 mcg PO DAILY @ 0600 Qty: 60 0RF
lacosamide [Vimpat] 100 mg tablet
100 mg PO BID Qty: 60 0RF
Continued
buprenorphine-naloxone 8-2 mg Film
2 film BUCCAL DAILY
Patient Comments:
pdmp pick up operator on 04/21/25 #60 for 30 days
trazodone 100 mg Tablet
150 mg PO HS
Patient Comments:
patient should be taking 100mg hs but is filling 100mg and 150mg
aripiprazole 10 mg tablet
20 mg PO DAILY
amlodipine 5 mg tablet
5 mg PO BID
metoprolol tartrate 25 mg tablet
25 mg PO BID
Discontinued
levetiracetam 500 mg Tablet
500 mg PO Q12H
levothyroxine [Synthroid] 137 mcg Tablet
137 mcg PO DAILY
celecoxib 200 mg capsule
200 mg PO BID
baclofen 20 mg tablet
20 mg PO BID
tamsulosin 0.4 mg capsule
0.4 mg PO QPM
dicyclomine 20 mg tablet
20 mg PO TIDPRN PRN (Reason: Gastrointestinal issue)
metaxalone 800 mg tablet
800 mg PO TIDPRN PRN (Reason: Muscle spasms)
Discharge Orders:
Discharge Patient (As Directed); Ordered 08/03/25
Ordered By: Jeronimo Riley
Discharge Date and Time
Print Language: [id number]
--- NOTE | 2025-08-03 11:54 | CM ---
Addendum entered by Vale Jaramillo 08/03/25 12:16:
Call received from Shawna, a Nurse Navigator with [facility] who follows Corrine closely and provides support. Shawna advised that Corrine has been 'bouncing back and forth between [place] and [facility] over the past several weeks.
Original Note:
CM following for discharge planning; pt is discharged today. Pt is current with [facility] for PT/OT/RN.
Referral sent via [facility] for resumption of care.
[facility]
--- NOTE | 2025-08-03 12:27 | W.PN.UPDATE ---
Update Note
Progress Note Update
Discharge plan and instructions discussed in details with patient and significant other bedside. they are in agreement and verbalized understanding
--- NOTE | 2025-08-04 10:49 | EEG.RPT ---
Electroencephalogram Report
Recording
Date of EE08/01/25
Type of EEG: Routine
Length of EEG recordin minutes
Done with Video Recording: Yes
Patient Status: Inpatient
Recording Conditions: Awake and Drowsy
Hyperventilation Performed: No
Photic Stimulation Performed: Yes
Report
LESS THAN 1 HOUR REPORT
LESS THAN 1 HOUR EEG INTERPRETATION:
Mild to moderately abnormal EEG for age mild diffuse bihemispheric slowing
CLINICAL CORRELATION:
This study was suggestive of diffuse cortical dysfunction without focal abnormality. No seizures were recorded. If concerns remain regarding seizures, consideration for prolonged EEG recording may be given.
Clinical correlation is advised.
METHODS:
A 21 channel digitized electroencephalogram (EEG) was performed in the Clinical Neurophysiology Laboratory. The 10/20 international system of electrode placement was used with ECG and lateral/vertical eye movements recorded. The FORMTEK quantitative
measurement system was utilized.
QUALITY OF STUDY:
Good
ELECTROENCEPHALOGRAPHER IMPRESSION(S):
Background
Medium amplitude fairly to poorly organized anterior-posterior voltage gradient of theta maximal activity
There were no significant asymmetries of background activity noted.
Sleep
Drowsiness present
Photic Stimulation
Failed to activate the record
ECG
Normal sinus rhythm
== END 2025-08-03 13:31 | disposition home health service (06) | DRG 304 ==
LOC: 3 WEST ACU 21:07
PROVIDERS: Nurse Practitioner Family; ADMITTING PHYSICIAN Internal Medicine; ATTENDING PHYSICIAN Internal Medicine; CONSULT PHYSICIAN Internal Medicine; CONSULT PHYSICIAN Psychiatry & Neurology Neurology; EMERGENCY PHYSICIAN Emergency Medicine
DX: I16.1 Hypertensive emergency (principal); G93.41 Metabolic encephalopathy; F03.918 Unspecified dementia, unspecified severity, with other behavioral disturbance; F03.94 Unspecified dementia, unspecified severity, with anxiety; Z68.1 Body mass index [BMI] 19.9 or less, adult; F03.93 Unspecified dementia, unspecified severity, with mood disturbance; G40.909 Epilepsy, unspecified, not intractable, without status epilepticus; I44.0 Atrioventricular block, first degree; E83.52 Hypercalcemia; Z98.1 Arthrodesis status; E03.9 Hypothyroidism, unspecified; R63.6 Underweight; Z79.890 Hormone replacement therapy; E83.51 Hypocalcemia; F19.11 Other psychoactive substance abuse, in remission; G89.29 Other chronic pain; Z83.3 Family history of diabetes mellitus; Z82.3 Family history of stroke; Z82.49 Family history of ischemic heart disease and other diseases of the circulatory system; F10.21 Alcohol dependence, in remission; F17.200 Nicotine dependence, unspecified, uncomplicated; F31.9 Bipolar disorder, unspecified; G47.00 Insomnia, unspecified; Z79.899 Other long term (current) drug therapy
CPT/HCPCS: 70450; 70553; 71045; 80048; 80053; 80143; 80177; 80179; 80306; 80307; 81003; 81015; 82077; 82140; 82306; 82550; 82607; 82728; 82746; 83605; 83970; 84439; 84443; 84481; 84484; 85025; 85027; 87070; 87086; 87147; 92526; 92610; 93005; 95816; 96360; 97162; 97166; 99285; A9575; C9254

== ENCOUNTER 2025-08-18 15:59 | Observation (INO) | payer OTHER, SELFPAY ==
[2025-08-18] VITALS (7 sets, daily range): BP systolic 139–177; BP diastolic 81–124
[2025-08-18 12:37] LABS: Hematocrit 40.9 % (37.0-47.0); Hemoglobin 13.9 g/dL (12.0-16.0); Mean Corp Hgb Conc. 34.0 g/dL (33.0-37.0); Mean Corpuscular Volume 89.5 fL (81.0-99.0); Nucleated Red Blood Cells % 0 %; Platelet Count 281 10^3/uL (130-400); Red Cell Dist. Width 13.3 % (11.5-14.5)
[2025-08-18 12:53] LABS: ALT (SGPT) 14 U/L (0-35); AST (SGOT) 20 U/L (14-36); Acetaminophen < 10 ug/ml (10-30); Albumin 4.8 g/dl (3.5-5.0); Alkaline Phosphatase 76 U/L (38-126); Blood Urea Nitrogen 12 mg/dl (7-17); Calcium 10.1 mg/dl (8.4-10.2); Carbon Dioxide 24 mmol/L (22-30); Chloride 110 mmol/L (98-107); Glucose 110 mg/dl (70-99); Potassium 4.5 mmol/L (3.5-5.1); Salicylate < 1.0 mg/dl (2.0-20.0); Sodium 142 mmol/L (135-145); Total Protein 7.6 g/dl (6.3-8.2); eGFR > 60.00
[2025-08-18 13:58] LABS: Urine Character Clear (Clear)
[2025-08-18 14:12] LABS: Urine Red Blood Cell 0-2 /HPF (0-2); Urine Squamous Cell 0-2 /LPF (Few)
--- NOTE | 2025-08-18 14:30 | ED.GENMED ---
History of Present Illness
General
Chief Complaint: Change in Mental Status
Source: patient
Exam Limitations: clinical condition
Time Seen by Provider: 08/18/25 11:20
History of Present Illness
History of Present Illness:
Note:
CHIEF COMPLAINT(S)
The patient, a 64-year-old female, is at the hospital with change in mental status.
HISTORY OF PRESENT ILLNESS
The patient does not report any symptoms such as sickness or pain. There are no complaints of fever. The patient mentioned not feeling sick and having no pain. There is some confusion observed in conversation, but the patient is able to move all
extremities equally. Patient has a very similar history of presentations. Patient's boyfriend states that they were doing well last night but today she was altered. Patient is unable to contribute to her own history.
SOCIAL HISTORY
The patient denies drug use. Alcohol consumption was mentioned but not elaborated upon further.
REVIEW OF SYSTEMS
- General: No illness or pain reported
- Cardiovascular: Blood pressure 138/85 mmHg
- Neurological: Some confusion noted in conversation
PHYSICAL EXAM
General: Alert, confused
Skin: Warm, well-perfused.
Head: Normocephalic, atraumatic.
Neck: Supple, trachea midline.
Eye, Ears, Nose, Mouth and Throat: Oral mucosa moist.
Cardiovascular: Normal peripheral perfusion, no edema, blood pressure 138/85 mmHg.
Respiratory: No respiratory distress.
Gastrointestinal: Abdomen nondistended.
Back: Normal range of motion, normal alignment.
Musculoskeletal: Normal Range of Motion, normal strength.
Neurological: Alert, exhibits mild confusion, moves all extremities equally, cranial nerves intact.
PROBLEM LIST
- Acute confusion
DIFFERENTIAL DIAGNOSIS
The Differential Diagnosis includes, in no particular order, and is not limited to:
- Delirium
- Dementia
- Transient ischemic attack
- Urinary tract infection
- Electrolyte imbalance
- Hypoglycemia
- Medication side effects
- Alcohol-related confusion
- Neurological event (e.g., stroke)
- Dehydration
Disposition:
SUMMARY OF ENCOUNTER
The patient, a female, presented to the emergency department with confusion and changes in mentation. She has a history of multiple similar admissions in the past, possibly due to drug overdose, alcohol use, or hypertensive encephalopathy. Her
previous episodes have been attributed to various causes including toxin-exposure and seizures. During this visit, she was awake and able to answer questions but exhibited confusion. The patient denies alcohol use. Her urine analysis showed positive
nitrite and 3+ leukocyte esterase, and she has a history of Klebsiella and Proteus in her urine, indicating a urinary tract infection. Based on these findings and her altered mental status, she will be covered with antibiotics and admitted for
further management. Given her history, the decision was made to hold off on further CT imaging of her head, as she has undergone multiple head CTs over the years and recently had a brain MRI on August 02.
DISPOSITION
Admit
ASSESSMENT
The patient is presenting with acute confusion and a urinary tract infection. The confusion may be multifactorial, including possible drug overdose, hypertensive encephalopathy, or infection-related delirium.
PLAN
The patient will be admitted to the hospital for further evaluation and management. Antibiotic therapy will be initiated for the urinary tract infection. Continuous monitoring of her mental status and vital signs will be performed to assess for any
changes or improvements. The plan will also include reviewing her medication and alcohol use history for further insights into potential causes of her altered mental state.
INDEPENDENT REVIEW OF LABS AND INTERPRETATION OF TESTS
My independent review of the urinalysis indicates a urinary tract infection, as evidenced by positive nitrite and 3+ leukocyte esterase.
MEDICAL DECISION MAKING
- Number and Complexity of Problems Addressed: Acute confusion, urinary tract infection, possible drug use, and hypertensive encephalopathy.
- Data:
Category 1: The decision was made to hold off on CT imaging due to a recent brain MRI on August 02 and multiple prior head CTs.
Category 2: Independent interpretation of previous imaging studies and urinalysis.
- Risk: Admission to the hospital for comprehensive care of acute confusion and urinary tract infection.
DIAGNOSIS
- Acute confusion (R41.0)
- Urinary tract infection (N39.0)
Past History
Past History
ED Past Medical History: Hypothyroidism, Psychiatric (depression) and Other (overdose, recovering alcoholic, alcohol abuse, degenerative joint disease)
ED Past Surgical History: Appendectomy and Orthopedic (Cervical fusion over 20 years ago)
Social History
Tobacco: Vaping
Alcohol: Chronic alcoholic
Drug: Former user
Personal: Partner
Living: with roommate
Employment: Disabled
Family History
Family History: Other (Reviewed and Noncontributory)
Phy Exam
Physical Exam
Physical Exam:
.
Course
Orders/Labs/Results
Orders:
Orders
08/18/25 12:25
Acetaminophen Urgent
Alcohol Urgent
Complete Blood Count/With Diff Urgent
Comprehensive Metabolic Panel Urgent
Salicylate Urgent
08/18/25 13:17
Fentanyl, Urine Urgent
Urinalysis Reflex To Culture Urgent
Date Specimen was Collected: 08/18/25
Time Specimen was Collected: 13:15
Urine Drug Abuse Screen Urgent
Date Specimen was Collected: 08/18/25
Time Specimen was Collected: 13:15
Urine Microscopic Reflex Cult Urgent
Urine Culture Urgent
KARINE Source: U
Specimen Description:
Date Specimen was Collected: 08/18/25
Time Specimen was Collected: 13:15
08/18/25 14:20
Electrocardiogram (*1) Urgent
Reason for Study: Other
Other Reason for Exam: change in ms
EKG- Treatment ONCE
Abnormal Lab Results
08/18/25 08/18/25
12:25 13:17
Absolute Neuts (auto) 8.8 H 10^3/uL
(1.4-6.5)
Absolute Lymphs (auto) 1.0 L 10^3/uL
(1.2-3.4)
Neutrophils % 83.2 H %
(42.2-75.2)
Lymphocytes % 9.1 L %
(20.5-51.1)
Chloride 110 H mmol/L
(98-107)
Glucose 110 H mg/dl
(70-99)
Urine Nitrite (Reflex) Positive A
(Negative)
Leukocyte Esterase Rfl 3+ A
(Negative)
Urine Bacteria (Reflex) Many A
(Negative)
Salicylates < 1.0 L mg/dl
(2.0-20.0)
Ur Buprenorphine Positive H
(Negative)
Acetaminophen < 10 L ug/ml
(10-30)
08/18/25 12:25
08/18/25 12:25
Vital Signs
Initial and Last Documented VS:
Initial Vital Signs
Pulse Resp Pulse Ox
64 12 100
08/18/25 11:01 08/18/25 11:01 08/18/25 11:01
Last Documented Vital Signs
Temp Pulse Resp BP Pulse Ox
98.0 F 90 11 158/105 99
08/18/25 11:02 08/18/25 14:00 08/18/25 14:00 08/18/25 13:58 08/18/25 14:00
*Pulse Oximetry
SaO2: 99
Oxygen Mode of Delivery: Room air
Patient hypoxic: no
*Critical Care Note
Total Time (30-74mins, 75-104mins- exclusive of procedures): Not Applicable
ED Attending Note
-
Portions of this chart may have been created with voice recognition software.� Occasional wrong word or��sound alike� substitutions may have occurred due to the inherent limitations of voice recognition software.
Discharge Plan
Departure
Patient Disposition: Admit
Date of Disposition: 08/18/25
Time of Disposition: 14:32
Admit to: Telemetry
Presentation/result/management discussed w/ accepting MD/DO: Hospitalist
Discharge Problem:
Acute alteration in mental status, UTI (urinary tract infection)
Prescriptions:
No Action
buprenorphine-naloxone 8-2 mg Film
2 film BUCCAL DAILY
Patient Comments:
pdmp cook pickled meat on 04/21/25 #60 for 30 days
trazodone 100 mg Tablet
150 mg PO HS
Patient Comments:
patient should be taking 100mg hs but is filling 100mg and 150mg
aripiprazole 10 mg tablet
20 mg PO DAILY
amlodipine 5 mg tablet
5 mg PO BID
metoprolol tartrate 25 mg tablet
25 mg PO BID
levothyroxine 125 mcg Tablet
125 mcg PO DAILY @ 0600 Qty: 60 0RF
lacosamide [Vimpat] 100 mg tablet
100 mg PO BID Qty: 60 0RF
Referrals:
UNKNOWN - PT DOES,NOT KNOW [Family Provider]
Interventions
Interventions:
*Risk Screen - Suicide Last Done: 08/18/25 11:02
*General Assessment Last Done: 08/18/25 11:02
*Neglect/Abuse Screening Last Done: 08/18/25 11:02
*ED COVID-19 Vaccine History Last Done: 08/18/25 11:02
*ED Influenza Vaccine History Last Done: 08/18/25 11:02
ED- Pulmonary Assessment Last Done: 08/18/25 11:02
ED-Psychological Assessment Last Done: 08/18/25 11:02
ED- Neurological Assessment Last Done: 08/18/25 11:02
ED- Cardiac Assessment Last Done: 08/18/25 11:02
Discharge Date and Time
Print Language: KAZAKH
--- NOTE | 2025-08-18 14:39 | HPS.HSE ---
Addendum entered and electronically signed by Александр Chino MD 08/18/25 15:50:
This is an addendum to the H&P written by Carmita Melchor on 08/18/2025. �Patient seen and examined independently with LUBRICATING ENGINEER.
64-year-old female past medical history of likely baseline dementia, substance use disorder, seizure disorder, hypothyroidism, hypertension, first-degree AV block, hepatitis C, cervical spine fusion, major depressive disorder, mood disorder,
presenting with change in mental status and was in normal state of health yesterday. �No fever. �Did have urinary incontinence this morning.
She has had multiple previous admissions for altered mental status. �Most recently 2 weeks ago for unresponsiveness attributed to acute metabolic encephalopathy/hypertensive emergency. �She was seen by neurology and her seizure medications were
changed from Keppra to lacosamide and blood pressure medications were adjusted although neurology did not feel this was a seizure. �She had a similar episode in April. �Patient usually improves in 1 to 2 days of hospitalization.�
She did not picked up script for Vimpat and has been continuing to take Keppra.�
Vital signs unremarkable. �On examination patient repeating that she is not taking any drugs. Appears dry. She knows that she is in the hospital
Labs unremarkable. �Urinalysis shows 6-10 WBC, +2 leukocyte esterase, positive nitrates.
UDS positive for buprenorphine which patient normally takes. �Salicylates and Tylenol level negative. �Alcohol level negative.
Patient with recurrent acute metabolic encephalopathy seems consistent with acute metabolic encephalopathy secondary to polypharmacy/possible hypertensive encephalopathy versus seizure. �Ammonia level pending. �Patient given ceftriaxone for UTI
although urinalysis not consistent with UTI but did have urinary incontinence today so will continue. �Check keppra, lacosamide level. �Gentle IV fluids as needed labetalol. �Hold psychotropic medications, change Keppra to vimpat. �Check TSH.
Original Note:
Family Physician
-
Family Physician: NOT KNOW UNKNOWN - PT DOES
Chief Complaint
-
change in MS
History of Present Illness
64-year-old with past medical history for hypothyroidism, depression, alcohol and drug abuse presented to us with change in mental status since last night. her Boyfriend noted her confused since last night. she was repeatedly saying things over and
over. denied fever, chills,chest pain, sob. denied QUIROZ, dizzy or syncope. denied abdominal pain, n,v,d. denied dysuria or hematuria.
as per Boyfriend she woke up incoherent today morning. she was incontinent of urine. not sure if she was doubling up or missing the medication. boyfriend not worried about her abusing drugs or alcohol.
even though she was discharged on Vimpat, she never picked up Vimpat she is taking Keppra.
upon my assessment patient is selective answering question and repeating same things over and over
Patient received a dose of ceftriaxone in ER. Admitting for further management
Medical History
Past Medical History
Past Medical History: Reports Other
Additional Past Medical History:
IV drug abuse, chronic pain, hepatitis C, hypothyroidism, alcoholism
Past Surgical History: Reports Other
Additional Past Surgical History:
Cervical spinal fusion, appendectomy
Social History
Tobacco: Former Smoker
Alcohol: Former
Drug: Former User
Living: With Family
Family History
Family History: Not pertinent
Allergies / Home Medications
Allergies reflects when Allergies were last updated in [employer].
Home Medications with original date entered in [employer]
Allergy/Medication List:
Allergies
Allergy/AdvReac Type Severity Reaction Status Date / Time
No Known Allergies Allergy Verified 05/08/25 22:05
Home Medications
buprenorphine 8 mg-naloxone 2 mg sublingual film 2 film buccal DAILY OUD 08/15/24
aripiprazole 10 mg tablet 20 mg PO DAILY Mental Health/Anxiety 05/09/25
amlodipine 5 mg tablet 5 mg PO BID Blood Pressure 08/01/25
metoprolol tartrate 25 mg tablet 25 mg PO BID Blood Pressure 08/01/25
levothyroxine 125 mcg tablet 125 mcg PO DAILY @ 0600 #60 tabs 08/03/25
trazodone 150 mg tablet 150 mg PO HS 08/18/25
Review of Systems
-
Constitutional: Reports No Symptoms
EENT: Reports No Symptoms
Respiratory: Reports No Symptoms
Cardiac: Reports No Symptoms
Abdomen/GI: Reports No Symptoms
: Reports No Symptoms
Musculoskeletal: Reports No Symptoms
Skin: Reports No Symptoms
Neurological: Reports No Symptoms
Endocrine: Reports No Symptoms
Hematologic/Lymphatic: Reports No Symptoms
Psych: Reports No Symptoms
Physical Exam
Vital Signs
Vital Signs
Temp Pulse Resp BP Pulse Ox
98.0 F 90 11 158/105 99
08/18/25 11:02 08/18/25 14:00 08/18/25 14:00 08/18/25 13:58 08/18/25 14:33
Physical Exam
General: Well Developed, Well Nourished and No Apparent Distress
HEENT: NormoCephalic, Moist mucous membranes and Atraumatic
Respiratory: Clear
Cardiac: S1/S2 and Regular Rhythm; No Murmur or Rub
GI: Soft, Non Tender, Non Distended and Normal Bowel Sounds; No Organomegaly
Rectal: Deferred by Provider
Musculoskeletal: No Clubbing, No Cyanosis and No Edema
Skin: No Rash
Neuro: Nonfocal/grossly intact
Psych: Calm and Confused
Laboratory Results
-
08/18/25 12:25
08/18/25 12:25
Laboratory Results
Total Bilirubin 0.5 mg/dl (0.2-1.3) 08/18/25 12:25
AST 20 U/L (14-36) 08/18/25 12:25
ALT 14 U/L (0-35) 08/18/25 12:25
Alkaline Phosphatase 76 U/L (38-126) 08/18/25 12:25
Data Reviewed
-
Lab Data: Labs Reviewed by me
Impression/Plan
-
#metabolic encephalopathy unclear cause likely post ictal
#possible seizure
-UA negative
-UDS positive for buprenorphine only
-concern for polypharmacy vs psychotic
-ammonia level pending
-received a dose of ceftriaxone in ER
-will order Vimpat, hold Keppra
#essential HTN
-Norvasc continued with hold parameter
#Hx of hepC
#Hx of cervical spine fusion
#chronic neck stiffness
#MDD
#Mood d/o
-hold trazodone and buprenorphine
-Abilify continued
#GERD
-PPI continued
#Hypothyroidism
-Synthroid continued
-obtain TSH level
DVT ppx Lovenox
Full code
[2025-08-18] MEDS: ROCEPHIN 2000 MG IV (14:50)
--- NOTE | 2025-08-18 15:03 | PHANOTE ---
Addendum entered by Oneyda Lindsey 08/18/25 15:17:
siri also mention that patient refused to start Vimpat and will only take keppra
Addendum entered by Oneyda Lindsey 08/18/25 15:15:
called [facility] to speak to case brenna pettit, transferred twice but unable to get a hold of her nor did anyone know who she was. called siri back and he had a list from when she was out to the house last and put that in, no ecw
Original Note:
med rec note- called family on file, who gave me a list for patient he was not sure if patient was taking what was on it. called patient visiting patient case manager nurse at [phone] from [facility].
--- NOTE | 2025-08-18 15:16 | EDCM ---
CM reviewed chart.pt recently admitted 07/31 to 08/03 for similar symptoms.
Lives with her SO Darnell in first floor apartment, [address].
Independent in ADLs, personal care and ambulation at baseline, has RW and SPC, does not routinely use. Drives.
Was seen by RICKIE last admission, followed by [facility].
Current with [facility].
PCP: Nitesh Hansen
Pharmacy: [facility]
CM will continue to follow for all discharge planning needs.
--- NOTE | 2025-08-18 17:30 | PTCARENOTE ---
Pt transferred from ED. Pt AAOX2/3, BP elevated, PRN given. Pt repeating words and screaming out. Bed alarm applied. Pt oriented to unit, call french within reach. Will continue with current plan.
[2025-08-18] MEDS: LOVENOX 40 MG SC (18:02)
[2025-08-18] MEDS: NSS 1000 IV (18:02)
[2025-08-18] MEDS: TRANDATE 10 MG IV (18:03)
--- NOTE | 2025-08-18 18:23 | PTCARENOTE ---
Rn public relations coordinator- Patient inconsistently answering admission assessment questions. Patient repeating questions when asked. Called to emergency contact in the chart, who is listed as her SO. as per Darnell, who states is her roommate and not her SO
she was normal yesterday. Darnell was able to answer some questions, but did not know all of patient's pmh. Darnell states that patient has 2 children that she is astranged from, but would like for someone at the hospital to get in touch with the
patient's daughter and /or son that he states are local and he would provide the numbers for. Relayed this information to Kira who is primary nurse.
[2025-08-18 19:14] LABS: Ammonia < 9 umol/L (9-30)
[2025-08-18] MEDS: VIMPAT 100 MG PO (21:45)
[2025-08-18] MEDS: PEPCID 40 MG PO (21:46)
[2025-08-18] MEDS: NORVASC 5 MG PO (21:46)
[2025-08-18] MEDS: VALIUM 2 MG PO (23:11)
[2025-08-18] MEDS: TORADOL 15 MG IV (23:11)
--- NOTE | 2025-08-19 01:58 | W.PN.UPDATE ---
Update Note
Progress Note Update
Per nursing patient has been calling out and repeating words. Upon assessment patient appears anxious, repeating words 'pain' behavior similar to documentation when she was first admitted. Patient verbalizes wanting 'percocet'.
Rx Toradol and Valium
[2025-08-19 03:30] VITALS: BP 158/92
[2025-08-19] MEDS: SYNTHROID 125 MCG PO (05:35)
[2025-08-19 07:00] VITALS: BP 157/97
[2025-08-19] MEDS: VIMPAT 100 MG PO ×2 (09:30→21:11)
[2025-08-19] MEDS: ABILIFY 20 MG PO (09:30)
[2025-08-19] MEDS: VITAMIN B1 100 MG PO (09:30)
[2025-08-19] MEDS: B COMPLEX w/VITAMIN C 1 CAPLET PO (09:30)
[2025-08-19] MEDS: NORVASC 5 MG PO ×2 (09:30→21:06)
[2025-08-19] MEDS: NSS 1000 IV (11:18)
--- NOTE | 2025-08-19 12:57 | CM ---
Addendum entered by Susi Aceves 08/19/25 15:55:
Patient is agreeable to [facility] visiting nurses.
[place]
[phone]

Original Note:
Patient admitted under OBS. OBS letter signed by patient. Plan is to home no needs, malathi states she does not need [facility] nursing at discharge.
Plan; Home no needs.
--- NOTE | 2025-08-19 14:36 | W.PN.HOSP.TC ---
Addendum entered and electronically signed by Michael Terry MD 08/19/25 15:08:
Spoke to patient's boyfriend who states that visiting nurse notes that ' client did not want to fill or take Vimpat.'
Visiting nurse helps with pillboxes
Boyfriend spoke to her on the phone and he feels she is mostly back to baseline he is here to see her today before he would agree for discharge
Discussed with neurology who recommended to restart and switch Keppra to Vimpat. 1 dose of Keppra today and 1 dose of Keppra tomorrow and then stop.
I have sent a prescription for Vimpat to patient's pharmacy, boyfriend to draft roller picker
Once he is here and feels that the patient is back to baseline we will discharge.
She will need continued follow-up as outpatient with neurology
Original Note:
Today's Communication/Plan
-
Neurology evaluation
Vimpat and Keppra levels were sent out-will take days to be back not sure if this will help guide any therapy.
Patient is back to baseline
Assessment / Plan
Assessment / Plan
64-year-old with change in patient was confused. Has a things repeatedly over and over. She was also incontinent of urine and the boyfriend woke her up. Patient was supposed to take Vimpat but never picked up and is taking Keppra.
MRI of the brain-08/02/2024-no acute abnormalities. Chronic microvascular ischemic changes. Mild to moderate cortical atrophy
EKG-sinus rhythm, possible left atrial lodgment
CVS: S1-S2 normal
Chest: CTA B/L
Abdomen: Soft, NT , Bowel sounds present
Extremities: No edema
MFTS: Non focal exam
# Mental status change
She appears to be back to baseline now
Possibly seizures/postictal state
Other consideration includes medicines
Urine drug screen with buprenorphine only
Last admission Keppra was changed to Vimpat, but patient never picked up the prescription and continue to take Keppra
Concern for seizures-neurology consulted
# Recent admission here and discharged on 08/03/2025-managed for acute metabolic encephalopathy with likely baseline dementia per neurology assessment and hypertensive emergency. During that admission Keppra was changed to lacosamide. Patient
continued to take Keppra
# Hypertension-continue Norvasc, metoprolol
# Hypothyroidism-continue levothyroxine. Repeat TFTs as outpatient in 6 weeks
# Abnormal urinalysis-patient denies any symptoms of UTI. Hold off on antibiotics
# Mood disorder-trazodone and buprenorphine on hold. Abilify ordered
# History of cervical spine fusion with chronic neck stiffness-chronic pain on baclofen, Skelaxin and Celebrex as outpatient
# History of coronary artery disease
# Diet-controlled diabetes-check hemoglobin T3s-dbosg on
# History of hepatitis C
# Active smoker/vaping-cessation counseling
# Osteoarthritis/DJD/osteoporosis
# History of MRSA
# DVT prophylaxis-Lovenox
# Full code
Part of this note was created using voice recognition system. Occasional wrong word or��sound alike� substitutions may have inadvertently occurred due to the inherent limitations of voice recognition software. If noted kindly bring it to my
attention for correction.
Anticipated Discharge: Within 24 hours
Subjective/Interval History
-
Date of Service: August 19, 2025
Objective Data
-
Vital Signs:
Vital Signs
Temp Pulse Resp BP Pulse Ox
97.8 F 80 17 157/97 96
08/19/25 07:00 08/19/25 09:30 08/19/25 07:00 08/19/25 09:30 08/19/25 07:00
I&O
08/18/25 08/19/25 08/20/25
06:59 06:59 06:59
Intake Total 960 / 960
Balance 960 / 960
[2025-08-19 15:00] VITALS: BP 136/87
[2025-08-19] MEDS: KEPPRA 500 MG PO (15:15)
[2025-08-19 15:25] LABS: COVID-19 Antigen Negative (Negative)
[2025-08-19] MEDS: LOVENOX 40 MG SC (17:23)
--- NOTE | 2025-08-19 18:07 | CON.NEURO4 ---
Consultation - Neurology 4
-
CONSULTING PHYSICIAN: Ricardo Romo MD
REFERRING PHYSICIAN: Michael Terry
DICTATED BY: Ricardo Romo MD
DATE/TIME OF REQUEST: 08/19/2025
DATE/TIME OF CONSULTATION: 08/19/2025
Reason for Consultation: Altered mental status.
Assessment and Plan:
The patient is a 64 years old female who was brought in for confusion because her boyfriend thought that she appeared to be confused. The patient was apparently supposed to be on Vimpat but she never took it and was taking Keppra at home. The plan
is to keep the patient on Vimpat and stop Keppra.
I had a detailed discussion with the patient regarding assessment and the plan and she verbalized understanding of our discussion. The patient's case was also discussed with Dr. Michael Farias. The patient will follow-up with neurology in the clinic
in about 2 weeks after discharge.
History of Present Illness:
The patient is a 64 years old female who was brought in for confusion because her boyfriend thought that she appeared to be confused. The patient was apparently supposed to be on Vimpat but she never took it and was taking Keppra at home. The
history was obtained from the patient's medical records. At this time, the patient's mental status appears to be back to her baseline. The patient's boyfriend spoke to her on the phone and he feels that she is mostly back to her baseline. There
is no history of any focal weakness of arms and legs and her speech appears to be clear.
Past Medical History: Hypertension, hypothyroidism, mood disorder, coronary artery disease.
Review of Symptoms:
The patient denies history of headache, dizziness, chest pain, shortness of breath, fever, chills, nausea, vomiting and diarrhea.
Neurologic Examination:
The patient is awake, alert and oriented x 3. She is able to follow commands and answer questions appropriately. There is no aphasia or dysarthria. The cranial nerves II to XII are grossly intact. The motor strength is about 5/55 bilaterally in
the upper and lower extremities. The sensations are grossly intact bilaterally and there was no limb ataxia seen.
Total Time Spent with Patient (in minutes): 40
Vital Signs and Labs
-
Vital Signs and Labs:
Vital Signs
Temp Pulse Resp BP Pulse Ox
36.7 C 78 16 136/87 97
08/19/25 15:00 08/19/25 15:00 08/19/25 15:00 08/19/25 15:00 08/19/25 15:00
Lab Results
08/18/25 12:25
08/18/25 12:25
Sodium 142 mmol/L (135-145) 08/18/25 12:25
Potassium 4.5 mmol/L (3.5-5.1) 08/18/25 12:25
BUN 12 mg/dl (7-17) 08/18/25 12:25
Glucose 110 mg/dl (70-99) H 08/18/25 12:25
Calcium 10.1 mg/dl (8.4-10.2) 08/18/25 12:25
Ur Buprenorphine Positive (Negative) H 08/18/25 13:17
Medications
-
Active Medications
Generic Name Dose Route Start Last Admin
Trade Name Freq PRN Reason Stop Dose Admin
Acetaminophen 650 mg 08/18/25 16:52
Acetaminophen 325 Mg Tablet PO 09/15/25 16:51
Q4HPRN PRN
mild pain/QUIROZ/temp> 100.4F
Amlodipine Besylate 5 mg 08/18/25 20:00 08/19/25 09:30
Amlodipine 5 Mg Tablet PO 09/15/25 19:59 5 mg
BID JORDI Administration
Aripiprazole 20 mg 08/19/25 08:00 08/19/25 09:30
Aripiprazole 10 Mg Tablet PO 09/16/25 07:59 20 mg
DAILY JORDI Administration
Bisacodyl 10 mg 08/18/25 16:52
Bisacodyl 10 Mg Rectal Suppository RECTAL 09/15/25 16:51
[id number] PRN
constipation
Enoxaparin Sodium 40 mg 08/18/25 18:00 08/19/25 17:23
Enoxaparin Sodium 40 Mg/0.4 Ml Syringe SC 09/15/25 17:59 40 mg
QPM JORDI Administration
Famotidine 40 mg 08/18/25 22:00 08/18/25 21:46
Famotidine 20 Mg Tablet PO 09/15/25 21:59 40 mg
HS JORDI Administration
Labetalol HCl 10 mg 08/18/25 16:52 08/18/25 18:03
Labetalol Hcl 5 Mg/1 Ml (20 Mg/4 Ml) Injection IV 09/15/25 16:51 10 mg
Q6HPRN PRN Administration
hypertension
Lacosamide 100 mg 08/18/25 20:00 08/19/25 09:30
Lacosamide (Vimpat) 100 Mg Tablet PO 09/15/25 19:59 100 mg
BID JORDI Administration
Levetiracetam 500 mg 08/20/25 15:00
Levetiracetam 500 Mg Regular Release Tablet PO 08/20/25 15:01
ONCE ONE
Levothyroxine Sodium 125 mcg 08/19/25 06:00 08/19/25 05:35
Levothyroxine 125 Mcg Tablet PO 09/16/25 05:59 125 mcg
DAILY@0600 JORDI Administration
Polyethylene Glycol 17 grams 08/18/25 16:52
Polyethylene Glycol Powder 17 Grams Packet PO 09/15/25 16:51
DAILYPRN PRN
constipation
Senna/Docusate Sodium 1 tablet 08/18/25 16:52
Docusate W/Senna (Lucy-Colace) Tablet PO 09/15/25 16:51
BIDPRN PRN
constipation
Sodium Chloride 0 flush 08/18/25 18:00
Sodium Chloride 0.9% (Flush) Syringe IV 09/15/25 17:59
PER PROTOCOL JORDI
Thiamine HCl 100 mg 08/19/25 08:00 08/19/25 09:30
Thiamine 100 Mg Tablet PO 09/16/25 07:59 100 mg
DAILY JORDI Administration
Vitamin B Complex/Vitamin C 1 caplet 08/19/25 08:00 08/19/25 09:30
Vitamin B Complex With Vitamin C Caplet PO 09/16/25 07:59 1 caplet
DAILY JORDI Administration
Home Medications
�Medication �Instructions �Recorded
buprenorphine 8 mg-naloxone 2 mg 2 film buccal DAILY OUD 08/15/24
sublingual film
aripiprazole 10 mg tablet 20 mg PO DAILY Mental 05/09/25
Health/Anxiety
amlodipine 5 mg tablet 5 mg PO BID Blood Pressure 08/01/25
metoprolol tartrate 25 mg tablet 25 mg PO BIDPRN PRN blood pressure 08/01/25
dicyclomine 20 mg tablet 20 mg PO Q8HPRN PRN spasms 08/18/25
vitamin B complex 1 tab PO DAILY 08/18/25
celecoxib 200 mg capsule (Celebrex) 200 mg PO BID pain #0 caps 08/19/25
famotidine 40 mg tablet (Pepcid) 40 mg PO HS Gastrointestinal issue 08/19/25
#0 tabs
lacosamide 100 mg tablet 100 mg PO BID Seizures #60 tabs 08/19/25
levetiracetam 500 mg tablet 500 mg PO ONCE Seizures #0 tabs 08/19/25
(Keppra)
levothyroxine 125 mcg tablet 125 mcg PO DAILY Thyroid #0 tabs 08/19/25
thiamine HCl (vitamin B1) 100 mg 100 mg PO DAILY Supplement #0 tabs 08/19/25
tablet
trazodone 150 mg tablet 150 mg PO HS Sleep #0 tabs 08/19/25
[2025-08-19] MEDS: PEPCID 40 MG PO (21:06)
[2025-08-19] MEDS: MELATONIN 5 MG PO (22:29)
[2025-08-19 23:00] VITALS: BP 127/84
[2025-08-20] MEDS: SYNTHROID 125 MCG PO (05:45)
[2025-08-20 07:00] VITALS: BP 158/89
[2025-08-20] MEDS: VITAMIN B1 100 MG PO (08:22)
[2025-08-20] MEDS: ABILIFY 20 MG PO (08:22)
[2025-08-20] MEDS: B COMPLEX w/VITAMIN C 1 CAPLET PO (08:22)
[2025-08-20] MEDS: VIMPAT 100 MG PO (08:22)
[2025-08-20] MEDS: NORVASC 5 MG PO (08:22)
--- NOTE | 2025-08-20 11:11 | W.PN.HOSP.TC ---
Today's Communication/Plan
-
Discharge
Assessment / Plan
Assessment / Plan
64-year-old with change in patient was confused. Has a things repeatedly over and over. She was also incontinent of urine and the boyfriend woke her up. Patient was supposed to take Vimpat but never picked up and is taking Keppra.
MRI of the brain-08/02/2024-no acute abnormalities. Chronic microvascular ischemic changes. Mild to moderate cortical atrophy
EKG-sinus rhythm, possible left atrial lodgment
CVS: S1-S2 normal
Chest: CTA B/L
Abdomen: Soft, NT , Bowel sounds present
Extremities: No edema
REAL ESTATE DIRECTOR: Non focal exam
# Mental status change
She appears to be back to baseline now
Possibly seizures/postictal state
Polypharmacy also is a consideration
Baclofen and Skelaxin stopped
Urine drug screen with buprenorphine only-resumed today since patient is back to baseline
Patient never took Vimpat which was prescribed last admission and continue to take Keppra which is again discontinued this admission and restarted on Vimpat
Concern for seizures-neurology consulted
# Recent admission here and discharged on 08/03/2025-managed for acute metabolic encephalopathy with likely baseline dementia per neurology assessment and hypertensive emergency. During that admission Keppra was changed to lacosamide. Patient
continued to take Keppra
# Hypertension-continue Norvasc, metoprolol as needed
# Hypothyroidism-continue levothyroxine. Repeat TFTs as outpatient in 6 weeks
# Abnormal urinalysis-patient denies any symptoms of UTI. Hold off on antibiotics
# Mood disorder-trazodone and buprenorphine restarted. Abilify ordered
# History of cervical spine fusion with chronic neck stiffness-chronic pain on baclofen, Skelaxin and Celebrex as outpatient. Discontinued Skelaxin and baclofen
# History of coronary artery disease
# Diet-controlled diabetes-check hemoglobin [id number] on still pending
# History of hepatitis C
# Active smoker/vaping-cessation counseling
# Osteoarthritis/DJD/osteoporosis
# History of MRSA
# DVT prophylaxis-Lovenox
# Full code
Discussed with boyfriend on the phone
Discussed with nursing
Called patient's pharmacy and spoke to Marcello. Patient is not eligible to refill the prescription as she picked it up on 08/03/2025. Patient cannot remember where she reported nor was she taking it. Boyfriend could not find it at home either.
Pharmacy rent by [employer] and patient will need to pay $23 before insurance would pay for it. I also requested pharmacy to stop Skelaxin and baclofen from being on automatic refills. Discussed about stopping it.
Patient is back to normal and is crying and wants to go home. Will arrange visiting nurses to oversee medicines.
She will need to continue to follow-up with neurology as well as with her PCP
Total discharge time more than 40 minutes
Part of this note was created using voice recognition system. Occasional wrong word or��sound alike� substitutions may have inadvertently occurred due to the inherent limitations of voice recognition software. If noted kindly bring it to my
attention for correction.
Anticipated Discharge: Today
Subjective/Interval History
-
Date of Service: August 20, 2025
Objective Data
-
Vital Signs:
Vital Signs
Temp Pulse Resp BP Pulse Ox
97.8 F 67 16 158/89 99
08/20/25 07:00 08/20/25 08:22 08/20/25 07:00 08/20/25 08:22 08/20/25 07:00
I&O
08/19/25 08/20/25 08/21/25
06:59 06:59 06:59
Intake Total 960 / 960 1440 / 1440
Balance 960 / 960 1440 / 1440
--- NOTE | 2025-08-20 11:32 | W.DS.TRANS ---
Addendum entered and electronically signed by Michael Terry MD 08/20/25 13:49:
Dictation- [id number]
Original Note:
DC Summary - [employer]
-
Discharge Instructions:
Discharge Diagnosis/Procedures Mental status change
Seizures
Hypertension
Hypothyroidism
Mood disorder
Chronic pain
History of hepatitis C
Diet 2 Gram Sodium
Activity As tolerated
Driving Restrictions No driving
Blood Work Thyroid function test in 6 weeks
Other Services VN
Instructions:
Stand-Alone Forms:
Changes to Home Medications: Yes
Discharge Medications:
DC Medications w/original date entered in [employer]
buprenorphine 8 mg-naloxone 2 mg sublingual film 2 film buccal DAILY OUD 08/15/24
aripiprazole 10 mg tablet 20 mg PO DAILY Mental Health/Anxiety 05/09/25
amlodipine 5 mg tablet 5 mg PO BID Blood Pressure 08/01/25
metoprolol tartrate 25 mg tablet 25 mg PO BIDPRN PRN blood pressure 08/01/25
dicyclomine 20 mg tablet 20 mg PO Q8HPRN PRN spasms 08/18/25
vitamin B complex 1 tab PO DAILY 08/18/25
celecoxib 200 mg capsule (Celebrex) 200 mg PO BID pain #0 caps 08/19/25
famotidine 40 mg tablet (Pepcid) 40 mg PO HS Gastrointestinal issue #0 tabs 08/19/25
lacosamide 100 mg tablet 100 mg PO BID Seizures #60 tabs 08/19/25
levothyroxine 125 mcg tablet 125 mcg PO DAILY Thyroid #0 tabs 08/19/25
thiamine HCl (vitamin B1) 100 mg tablet 100 mg PO DAILY Supplement #0 tabs 08/19/25
trazodone 150 mg tablet 150 mg PO HS Sleep #0 tabs 08/19/25
Home Medication Changes
Baclofen, Keppra, Skelaxin stopped
Vimpat is new
Pending Results: Yes (Hemoglobin A1c, Vimpat level, Keppra level)
[2025-08-20] MEDS: KEPPRA 500 MG PO (11:41)
[2025-08-20] MEDS: SUBUTEX 16 MG SL (11:42)
[2025-08-20 12:09] LABS: Glycohemoglobin (HgbA1c) 5.5 % (4.0-5.6)
--- NOTE | 2025-08-20 14:03 | CM ---
Patient is for discharge to home today with [facility] visiting nurses.
Plan; Home with [facility] care.
[facility]
[phone]
[2025-08-20 14:05] VITALS: BP 136/85
== END 2025-08-20 16:15 | disposition home health service (06) ==
LOC: 4 WEST ACU 15:59
PROVIDERS: Registered Nurse; ADMITTING PHYSICIAN Hospitalist; ATTENDING PHYSICIAN Hospitalist; CONSULT PHYSICIAN Psychiatry & Neurology Neurology; EMERGENCY PHYSICIAN Emergency Medicine
DX: R41.82 Altered mental status, unspecified (principal); R56.9 Unspecified convulsions; I10 Essential (primary) hypertension; E03.9 Hypothyroidism, unspecified; F32.9 Major depressive disorder, single episode, unspecified; M19.90 Unspecified osteoarthritis, unspecified site; R32 Unspecified urinary incontinence; G89.29 Other chronic pain; M43.6 Torticollis; K21.9 Gastro-esophageal reflux disease without esophagitis; R94.31 Abnormal electrocardiogram [ECG] [EKG]; I67.82 Cerebral ischemia; G31.9 Degenerative disease of nervous system, unspecified; I25.10 Atherosclerotic heart disease of native coronary artery without angina pectoris; E11.9 Type 2 diabetes mellitus without complications; F17.290 Nicotine dependence, other tobacco product, uncomplicated; M81.0 Age-related osteoporosis without current pathological fracture; Z79.890 Hormone replacement therapy; Z87.440 Personal history of urinary (tract) infections; Z98.1 Arthrodesis status; Z90.49 Acquired absence of other specified parts of digestive tract; Z79.891 Long term (current) use of opiate analgesic; Z86.14 Personal history of Methicillin resistant Staphylococcus aureus infection; Z86.19 Personal history of other infectious and parasitic diseases; Z11.52 Encounter for screening for COVID-19
CPT/HCPCS: 80053; 80143; 80177; 80179; 80306; 80307; 81003; 81015; 82077; 82140; 83036; 84439; 84443; 85025; 87070; 87077; 87086; 87147; 87186; 87811; 93005; 96374; 99284; 99406; G0378